=== PATIENT | female | born 1935 | race Asian ===

== ENCOUNTER 2017-10-27 22:08 | Inpatient (IN) | payer OTHER ==
--- NOTE | 2017-10-27 22:58 | PDOC ---
History of Present Illness - General History Source: Patient, Family Exam Limitations: No Limitations - History of Present Illness Initial Comments: 10/27/17 23:24 The patient is an 82 year old female, with a significant past medical history of hiatal hernia, anemia, hypertension, hypercholesterolemia, hypothyroidism and GERD, who presents to the ED complaining of multiple episodes of black stool diarrhea approx. 9 hours ago. As per patients son, the patient was in the restroom from approx. 2pm-3pm with multiple episodes of black diarrhea. He reports since then the patient has been reporting lower abdominal pain. He reports giving the patient steffen divya for the stomach pain within minimal relief. As per patients son, the patient was recently admitted twice in the past week to [facility] for a fever and diagnosed with influenza A ( discharged Tuesday and returned home Tuesday). He reports the patient finished her prescribed Tamiflu on Tuesday. She denies recent nausea or vomiting. She denies recent chest pain or shortness of breath. She denies recent dysuria, frequency, or hematuria. PCP: Dr. Alan <Jose Meadows - Last Filed: 10/27/17 23:42> <Juanis Grady - Last Filed: 10/28/17 01:59> - General Chief Complaint: Pain, Acute Stated Complaint: DIARRHEA Time Seen by Provider: 10/27/17 22:57 Past History <Jose Meadows - Last Filed: 10/27/17 23:42> - Past Medical History Anemia: Yes Asthma: No Cancer: No Cardiac Disorders: No CVA: No COPD: No CHF: No Dementia: No Diabetes: No GI Disorders: Yes (GERD) Disorders: Yes (H/O UTI) HTN: Yes Hypercholesterolemia: Yes Liver Disease: No Seizures: No Thyroid Disease: Yes (HYPOTHYROIDISM) - Surgical History Abdominal Surgery: Yes Appendectomy: No Cardiac Surgery: No Cholecystectomy: Yes Lung Surgery: No Neurologic Surgery: No Orthopedic Surgery: No - Suicide/Smoking/Psychosocial Hx Smoking History: Never smoked Have you smoked in the past 12 months: No Information on smoking cessation initiated: No Hx Alcohol Use: No Drug/Substance Use Hx: No Substance Use Type: None Hx Substance Use Treatment: No <Juanis Grady - Last Filed: 10/28/17 01:59> - Past Medical History Allergies/Adverse Reactions: Allergies Allergy/AdvReac Type Severity Reaction Status Date / Time No Known Allergies Allergy Verified 10/27/17 22:29 Home Medications: Ambulatory Orders Amlodipine Besylate [Norvasc -] 5 mg PO BID 10/25/14 Colesevelam HCl [Welchol] 625 mg PO DAILY 10/25/14 Cyclobenzaprine HCl [Flexeril] 5 mg PO TID 10/25/14 Gabapentin 600 mg PO BID 10/25/14 Levothyroxine [Synthroid -] 100 mcg PO DAILY 10/25/14 Losartan Potassium 50 mg PO DAILY 10/25/14 Acetaminophen/Caffeine/Butalb [Fioricet -] 1 tab PO Q6H #14 tablet MDD 4 Review of Systems - Review of Systems Comments:: 10/27/17 23:27 GENERAL/CONSTITUTIONAL: No fever or chills. No weakness. HEAD, EYES, EARS, NOSE AND THROAT: No change in vision. No ear pain or discharge. No sore throat. CARDIOVASCULAR: No chest pain or shortness of breath. RESPIRATORY: +Cough. No wheezing, or hemoptysis. GASTROINTESTINAL: +Lower abdominal pain. +Diarrhea. No nausea, vomiting. GENITOURINARY: No dysuria, frequency, or change in urination. MUSCULOSKELETAL: No joint or muscle swelling or pain. No neck or back pain. SKIN: No rash NEUROLOGIC: No headache, vertigo, loss of consciousness, or change in strength/ sensation. ENDOCRINE: No increased thirst. No abnormal weight change. HEMATOLOGIC/LYMPHATIC: No anemia, easy bleeding, or history of blood clots. ALLERGIC/IMMUNOLOGIC: No hives or skin allergy. <Jose Meadows - Last Filed: 10/27/17 23:42> *Physical Exam - Vital Signs Last Vital Signs Temp Pulse Resp BP Pulse Ox 99.8 F H 86 16 139/50 99 10/27/17 22:30 10/27/17 22:30 10/27/17 22:30 10/27/17 22:30 10/27/17 22:30 - Physical Exam Comments: 10/27/17 23:28 GENERAL: Awake, alert, and fully oriented. HEAD: No signs of trauma EYES: PERRLA, EOMI, sclera anicteric, conjunctiva clear ENT: Auricles normal inspection, hearing grossly normal, nares patent, oropharynx clear without exudates. Moist mucosa NECK: Normal ROM, supple, no lymphadenopathy, JVD, or masses LUNGS: Breath sounds equal, clear to auscultation bilaterally. No wheezes, and no crackles HEART: Regular rate and rhythm, normal S1 and S2, no murmurs, rubs or gallops ABDOMEN: +Mildly diffusely tender. +1st degree leary on abdomen with blistering. Soft,normoactive bowel sounds. RECTAL: No rectal bleeding, hemorrhoids, lesions or masses. EXTREMITIES: Normal range of motion, no edema. No clubbing or cyanosis. No cords, erythema, or tenderness NEUROLOGICAL: Cranial nerves II through XII grossly intact. Normal speech. SKIN: Warm, Dry, normal turgor, no rashes or lesions noted. <Jose Meadows - Last Filed: 10/27/17 23:42> - Vital Signs Last Vital Signs Temp Pulse Resp BP Pulse Ox 99.8 F H 86 16 139/50 99 10/27/17 22:30 10/27/17 22:30 10/27/17 22:30 10/27/17 22:30 10/27/17 22:30 <Juanis Grady - Last Filed: 10/28/17 01:59> Heart Score/ECG Review - ECG Intrepretation Comment:: 10/28/17 00:17 sinus at 77, LAFB, lvh, pvc, t wave inversions laterally, abnl ekg <Juanis Grady - Last Filed: 10/28/17 01:59> ED Treatment Course - LABORATORY CBC & Chemistry Diagram: 10/27/17 23:36 10/27/17 23:36 <Juanis Grady - Last Filed: 10/28/17 01:59> Medical Decision Making - Medical Decision Making 10/28/17 00:16 a/p: 82yo female with abd pain, melena, cough/recent influenza infection -diffuse abd pain -will check labs, lactate, ct abd/pelvis -will check stool for heme -will check blood cultures -still with cough -suspect gi bleeding -recently admitted twice at [facility] for influenza -will give ivf hydration, monitor and reassess 10/28/17 00:17 called by lab, stool heme card - label was not attached properly, cannot run the test 10/28/17 01:16 Patients Son is Kenneth [phone] 10/28/17 01:25 [place] [id number] wbc 10/28/17 01:44 pt will be signed out to the oncoming ED physician pending labs and CT abd/ pelvis zosyn started <Juanis Grady - Last Filed: 10/28/17 01:59> *DC/Admit/Observation/Transfer - Attestations Scribe Attestion: 10/27/17 23:30 Documentation prepared by Jose Meadows, acting as medical physicist for Juanis Grady DO. <Jose Meadows - Last Filed: 10/27/17 23:42> - Attestations Physician Attestion: 10/28/17 01:26 I, Dr. Juanis Grady DO, attest that this document has been prepared under my direction and personally reviewed by me in its entirety. I further attest, that it accurately reflects all work, treatment, procedures and medical decision -making performed by me. <Juanis Grady - Last Filed: 10/28/17 01:59> Diagnosis at time of Disposition: RUTH (acute kidney injury), Abdominal pain - Discharge Dispostion Condition at time of disposition: Fair - Referrals Referrals: Sanna Alan MD [Primary Care Provider] - - Patient Instructions - Post Discharge Activity
[2017-10-27] MEDS ORDERED: PANTOPRAZOLE SODIUM 40 MG VIAL IVPUSH ONE (23:13)
[2017-10-27] MEDS ORDERED: SODIUM CHLORIDE 0.9% 1000 ML INFUS.BAG IV ONE (23:13)
[2017-10-27] MEDS ORDERED: SILVER SULFADIAZINE 1% TOP CREAM 50 GM JAR TP ONE ×2 (23:14→23:51)
[2017-10-27] MEDS ORDERED: PANTOPRAZOLE SODIUM 40 MG VIAL ONE (23:51)
[2017-10-28 00:05] LABS: BASO % 0.1 % (0-2.0); EOS % 0.4 % (0-4.5); HEMATOCRIT 34.7 % (32.4-45.2); HEMOGLOBIN 11.5 GM/dL (10.7-15.3); LYMPH % 10.2 % (8-40); MCH 26.6 pg (25.7-33.7); MCHC 33.2 g/dl (32.0-36.0); MEAN CELL VOLUME 80.2 fl (80-96); MONO % 8.5 % (3.8-10.2); NEUT % 80.8 % (42.8-82.8); PLATELET COUNT 446 K/MM3 (134-434); RBC 4.32 M/mm3 (3.60-5.2); RDW 14.6 % (11.6-15.6); WHITE BLOOD COUNT 18.2 K/mm3 (4.0-10.0)
[2017-10-28 01:13] LABS: ALBUMIN 3.1 g/dl (3.4-5.0); ANION GAP 11 (8-16); BLOOD UREA NITROGEN 29 mg/dL (7-18); CALCIUM 9.4 mg/dL (8.5-10.1); CHLORIDE 93 mmol/L (98-107); CO2 26 mmol/L (21-32); CREATININE 1.4 mg/dL (0.55-1.02); GLUCOSE,RANDOM 114 mg/dL (74-106); LIPASE 112 U/L (73-393); MAGNESIUM 1.9 mg/dL (1.8-2.4); POTASSIUM 3.8 mmol/L (3.5-5.1); SGOT/AST 15 U/L (15-37); SGPT/ALT 24 U/L (12-78); SODIUM 130 mmol/L (136-145)
[2017-10-28 01:15] LABS: ALK PHOS 84 U/L (45-117); BILIRUBIN,TOTAL 0.8 mg/dL (0.2-1.0); TOT PROT 7.5 g/dl (6.4-8.2)
[2017-10-28] MEDS ORDERED: PIPERACIL/TAZOB 3.375 GM 3.375 GM/50 ML PREMIX IVPB ONE (01:30)
[2017-10-28 02:21] LABS: URINE APPEARANCE CLEAR; URINE BILIRUBIN NEGATIVE (NEGATIVE); URINE BLOOD NEGATIVE (NEGATIVE); URINE COLOR STRAW; URINE GLUCOSE (UA) NEGATIVE (NEGATIVE); URINE KETONE NEGATIVE (NEGATIVE); URINE LEUK ESTERASE NEGATIVE (NEGATIVE); URINE NITRITE NEGATIVE (NEGATIVE); URINE PROTEIN NEGATIVE (NEGATIVE); URINE UROBILINOGEN NEGATIVE mg/dL (0.2-1.0)
[2017-10-28] MEDS ORDERED: PIPERACILLIN/TAZOB 3.375 GM 3.375 GM/50 ML BAG IVPB ONE (02:50)
--- NOTE | 2017-10-28 04:07 | PDOC ---
*Physical Exam - Vital Signs Last Vital Signs Temp Pulse Resp BP Pulse Ox 99.8 F H 86 16 139/50 99 10/27/17 22:30 10/27/17 22:30 10/27/17 22:30 10/27/17 22:30 10/27/17 22:30 ED Treatment Course - LABORATORY CBC & Chemistry Diagram: 10/27/17 23:36 10/27/17 23:36 - ADDITIONAL ORDERS Additional order review: Laboratory Results 10/28/17 10/28/17 10/27/17 01:54 01:54 23:36 PTT (Actin FS) Sodium Potassium Chloride Carbon Dioxide Anion Gap BUN Creatinine Creat Clearance w eGFR Random Glucose Lactic Acid Calcium Magnesium Total Bilirubin AST ALT Alkaline Phosphatase Total Protein Albumin Lipase Urine Color Straw Urine Appearance Clear Urine pH 6.0 Ur Specific [place] 1.008 Urine Protein Negative Urine Glucose (UA) Negative Urine Ketones Negative Urine Blood Negative Urine Nitrite Negative Urine Bilirubin Negative Urine Urobilinogen Negative Ur Leukocyte Esterase Negative Stool Occult Blood Positive Blood Type A POSITIVE Antibody Screen Negative 10/27/17 10/27/17 10/27/17 23:36 23:36 23:36 PTT (Actin FS) 30.8 Sodium 130 L Potassium 3.8 Chloride 93 L Carbon Dioxide 26 Anion Gap 11 BUN 29 H Creatinine 1.4 H Creat Clearance w eGFR 36.00 Random Glucose 114 H Lactic Acid 1.1 Calcium 9.4 Magnesium 1.9 Total Bilirubin 0.8 D AST 15 ALT 24 Alkaline Phosphatase 84 Total Protein 7.5 Albumin 3.1 L Lipase 112 Urine Color Urine Appearance Urine pH Ur Specific [place] Urine Protein Urine Glucose (UA) Urine Ketones Urine Blood Urine Nitrite Urine Bilirubin Urine Urobilinogen Ur Leukocyte Esterase Stool Occult Blood Blood Type Antibody Screen 10/27/17 23:36 RBC 4.32 MCV 80.2 MCHC 33.2 RDW 14.6 MPV 9.0 Neutrophils % 80.8 D Lymphocytes % 10.2 D Monocytes % 8.5 Eosinophils % 0.4 D Basophils % 0.1 - Medications Given in the ED: ED Medications Discontinued Medications Generic Name Dose Route Start Last Admin Trade Name Freq PRN Reason Stop Dose Admin Fentanyl 25 mcg 10/27/17 23:48 10/28/17 00:00 Sublimaze Injection - IVPUSH 10/27/17 23:49 25 mcg ONCE ONE Administration Pantoprazole Sodium 40 mg 10/27/17 23:13 10/28/17 00:00 Protonix Iv IVPUSH 10/27/17 23:14 40 mg ONCE ONE Administration Silver Sulfadiazine 1 applic 10/27/17 23:14 10/28/17 00:44 Silvadene - TP 10/27/17 23:15 1 applic ONCE ONE Administration Sodium Chloride 1,000 ml 10/27/17 23:13 10/28/17 00:00 Normal Saline - IV 10/27/17 23:14 1,000 ml ONCE ONE Administration *DC/Admit/Observation/Transfer Diagnosis at time of Disposition: RUTH (acute kidney injury), Abdominal pain - Discharge Dispostion Condition at time of disposition: Stable Admit: Yes - Referrals Referrals: Sanna Alan MD [Primary Care Provider] - - Patient Instructions - Post Discharge Activity
[2017-10-28] MEDS ORDERED: PANTOPRAZOLE 40 MG TABLET (FP) PO ONE (05:24)
[2017-10-28] MEDS ORDERED: D5-1/2NS+10 MEQ KCL - 10 MEQ/1,000 ML INFUS.BAG IV SCH (05:30)
[2017-10-28] MEDS: CYCLOBENZAPRINE HCL 5 MG TABLET PO SCH ×2 (06:07→07:18)
[2017-10-28] MEDS ORDERED: PIPERACILLIN/TAZOB 3.375 GM 3.375 GM in DEXTROSE 5%-WATER - 100 ML IVPB ONE (06:30)
[2017-10-28] MEDS: LEVOTHYROXINE NA 100 MCG TABLET (FP) PO SCH (06:45)
[2017-10-28] MEDS ORDERED: PIPERACILLIN/TAZOBACTAM 2.25 GM VIAL IVPB ONE (06:46)
[2017-10-28] MEDS ORDERED: LEVOTHYROXINE NA 25 MCG TABLET (FP) ONE (06:46)
[2017-10-28 08:03] VITALS: BMI 27.4
--- NOTE | 2017-10-28 09:20 | HP ---
Admitting History and Physical - Primary Care Physician PCP: Simona Arambula - Admission Chief Complaint: Abdominal pain and cough History of Present Illness: 82 yrs old F with H/O HTN, Neuropathy, Hiatal Hernia, GERD chronic back pain present to Ed with 1 day H/O abdominal pain with loose stool, poor PO intake, patient has been feeling unwell for past 2 wks initially admitted at [facility] with Influenza A completed Tamiflu and discharged home, patient remained unwell so revisted [place] again , patient was observed and discharged home on PPI, 2 days ago developed abdominal pain nausea and black color stool with fever and Cough so last night present to Ed for further evaluation, patient put hot water bottle on abdomen developed burn blisters, Lab shows Elevated TWBC with Rt Ll Infiltrate and focal mesenteric inflmation, stool occult blood reported + in the ED. History Source: Patient - Past Medical History Gastrointestinal: Yes: Peptic Ulcer Disease Musculoskeletal: Yes: Chronic low back pain - Smoking History Smoking history: Never smoked Have you smoked in the past 12 months: No - Alcohol/Substance Use Hx Alcohol Use: No - Social History ADL: Family Assistance History of Recent Travel: No Home Medications - Allergies Allergies/Adverse Reactions: Allergies Allergy/AdvReac Type Severity Reaction Status Date / Time No Known Allergies Allergy Verified 10/27/17 22:29 - Home Medications Home Medications: Ambulatory Orders Amlodipine Besylate [Norvasc -] 5 mg PO BID 10/25/14 Colesevelam HCl [Welchol] 625 mg PO DAILY 10/25/14 Cyclobenzaprine HCl [Flexeril] 5 mg PO TID 10/25/14 Gabapentin 600 mg PO BID 10/25/14 Levothyroxine [Synthroid -] 100 mcg PO DAILY 10/25/14 Losartan Potassium 50 mg PO DAILY 10/25/14 Family Disease History - Family Disease History Family History: Unremarkable Review of Systems - Review of Systems Constitutional: reports: Chills, Diaphoresis, Fever, Lethargy Eyes: denies: Blind Spots, Blurred Vision HENT: denies: Difficult Swallowing, Ear Discharge Neck: denies: Decreased ROM, Lumps Cardiovascular: reports: Edema. denies: Chest Pain, Palpitations Respiratory: reports: Cough, SOB Gastrointestinal: reports: Abdominal Pain, Bloating, Diarrhea, Melena, Vomiting Genitourinary: denies: Burning, Discharge Musculoskeletal: reports: Back Pain Integumentary: reports: Blister Hematology/Lymphatic: denies: Easily Bruised, Excessive Bleeding Pain Intensity: 4 Physical Examination Vital Signs: Vital Signs Temperature 97.9 F 10/28/17 07:58 Pulse Rate 75 10/28/17 07:58 Respiratory Rate 16 10/28/17 07:58 Blood Pressure 137/54 10/28/17 08:00 O2 Sat by Pulse Oximetry (%) 97 10/28/17 07:58 Elderly F sick looking c/o abd pain HEENT: Mm dry, anemia NECK: No JVd No Bruit CHEST: B/L Crepts CVS: S1S2 R no m/g/r ABD: Skin burn, diffuse tenderness EXT: Tenderness, Pulses + ACADEMIC DEAN: AOX3 non focal Labs: CBC, BMP 10/27/17 23:36 10/27/17 23:36 Laboratory Results - last 24 hr 10/27/17 10/27/17 10/27/17 23:36 23:36 23:36 WBC RBC Hgb Hct MCV MCH MCHC RDW Plt Count MPV Neutrophils % Lymphocytes % Monocytes % Eosinophils % Basophils % PTT (Actin FS) 30.8 Sodium 130 L Potassium 3.8 Chloride 93 L Carbon Dioxide 26 Anion Gap 11 BUN 29 H Creatinine 1.4 H Creat Clearance w eGFR 36.00 Random Glucose 114 H Lactic Acid 1.1 Calcium 9.4 Magnesium 1.9 Total Bilirubin 0.8 D AST 15 ALT 24 Alkaline Phosphatase 84 Total Protein 7.5 Albumin 3.1 L Lipase 112 Urine Color Urine Appearance Urine pH Ur Specific [place] Urine Protein Urine Glucose (UA) Urine Ketones Urine Blood Urine Nitrite Urine Bilirubin Urine Urobilinogen Ur Leukocyte Esterase Stool Occult Blood Blood Type Antibody Screen 10/27/17 10/27/17 10/28/17 23:36 23:36 01:54 WBC 18.2 H D RBC 4.32 Hgb 11.5 Hct 34.7 MCV 80.2 MCH 26.6 MCHC 33.2 RDW 14.6 Plt Count 446 H MPV 9.0 Neutrophils % 80.8 D Lymphocytes % 10.2 D Monocytes % 8.5 Eosinophils % 0.4 D Basophils % 0.1 PTT (Actin FS) Sodium Potassium Chloride Carbon Dioxide Anion Gap BUN Creatinine Creat Clearance w eGFR Random Glucose Lactic Acid Calcium Magnesium Total Bilirubin AST ALT Alkaline Phosphatase Total Protein Albumin Lipase Urine Color Straw Urine Appearance Clear Urine pH 6.0 Ur Specific [place] 1.008 Urine Protein Negative Urine Glucose (UA) Negative Urine Ketones Negative Urine Blood Negative Urine Nitrite Negative Urine Bilirubin Negative Urine Urobilinogen Negative Ur Leukocyte Esterase Negative Stool Occult Blood Blood Type A POSITIVE Antibody Screen Negative 10/28/17 10/28/17 01:54 03:06 WBC RBC Hgb Hct MCV MCH MCHC RDW Plt Count MPV Neutrophils % Lymphocytes % Monocytes % Eosinophils % Basophils % PTT (Actin FS) Sodium Potassium Chloride Carbon Dioxide Anion Gap BUN Creatinine Creat Clearance w eGFR Random Glucose Lactic Acid 0.8 Calcium Magnesium Total Bilirubin AST ALT Alkaline Phosphatase Total Protein Albumin Lipase Urine Color Urine Appearance Urine pH Ur Specific [place] Urine Protein Urine Glucose (UA) Urine Ketones Urine Blood Urine Nitrite Urine Bilirubin Urine Urobilinogen Ur Leukocyte Esterase Stool Occult Blood Positive Blood Type Antibody Screen Imaging - Results X-ray: Report Reviewed (Hiatal Hernia) Cat Scan: Report Reviewed (Abdomen Hialtal Hernia Rt LL Infiltrate Mesenteric inflamation.) EKG: Report Reviewed (No acute St T chnages) Problem List - Problems (1) Abdominal pain Assessment/Plan: with nause and vomiting on PPI, NPO, GI Consult, Ct abd Mesenteric inflamation and Hiatal Hernia, cont IV PPI and Zofran PRN Code(s): R10.9 - UNSPECIFIED ABDOMINAL PAIN (2) RUTH (acute kidney injury) Assessment/Plan: Due to Dehydration F/U BMP Code(s): N17.9 - ACUTE KIDNEY FAILURE, UNSPECIFIED (3) Dehydration Assessment/Plan: DUe to nausea nd vomiting F/U BMP Code(s): E86.0 - DEHYDRATION (4) HTN (hypertension) Assessment/Plan: Well Controlled cont current meds Code(s): I10 - ESSENTIAL (PRIMARY) HYPERTENSION (5) Gastrointestinal hemorrhage with melena Assessment/Plan: Patient c/o abd pain melena, stool occult blood +, IV PPI, Serial H/H, GI consult Type and screen Code(s): K92.1 - MELENA (6) Anemia Code(s): D64.9 - ANEMIA, UNSPECIFIED (7) Neuropathy Assessment/Plan: Cont Home meds Code(s): G62.9 - POLYNEUROPATHY, UNSPECIFIED (8) HAP (hospital-acquired pneumonia) Assessment/Plan[facility] and elevated TWBC received Zosyn, blood culture F/U ID recommendations. Code(s): J18.9 - PNEUMONIA, UNSPECIFIED ORGANISM
--- NOTE | 2017-10-28 09:25 | EKG ---
Test Reason : Blood Pressure : / mmHG Vent. Rate : 077 BPM Atrial Rate : 077 BPM P-R Int : 176 ms QRS Dur : 102 ms QT Int : 384 ms P-R-T Axes : 041 -45 104 degrees QTc Int : 434 ms SINUS RHYTHM WITH OCCASIONAL PREMATURE VENTRICULAR COMPLEXES LEFT ANTERIOR FASCICULAR BLOCK LEFT VENTRICULAR HYPERTROPHY WITH REPOLARIZATION ABNORMALITY CANNOT RULE OUT SEPTAL INFARCT (CITED ON OR BEFORE 03-AUG-2016) ABNORMAL ECG WHEN COMPARED WITH ECG OF 03-AUG-2016 15:38, PREMATURE VENTRICULAR COMPLEXES ARE NOW PRESENT Confirmed by ROLAND DOTSON MD ([id number]) on 10/28/2017 9:24:35 AM Referred By: Confirmed By:ROLAND DOTSON MD
[2017-10-28] MEDS ORDERED: PATIENT'S OWN MEDICATION (NON-FORMULARY) (Colesevelam Hcl [Welchol] 625 MG) PO SCH (10:00)
[2017-10-28] MEDS ORDERED: CEFTRIAXONE 1 G/50 ML PREMIX 50 ML IVPB SCH (10:00)
[2017-10-28] MEDS ORDERED: MORPHINE SULFATE 10 MG/1 ML *VIAL IVPUSH PRN (10:18)
[2017-10-28] MEDS: ACETAMINOPHEN 325 MG TABLET (FP) PO PRN (10:31)
[2017-10-28] MEDS: GABAPENTIN 300 MG CAPSULE (FP) PO SCH ×2 (10:32→22:09)
[2017-10-28] MEDS: PANTOPRAZOLE SODIUM 40 MG VIAL IVPUSH SCH ×2 (10:33→22:09)
[2017-10-28] MEDS: amLODIPine BESYLATE 5 MG TABLET (FP) PO SCH ×2 (10:33→22:08)
[2017-10-28] MEDS ORDERED: ACETAMINOPHEN 325 MG TABLET (FP) ONE (10:35)
[2017-10-28 11:05] LABS: BASO % 0.2 % (0-2.0); EOS % 2.4 % (0-4.5); HEMATOCRIT 31.5 % (32.4-45.2); HEMOGLOBIN 10.3 GM/dL (10.7-15.3); LYMPH % 15.1 % (8-40); MCH 26.5 pg (25.7-33.7); MCHC 32.8 g/dl (32.0-36.0); MEAN CELL VOLUME 80.9 fl (80-96); MEAN PLT VOLUME 8.2 fl (7.5-11.1); MONO % 9.4 % (3.8-10.2); NEUT % 72.9 % (42.8-82.8); PLATELET COUNT 409 K/MM3 (134-434); RBC 3.89 M/mm3 (3.60-5.2); RDW 14.3 % (11.6-15.6); WHITE BLOOD COUNT 11.7 K/mm3 (4.0-10.0)
[2017-10-28 11:24] LABS: ALBUMIN 2.4 g/dl (3.4-5.0); ANION GAP 7 (8-16); BILIRUBIN,TOTAL 0.8 mg/dL (0.2-1.0); BLOOD UREA NITROGEN 20 mg/dL (7-18); CALCIUM 7.9 mg/dL (8.5-10.1); CHLORIDE 101 mmol/L (98-107); CO2 27 mmol/L (21-32); GLUCOSE,RANDOM 109 mg/dL (74-106); POTASSIUM 3.7 mmol/L (3.5-5.1); SGOT/AST 10 U/L (15-37); SGPT/ALT 18 U/L (12-78); SODIUM 135 mmol/L (136-145)
[2017-10-28 11:25] LABS: ALK PHOS 67 U/L (45-117)
[2017-10-28] MEDS: guaiFENesin/D-METHORPHAN HB 10 ML UNIT-DOSE CUPS PO PRN ×2 (11:32→22:13)
[2017-10-28] MEDS: ONDANSETRON 4 MG/2 ML VIAL IVPUSH PRN (11:32)
--- NOTE | 2017-10-28 12:53 | CON.GI ---
Consult Consult Specialty:: GI: Dr. Ochoa covering for Dr. Vidal Referred by:: Dr. Debra Ramires Reason for Consultation:: Dark bowel movements - History of Present Illness Chief Complaint: Patient somnolent when I examined her: history from chart History of Present Illness: 82F admitted for evaluation of dark BM's per the ER notes. The H&P describes loose BM's and general malaise as the admitting diagnosis but that she also developed black stool and abdominal pain 2 days ago. No overt bleeding has been reported since the patient has been in the ER and triage vitals revealed T : 97.9 P: 86 BP: 132/85. Ms. Rod's nurse explained that urinary retention was suspected and vazquez was placed with resultant 800cc urine output. Per the H &P, the patient was recently seen at [facility] for malaise, tested + for influenza and started on tamiflu. She was seen again at [facility] and ? discharged on PPI. She does complain of epigastric pain. 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 Neuropathy Cardio/Vascular: Yes: HTN Gastrointestinal: Yes: GERD, Hiatal Hernia Musculoskeletal: Yes: Chronic low back pain - Alcohol/Substance Use Hx Alcohol Use: No History of Substance Use: reports: None - Smoking History Smoking history: Never smoked Have you smoked in the past 12 months: No - Social History Usual Living Arrangement: Other (With family) History of Recent Travel: No Home Medications - Allergies Allergies/Adverse Reactions: Allergies Allergy/AdvReac Type Severity Reaction Status Date / Time No Known Allergies Allergy Verified 10/27/17 22:29 - Home Medications Home Medications: Ambulatory Orders Amlodipine Besylate [Norvasc -] 5 mg PO BID 10/25/14 Colesevelam HCl [Welchol] 625 mg PO DAILY 10/25/14 Cyclobenzaprine HCl [Flexeril] 5 mg PO TID 10/25/14 Gabapentin 600 mg PO BID 10/25/14 Levothyroxine [Synthroid -] 100 mcg PO DAILY 10/25/14 Losartan Potassium 50 mg PO DAILY 10/25/14 Family Disease History - Family Disease History Family History: Unable to Obtain (Patient lethargic) Review of Systems Unable to obtain ROS, reason: Limited - Review of Systems Constitutional: denies: Fever Gastrointestinal: reports: Abdominal Pain (epigastric) Physical Exam-GI Vital Signs: Vital Signs Temperature 97.8 F 10/28/17 12:35 Pulse Rate 74 10/28/17 12:35 Respiratory Rate 16 10/28/17 12:35 Blood Pressure 114/54 10/28/17 12:35 O2 Sat by Pulse Oximetry (%) 98 10/28/17 12:35 Constitutional: Yes: Calm Eyes: No: Sclera Icterus Cardiovascular: Yes: Regular Rate and Rhythm. No: Murmur Respiratory: Yes: Diminished (at bases, poor insp. effort) Gastrointestinal Inspection: Yes: Other (blistering right paramedian abdomen with silvadene cream applied by ER). No: Distention, Scars ...Auscultate: Yes: Normoactive Bowel Sounds ...Palpate: Yes: Soft, Tenderness (TTP epigastrium). No: Guarding, Tenderness, Rebound ...Percussion: No: Tympanitic ...Rectal Exam: Yes: Other (No external lesions, no masses, brown stool, guaiac negative) Edema: Yes Edema: LUE: Trace (hand), RUE: Trace (hand), LLE: Trace, RLE: Trace Neurological: Yes: Other (Somnolent) Labs: CBC, BMP 10/28/17 10:56 10/28/17 10:56 Hepatic Panel Total Bilirubin 0.8 mg/dL (0.2-1.0) 10/28/17 10:56 AST 10 U/L (15-37) L 10/28/17 10:56 ALT 18 U/L (12-78) 10/28/17 10:56 Alkaline Phosphatase 67 U/L (45-117) 10/28/17 10:56 Albumin 2.4 g/dl (3.4-5.0) L 10/28/17 10:56 Laboratory Tests 10/27/17 23:36 Lipase 112 Imaging - Results Cat Scan: Report Reviewed (right nephrolithiasis, RLL consolidation, Large HH with majority of stomach intrathoracic, ? stranding in right lower quadrant around small bowel loops, ? enteritis.), Image Reviewed Problem List - Problems (1) Abdominal pain Assessment/Plan: Mild epigastric tenderness upon palpation: Enteritis described on CT scan however remainder of abdominal exam unrevealing at this time. If epigastric pain persists and with ? mesenteric stranding findings, would consider Repeat CT scan with PO and IV contrast followed by EGD pending once Ms. Rod is more awake (somnolent however received opiate analgesia in ER earlier). Would also obtain surgical consult re: large hiatal hernia. Avoid NSAIDs Code(s): R10.9 - UNSPECIFIED ABDOMINAL PAIN (2) Gastrointestinal hemorrhage with melena Assessment/Plan: No signs of overt or occult GI bleeding at this time Avoid NSAIDs Continue PPI for now When patient more awake, would consider EGD Code(s): K92.1 - MELENA (3) Diarrhea Assessment/Plan: Currently no diarrhea Stool for C. Diff, culture, O&P if diarrhea occurs Code(s): R19.7 - DIARRHEA, UNSPECIFIED
[2017-10-28] MEDS ORDERED: CYCLOBENZAPRINE HCL 10 MG TABLET (FP) ONE (15:06)
[2017-10-28] MEDS: CYCLOBENZAPRINE HCL 10 MG TABLET (FP) PO SCH ×2 (15:06→22:09)
--- NOTE | 2017-10-28 16:50 | CON.ID ---
Consult Consult Specialty:: infectious disease Referred by:: Reason for Consultation:: pneumonia - History of Present Illness Chief Complaint: cough,sob, History of Present Illness: 82 yrs old F with H/O HTN, Neuropathy, Hiatal Hernia, GERD chronic back pain admitted with H/O abdominal pain with loose stool, poor PO intake, patient has been feeling unwell for past 2 wks initially admitted at [facility] with Influenza A completed Tamiflu and discharged home, patient remained unwell so revisted [place] again , patient was observed and discharged home on PPI, 2 days ago developed abdominal pain nausea and black color stool with fever . patient also continues to c/o cough with sputum mainly whitish and the abd discomfort and she is having lot of gurgling sounds according to her. she still feels as if she has not emptied her rectum and not able to pass gases patient was worked up and found to have lung pathology patient found to have large hiatal hernia which has caused her lot of problems - History Source History Provided By: Patient Limitations to Obtaining History: No Limitations - Past Medical History DISTRIBUTION DISPATCHER: Yes: Peripheral Neuropathy Cardio/Vascular: Yes: HTN Gastrointestinal: Yes: GERD, Hiatal Hernia Musculoskeletal: Yes: Chronic low back pain - Alcohol/Substance Use Hx Alcohol Use: No History of Substance Use: reports: None - Smoking History Smoking history: Never smoked Have you smoked in the past 12 months: No - Social History Usual Living Arrangement: Other (With family) History of Recent Travel: No Home Medications - Allergies Allergies/Adverse Reactions: Allergies Allergy/AdvReac Type Severity Reaction Status Date / Time No Known Allergies Allergy Verified 10/27/17 22:29 - Home Medications Home Medications: Ambulatory Orders Amlodipine Besylate [Norvasc -] 5 mg PO BID 10/25/14 Colesevelam HCl [Welchol] 625 mg PO DAILY 10/25/14 Cyclobenzaprine HCl [Flexeril] 5 mg PO TID 10/25/14 Gabapentin 600 mg PO BID 10/25/14 Levothyroxine [Synthroid -] 100 mcg PO DAILY 10/25/14 Losartan Potassium 50 mg PO DAILY 10/25/14 Review of Systems - Review of Systems Constitutional: reports: No Symptoms Eyes: reports: No Symptoms HENT: reports: No Symptoms Neck: reports: No Symptoms Cardiovascular: reports: No Symptoms Respiratory: reports: Cough, SOB, Other Gastrointestinal: reports: Abdominal Pain, Melena, Nausea Genitourinary: reports: No Symptoms Musculoskeletal: reports: No Symptoms Integumentary: reports: No Symptoms Neurological: reports: No Symptoms Endocrine: reports: No Symptoms Hematology/Lymphatic: reports: No Symptoms Psychiatric: reports: No Symptoms Physical Exam Vital Signs: Vital Signs Temperature 98.8 F 10/28/17 16:05 Pulse Rate 68 10/28/17 16:05 Respiratory Rate 16 10/28/17 16:05 Blood Pressure 114/62 10/28/17 16:05 O2 Sat by Pulse Oximetry (%) 98 10/28/17 16:05 Constitutional: Yes: Well Nourished, Calm, Mild Distress HENT: Yes: Atraumatic Neck: Yes: Supple, Trachea Midline Cardiovascular: Yes: Regular Rate and Rhythm Respiratory: Yes: Poor Air Entry, Other (decreased on the rt side) Gastrointestinal: Yes: Soft, Hyperactive Bowel Sounds, Tenderness Musculoskeletal: Yes: WNL Extremities: Yes: WNL Neurological: Yes: Alert, Oriented Psychiatric: Yes: Alert, Oriented Labs: CBC, BMP 10/28/17 10:56 10/28/17 10:56 Imaging - Results Chest X-ray: Report Reviewed, Image Reviewed Cat Scan: Report Reviewed, Image Reviewed Assessment/Plan Problem List - Problems (1) Abdominal pain Code(s): R10.9 - UNSPECIFIED ABDOMINAL PAIN (2) RUTH (acute kidney injury) Code(s): N17.9 - ACUTE KIDNEY FAILURE, UNSPECIFIED (3) Dehydration Code(s): E86.0 - DEHYDRATION (4) HTN (hypertension) Code(s): I10 - ESSENTIAL (PRIMARY) HYPERTENSION (5) Gastrointestinal hemorrhage with melena Code(s): K92.1 - MELENA (6) Anemia Code(s): D64.9 - ANEMIA, UNSPECIFIED (7) Neuropathy Code(s): G62.9 - POLYNEUROPATHY, UNSPECIFIED (8) HAP (hospital-acquired pneumonia) Code(s): J18.9 - PNEUMONIA, UNSPECIFIED ORGANISM plan will continue zosyn will need treatment for hiatal hernia close monitoring gi to see the patient
[2017-10-28] MEDS ORDERED: PNEUMOC 13-VAL CONJ-DIP CRM/PF 0.5 ML DISP.SYRIN IM ONE (18:43)
[2017-10-28] MEDS ORDERED: FLU VACCINE QUAD 60 MCG/0.5 ML (MDV 17-18) IM ONE (18:43)
[2017-10-28] MEDS: PIPERACILLIN/TAZOB 3.375 GM 3.375 GM in DEXTROSE 5%-WATER - 100 ML IVPB SCH (18:53)
[2017-10-28] MEDS: DEXTROSE 5%-0.45% SALINE 1,000 ML with POTASSIUM CHLORIDE 10 MEQ IV SCH (21:01)
[2017-10-28] MEDS ORDERED: PT OWN MED DRAWER 7, Y5N ONE (23:42)
[2017-10-29] MEDS: PIPERACILLIN/TAZOB 3.375 GM 3.375 GM in DEXTROSE 5%-WATER - 100 ML IVPB SCH ×3 (02:22→18:16)
[2017-10-29] MEDS: LEVOTHYROXINE NA 100 MCG TABLET (FP) PO SCH (06:43)
[2017-10-29] MEDS: CYCLOBENZAPRINE HCL 10 MG TABLET (FP) PO SCH ×3 (06:43→21:06)
[2017-10-29 07:31] LABS: BASO % 0.5 % (0-2.0); EOS % 4.2 % (0-4.5); HEMATOCRIT 27.6 % (32.4-45.2); HEMOGLOBIN 9.1 GM/dL (10.7-15.3); LYMPH % 16.4 % (8-40); MCH 26.7 pg (25.7-33.7); MCHC 33.1 g/dl (32.0-36.0); MEAN CELL VOLUME 80.6 fl (80-96); MEAN PLT VOLUME 8.2 fl (7.5-11.1); MONO % 11.3 % (3.8-10.2); NEUT % 67.6 % (42.8-82.8); PLATELET COUNT 423 K/MM3 (134-434); RBC 3.43 M/mm3 (3.60-5.2); RDW 14.5 % (11.6-15.6); WHITE BLOOD COUNT 10.3 K/mm3 (4.0-10.0)
[2017-10-29 07:53] LABS: ALBUMIN 2.1 g/dl (3.4-5.0); ANION GAP 6 (8-16); BLOOD UREA NITROGEN 12 mg/dL (7-18); CALCIUM 8.4 mg/dL (8.5-10.1); CHLORIDE 100 mmol/L (98-107); CO2 28 mmol/L (21-32); GLUCOSE,RANDOM 100 mg/dL (74-106); SGPT/ALT 16 U/L (12-78); SODIUM 134 mmol/L (136-145)
[2017-10-29 07:56] LABS: ALK PHOS 62 U/L (45-117); BILIRUBIN,TOTAL 0.7 mg/dL (0.2-1.0); CREATININE 0.8 mg/dL (0.55-1.02); SGOT/AST 11 U/L (15-37); TOT PROT 5.5 g/dl (6.4-8.2)
[2017-10-29] MEDS: DEXTROSE 5%-0.45% SALINE 1,000 ML with POTASSIUM CHLORIDE 10 MEQ IV SCH ×2 (10:35→21:06)
[2017-10-29] MEDS: GABAPENTIN 300 MG CAPSULE (FP) PO SCH ×2 (10:41→21:06)
[2017-10-29] MEDS: PANTOPRAZOLE SODIUM 40 MG VIAL IVPUSH SCH ×2 (10:42→21:06)
[2017-10-29] MEDS: amLODIPine BESYLATE 5 MG TABLET (FP) PO SCH ×2 (10:42→21:06)
[2017-10-29] MEDS ORDERED: PT OWN MED DRAWER 7, Y5N ONE ×2 (10:55→17:51)
--- NOTE | 2017-10-29 11:24 | PN ---
Progress Note, Physician History of Present Illness: starting to feel better abd better says she is passing gases and feels better coughing still continuing - Current Medication List Current Medications: Active Medications Acetaminophen (Tylenol -) 650 mg PO Q6H PRN PRN Reason: FEVER Last Admin: 10/28/17 10:31 Dose: 650 mg Amlodipine Besylate (Norvasc -) 5 mg PO BID [facility] Last Admin: 10/29/17 10:42 Dose: 5 mg Cyclobenzaprine HCl (Flexeril -) 5 mg PO TID [facility] Last Admin: 10/29/17 06:43 Dose: 5 mg Gabapentin (Neurontin -) 600 mg PO BID [facility] Last Admin: 10/29/17 10:41 Dose: 600 mg Guaifenesin (Robitussin Dm -) 10 ml PO Q6H PRN PRN Reason: COUGH Last Admin: 10/28/17 22:13 Dose: 10 ml Piperacillin Sod/Tazobactam (Sod 3.375 gm/ Dextrose) 100 mls @ 200 mls/hr IVPB Q8H-IV [facility] PRN Reason: Protocol Last Admin: 10/29/17 10:57 Dose: 200 mls/hr Potassium Chloride 10 meq/ (Dextrose/Sodium Chloride) 1,005 mls @ 100 mls/hr IV Q10H [facility] Last Admin: 10/29/17 10:35 Dose: 100 mls/hr Levothyroxine Sodium (Synthroid -) 100 mcg PO DAILY@0700 [facility] Last Admin: 10/29/17 06:43 Dose: 100 mcg Morphine Sulfate (Morphine Injection -) 2 mg IVPUSH Q6H PRN PRN Reason: PAIN LEVEL 6-10 Non-Formulary Medication (Colesevelam Hcl [Welchol]) 625 mg PO DAILY [facility] Last Admin: 10/28/17 10:32 Dose: Not Given Ondansetron HCl (Zofran Injection) 4 mg IVPUSH Q6H PRN PRN Reason: NAUSEA Last Admin: 10/28/17 11:32 Dose: 4 mg Pantoprazole Sodium (Protonix Iv) 40 mg IVPUSH BID [facility] Last Admin: 10/29/17 10:42 Dose: 40 mg - Objective Vital Signs: Vital Signs Temperature 97.7 F 10/29/17 06:00 Pulse Rate 74 10/29/17 06:00 Respiratory Rate 18 10/29/17 06:00 Blood Pressure 108/51 10/29/17 06:00 O2 Sat by Pulse Oximetry (%) 99 10/28/17 21:00 Constitutional: Yes: No Distress, Calm Cardiovascular: Yes: Regular Rate and Rhythm Respiratory: Yes: Regular, Poor Air Entry, Other Gastrointestinal: Yes: Soft, Hyperactive Bowel Sounds Musculoskeletal: Yes: WNL Extremities: Yes: WNL Neurological: Yes: Alert, Oriented Psychiatric: Yes: Alert, Oriented Labs: CBC, BMP 10/29/17 07:15 10/29/17 07:15 Assessment/Plan Problem List - Problems (1) Abdominal pain Code(s): R10.9 - UNSPECIFIED ABDOMINAL PAIN (2) RUTH (acute kidney injury) Code(s): N17.9 - ACUTE KIDNEY FAILURE, UNSPECIFIED (3) Dehydration Code(s): E86.0 - DEHYDRATION (4) HTN (hypertension) Code(s): I10 - ESSENTIAL (PRIMARY) HYPERTENSION (5) Gastrointestinal hemorrhage with melena Code(s): K92.1 - MELENA (6) Anemia Code(s): D64.9 - ANEMIA, UNSPECIFIED (7) Neuropathy Code(s): G62.9 - POLYNEUROPATHY, UNSPECIFIED (8) HAP (hospital-acquired pneumonia) Code(s): J18.9 - PNEUMONIA, UNSPECIFIED ORGANISM plan continue abx hydration rest as per gi patient stable
--- NOTE | 2017-10-29 12:46 | PN ---
Progress Note, Physician Chief Complaint: no diarrhea today yesterday loose stool C Diff in progress.Feels improved no fever tolerating PO History of Present Illness: 82 yrs old F with H/O HTN, Neuropathy, Hiatal Hernia, GERD chronic back pain present to Ed with 1 day H/O abdominal pain with loose stool, poor PO intake, patient has been feeling unwell for past 2 wks initially admitted at [facility] with Influenza A completed Tamiflu and discharged home, patient remained unwell so revisted [place] again , patient was observed and discharged home on PPI, 2 days ago developed abdominal pain nausea and black color stool with fever and Cough so last night present to Ed for further evaluation, patient put hot water bottle on abdomen developed burn blisters, Lab shows Elevated TWBC with Rt Ll Infiltrate and focal mesenteric inflamation. , stool occult blood reported + in the ED. - Current Medication List Current Medications: Active Medications Acetaminophen (Tylenol -) 650 mg PO Q6H PRN PRN Reason: FEVER Last Admin: 10/28/17 10:31 Dose: 650 mg Amlodipine Besylate (Norvasc -) 5 mg PO BID [facility] Last Admin: 10/29/17 10:42 Dose: 5 mg Cyclobenzaprine HCl (Flexeril -) 5 mg PO TID [facility] Last Admin: 10/29/17 06:43 Dose: 5 mg Gabapentin (Neurontin -) 600 mg PO BID [facility] Last Admin: 10/29/17 10:41 Dose: 600 mg Guaifenesin (Robitussin Dm -) 10 ml PO Q6H PRN PRN Reason: COUGH Last Admin: 10/28/17 22:13 Dose: 10 ml Piperacillin Sod/Tazobactam (Sod 3.375 gm/ Dextrose) 100 mls @ 200 mls/hr IVPB Q8H-IV [facility] PRN Reason: Protocol Last Admin: 10/29/17 10:57 Dose: 200 mls/hr Potassium Chloride 10 meq/ (Dextrose/Sodium Chloride) 1,005 mls @ 100 mls/hr IV Q10H [facility] Last Admin: 10/29/17 10:35 Dose: 100 mls/hr Levothyroxine Sodium (Synthroid -) 100 mcg PO DAILY@0700 [facility] Last Admin: 10/29/17 06:43 Dose: 100 mcg Morphine Sulfate (Morphine Injection -) 2 mg IVPUSH Q6H PRN PRN Reason: PAIN LEVEL 6-10 Non-Formulary Medication (Colesevelam Hcl [Welchol]) 625 mg PO DAILY [facility] Last Admin: 10/28/17 10:32 Dose: Not Given Ondansetron HCl (Zofran Injection) 4 mg IVPUSH Q6H PRN PRN Reason: NAUSEA Last Admin: 10/28/17 11:32 Dose: 4 mg Pantoprazole Sodium (Protonix Iv) 40 mg IVPUSH BID [facility] Last Admin: 10/29/17 10:42 Dose: 40 mg - Objective Vital Signs: Vital Signs Temperature 97.7 F 10/29/17 06:00 Pulse Rate 74 10/29/17 06:00 Respiratory Rate 18 10/29/17 06:00 Blood Pressure 108/51 10/29/17 06:00 O2 Sat by Pulse Oximetry (%) 99 10/28/17 21:00 Elderly comfortable feels improved HEENT: Mm dry, anemia NECK: No JVd No Bruit CHEST: B/L Crepts CVS: S1S2 R no m/g/r ABD: Skin burn, diffuse tenderness EXT: Tenderness, Pulses + 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 EXTRUDER: 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 non focal Labs: CBC, BMP 10/29/17 07:15 10/29/17 07:15 Problem List - Problems (1) Abdominal pain Assessment/Plan: Improving GI input appreciated tolerating PO will advance as tolerates, cont PPI Code(s): R10.9 - UNSPECIFIED ABDOMINAL PAIN (2) RUTH (acute kidney injury) Assessment/Plan: Due to Dehydration now resolved F/U F/U BMP Code(s): N17.9 - ACUTE KIDNEY FAILURE, UNSPECIFIED (3) HTN (hypertension) Code(s): I10 - ESSENTIAL (PRIMARY) HYPERTENSION (4) Gastrointestinal hemorrhage with melena Assessment/Plan: Patient c/o abd pain melena, stool occult blood +, IV PPI, Serial H/H, GI consult Type and screen Code(s): K92.1 - MELENA (5) Anemia Assessment/Plan: Chronic anaemia f/u anemi aw/u Code(s): D64.9 - ANEMIA, UNSPECIFIED (6) Neuropathy Assessment/Plan: Cont Home meds Code(s): G62.9 - POLYNEUROPATHY, UNSPECIFIED (7) HAP (hospital-acquired pneumonia) Assessment/Plan: Recent;ly discharged from [facility] Rt Ll Infiltrate cough and elevated TWBC received Zosyn, blood culture F/U ID recommendations. Code(s): J18.9 - PNEUMONIA, UNSPECIFIED ORGANISM (8) Urinary retention Assessment/Plan: Improving F/U voiding trial is passes DC [place]. Code(s): R33.9 - RETENTION OF URINE, UNSPECIFIED
[2017-10-29] MEDS ORDERED: MAGNESIUM SULF 50% (8.12 MEQ/2 ML-1 GM VIAL) IVPB ONE (14:24)
--- NOTE | 2017-10-29 14:39 | CON.CARD ---
Cardiology Consult (text) - Consultation Consultation Note: Chief Complaint: Abdominal pain and cough History of Present Illness: 82 yo F with H/O HTN, periphral neuropathy, Hiatal Hernia, GERD/PUD, hiatal hernia, chronic back pain and admission to [facility] with Influenza A this past week who p/w abd pain/diarrhea/? melena. Was hyponatremic on presentation to [place] with flu --> hctz was stopped. s/p tx course with tamiflu + poor PO intake over past 2 weeks since she has had flu. + epigastric pain + recurrence of fever and Cough since d/c from [place] this week. cough improved. + cp with cough and palpation of bilateral lateral chest. (otherwise no cp) In ER urinary retention was suspected and vazquez was placed with resultant 800cc urine output. was recently started on mobic for OA a few months ago. --> Now with possible blood in stool --> off per recs from GI c/s here. On IVF here. pmhx/pshx: per hpi social hx: Never smoked fam hx: no premature cad ros: per phi Ambulatory Orders Amlodipine Besylate [Norvasc -] 5 mg PO BID 10/25/14 Colesevelam HCl [Welchol] 625 mg PO DAILY 10/25/14 Cyclobenzaprine HCl [Flexeril] 5 mg PO TID 10/25/14 Gabapentin 600 mg PO BID 10/25/14 Levothyroxine [Synthroid -] 100 mcg PO DAILY 10/25/14 Losartan Potassium 50 mg PO DAILY 10/25/14 Current Medications Acetaminophen (Tylenol -) 650 mg PO Q6H PRN PRN Reason: FEVER Last Admin: 10/28/17 10:31 Dose: 650 mg Amlodipine Besylate (Norvasc -) 5 mg PO BID [facility] Last Admin: 10/29/17 10:42 Dose: 5 mg Cyclobenzaprine HCl (Flexeril -) 5 mg PO TID [facility] Last Admin: 10/29/17 06:43 Dose: 5 mg Gabapentin (Neurontin -) 600 mg PO BID [facility] Last Admin: 10/29/17 10:41 Dose: 600 mg Guaifenesin (Robitussin Dm -) 10 ml PO Q6H PRN PRN Reason: COUGH Last Admin: 10/28/17 22:13 Dose: 10 ml Piperacillin Sod/Tazobactam (Sod 3.375 gm/ Dextrose) 100 mls @ 200 mls/hr IVPB Q8H-IV [facility] PRN Reason: Protocol Last Admin: 10/29/17 10:57 Dose: 200 mls/hr Potassium Chloride 10 meq/ (Dextrose/Sodium Chloride) 1,005 mls @ 100 mls/hr IV Q10H [facility] Last Admin: 10/29/17 10:35 Dose: 100 mls/hr Levothyroxine Sodium (Synthroid -) 100 mcg PO DAILY@0700 [facility] Last Admin: 10/29/17 06:43 Dose: 100 mcg Morphine Sulfate (Morphine Injection -) 2 mg IVPUSH Q6H PRN PRN Reason: PAIN LEVEL 6-10 Non-Formulary Medication (Colesevelam Hcl [Welchol]) 625 mg PO DAILY [facility] Last Admin: 10/28/17 10:32 Dose: Not Given Ondansetron HCl (Zofran Injection) 4 mg IVPUSH Q6H PRN PRN Reason: NAUSEA Last Admin: 10/28/17 11:32 Dose: 4 mg Pantoprazole Sodium (Protonix Iv) 40 mg IVPUSH BID [facility] Last Admin: 10/29/17 10:42 Dose: 40 mg Vital Signs - 24 hr 10/28/17 10/28/17 10/28/17 16:05 18:32 21:00 Temperature 98.8 F 97.8 F Pulse Rate 74 Pulse Rate [ 68 Right Radial] Respiratory 16 16 18 Rate Blood Pressure 146/59 Blood Pressure 114/62 [Right Arm] O2 Sat by Pulse 98 98 99 Oximetry (%) 10/29/17 10/29/17 06:00 10:00 Temperature 97.7 F Pulse Rate 74 72 Pulse Rate [ Right Radial] Respiratory 18 20 Rate Blood Pressure 108/51 140/64 Blood Pressure [Right Arm] O2 Sat by Pulse Oximetry (%) Intake & Output 10/27/17 10/28/17 10/29/17 10/30/17 07:59 07:59 07:59 07:59 Intake Total 1100 420 Output Total 1200 1200 Balance -100 -780 Weight 119 lb 150 lb nad, calm no jvd, neck supple cta bl nl eff rrr, nl s1s2 no mrg ttp of intercostal space + bs soft mild tenderness to palpation, nd no le le/c/c +dp pt no carotid bruits no jaundice diaphoresis aaox3 CBC, BMP 10/29/17 07:15 10/29/17 07:15 Laboratory Tests 10/28/17 10/28/17 10/29/17 01:54 19:00 07:15 Magnesium 1.7 L AST 11 L ALT 16 Alkaline Phosphatase 62 Albumin 2.1 L Stool Occult Blood Positive ekg: SR with pvc's. LAD. LAFB. LVH with repol and qrs widening. poor r wave progression. no acute ischemic changes. unchanged from priors. ct abd/pelvis: images and report reviewed. RLL consolidation/pna. large hiatal hernia with intrathoracic stomach. mild inflammatory changes in RLQ. see emr for full details. 82 yo F with H/O HTN, periphral neuropathy, Hiatal Hernia, GERD/PUD, hiatal hernia, chronic back pain and admission to [facility] with Influenza A this past week who p/w abd pain/diarrhea/? melena. htn - hctz on hold in setting of poor po intake/hyponatremia, con't IVF. monitor volume status with daily weights, I/O's - bp labile, if still with intermittent low sbp's will consider decreasing norvasc dose tomorrow. inducible cp - inducible with cough or palpation of intercostal muscles. likely msk, 2/2 prolonged coughing last week in setting of flu. influenza/pna - on abx. per pmd/ID ? GIB - + occult blood. GI following. stopped nsaids for tx of pain.
[2017-10-29] MEDS ORDERED: MAGNESIUM SULFATE IN WATER 2 GM/50 ML IVPB IVPB ONE (14:45)
[2017-10-29 15:41] LABS: PREALBUMIN 9.46 mg/dl (20.-40)
[2017-10-30] MEDS: DEXTROSE 5%-0.45% SALINE 1,000 ML with POTASSIUM CHLORIDE 10 MEQ IV SCH (01:00)
[2017-10-30] MEDS: PIPERACILLIN/TAZOB 3.375 GM 3.375 GM in DEXTROSE 5%-WATER - 100 ML IVPB SCH ×3 (01:31→17:08)
[2017-10-30] MEDS: CYCLOBENZAPRINE HCL 10 MG TABLET (FP) PO SCH ×2 (06:11→21:08)
[2017-10-30] MEDS: LEVOTHYROXINE NA 100 MCG TABLET (FP) PO SCH (06:11)
[2017-10-30] MEDS ORDERED: PT OWN MED DRAWER 7, Y5N ONE ×2 (10:43→16:33)
[2017-10-30] MEDS: GABAPENTIN 300 MG CAPSULE (FP) PO SCH ×2 (10:44→21:08)
[2017-10-30] MEDS: amLODIPine BESYLATE 5 MG TABLET (FP) PO SCH ×2 (10:44→21:08)
[2017-10-30 10:45] LABS: BASO % 0.7 % (0-2.0); EOS % 3.8 % (0-4.5); HEMATOCRIT 29.8 % (32.4-45.2); HEMOGLOBIN 9.8 GM/dL (10.7-15.3); LYMPH % 20.6 % (8-40); MCH 27.1 pg (25.7-33.7); MEAN PLT VOLUME 8.1 fl (7.5-11.1); MONO % 11.4 % (3.8-10.2); NEUT % 63.5 % (42.8-82.8); PLATELET COUNT 469 K/MM3 (134-434); RBC 3.63 M/mm3 (3.60-5.2); RDW 14.5 % (11.6-15.6)
[2017-10-30] MEDS: PANTOPRAZOLE SODIUM 40 MG VIAL IVPUSH SCH ×2 (10:45→21:53)
[2017-10-30 10:49] LABS: ANION GAP 9 (8-16); BLOOD UREA NITROGEN 7 mg/dL (7-18); CALCIUM 8.7 mg/dL (8.5-10.1); CHLORIDE 99 mmol/L (98-107); CO2 28 mmol/L (21-32); CREATININE 0.8 mg/dL (0.55-1.02); GLUCOSE,RANDOM 101 mg/dL (74-106); POTASSIUM 3.9 mmol/L (3.5-5.1); SODIUM 136 mmol/L (136-145)
--- NOTE | 2017-10-30 12:26 | PN ---
Progress Note, Physician Chief Complaint: Tolerating PO feels improved c/o Cough and SOB History of Present Illness: 82 yrs old F with H/O HTN, Neuropathy, Hiatal Hernia, GERD chronic back pain present to Ed with 1 day H/O abdominal pain with loose stool, poor PO intake, patient has been feeling unwell for past 2 wks initially admitted at [facility] with Influenza A completed Tamiflu and discharged home, patient remained unwell so revisted [place] again , patient was observed and discharged home on PPI, 2 days ago developed abdominal pain nausea and black color stool with fever and Cough so last night present to Ed for further evaluation, patient put hot water bottle on abdomen developed burn blisters, Lab shows Elevated TWBC with Rt Ll Infiltrate and focal mesenteric inflamation. , stool occult blood reported + in the ED. - Current Medication List Current Medications: Active Medications Acetaminophen (Tylenol -) 650 mg PO Q6H PRN PRN Reason: FEVER Last Admin: 10/28/17 10:31 Dose: 650 mg Albuterol/Ipratropium (Duoneb -) 1 amp NEB Q6H PRN PRN Reason: SHORTNESS OF BREATH Amlodipine Besylate (Norvasc -) 5 mg PO BID [facility] Last Admin: 10/30/17 10:44 Dose: 5 mg Cyclobenzaprine HCl (Flexeril -) 5 mg PO BID [facility] Gabapentin (Neurontin -) 600 mg PO BID [facility] Last Admin: 10/30/17 10:44 Dose: 600 mg Guaifenesin (Robitussin Dm -) 10 ml PO Q6H PRN PRN Reason: COUGH Last Admin: 10/28/17 22:13 Dose: 10 ml Piperacillin Sod/Tazobactam (Sod 3.375 gm/ Dextrose) 100 mls @ 200 mls/hr IVPB Q8H-IV [facility] PRN Reason: Protocol Last Admin: 10/30/17 10:56 Dose: 200 mls/hr Levothyroxine Sodium (Synthroid -) 100 mcg PO DAILY@0700 [facility] Last Admin: 10/30/17 06:11 Dose: 100 mcg Morphine Sulfate (Morphine Injection -) 2 mg IVPUSH Q6H PRN PRN Reason: PAIN LEVEL 6-10 Non-Formulary Medication (Colesevelam Hcl [Welchol]) 625 mg PO DAILY [facility] Last Admin: 10/28/17 10:32 Dose: Not Given Ondansetron HCl (Zofran Injection) 4 mg IVPUSH Q6H PRN PRN Reason: NAUSEA Last Admin: 10/28/17 11:32 Dose: 4 mg Pantoprazole Sodium (Protonix Iv) 40 mg IVPUSH BID [facility] Last Admin: 10/30/17 10:45 Dose: 40 mg Fluticasone/Salmeterol (Advair 100mcg/50mcg -) 1 puff IH BID [facility] - Objective Vital Signs: Vital Signs Temperature 97.7 F 10/30/17 06:13 Pulse Rate 67 10/30/17 06:13 Respiratory Rate 18 10/30/17 06:13 Blood Pressure 117/47 10/30/17 06:13 O2 Sat by Pulse Oximetry (%) 98 10/29/17 21:00 Elderly comfortable feels improved HEENT: Mm dry, anemia NECK: No JVd No Bruit CHEST: B/L Crepts and wheezes CVS: S1S2 R no m/g/r ABD: Skin burn, diffuse tenderness EXT: Tenderness, Pulses + 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: 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 non focal Labs: CBC, BMP 10/30/17 10:30 10/30/17 10:36 Problem List - Problems (1) Abdominal pain Assessment/Plan: Improving GI input appreciated tolerating PO will advance as tolerates, cont PPI Code(s): R10.9 - UNSPECIFIED ABDOMINAL PAIN (2) RUTH (acute kidney injury) Assessment/Plan: Due to Dehydration now resolved F/U F/U BMP Code(s): N17.9 - ACUTE KIDNEY FAILURE, UNSPECIFIED (3) HTN (hypertension) Assessment/Plan: Well Controlled cont current meds Code(s): I10 - ESSENTIAL (PRIMARY) HYPERTENSION (4) Gastrointestinal hemorrhage with melena Assessment/Plan: Pain improved will discuss with GI for date of EGD Code(s): K92.1 - MELENA (5) Anemia Assessment/Plan: Chronic anaemia f/u anemia w/u Code(s): D64.9 - ANEMIA, UNSPECIFIED (6) Neuropathy Assessment/Plan: Cont Home meds Code(s): G62.9 - POLYNEUROPATHY, UNSPECIFIED (7) HAP (hospital-acquired pneumonia) Assessment/Plan: Recent;ly discharged from [facility] Rt Ll Infiltrate cough and elevated TWBC received Zosyn, blood culture F/U ID recommendations. Code(s): J18.9 - PNEUMONIA, UNSPECIFIED ORGANISM (8) Reactive airway disease Assessment/Plan: Post Viral add Advair and PRN Duoneb, insentive spirometry Code(s): J45.909 - UNSPECIFIED ASTHMA, UNCOMPLICATED
[2017-10-30] MEDS: FLUTICASONE/SALMETEROL 100 MCG/50 MCG DISKUS IH SCH ×2 (14:53→21:07)
--- NOTE | 2017-10-30 15:24 | PN ---
Progress Note, Physician History of Present Illness: patient still continues to cough overall better stool normal color according to her abd pain much better - Current Medication List Current Medications: Active Medications Acetaminophen (Tylenol -) 650 mg PO Q6H PRN PRN Reason: FEVER Last Admin: 10/28/17 10:31 Dose: 650 mg Albuterol/Ipratropium (Duoneb -) 1 amp NEB Q6H PRN PRN Reason: SHORTNESS OF BREATH Amlodipine Besylate (Norvasc -) 5 mg PO BID [facility] Last Admin: 10/30/17 10:44 Dose: 5 mg Cyclobenzaprine HCl (Flexeril -) 5 mg PO BID [facility] Gabapentin (Neurontin -) 600 mg PO BID [facility] Last Admin: 10/30/17 10:44 Dose: 600 mg Guaifenesin (Robitussin Dm -) 10 ml PO Q6H PRN PRN Reason: COUGH Last Admin: 10/28/17 22:13 Dose: 10 ml Piperacillin Sod/Tazobactam (Sod 3.375 gm/ Dextrose) 100 mls @ 200 mls/hr IVPB Q8H-IV [facility] PRN Reason: Protocol Last Admin: 10/30/17 10:56 Dose: 200 mls/hr Levothyroxine Sodium (Synthroid -) 100 mcg PO DAILY@0700 [facility] Last Admin: 10/30/17 06:11 Dose: 100 mcg Morphine Sulfate (Morphine Injection -) 2 mg IVPUSH Q6H PRN PRN Reason: PAIN LEVEL 6-10 Non-Formulary Medication (Colesevelam Hcl [Welchol]) 625 mg PO DAILY [facility] Last Admin: 10/28/17 10:32 Dose: Not Given Ondansetron HCl (Zofran Injection) 4 mg IVPUSH Q6H PRN PRN Reason: NAUSEA Last Admin: 10/28/17 11:32 Dose: 4 mg Pantoprazole Sodium (Protonix Iv) 40 mg IVPUSH BID [facility] Last Admin: 10/30/17 10:45 Dose: 40 mg Fluticasone/Salmeterol (Advair 100mcg/50mcg -) 1 puff IH BID [facility] Last Admin: 10/30/17 14:53 Dose: 1 puff - Objective Vital Signs: Vital Signs Temperature 97.7 F 10/30/17 06:13 Pulse Rate 67 10/30/17 06:13 Respiratory Rate 10/30/17 06:13 Blood Pressure 117/47 10/30/17 06:13 O2 Sat by Pulse Oximetry (%) 98 10/29/17 21:00 Constitutional: Yes: Calm, Mild Distress Cardiovascular: Yes: Regular Rate and Rhythm Respiratory: Yes: Poor Air Entry, Rhonchi Gastrointestinal: Yes: Normal Bowel Sounds, Soft Musculoskeletal: Yes: WNL Extremities: Yes: WNL Neurological: Yes: Alert, Oriented Psychiatric: Yes: Alert, Oriented Labs: CBC, BMP 10/30/17 10:30 10/30/17 10:36 Assessment/Plan Problem List - Problems (1) Abdominal pain Code(s): R10.9 - UNSPECIFIED ABDOMINAL PAIN (2) RUTH (acute kidney injury) Code(s): N17.9 - ACUTE KIDNEY FAILURE, UNSPECIFIED (3) Dehydration Code(s): E86.0 - DEHYDRATION (4) HTN (hypertension) Code(s): I10 - ESSENTIAL (PRIMARY) HYPERTENSION (5) Gastrointestinal hemorrhage with melena Code(s): K92.1 - MELENA (6) Anemia Code(s): D64.9 - ANEMIA, UNSPECIFIED (7) Neuropathy Code(s): G62.9 - POLYNEUROPATHY, UNSPECIFIED (8) HAP (hospital-acquired pneumonia) Code(s): J18.9 - PNEUMONIA, UNSPECIFIED ORGANISM plan continue abx hydration rest as per gi patient stable
--- NOTE | 2017-10-30 15:56 | PN ---
GI Progress Note Subjective: GI Note: Maksim tells me that her stool remains black. She feels bloated but denies colicky abdominal pain. She does c/o a cough and the inability to cough anything up. Her CT does reveal a RLL pneumonia and a focus of enteritis She is also recovering from the flu. She asked me to speak with her son in law, Kenneth who reports that Maksim has had repeated returns to [facility] for c/o abdominal bloating discomfort and loose stool which was managed with a PPI. She was also treated for the flu. He tells me that prior to the flu she was moving her bowels regularly and that Dr Martin feels she has aspiration pneumonia due to a bowel obstruction. She has been tolerating solids. No response to GasEX. She had an EGD and a colonoscopy with Dr Mott within the past 3 years and was told she had a hiatal hernia. She has not had hematemesis or overt rectal bleeding. Her stool has tested negative for C diff toxin. She is chronically on Welchol and gabapentin. - Objective Vital Signs: Vital Signs Temperature 97.8 F 10/30/17 15:38 Pulse Rate 81 10/30/17 15:38 Respiratory Rate 18 10/30/17 15:38 Blood Pressure 139/73 10/30/17 15:38 O2 Sat by Pulse Oximetry (%) 98 10/29/17 21:00 Laboratory Tests 10/27/17 10/28/17 10/30/17 23:36 10:56 10:30 WBC 18.2 H D 9.0 Hgb 11.5 9.8 L Total Bilirubin 0.8 AST 10 L ALT 18 Alkaline Phosphatase 67 Albumin 2.4 L Constitutional: Anxious Eyes: Yes: Conjunctiva Clear Cardiovascular: Yes: Regular Rate and Rhythm Respiratory: Yes: Rhonchi (RLL) Gastrointestinal Inspection: Yes: Distention ...Auscultate: Yes: Hypoactive Bowel Sounds ...Palpate: Yes: Soft, Other (nontender) ...Percussion: Yes: Tympanitic ...Rectal Exam: Yes: Guaiac Negative (loose dark brown stool) Labs: CBC, BMP 10/30/17 10:30 10/30/17 10:36 Problem List - Problems (1) Abdominal pain Assessment/Plan: The entire picture of bloating abdominal pain, diarrhea and bleeding may reflect the enteritis noted on CT. Will investigate this with CT enterography to exclude a malignancy, Meckles diverticulum and Crohns. I explained to her and Kenneth than an EGD is relatively contraindicated by her pneumonia and furthermore would insufflate her intestines and aggravate her bloating. I have discussed the case with Dr. Ramires. She may alternatively have a postinfluenza ileus aggravated by Welchol, gabapentin and flexeril and her diarrhea may be paradoxical. Code(s): R10.9 - UNSPECIFIED ABDOMINAL PAIN (2) Diarrhea Code(s): R19.7 - DIARRHEA, UNSPECIFIED (3) Gastrointestinal hemorrhage with melena Code(s): K92.1 - MELENA
--- NOTE | 2017-10-30 16:02 | PN ---
Progress Note (short form) - Note Progress Note: Chief Complaint: Abdominal pain and cough S: Still with occasional severe cough with associated pain in chest/ribs. no sob, palps, dizziness. Current Medications Acetaminophen (Tylenol -) 650 mg PO Q6H PRN PRN Reason: FEVER Last Admin: 10/28/17 10:31 Dose: 650 mg Albuterol/Ipratropium (Duoneb -) 1 amp NEB Q6H PRN PRN Reason: SHORTNESS OF BREATH Amlodipine Besylate (Norvasc -) 5 mg PO BID [facility] Last Admin: 10/30/17 10:44 Dose: 5 mg Cyclobenzaprine HCl (Flexeril -) 5 mg PO BID [facility] Gabapentin (Neurontin -) 600 mg PO BID [facility] Last Admin: 10/30/17 10:44 Dose: 600 mg Guaifenesin (Robitussin Dm -) 10 ml PO Q6H PRN PRN Reason: COUGH Last Admin: 10/28/17 22:13 Dose: 10 ml Piperacillin Sod/Tazobactam (Sod 3.375 gm/ Dextrose) 100 mls @ 200 mls/hr IVPB Q8H-IV RAJAT PRN Reason: Protocol Last Admin: 10/30/17 10:56 Dose: 200 mls/hr Levothyroxine Sodium (Synthroid -) 100 mcg PO DAILY@0700 [facility] Last Admin: 10/30/17 06:11 Dose: 100 mcg Morphine Sulfate (Morphine Injection -) 2 mg IVPUSH Q6H PRN PRN Reason: PAIN LEVEL 6-10 Non-Formulary Medication (Colesevelam Hcl [Welchol]) 625 mg PO DAILY [facility] Last Admin: 10/28/17 10:32 Dose: Not Given Ondansetron HCl (Zofran Injection) 4 mg IVPUSH Q6H PRN PRN Reason: NAUSEA Last Admin: 10/28/17 11:32 Dose: 4 mg Pantoprazole Sodium (Protonix Iv) 40 mg IVPUSH BID [facility] Last Admin: 10/30/17 10:45 Dose: 40 mg Fluticasone/Salmeterol (Advair 100mcg/50mcg -) 1 puff IH BID [facility] Last Admin: 10/30/17 14:53 Dose: 1 puff Vital Signs - 24 hr 10/29/17 10/29/17 10/29/17 19:09 21:00 21:01 Temperature 99.0 F 99.5 F Pulse Rate 83 78 Respiratory 20 18 Rate Blood Pressure 121/51 123/43 O2 Sat by Pulse 98 Oximetry (%) 10/30/17 10/30/17 06:13 15:38 Temperature 97.7 F 97.8 F Pulse Rate 67 81 Respiratory 18 18 Rate Blood Pressure 117/47 139/73 O2 Sat by Pulse Oximetry (%) Intake & Output 10/28/17 10/29/17 10/30/17 10/31/17 07:59 07:59 07:59 07:59 Intake Total 1100 2600 650 Output Total 1200 2050 Balance -100 550 650 Weight 119 lb 150 lb nad, calm no jvd, neck supple bibasilar rales, nl eff rrr, nl s1s2 no mrg ttp of intercostal space + bs soft mild tenderness to palpation, nd no le le/c/c +dp pt no carotid bruits no jaundice diaphoresis aaox3 CBC, BMP 10/30/17 10:30 Laboratory Tests 10/27/17 10/30/17 23:36 07:15 Hgb 11.5 Sodium 136 Potassium 3.9 Chloride 99 Carbon Dioxide 28 Anion Gap 9 BUN 7 Creatinine 0.8 Magnesium 2.0 ekg: SR with pvc's. LAD. LAFB. LVH with repol and qrs widening. poor r wave progression. no acute ischemic changes. unchanged from priors. ct abd/pelvis: images and report reviewed. RLL consolidation/pna. large hiatal hernia with intrathoracic stomach. mild inflammatory changes in RLQ. see emr for full details. echo 03/2017, 1+ conc lvh (1.3 cm). Nl lv/rv size/fn. 1+ lae. 1+ focal mac with mild functional ms (MG 3 mmHg, 67 bpm). 1+ mr. 1+ phtn. small ivc. 82 yo F with H/O HTN, periphral neuropathy, Hiatal Hernia, GERD/PUD, hiatal hernia, chronic back pain and admission to [facility] with Influenza A this past week who p/w abd pain/diarrhea/? melena. htn - hctz on hold in setting of poor po intake/hyponatremia. hyponatremia now resolved s/p IVF. - bp stable on norvasc 5 mg bid. con't to monitor. inducible cp - inducible with cough or palpation of intercostal muscles. likely msk, 2/2 prolonged coughing last week in setting of flu. - lyte repletion prn influenza/pna - on abx. per pmd/ID ? GIB, possible melena/bloody stool prior to admit - + occult blood, hgb trending down. GI following. plan for CT enterography. - stopped nsaids for tx of pain.
[2017-10-31] MEDS: PIPERACILLIN/TAZOB 3.375 GM 3.375 GM in DEXTROSE 5%-WATER - 100 ML IVPB SCH ×3 (01:24→17:58)
[2017-10-31] MEDS: LEVOTHYROXINE NA 100 MCG TABLET (FP) PO SCH (06:28)
[2017-10-31 07:55] LABS: BASO % 0.5 % (0-2.0); HEMOGLOBIN 10.8 GM/dL (10.7-15.3); LYMPH % 22.5 % (8-40); MCH 26.7 pg (25.7-33.7); MCHC 32.8 g/dl (32.0-36.0); MEAN CELL VOLUME 81.4 fl (80-96); MEAN PLT VOLUME 7.9 fl (7.5-11.1); MONO % 8.1 % (3.8-10.2); NEUT % 65.9 % (42.8-82.8); PLATELET COUNT 606 K/MM3 (134-434); RBC 4.05 M/mm3 (3.60-5.2); RDW 14.1 % (11.6-15.6); WHITE BLOOD COUNT 10.6 K/mm3 (4.0-10.0)
[2017-10-31 07:58] LABS: HEMATOCRIT 33.4 % (32.4-45.2); MCH 26.8 pg (25.7-33.7); MCHC 32.9 g/dl (32.0-36.0); MEAN CELL VOLUME 81.5 fl (80-96); MEAN PLT VOLUME 7.9 fl (7.5-11.1); PLATELET COUNT 583 K/MM3 (134-434); RDW 14.8 % (11.6-15.6); RETICULOCYTES 1.48 % (0.5-1.5); WHITE BLOOD COUNT 10.7 K/mm3 (4.0-10.0)
[2017-10-31 08:19] LABS: ALBUMIN 2.4 g/dl (3.4-5.0); ANION GAP 9 (8-16); BLOOD UREA NITROGEN 6 mg/dL (7-18); CALCIUM 9.5 mg/dL (8.5-10.1); CHLORIDE 97 mmol/L (98-107); CO2 30 mmol/L (21-32); CREATININE 0.8 mg/dL (0.55-1.02); GLUCOSE,RANDOM 83 mg/dL (74-106); SGOT/AST 10 U/L (15-37); SGPT/ALT 17 U/L (12-78); SODIUM 136 mmol/L (136-145)
[2017-10-31 08:21] LABS: ALK PHOS 74 U/L (45-117); BILIRUBIN,TOTAL 0.6 mg/dL (0.2-1.0); TOT PROT 6.5 g/dl (6.4-8.2)
--- NOTE | 2017-10-31 09:13 | PN ---
Progress Note, Physician - Current Medication List Current Medications: Active Medications Acetaminophen (Tylenol -) 650 mg PO Q6H PRN PRN Reason: FEVER Last Admin: 10/28/17 10:31 Dose: 650 mg Albuterol/Ipratropium (Duoneb -) 1 amp NEB Q6H PRN PRN Reason: SHORTNESS OF BREATH Amlodipine Besylate (Norvasc -) 5 mg PO BID [facility] Last Admin: 10/30/17 21:08 Dose: 5 mg Cyclobenzaprine HCl (Flexeril -) 5 mg PO BID [facility] Last Admin: 10/30/17 21:08 Dose: 5 mg Gabapentin (Neurontin -) 600 mg PO BID [facility] Last Admin: 10/30/17 21:08 Dose: 600 mg Guaifenesin (Robitussin Dm -) 10 ml PO Q6H PRN PRN Reason: COUGH Last Admin: 10/28/17 22:13 Dose: 10 ml Piperacillin Sod/Tazobactam (Sod 3.375 gm/ Dextrose) 100 mls @ 200 mls/hr IVPB Q8H-IV RAJAT PRN Reason: Protocol Last Admin: 10/31/17 01:24 Dose: 200 mls/hr Levothyroxine Sodium (Synthroid -) 100 mcg PO DAILY@0700 [facility] Last Admin: 10/31/17 06:28 Dose: 100 mcg Morphine Sulfate (Morphine Injection -) 2 mg IVPUSH Q6H PRN PRN Reason: PAIN LEVEL 6-10 Non-Formulary Medication (Colesevelam Hcl [Welchol]) 625 mg PO DAILY [facility] Last Admin: 10/28/17 10:32 Dose: Not Given Ondansetron HCl (Zofran Injection) 4 mg IVPUSH Q6H PRN PRN Reason: NAUSEA Last Admin: 10/28/17 11:32 Dose: 4 mg Pantoprazole Sodium (Protonix Iv) 40 mg IVPUSH BID [facility] Last Admin: 10/30/17 21:53 Dose: 40 mg Fluticasone/Salmeterol (Advair 100mcg/50mcg -) 1 puff IH BID [facility] Last Admin: 10/30/17 21:07 Dose: Not Given - Objective Vital Signs: Vital Signs Temperature 98.4 F 10/31/17 06:20 Pulse Rate 73 10/31/17 06:20 Respiratory Rate 18 10/31/17 06:20 Blood Pressure 139/63 10/31/17 06:20 O2 Sat by Pulse Oximetry (%) 96 10/30/17 21:00 Labs: CBC, BMP 10/31/17 06:30 10/31/17 06:30 Assessment/Plan ekg: SR with pvc's. LVH with repol abn, unchanged from priors. ct abd/pelvis: images and report reviewed (dr cali): RLL consolidation/pna. large hiatal hernia with intrathoracic stomach. mild inflammatory changes in RLQ. see emr for full details. Echo 03/2017, 1+ conc lvh (1.3 cm). Nl lv/rv size/fn. 1+ lae. 1+ focal mac with mild functional ms (MG 3 mmHg, 67 bpm). 1+ mr. 1+ phtn. small ivc. 82 yo F with H/O HTN, periphral neuropathy, Hiatal Hernia, GERD/PUD, hiatal hernia, chronic back pain and admission to [facility] with Influenza A this past week who p/w abd pain/diarrhea/? melena. htn - hctz on hold in setting of poor po intake/hyponatremia. hyponatremia now resolved s/p IVF. - bp stable on norvasc 5 mg bid. con't to monitor. inducible cp - inducible with cough or palpation of intercostal muscles--c/w msk - no ekg changes influenza/pna - on abx. per pmd/ID ? GIB, possible melena/bloody stool prior to admit - + occult blood in stool, hgb trending down. GI following. plan for CT enterography. - stopped nsaids for tx of pain.
--- NOTE | 2017-10-31 09:34 | PN ---
Progress Note, Physician Chief Complaint: Still c/o cough with expectoration, afebrile epigastric pain after meals History of Present Illness: 82 yrs old F with H/O HTN, Neuropathy, Hiatal Hernia, GERD chronic back pain present to Ed with 1 day H/O abdominal pain with loose stool, poor PO intake, patient has been feeling unwell for past 2 wks initially admitted at [facility] with Influenza A completed Tamiflu and discharged home, patient remained unwell so revisted [place] again , patient was observed and discharged home on PPI, 2 days ago developed abdominal pain nausea and black color stool with fever and Cough so last night present to Ed for further evaluation, patient put hot water bottle on abdomen developed burn blisters, Lab shows Elevated TWBC with Rt Ll Infiltrate and focal mesenteric inflammation., stool occult blood reported + in the ED. Evaluated by ID, GI, and cardiology consult. - Current Medication List Current Medications: Active Medications Acetaminophen (Tylenol -) 650 mg PO Q6H PRN PRN Reason: FEVER Last Admin: 10/28/17 10:31 Dose: 650 mg Albuterol/Ipratropium (Duoneb -) 1 amp NEB Q6H PRN PRN Reason: SHORTNESS OF BREATH Amlodipine Besylate (Norvasc -) 5 mg PO BID [facility] Last Admin: 10/30/17 21:08 Dose: 5 mg Cyclobenzaprine HCl (Flexeril -) 5 mg PO BID [facility] Last Admin: 10/30/17 21:08 Dose: 5 mg Gabapentin (Neurontin -) 600 mg PO BID [facility] Last Admin: 10/30/17 21:08 Dose: 600 mg Guaifenesin (Robitussin Dm -) 10 ml PO Q6H PRN PRN Reason: COUGH Last Admin: 10/28/17 22:13 Dose: 10 ml Piperacillin Sod/Tazobactam (Sod 3.375 gm/ Dextrose) 100 mls @ 200 mls/hr IVPB Q8H-IV RAJAT PRN Reason: Protocol Last Admin: 10/31/17 01:24 Dose: 200 mls/hr Levothyroxine Sodium (Synthroid -) 100 mcg PO DAILY@0700 [facility] Last Admin: 10/31/17 06:28 Dose: 100 mcg Morphine Sulfate (Morphine Injection -) 2 mg IVPUSH Q6H PRN PRN Reason: PAIN LEVEL 6-10 Non-Formulary Medication (Colesevelam Hcl [Welchol]) 625 mg PO DAILY [facility] Last Admin: 10/28/17 10:32 Dose: Not Given Ondansetron HCl (Zofran Injection) 4 mg IVPUSH Q6H PRN PRN Reason: NAUSEA Last Admin: 10/28/17 11:32 Dose: 4 mg Pantoprazole Sodium (Protonix Iv) 40 mg IVPUSH BID [facility] Last Admin: 10/30/17 21:53 Dose: 40 mg Fluticasone/Salmeterol (Advair 100mcg/50mcg -) 1 puff IH BID [facility] Last Admin: 10/30/17 21:07 Dose: Not Given - Objective Vital Signs: Vital Signs Temperature 98.4 F 10/31/17 06:20 Pulse Rate 73 10/31/17 06:20 Respiratory Rate 18 10/31/17 06:20 Blood Pressure 139/63 10/31/17 06:20 O2 Sat by Pulse Oximetry (%) 96 10/30/17 21:00 Elderly F c/o epigastric pain after meals HEENT: Mm moist mild anemia NECK; No JVd No Bruit CHEST: Minimal Crepts, Gut sounds in lower left thorax CVS; S1S2 R no m/g/r ABD: Mild Epigastric pain BS + EXT: Trace edema , pulses + SAWDUST DRIER: AOX3 non focal Labs: CBC, BMP 10/31/17 06:30 10/31/17 06:30 Problem List - Problems (1) Abdominal pain Assessment/Plan: Improving GI input appreciated tolerating PO will advance as tolerates, cont PPI , Surgery consult for large Hiatal hernia. Code(s): R10.9 - UNSPECIFIED ABDOMINAL PAIN (2) HTN (hypertension) Code(s): I10 - ESSENTIAL (PRIMARY) HYPERTENSION (3) Gastrointestinal hemorrhage with melena Assessment/Plan: Still aepigastric pain after meals, stool soft brown no melena, add Maalox for GERD symptomatic relief Code(s): K92.1 - MELENA (4) Anemia Assessment/Plan: Chronic anaemia f/u anemia w/u H/H stable Code(s): D64.9 - ANEMIA, UNSPECIFIED (5) Neuropathy Assessment/Plan: Cont Home meds Code(s): G62.9 - POLYNEUROPATHY, UNSPECIFIED (6) HAP (hospital-acquired pneumonia) Assessment/Plan: Recent;ly discharged from Hospital Rt Ll Infiltrate cough and elevated TWBC on admission trended normal received Zosyn, blood culture -ve will order sputum culture F/U ID recommendations for duration and down grade abx coverage.. Code(s): J18.9 - PNEUMONIA, UNSPECIFIED ORGANISM (7) Reactive airway disease Assessment/Plan: Post Viral reactive airway dises improving cont add Advair and PRN Duoneb, incentive spirometry Code(s): J45.909 - UNSPECIFIED ASTHMA, UNCOMPLICATED (8) Malnutrition Assessment/Plan: albumin 2.1 nutrition consult add ensure Code(s): E46 - UNSPECIFIED PROTEIN-CALORIE MALNUTRITION
[2017-10-31] MEDS ORDERED: MAG HYDROX/AL HYDROX/SIMETH 30 ML UNIT-DOSE CUP PO PRN (09:37)
[2017-10-31] MEDS ORDERED: PT OWN MED DRAWER 7, Y5N ONE ×3 (10:36→21:05)
--- NOTE | 2017-10-31 11:34 | CON.PULM ---
Consult Consult Specialty:: PULM/CCM Referred by:: SHMUEL Reason for Consultation:: PNA - History of Present Illness Chief Complaint: black stools History of Present Illness: 82 F, HTN, Neuropathy, Hiatal Hernia, GERD, and chronic low back pain. Admitted via the ER with 1 day of abdominal pain with loose stool and poor PO intake. Apparently recently admitted to [facility] with Influenza and completed a course of Tamiflu. Continued to feel generalized weakness and fatigue. Admitted for further workup of dark stools and dry cough No hemoptysis. No apparent travel history or sick contacts. CXR : Clear / hiatal hernia. 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 Cardio/Vascular: Yes: HTN Gastrointestinal: Yes: Peptic Ulcer Disease Musculoskeletal: Yes: Chronic low back pain - Alcohol/Substance Use Hx Alcohol Use: No History of Substance Use: reports: None - Smoking History Smoking history: Never smoked Have you smoked in the past 12 months: No - Social History Usual Living Arrangement: Other (With family) ADL: Family Assistance History of Recent Travel: No Home Medications - Allergies Allergies/Adverse Reactions: Allergies Allergy/AdvReac Type Severity Reaction Status Date / Time No Known Allergies Allergy Verified 10/27/17 22:29 - Home Medications Home Medications: Ambulatory Orders Amlodipine Besylate [Norvasc -] 5 mg PO BID 10/25/14 Colesevelam HCl [Welchol] 625 mg PO DAILY 10/25/14 Cyclobenzaprine HCl [Flexeril] 5 mg PO TID 10/25/14 Gabapentin 600 mg PO BID 10/25/14 Levothyroxine [Synthroid -] 100 mcg PO DAILY 10/25/14 Losartan Potassium 50 mg PO DAILY 10/25/14 Review of Systems - Review of Systems Constitutional: reports: Chills, Fever, Lethargy, Loss of Appetite, Malaise, Weakness. denies: Night Sweats, Unintentional Wgt. Loss Eyes: reports: No Symptoms HENT: reports: No Symptoms Neck: reports: No Symptoms Cardiovascular: reports: Shortness of Breath. denies: Chest Pain, Edema, Palpitations Respiratory: reports: Cough, SOB, SOB on Exertion. denies: Hemoptysis, Snoring , Wheezing Gastrointestinal: reports: Abdominal Pain, Bloating, Melena. denies: Rectal Bleeding, Vomiting, Vomiting Blood Genitourinary: reports: No Symptoms Breasts: reports: No Symptoms Reported Musculoskeletal: reports: Back Pain Integumentary: reports: No Symptoms Neurological: reports: No Symptoms Endocrine: reports: No Symptoms Hematology/Lymphatic: reports: No Symptoms Psychiatric: reports: No Symptoms Physical Exam Vital Sings: Vital Signs Temperature 98.4 F 10/31/17 06:20 Pulse Rate 73 10/31/17 06:20 Respiratory Rate 18 10/31/17 06:20 Blood Pressure 139/63 10/31/17 06:20 O2 Sat by Pulse Oximetry (%) 96 10/30/17 21:00 Constitutional: Yes: No Distress, Thin Eyes: Yes: Conjunctiva Clear, EOM Intact HENT: Yes: Atraumatic, Normocephalic Neck: Yes: Supple, Trachea Midline Cardiovascular: Yes: Regular Rate and Rhythm Respiratory: Yes: CTA Bilaterally. No: Accessory Muscle Use, On Nasal O2, Rales , Rhonchi, SOB, Stridor, Tachypnea, Wheezes ...Inspection: Yes: WNL ...Clubbing: No Gastrointestinal: Yes: Normal Bowel Sounds, Soft Renal/: Yes: WNL Musculoskeletal: Yes: WNL Extremities: Yes: WNL Edema: No Peripheral Pulses WNL: Yes Integumentary: Yes: WNL Neurological: Yes: WNL, Alert, Oriented ...Motor Strength: WNL Psychiatric: Yes: WNL, Alert, Oriented Labs: CBC, BMP 10/31/17 06:30 10/31/17 06:30 Imaging - Results Chest X-ray: Report Reviewed, Image Reviewed Cat Scan: Report Reviewed Problem List - Problems (1) RUTH (acute kidney injury) Code(s): N17.9 - ACUTE KIDNEY FAILURE, UNSPECIFIED (2) Abdominal pain Code(s): R10.9 - UNSPECIFIED ABDOMINAL PAIN (3) Anemia Code(s): D64.9 - ANEMIA, UNSPECIFIED (4) Dehydration Code(s): E86.0 - DEHYDRATION (5) Diarrhea Code(s): R19.7 - DIARRHEA, UNSPECIFIED (6) Gastrointestinal hemorrhage with melena Code(s): K92.1 - MELENA (7) HAP (hospital-acquired pneumonia) Code(s): J18.9 - PNEUMONIA, UNSPECIFIED ORGANISM (8) HTN (hypertension) Code(s): I10 - ESSENTIAL (PRIMARY) HYPERTENSION (9) Neuropathy Code(s): G62.9 - POLYNEUROPATHY, UNSPECIFIED (10) Hiatal hernia Code(s): K44.9 - DIAPHRAGMATIC HERNIA WITHOUT OBSTRUCTION OR GANGRENE Assessment/Plan ABX per ID Check sputum O2 as needed GI workup ongoing Noted Advair added BD TX VTE prophylaxis Will follow Dr Kern
--- NOTE | 2017-10-31 11:56 | PN ---
Progress Note, Physician History of Present Illness: patient feeling better no complaints except weakness and cannot eat much patient for imaging studies - Current Medication List Current Medications: Active Medications Acetaminophen (Tylenol -) 650 mg PO Q6H PRN PRN Reason: FEVER Last Admin: 10/28/17 10:31 Dose: 650 mg Al Hydroxide/Mg Hydroxide (Mylanta Oral Suspension -) 30 ml PO Q6H PRN PRN Reason: DYSPEPSIA Albuterol/Ipratropium (Duoneb -) 1 amp NEB Q6H PRN PRN Reason: SHORTNESS OF BREATH Amlodipine Besylate (Norvasc -) 5 mg PO BID [facility] Last Admin: 10/30/17 21:08 Dose: 5 mg Cyclobenzaprine HCl (Flexeril -) 5 mg PO BID [facility] Last Admin: 10/30/17 21:08 Dose: 5 mg Gabapentin (Neurontin -) 600 mg PO BID [facility] Last Admin: 10/30/17 21:08 Dose: 600 mg Guaifenesin (Robitussin Dm -) 10 ml PO Q6H PRN PRN Reason: COUGH Last Admin: 10/28/17 22:13 Dose: 10 ml Piperacillin Sod/Tazobactam (Sod 3.375 gm/ Dextrose) 100 mls @ 200 mls/hr IVPB Q8H-IV RAJAT PRN Reason: Protocol Last Admin: 10/31/17 01:24 Dose: 200 mls/hr Levothyroxine Sodium (Synthroid -) 100 mcg PO DAILY@0700 [facility] Last Admin: 10/31/17 06:28 Dose: 100 mcg Non-Formulary Medication (Colesevelam Hcl [Welchol]) 625 mg PO DAILY [facility] Last Admin: 10/28/17 10:32 Dose: Not Given Ondansetron HCl (Zofran Injection) 4 mg IVPUSH Q6H PRN PRN Reason: NAUSEA Last Admin: 10/28/17 11:32 Dose: 4 mg Pantoprazole Sodium (Protonix Iv) 40 mg IVPUSH BID [facility] Last Admin: 10/30/17 21:53 Dose: 40 mg Fluticasone/Salmeterol (Advair 100mcg/50mcg -) 1 puff IH BID [facility] Last Admin: 10/30/17 21:07 Dose: Not Given - Objective Vital Signs: Vital Signs Temperature 98.4 F 10/31/17 10:00 Pulse Rate 85 10/31/17 10:00 Respiratory Rate 21 10/31/17 10:00 Blood Pressure 150/75 10/31/17 10:00 O2 Sat by Pulse Oximetry (%) 96 10/30/17 21:00 Constitutional: Yes: No Distress, Calm Cardiovascular: Yes: Regular Rate and Rhythm Respiratory: Yes: Regular, CTA Bilaterally Gastrointestinal: Yes: Normal Bowel Sounds, Soft Musculoskeletal: Yes: WNL Extremities: Yes: WNL Neurological: Yes: Alert, Oriented Psychiatric: Yes: Alert, Oriented Labs: CBC, BMP 10/31/17 06:30 10/31/17 06:30 Assessment/Plan Problem List - Problems (1) Abdominal pain Code(s): R10.9 - UNSPECIFIED ABDOMINAL PAIN (2) RUTH (acute kidney injury) Code(s): N17.9 - ACUTE KIDNEY FAILURE, UNSPECIFIED (3) Dehydration Code(s): E86.0 - DEHYDRATION (4) HTN (hypertension) Code(s): I10 - ESSENTIAL (PRIMARY) HYPERTENSION (5) Gastrointestinal hemorrhage with melena Code(s): K92.1 - MELENA (6) Anemia Code(s): D64.9 - ANEMIA, UNSPECIFIED (7) Neuropathy Code(s): G62.9 - POLYNEUROPATHY, UNSPECIFIED (8) HAP (hospital-acquired pneumonia) Code(s): J18.9 - PNEUMONIA, UNSPECIFIED ORGANISM plan continue abx hydration rest as per gi patient stable once we have the imaging studies will decide further
--- NOTE | 2017-10-31 14:33 | PN ---
Progress Note (short form) - Note Progress Note: Chief Complaint: Abdominal pain and cough S: + chills this evening and severe shoulder pain --> checked temp at bedside --> febrile. no sob, abd pain, cp, palps, dizziness. Current Medications Acetaminophen (Tylenol -) 650 mg PO Q6H PRN PRN Reason: FEVER Last Admin: 10/28/17 10:31 Dose: 650 mg Al Hydroxide/Mg Hydroxide (Mylanta Oral Suspension -) 30 ml PO Q6H PRN PRN Reason: DYSPEPSIA Albuterol/Ipratropium (Duoneb -) 1 amp NEB Q6H PRN PRN Reason: SHORTNESS OF BREATH Amlodipine Besylate (Norvasc -) 5 mg PO BID [facility] Last Admin: 10/30/17 21:08 Dose: 5 mg Cyclobenzaprine HCl (Flexeril -) 5 mg PO BID [facility] Last Admin: 10/30/17 21:08 Dose: 5 mg Gabapentin (Neurontin -) 600 mg PO BID [facility] Last Admin: 10/30/17 21:08 Dose: 600 mg Guaifenesin (Robitussin Dm -) 10 ml PO Q6H PRN PRN Reason: COUGH Last Admin: 10/28/17 22:13 Dose: 10 ml Piperacillin Sod/Tazobactam (Sod 3.375 gm/ Dextrose) 100 mls @ 200 mls/hr IVPB Q8H-IV RAJAT PRN Reason: Protocol Last Admin: 10/31/17 14:29 Dose: Not Given Levothyroxine Sodium (Synthroid -) 100 mcg PO DAILY@0700 [facility] Last Admin: 10/31/17 06:28 Dose: 100 mcg Non-Formulary Medication (Colesevelam Hcl [Welchol]) 625 mg PO DAILY [facility] Last Admin: 10/28/17 10:32 Dose: Not Given Ondansetron HCl (Zofran Injection) 4 mg IVPUSH Q6H PRN PRN Reason: NAUSEA Last Admin: 10/28/17 11:32 Dose: 4 mg Pantoprazole Sodium (Protonix Iv) 40 mg IVPUSH BID [facility] Last Admin: 10/30/17 21:53 Dose: 40 mg Fluticasone/Salmeterol (Advair 100mcg/50mcg -) 1 puff IH BID [facility] Last Admin: 10/30/17 21:07 Dose: Not Given Vital Signs - 24 hr 10/30/17 10/30/17 10/30/17 15:38 18:00 21:00 Temperature 97.8 F 98.7 F Pulse Rate 81 80 Respiratory 18 20 Rate Blood Pressure 139/73 142/54 O2 Sat by Pulse 96 Oximetry (%) 10/30/17 10/31/17 10/31/17 22:03 06:20 10:00 Temperature 98.4 F 98.4 F Pulse Rate 77 73 85 Respiratory 18 18 21 Rate Blood Pressure 121/48 139/63 150/75 O2 Sat by Pulse Oximetry (%) Intake & Output 10/29/17 10/30/17 10/31/17 11/01/17 07:59 07:59 07:59 07:59 Intake Total 1100 2600 1900 Output Total 1200 2050 Balance -893 012 5295 Weight 150 lb nad, + discomfort, warm no jvd, neck supple bibasilar rales, nl eff rrr, nl s1s2 no mrg ttp of intercostal space + bs soft mild tenderness to palpation, nd no le le/c/c +dp pt no carotid bruits no jaundice diaphoresis aaox3 CBC, BMP 10/31/17 06:30 10/31/17 06:30 ekg: SR with pvc's. LAD. LAFB. LVH with repol and qrs widening. poor r wave progression. no acute ischemic changes. unchanged from priors. ct abd/pelvis: images and report reviewed. RLL consolidation/pna. large hiatal hernia with intrathoracic stomach. mild inflammatory changes in RLQ. see emr for full details. echo 03/2017, 1+ conc lvh (1.3 cm). Nl lv/rv size/fn. 1+ lae. 1+ focal mac with mild functional ms (MG 3 mmHg, 67 bpm). 1+ mr. 1+ phtn. small ivc. 82 yo F with H/O HTN, periphral neuropathy, Hiatal Hernia, GERD/PUD, hiatal hernia, chronic back pain and admission to [facility] with Influenza A this past week who p/w abd pain/diarrhea/? melena. htn - hctz on hold in setting of poor po intake/hyponatremia. hyponatremia now resolved s/p IVF. - bp stable on norvasc 5 mg bid. Now febrile, con't to monitor. Low threshold to hold if bp trends down. inducible cp - inducible with cough or palpation of intercostal muscles. likely msk, 2/2 prolonged coughing last week in setting of flu. - lyte repletion prn influenza/pna - on abx. per pmd/ID - 10/31 + fevere ? GIB, possible melena/bloody stool prior to admit - + occult blood, hgb trending down. GI following. plan for CT enterography. - stopped nsaids for tx of pain.
[2017-10-31] MEDS: GABAPENTIN 300 MG CAPSULE (FP) PO SCH ×2 (14:46→21:31)
[2017-10-31] MEDS: CYCLOBENZAPRINE HCL 10 MG TABLET (FP) PO SCH ×2 (14:47→21:31)
[2017-10-31] MEDS: amLODIPine BESYLATE 5 MG TABLET (FP) PO SCH ×2 (14:48→21:32)
[2017-10-31] MEDS: PANTOPRAZOLE SODIUM 40 MG VIAL IVPUSH SCH ×2 (14:49→21:32)
[2017-10-31] MEDS: FLUTICASONE/SALMETEROL 100 MCG/50 MCG DISKUS IH SCH ×2 (14:50→21:32)
[2017-10-31] MEDS: ACETAMINOPHEN 325 MG TABLET (FP) PO PRN (17:16)
[2017-10-31] MEDS ORDERED: SODIUM CHLORIDE 1,000 ML IV SCH (19:30)
[2017-10-31] MEDS ORDERED: MORPHINE SULFATE 10 MG/1 ML *VIAL IVPUSH PRN (19:40)
[2017-10-31] MEDS ORDERED: ACETAMINOPHEN 325 MG TABLET (FP) PO ONE (19:45)
[2017-10-31] MEDS: guaiFENesin/D-METHORPHAN HB 10 ML UNIT-DOSE CUPS PO PRN (21:31)
[2017-10-31] MEDS: ONDANSETRON 4 MG/2 ML VIAL IVPUSH PRN (23:55)
[2017-11-01] MEDS ORDERED: PT OWN MED DRAWER 7, Y5N ONE ×3 (02:03→17:58)
[2017-11-01] MEDS: PIPERACILLIN/TAZOB 3.375 GM 3.375 GM in DEXTROSE 5%-WATER - 100 ML IVPB SCH ×3 (02:55→18:09)
[2017-11-01] MEDS: guaiFENesin/D-METHORPHAN HB 10 ML UNIT-DOSE CUPS PO PRN ×3 (06:43→21:25)
[2017-11-01] MEDS: LEVOTHYROXINE NA 100 MCG TABLET (FP) PO SCH (06:43)
[2017-11-01 08:07] LABS: SERUM IRON SATURATION 14 % (15-55); TOTAL IRON BINDING CAPACITY 206 ug/dL (250-450); UIBC 177 ug/dL (118-369)
[2017-11-01 08:09] LABS: HEMATOCRIT 34.3 % (32.4-45.2); MCH 26.4 pg (25.7-33.7); MEAN CELL VOLUME 82.5 fl (80-96); MEAN PLT VOLUME 7.8 fl (7.5-11.1); PLATELET COUNT 543 K/MM3 (134-434); RBC 4.16 M/mm3 (3.60-5.2); RDW 14.8 % (11.6-15.6); WHITE BLOOD COUNT 22.6 K/mm3 (4.0-10.0)
[2017-11-01 09:20] LABS: ANION GAP 13 (8-16); BLOOD UREA NITROGEN 9 mg/dL (7-18); CALCIUM 8.6 mg/dL (8.5-10.1); CHLORIDE 94 mmol/L (98-107); CO2 24 mmol/L (21-32); CREATININE 1.1 mg/dL (0.55-1.02); GLUCOSE,RANDOM 129 mg/dL (74-106); POTASSIUM 3.9 mmol/L (3.5-5.1); SODIUM 131 mmol/L (136-145)
[2017-11-01] MEDS ORDERED: INSULIN (NOVOLOG) ASPART 100 UNITS/ML 10ML VIAL ONE (09:32)
[2017-11-01] MEDS: PANTOPRAZOLE SODIUM 40 MG VIAL IVPUSH SCH (09:53)
[2017-11-01] MEDS: ACETAMINOPHEN 325 MG TABLET (FP) PO PRN (10:11)
[2017-11-01] MEDS: GABAPENTIN 300 MG CAPSULE (FP) PO SCH ×2 (10:17→21:25)
--- NOTE | 2017-11-01 10:22 | PN ---
Progress Note, Physician Chief Complaint: Yesterday underwent CT Ethnography, subsequently developed fever, abdominal pain spiked 100.6 blood culture and U Culture send. Today C/O Feeling weak , less abd pain denies any nausea or vomiting. History of Present Illness: 82 yrs old F with H/O HTN, Neuropathy, Hiatal Hernia, GERD chronic back pain present to Ed with 1 day H/O abdominal pain with loose stool, poor PO intake, patient has been feeling unwell for past 2 wks initially admitted at [facility] with Influenza A completed Tamiflu and discharged home, patient remained unwell so revisted [place] again , patient was observed and discharged home on PPI, 2 days ago developed abdominal pain nausea and black color stool with fever and Cough so last night present to Ed for further evaluation, patient put hot water bottle on abdomen developed burn blisters, Lab shows Elevated TWBC with Rt Ll Infiltrate and focal mesenteric inflammation., stool occult blood reported + in the ED. Evaluated by ID, GI, and cardiology consult.yesterday underwent CT Enterography shows large hiatal hernia, small area of mesenteric inflamation around terminal ileum. - Current Medication List Current Medications: Active Medications Acetaminophen (Tylenol -) 650 mg PO Q6H PRN PRN Reason: FEVER Last Admin: 11/01/17 10:11 Dose: 650 mg Al Hydroxide/Mg Hydroxide (Mylanta Oral Suspension -) 30 ml PO Q6H PRN PRN Reason: DYSPEPSIA Albuterol/Ipratropium (Duoneb -) 1 amp NEB Q6H PRN PRN Reason: SHORTNESS OF BREATH Amlodipine Besylate (Norvasc -) 5 mg PO BID [facility] Last Admin: 10/31/17 21:32 Dose: 5 mg Cyclobenzaprine HCl (Flexeril -) 5 mg PO BID [facility] Last Admin: 10/31/17 21:31 Dose: 5 mg Gabapentin (Neurontin -) 600 mg PO BID [facility] Last Admin: 10/31/17 21:31 Dose: 600 mg Guaifenesin (Robitussin Dm -) 10 ml PO Q6H PRN PRN Reason: COUGH Last Admin: 11/01/17 06:43 Dose: 10 ml Piperacillin Sod/Tazobactam (Sod 3.375 gm/ Dextrose) 100 mls @ 200 mls/hr IVPB Q8H-IV RAJAT PRN Reason: Protocol Last Admin: 11/01/17 10:10 Dose: 200 mls/hr Sodium Chloride (Normal Saline -) 1,000 mls @ 75 mls/hr IV ASDIR [facility] Last Admin: 10/31/17 20:18 Dose: 75 mls/hr Levothyroxine Sodium (Synthroid -) 100 mcg PO DAILY@0700 [facility] Last Admin: 11/01/17 06:43 Dose: 100 mcg Morphine Sulfate (Morphine Injection -) 2 mg IVPUSH Q6H PRN PRN Reason: PAIN LEVEL 6-10 Last Admin: 10/31/17 20:19 Dose: 2 mg Non-Formulary Medication (Colesevelam Hcl [Welchol]) 625 mg PO DAILY [facility] Last Admin: 10/28/17 10:32 Dose: Not Given Ondansetron HCl (Zofran Injection) 4 mg IVPUSH Q6H PRN PRN Reason: NAUSEA Last Admin: 10/31/17 23:55 Dose: 4 mg Pantoprazole Sodium (Protonix Iv) 40 mg IVPUSH BID [facility] Last Admin: 11/01/17 09:53 Dose: 40 mg Fluticasone/Salmeterol (Advair 100mcg/50mcg -) 1 puff IH BID [facility] Last Admin: 10/31/17 21:32 Dose: 1 puff - Objective Vital Signs: Vital Signs Temperature 99.0 F 11/01/17 06:00 Pulse Rate 105 H 11/01/17 06:00 Respiratory Rate 20 11/01/17 06:00 Blood Pressure 148/66 11/01/17 06:00 O2 Sat by Pulse Oximetry (%) 94 L 10/31/17 21:00 Elderly F looks exhausted and sick c/o weakness, minimal cough and abd pain HEENT: Mm dry, no JVD BNo Bruit CHEST: Left side Gastric sounds + B/L Basal crepts CVS: S1S2 Tachycardia ABD: Soft, mild tenderness, BS + EXT: Trace edema feet, erythematous rash in groin 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 non focal Labs: CBC, BMP 11/01/17 06:30 11/01/17 06:30 - ....Imaging Cat Scan: Report Reviewed (Enteropraphy: Marked Hital herbia with gastric content Mild Mesentric inflamatiory change Patchy infiltrate at Rt base) Other: Pending Problem List - Problems (1) Abdominal pain Assessment/Plan: Improving nausea and vomiting yesterday underwent CT Enterographyt shows Hiatal hernia and small area of mesmeric inflammation near terminal ileum, will F/U GI recommendations Code(s): R10.9 - UNSPECIFIED ABDOMINAL PAIN (2) HTN (hypertension) Assessment/Plan: Well Controlled cont current meds Code(s): I10 - ESSENTIAL (PRIMARY) HYPERTENSION (3) Gastrointestinal hemorrhage with melena Assessment/Plan: H/H stable on IV Protonix 40 mg BID will discuss with GI for dose and route Code(s): K92.1 - MELENA (4) Anemia Assessment/Plan: W/U suggestive of EMILY will start Iron once diarrhea resolves Code(s): D64.9 - ANEMIA, UNSPECIFIED (5) HAP (hospital-acquired pneumonia) Code(s): J18.9 - PNEUMONIA, UNSPECIFIED ORGANISM (6) Reactive airway disease Assessment/Plan: Post Viral reactive airway dises improving cont add Advair and PRN Duoneb, incentive spirometry Code(s): J45.909 - UNSPECIFIED ASTHMA, UNCOMPLICATED (7) Malnutrition Assessment/Plan: albumin 2.1 nutrition consult add ensure Code(s): E46 - UNSPECIFIED PROTEIN-CALORIE MALNUTRITION (8) Sepsis Assessment/Plan: Developed fever elevated TWBCn 22 K will F/U UA, culture discussed with ID recommended adding Vancomycin, high lactate can be due to old blood sample or torsion of bowel. Code(s): A41.9 - SEPSIS, UNSPECIFIED ORGANISM (9) Rash of groin Assessment/Plan: Ont Nystatin Code(s): R21 - RASH AND OTHER NONSPECIFIC SKIN ERUPTION
[2017-11-01] MEDS ORDERED: VANCOMYCIN 1,000 MG in DEXTROSE 5%-WATER - 250 ML IVPB ONE (10:30)
[2017-11-01] MEDS ORDERED: SODIUM CHLORIDE 1,000 ML IV SCH (10:33)
[2017-11-01] MEDS: CYCLOBENZAPRINE HCL 10 MG TABLET (FP) PO SCH ×2 (12:02→21:25)
[2017-11-01] MEDS: amLODIPine BESYLATE 5 MG TABLET (FP) PO SCH (12:03)
--- NOTE | 2017-11-01 12:11 | PN ---
Progress Note (short form) - Note Progress Note: Chief Complaint: Abdominal pain and cough S: febrile over night and this morning. + chills, sweats. tachycardic (100' s) --> EKG ordered, see below. norvasc held this morning for sbp's 100's, IVF rate increased. intermittent sob. no abd pain, cp, palps, dizziness. + cough, and pain to anterior and posterior shoulders. Current Medications Acetaminophen (Tylenol -) 650 mg PO Q6H PRN PRN Reason: FEVER Last Admin: 11/01/17 10:11 Dose: 650 mg Al Hydroxide/Mg Hydroxide (Mylanta Oral Suspension -) 30 ml PO Q6H PRN PRN Reason: DYSPEPSIA Albuterol/Ipratropium (Duoneb -) 1 amp NEB Q6H PRN PRN Reason: SHORTNESS OF BREATH Cyclobenzaprine HCl (Flexeril -) 5 mg PO BID [facility] Last Admin: 10/31/17 21:31 Dose: 5 mg Gabapentin (Neurontin -) 600 mg PO BID [facility] Last Admin: 11/01/17 10:17 Dose: 600 mg Guaifenesin (Robitussin Dm -) 10 ml PO Q6H PRN PRN Reason: COUGH Last Admin: 11/01/17 06:43 Dose: 10 ml Piperacillin Sod/Tazobactam (Sod 3.375 gm/ Dextrose) 100 mls @ 200 mls/hr IVPB Q8H-IV RAJAT PRN Reason: Protocol Last Admin: 11/01/17 10:10 Dose: 200 mls/hr Sodium Chloride (Normal Saline -) 1,000 mls @ 100 mls/hr IV ASDIR [facility] Last Admin: 11/01/17 11:34 Dose: 100 mls/hr Levothyroxine Sodium (Synthroid -) 100 mcg PO DAILY@0700 [facility] Last Admin: 11/01/17 06:43 Dose: 100 mcg Morphine Sulfate (Morphine Injection -) 2 mg IVPUSH Q6H PRN PRN Reason: PAIN LEVEL 6-10 Last Admin: 10/31/17 20:19 Dose: 2 mg Non-Formulary Medication (Colesevelam Hcl [Welchol]) 625 mg PO DAILY [facility] Last Admin: 10/28/17 10:32 Dose: Not Given Nystatin (Mycostatin Cream -) 1 applic TP BID [facility] Ondansetron HCl (Zofran Injection) 4 mg IVPUSH Q6H PRN PRN Reason: NAUSEA Last Admin: 10/31/17 23:55 Dose: 4 mg Pantoprazole Sodium (Protonix Iv) 40 mg IVPUSH BID [facility] Last Admin: 11/01/17 09:53 Dose: 40 mg Fluticasone/Salmeterol (Advair 100mcg/50mcg -) 1 puff IH BID [facility] Last Admin: 10/31/17 21:32 Dose: 1 puff Vital Signs - 24 hr 10/31/17 10/31/17 10/31/17 18:10 20:15 21:00 Temperature 99.4 F 100.6 F H Pulse Rate 101 H 105 H Respiratory 20 20 Rate Blood Pressure 155/71 127/51 O2 Sat by Pulse 94 L Oximetry (%) 10/31/17 11/01/17 11/01/17 23:53 06:00 09:00 Temperature 98.8 F 99.0 F 101.1 F H Pulse Rate 105 H 100 H Respiratory 20 20 Rate Blood Pressure 148/66 106/52 O2 Sat by Pulse Oximetry (%) Intake & Output 10/30/17 10/31/17 11/01/17 11/02/17 07:59 07:59 07:59 07:59 Intake Total 2600 1900 1325 Output Total 2050 Balance 550 1900 1325 nad, + discomfort, warm no jvd, neck supple bibasilar rales, nl eff rrr, nl s1s2 no mrg ttp of intercostal space + bs soft nt, nd no le le/c/c +dp pt no carotid bruits no jaundice diaphoresis aaox3 CBC, BMP 11/01/17 06:30 11/01/17 06:30 ekg: SR with pvc's. LAD. LAFB. LVH with repol ab (anterolateral t wave ab and qrs widening). poor r wave progression. no acute ischemic changes. unchanged from priors. ekg 11/01/17: st, 102 bpm. no pvc's. otherwise unchanged. ct abd/pelvis: images and report reviewed. RLL consolidation/pna. large hiatal hernia with intrathoracic stomach. mild inflammatory changes in RLQ. see emr for full details. ct enterography (images and report reviewed): small B pl effusions with consolidation/atelectasis of RLL. large hiatal hernia. see emr for abdominal findings. echo 03/2017, 1+ conc lvh (1.3 cm). Nl lv/rv size/fn. 1+ lae. 1+ focal mac with mild functional ms (MG 3 mmHg, 67 bpm). 1+ mr. 1+ phtn. small ivc. 82 yo F with H/O HTN, periphral neuropathy, Hiatal Hernia, GERD/PUD, hiatal hernia, chronic back pain and admission to [facility] with Influenza A this past week who p/w abd pain/diarrhea/? melena. htn - hctz on hold in setting of poor po intake/hyponatremia. hyponatremia initially resolved s/p IVF --> recurrence 11/01 in setting of fever. - 10/31 bp stable on norvasc 5 mg bid. Now febrile, con't to monitor. Low threshold to hold if bp trends down. - 11/01 bp low this am in setting of recurrent fever, stop norvasc for now. IVF as needed per pmd/id inducible cp - inducible with cough or palpation of intercostal muscles. likely msk, 2/2 prolonged coughing last week in setting of flu. - lyte repletion prn influenza/pna - on abx. per pmd/ID/pulm - 10/31-11/01 + fevers ? GIB, possible melena/bloody stool prior to admit - + occult blood, hgb trending down. GI following. s/p CT enterography. - stopped nsaids for tx of pain.
[2017-11-01] MEDS ORDERED: MAGNESIUM SULF 50% (8.12 MEQ/2 ML-1 GM VIAL) IVPB ONE (12:15)
--- NOTE | 2017-11-01 12:59 | PN ---
Progress Note, Physician History of Present Illness: patient looks better events from last night noted post imaging patient had multiple fevers now with high wbc currently feels well discussed case - Current Medication List Current Medications: Active Medications Acetaminophen (Tylenol -) 650 mg PO Q6H PRN PRN Reason: FEVER Last Admin: 11/01/17 10:11 Dose: 650 mg Al Hydroxide/Mg Hydroxide (Mylanta Oral Suspension -) 30 ml PO Q6H PRN PRN Reason: DYSPEPSIA Albuterol/Ipratropium (Duoneb -) 1 amp NEB Q6H PRN PRN Reason: SHORTNESS OF BREATH Cyclobenzaprine HCl (Flexeril -) 5 mg PO BID [facility] Last Admin: 11/01/17 12:02 Dose: Not Given Gabapentin (Neurontin -) 600 mg PO BID [facility] Last Admin: 11/01/17 10:17 Dose: 600 mg Guaifenesin (Robitussin Dm -) 10 ml PO Q6H PRN PRN Reason: COUGH Last Admin: 11/01/17 06:43 Dose: 10 ml Piperacillin Sod/Tazobactam (Sod 3.375 gm/ Dextrose) 100 mls @ 200 mls/hr IVPB Q8H-IV RAJAT PRN Reason: Protocol Last Admin: 11/01/17 10:10 Dose: 200 mls/hr Sodium Chloride (Normal Saline -) 1,000 mls @ 100 mls/hr IV ASDIR [facility] Last Admin: 11/01/17 11:34 Dose: 100 mls/hr Magnesium Sulfate/Dextrose (Magnesium 1gm/D5w -) 1 gm in 100 mls @ 100 mls/hr IVPB ONCE ONE Stop: 11/01/17 14:59 Levothyroxine Sodium (Synthroid -) 100 mcg PO DAILY@0700 [facility] Last Admin: 11/01/17 06:43 Dose: 100 mcg Morphine Sulfate (Morphine Injection -) 2 mg IVPUSH Q6H PRN PRN Reason: PAIN LEVEL 6-10 Last Admin: 10/31/17 20:19 Dose: 2 mg Non-Formulary Medication (Colesevelam Hcl [Welchol]) 625 mg PO DAILY [facility] Last Admin: 10/28/17 10:32 Dose: Not Given Nystatin (Mycostatin Cream -) 1 applic TP BID [facility] Ondansetron HCl (Zofran Injection) 4 mg IVPUSH Q6H PRN PRN Reason: NAUSEA Last Admin: 10/31/17 23:55 Dose: 4 mg Pantoprazole Sodium (Protonix Iv) 40 mg IVPUSH BID [facility] Last Admin: 11/01/17 09:53 Dose: 40 mg Fluticasone/Salmeterol (Advair 100mcg/50mcg -) 1 puff IH BID [facility] Last Admin: 10/31/17 21:32 Dose: 1 puff - Objective Vital Signs: Vital Signs Temperature 101.1 F H 11/01/17 09:00 Pulse Rate 100 H 11/01/17 09:00 Respiratory Rate 20 11/01/17 09:00 Blood Pressure 106/52 11/01/17 09:00 O2 Sat by Pulse Oximetry (%) 94 L 10/31/17 21:00 Constitutional: Yes: No Distress, Calm, Other (weakness) Eyes: Yes: Conjunctiva Clear Cardiovascular: Yes: Regular Rate and Rhythm Respiratory: Yes: Regular, CTA Bilaterally Gastrointestinal: Yes: Normal Bowel Sounds, Soft Musculoskeletal: Yes: WNL Extremities: Yes: WNL Neurological: Yes: Alert, Oriented Psychiatric: Yes: Alert, Oriented Labs: CBC, BMP 11/01/17 06:30 11/01/17 06:30 Assessment/Plan Problem List - Problems (1) Abdominal pain Code(s): R10.9 - UNSPECIFIED ABDOMINAL PAIN (2) RUTH (acute kidney injury) Code(s): N17.9 - ACUTE KIDNEY FAILURE, UNSPECIFIED (3) Dehydration Code(s): E86.0 - DEHYDRATION (4) HTN (hypertension) Code(s): I10 - ESSENTIAL (PRIMARY) HYPERTENSION (5) Gastrointestinal hemorrhage with melena Code(s): K92.1 - MELENA (6) Anemia Code(s): D64.9 - ANEMIA, UNSPECIFIED (7) Neuropathy Code(s): G62.9 - POLYNEUROPATHY, UNSPECIFIED (8) HAP (hospital-acquired pneumonia) Code(s): J18.9 - PNEUMONIA, UNSPECIFIED ORGANISM 9 fever 10 lactic acidosis plan continue abx will see tomorrow how patient does if wbc increases will broaden coverage monitor lactic acid continue hydration will need physio
[2017-11-01 13:45] LABS: ANISOCYTOSIS 2+; MACROCYTOSIS 0; PLATELET ESTIMATE INCREASED
--- NOTE | 2017-11-01 13:51 | EKG ---
Test Reason : Blood Pressure : / mmHG Vent. Rate : 102 BPM Atrial Rate : 102 BPM P-R Int : 150 ms QRS Dur : 092 ms QT Int : 336 ms P-R-T Axes : 044 -51 114 degrees QTc Int : 437 ms SINUS TACHYCARDIA LEFT ANTERIOR FASCICULAR BLOCK LEFT VENTRICULAR HYPERTROPHY WITH REPOLARIZATION ABNORMALITY CANNOT RULE OUT SEPTAL INFARCT (CITED ON OR BEFORE 03-AUG-2016) ABNORMAL ECG WHEN COMPARED WITH ECG OF 28-OCT-2017 00:02, PREMATURE VENTRICULAR COMPLEXES ARE NO LONGER PRESENT ST NOW DEPRESSED IN LATERAL LEADS Confirmed by MD MARIELLA, SONA ([id number]) on 11/01/2017 1:50:33 PM Referred By: ELIZ BREWER,[facility] Confirmed By:SONA WOLFF MD
--- NOTE | 2017-11-01 13:57 | PN ---
Progress Note (short form) - Note Progress Note: Resting in NAD on RA. Reports breathing and previous CP have resolved. No overt Respiratory complaints. Admitting abdominal pain is also better. Noted elevated lactic acid. Intake & Output 10/29/17 10/30/17 10/31/17 11/01/17 23:59 23:59 23:59 23:59 Intake Total 3450 1950 500 925 Output Total 2050 Balance 1400 1950 500 925 Last Vital Signs Temp Pulse Resp BP Pulse Ox 101.1 F H 100 H 20 106/52 94 L 11/01/17 09:00 11/01/17 09:00 11/01/17 09:00 11/01/17 09:00 10/31/17 21:00 Active Medications Acetaminophen (Tylenol -) 650 mg PO Q6H PRN PRN Reason: FEVER Last Admin: 11/01/17 10:11 Dose: 650 mg Al Hydroxide/Mg Hydroxide (Mylanta Oral Suspension -) 30 ml PO Q6H PRN PRN Reason: DYSPEPSIA Albuterol/Ipratropium (Duoneb -) 1 amp NEB Q6H PRN PRN Reason: SHORTNESS OF BREATH Cyclobenzaprine HCl (Flexeril -) 5 mg PO BID [facility] Last Admin: 11/01/17 12:02 Dose: Not Given Gabapentin (Neurontin -) 600 mg PO BID [facility] Last Admin: 11/01/17 10:17 Dose: 600 mg Guaifenesin (Robitussin Dm -) 10 ml PO Q6H PRN PRN Reason: COUGH Last Admin: 11/01/17 06:43 Dose: 10 ml Piperacillin Sod/Tazobactam (Sod 3.375 gm/ Dextrose) 100 mls @ 200 mls/hr IVPB Q8H-IV RAJAT PRN Reason: Protocol Last Admin: 11/01/17 10:10 Dose: 200 mls/hr Sodium Chloride (Normal Saline -) 1,000 mls @ 100 mls/hr IV ASDIR [facility] Last Admin: 11/01/17 11:34 Dose: 100 mls/hr Magnesium Sulfate/Dextrose (Magnesium 1gm/D5w -) 1 gm in 100 mls @ 100 mls/hr IVPB ONCE ONE Stop: 11/01/17 14:59 Levothyroxine Sodium (Synthroid -) 100 mcg PO DAILY@0700 [facility] Last Admin: 11/01/17 06:43 Dose: 100 mcg Morphine Sulfate (Morphine Injection -) 2 mg IVPUSH Q6H PRN PRN Reason: PAIN LEVEL 6-10 Last Admin: 10/31/17 20:19 Dose: 2 mg Non-Formulary Medication (Colesevelam Hcl [Welchol]) 625 mg PO DAILY [facility] Last Admin: 10/28/17 10:32 Dose: Not Given Nystatin (Mycostatin Cream -) 1 applic TP BID [facility] Ondansetron HCl (Zofran Injection) 4 mg IVPUSH Q6H PRN PRN Reason: NAUSEA Last Admin: 10/31/17 23:55 Dose: 4 mg Pantoprazole Sodium (Protonix Iv) 40 mg IVPUSH BID [facility] Last Admin: 11/01/17 09:53 Dose: 40 mg Fluticasone/Salmeterol (Advair 100mcg/50mcg -) 1 puff IH BID [facility] Last Admin: 10/31/17 21:32 Dose: 1 puff Constitutional: Yes: No Distress, Thin Eyes: Yes: Conjunctiva Clear, EOM Intact HENT: Yes: Atraumatic, Normocephalic Neck: Yes: Supple, Trachea Midline Cardiovascular: Yes: Regular Rate and Rhythm Respiratory: Yes: CTA Bilaterally. No: Accessory Muscle Use, On Nasal O2, Rales , Rhonchi, SOB, Stridor, Tachypnea, Wheezes ...Inspection: Yes: WNL ...Clubbing: No Gastrointestinal: Yes: Normal Bowel Sounds, Soft Renal/: Yes: WNL Musculoskeletal: Yes: WNL Extremities: Yes: WNL Edema: No Peripheral Pulses WNL: Yes Integumentary: Yes: WNL Neurological: Yes: WNL, Alert, Oriented ...Motor Strength: WNL Psychiatric: Yes: WNL, Alert, Oriented Labs: Laboratory Results - last 24 hr 10/29/17 10/31/17 11/01/17 10:00 06:30 06:30 WBC 22.6 H D RBC 4.16 Hgb 11.0 Hct 34.3 MCV 82.5 MCH 26.4 MCHC 32.0 RDW 14.8 Plt Count 543 H MPV 7.8 Neutrophils % No Result Required. Lymphocytes % No Result Required. Sodium Potassium Chloride Carbon Dioxide Anion Gap BUN Creatinine Random Glucose Lactic Acid Calcium Magnesium Iron 29 TIBC 206 L Iron Saturation 14 L Vitamin D 25-Hydroxy 36.8 11/01/17 11/01/17 11/01/17 06:30 11:10 11:10 WBC RBC Hgb Hct MCV MCH MCHC RDW Plt Count MPV Neutrophils % Lymphocytes % Sodium 131 L Potassium 3.9 Chloride 94 L Carbon Dioxide 24 Anion Gap 13 BUN 9 Creatinine 1.1 H Random Glucose 129 H Lactic Acid 4.9 H* Calcium 8.6 Magnesium 1.2 L Iron TIBC Iron Saturation Vitamin D 25-Hydroxy Problem List - Problems (1) RUTH (acute kidney injury) Code(s): N17.9 - ACUTE KIDNEY FAILURE, UNSPECIFIED (2) Abdominal pain Code(s): R10.9 - UNSPECIFIED ABDOMINAL PAIN (3) Anemia Code(s): D64.9 - ANEMIA, UNSPECIFIED (4) Dehydration Code(s): E86.0 - DEHYDRATION (5) Diarrhea Code(s): R19.7 - DIARRHEA, UNSPECIFIED (6) Gastrointestinal hemorrhage with melena Code(s): K92.1 - MELENA (7) HAP (hospital-acquired pneumonia) Code(s): J18.9 - PNEUMONIA, UNSPECIFIED ORGANISM (8) HTN (hypertension) Code(s): I10 - ESSENTIAL (PRIMARY) HYPERTENSION (9) Neuropathy Code(s): G62.9 - POLYNEUROPATHY, UNSPECIFIED (10) Hiatal hernia Code(s): K44.9 - DIAPHRAGMATIC HERNIA WITHOUT OBSTRUCTION OR GANGRENE Assessment/Plan Recheck lactic acid ABX per ID GI workup ongoing BD TX VTE prophylaxis Continue IVF Dr Kern Problem List - Problems (1) RUTH (acute kidney injury) Code(s): N17.9 - ACUTE KIDNEY FAILURE, UNSPECIFIED (2) Abdominal pain Code(s): R10.9 - UNSPECIFIED ABDOMINAL PAIN (3) Anemia Code(s): D64.9 - ANEMIA, UNSPECIFIED (4) Dehydration Code(s): E86.0 - DEHYDRATION (5) Diarrhea Code(s): R19.7 - DIARRHEA, UNSPECIFIED (6) Gastrointestinal hemorrhage with melena Code(s): K92.1 - MELENA (7) HAP (hospital-acquired pneumonia) Code(s): J18.9 - PNEUMONIA, UNSPECIFIED ORGANISM (8) HTN (hypertension) Code(s): I10 - ESSENTIAL (PRIMARY) HYPERTENSION (9) Neuropathy Code(s): G62.9 - POLYNEUROPATHY, UNSPECIFIED (10) Hiatal hernia Code(s): K44.9 - DIAPHRAGMATIC HERNIA WITHOUT OBSTRUCTION OR GANGRENE
[2017-11-01] MEDS ORDERED: MAGNESIUM 1GM/D5W - 1 GM/100 ML IVPB IVPB ONE (14:00)
[2017-11-01 14:15] LABS: TRANSGLUTAMINASE IGA < 2 U/mL (0-3); TRANSGLUTAMINASE IGG < 2 U/mL (0-5)
[2017-11-01 14:46] LABS: LIPASE 74 U/L (73-393)
[2017-11-01] MEDS: FLUTICASONE/SALMETEROL 100 MCG/50 MCG DISKUS IH SCH ×2 (15:42→21:27)
[2017-11-01] MEDS: NYSTATIN 100,000 UNIT/GM TOPICAL CREAM 15 GM TUBE TP SCH ×2 (15:42→22:13)
--- NOTE | 2017-11-01 16:39 | CONSULT ---
Consult - text type - Consultation Consultation Note: Thoracic Surgery Consultation: Hiatal hernia 82F with GERD, hiatal hernia, HTN, chronic low back pain, and 2 week h/o URI sx , malaise, ?diarrhea, admitted few days ago for workup. Now having fevers. No weight loss noted. Surgical history includes hysterectomy but no upper abdominal. No recent endoscopy. PE: fevers, vss rrr clear b/l soft nt abdomen Labs significant for WBC 22 Imp/Plan: Hiatal hernia, may have aspiration pneumonitis, or other source of fever --Abx per ID; --Ultimately needs barium swallow or CT chest/abdomen with po contrast; endoscopy to r/o ulcers (?black diarrhea/? melena but hct stable); --Dr. Wise to optimize cardiac malcolm for future surgery. I have spent >40 minutes on this consultatation with >50% on counseling and coordination of care including the history, physical, images review, discussion with Dr. Pizarro, Dr. Wise, the patient, and her son-in-law. All questions were answered.
[2017-11-01 18:56] LABS: BASO % 0.1 % (0-2.0); EOS % 3.2 % (0-4.5); HEMATOCRIT 27.9 % (32.4-45.2); HEMOGLOBIN 9.2 GM/dL (10.7-15.3); LYMPH % 6.9 % (8-40); MCH 26.7 pg (25.7-33.7); MCHC 32.9 g/dl (32.0-36.0); MEAN CELL VOLUME 81.2 fl (80-96); MEAN PLT VOLUME 7.9 fl (7.5-11.1); MONO % 6.1 % (3.8-10.2); NEUT % 83.7 % (42.8-82.8); PLATELET COUNT 507 K/MM3 (134-434); RBC 3.43 M/mm3 (3.60-5.2); RDW 14.4 % (11.6-15.6); WHITE BLOOD COUNT 20.1 K/mm3 (4.0-10.0)
--- NOTE | 2017-11-01 20:06 | PN ---
GI Progress Note Subjective: GI NOte: Maksim continues to cough and produce sputum. WBC is up to 20K. Dr. Kern's intervention is appreciated. Maksim tells me that she gets abdominal pain after certain foods and lists chicken and eggs as problematic. Her CT enterography reveals no obstruction and reveals that her enteritis is improving. She has no pain at present. Dr Verdugo's consult is appreciated. Will order esophagram as pneumonia precludes and EGD and may not assess the propensity to reflux as well and places at aspiration risk. - Objective Vital Signs: Vital Signs Temperature 99.4 F 11/01/17 15:00 Pulse Rate 88 11/01/17 14:00 Respiratory Rate 18 11/01/17 14:00 Blood Pressure 110/52 11/01/17 14:00 O2 Sat by Pulse Oximetry (%) 94 L 10/31/17 21:00 Laboratory Tests 10/29/17 10/31/17 10/31/17 07:15 06:30 06:30 WBC 10.3 H Lactic Acid Iron 29 TIBC 206 L Iron Saturation 14 L Ferritin 66.068 C-Reactive Protein 1.9 H Total Amylase 43 Lipase 68 L Tiss Transglutamin IgG < 2 Tiss Transglutamin IgA < 2 S.cerevisiae IgG Ab Pending S. cerevisiae IgG/IgA Pending O & P Permanent Slide 10/31/17 11/01/17 11/01/17 10:50 06:30 11:10 WBC Lactic Acid 4.9 H* Iron TIBC Iron Saturation Ferritin C-Reactive Protein 9.2 H Total Amylase Lipase 74 Tiss Transglutamin IgG Tiss Transglutamin IgA S.cerevisiae IgG Ab S. cerevisiae IgG/IgA O & P Permanent Slide Pending 11/01/17 11/01/17 14:25 18:20 WBC 20.1 H Lactic Acid 3.5 H* Iron TIBC Iron Saturation Ferritin C-Reactive Protein Total Amylase Lipase Tiss Transglutamin IgG Tiss Transglutamin IgA S.cerevisiae IgG Ab S. cerevisiae IgG/IgA O & P Permanent Slide Constitutional: No Distress ...Auscultate: Yes: Normoactive Bowel Sounds ...Palpate: Yes: Soft, Other (nontender) Labs: CBC, BMP 11/01/17 18:20 11/01/17 06:30 Microbiology 10/28/17 20:00 Stool Clostridium difficile Antigen (MARCE) - Final 10/28/17 20:00 Stool Clostridium difficile Toxin Assay - Final Assessment/Plan esophagram/UGI to assess propensity to aspirate CXR to assess for worsening pneumonia Problem List - Problems (1) Hiatal hernia Assessment/Plan: Will assess severity of reflux ad aspiration risk with esophagram. Her rising WBC may reflect worsening pneumonia due to repeated aspirations Code(s): K44.9 - DIAPHRAGMATIC HERNIA WITHOUT OBSTRUCTION OR GANGRENE (2) Abdominal pain Code(s): R10.9 - UNSPECIFIED ABDOMINAL PAIN (3) Diarrhea Code(s): R19.7 - DIARRHEA, UNSPECIFIED (4) Gastrointestinal hemorrhage with melena Code(s): K92.1 - MELENA
[2017-11-01] MEDS: ALBUTEROL SO4 2.5/IPRATROPIUM 0.5 INH SOL 3 ML VIAL.NEB. NEB PRN (20:29)
[2017-11-01] MEDS: PANTOPRAZOLE 40 MG TABLET (FP) PO SCH (21:25)
[2017-11-02] MEDS: PIPERACILLIN/TAZOB 3.375 GM 3.375 GM in DEXTROSE 5%-WATER - 100 ML IVPB SCH ×3 (01:15→18:41)
[2017-11-02] MEDS: LEVOTHYROXINE NA 100 MCG TABLET (FP) PO SCH (06:05)
[2017-11-02 06:52] LABS: BASO % 0.3 % (0-2.0); EOS % 3.7 % (0-4.5); HEMOGLOBIN 8.5 GM/dL (10.7-15.3); MCH 26.5 pg (25.7-33.7); MCHC 32.6 g/dl (32.0-36.0); MEAN CELL VOLUME 81.1 fl (80-96); MEAN PLT VOLUME 7.7 fl (7.5-11.1); MONO % 7.4 % (3.8-10.2); NEUT % 79.6 % (42.8-82.8); PLATELET COUNT 473 K/MM3 (134-434); RDW 14.5 % (11.6-15.6); WHITE BLOOD COUNT 13.6 K/mm3 (4.0-10.0)
[2017-11-02 07:17] LABS: CHLORIDE 98 mmol/L (98-107); POTASSIUM 4.6 mmol/L (3.5-5.1); SODIUM 134 mmol/L (136-145)
[2017-11-02 07:28] LABS: ALBUMIN 1.9 g/dl (3.4-5.0); ALK PHOS 65 U/L (45-117); ANION GAP 9 (8-16); BILIRUBIN,TOTAL 0.5 mg/dL (0.2-1.0); BLOOD UREA NITROGEN 9 mg/dL (7-18); CALCIUM 8.4 mg/dL (8.5-10.1); CO2 27 mmol/L (21-32); CREATININE 0.8 mg/dL (0.55-1.02); GLUCOSE,RANDOM 91 mg/dL (74-106); SGOT/AST 14 U/L (15-37); SGPT/ALT 21 U/L (12-78); TOT PROT 5.3 g/dl (6.4-8.2)
[2017-11-02] MEDS ORDERED: PT OWN MED DRAWER 7, Y5N ONE ×2 (10:18→16:18)
[2017-11-02] MEDS: FLUTICASONE/SALMETEROL 100 MCG/50 MCG DISKUS IH SCH ×2 (10:31→21:05)
[2017-11-02] MEDS: PANTOPRAZOLE 40 MG TABLET (FP) PO SCH ×2 (10:31→21:06)
[2017-11-02] MEDS: CYCLOBENZAPRINE HCL 10 MG TABLET (FP) PO SCH ×2 (10:31→21:06)
[2017-11-02] MEDS: NYSTATIN 100,000 UNIT/GM TOPICAL CREAM 15 GM TUBE TP SCH ×2 (10:32→21:06)
[2017-11-02] MEDS: GABAPENTIN 300 MG CAPSULE (FP) PO SCH ×2 (10:32→21:06)
[2017-11-02] MEDS: ALBUTEROL SO4 2.5/IPRATROPIUM 0.5 INH SOL 3 ML VIAL.NEB. NEB PRN (11:10)
--- NOTE | 2017-11-02 11:17 | PN ---
Progress Note (short form) - Note Progress Note: S: no cp sob palps dizzy; still with cough Current Medications Generic Name Dose Route Start Last Admin Trade Name Freq PRN Reason Stop Dose Admin Acetaminophen 650 mg 10/28/17 05:23 11/01/17 10:11 Tylenol - PO 650 mg Q6H PRN Administration FEVER Al Hydroxide/Mg Hydroxide 30 ml 10/31/17 09:37 Mylanta Oral Suspension - PO Q6H PRN DYSPEPSIA Albuterol/Ipratropium 1 amp 10/30/17 12:20 11/01/17 20:29 Duoneb - NEB 1 amp Q6H PRN Administration SHORTNESS OF BREATH Cyclobenzaprine HCl 5 mg 10/30/17 22:00 11/02/17 10:31 Flexeril - PO 5 mg BID RAJAT Administration Gabapentin 600 mg 10/28/17 10:00 11/02/17 10:32 Neurontin - PO 600 mg BID RAJAT Administration Guaifenesin 10 ml 10/28/17 10:19 11/01/17 21:25 Robitussin Dm - PO 10 ml Q6H PRN Administration COUGH Piperacillin Sod/Tazobactam 100 mls @ 200 mls/hr 10/28/17 18:00 11/02/17 10: 32 Sod 3.375 gm/ Dextrose IVPB 200 mls/hr Q8H-IV RAJAT Administration Protocol Levothyroxine Sodium 100 mcg 10/28/17 07:00 11/02/17 06:05 Synthroid - PO Not Given DAILY@[facility]00 [facility] Morphine Sulfate 2 mg 10/31/17 19:40 10/31/17 20:19 Morphine Injection - IVPUSH 2 mg Q6H PRN Administration PAIN LEVEL 6-10 Non-Formulary Medication 625 mg 10/28/17 10:00 10/28/17 10:32 Colesevelam Hcl [Welchol] PO Not Given DAILY RAJAT Nystatin 1 applic 11/01/17 10:45 11/02/17 10:32 Mycostatin Cream - TP 1 applic BID RAJAT Administration Ondansetron HCl 4 mg 10/28/17 10:19 10/31/17 23:55 Zofran Injection IVPUSH 4 mg Q6H PRN Administration NAUSEA Pantoprazole Sodium 40 mg 11/01/17 22:00 11/02/17 10:31 Protonix - PO 40 mg BID RAJAT Administration Fluticasone/Salmeterol 1 puff 10/30/17 12:30 11/02/17 10:31 Advair 100mcg/50mcg - IH 1 puff BID RAJAT Administration Vital Signs Period Temp Pulse Resp BP Sys/Bartholomew Pulse Ox Last 24 Hr 98.8 F-99.4 F 86-94 18-21 110-134/40-55 95 nad, no jvd, neck supple bibasilar rales, nl eff rrr, nl s1s2 no mrg ttp of intercostal space + bs soft nt, nd no le le/c/c no jaundice diaphoresis aaox3 CBC, BMP 11/02/17 05:45 11/02/17 05:45 ekg: SR with pvc's. LAD. LAFB. LVH with repol ab (anterolateral t wave ab and qrs widening). poor r wave progression. no acute ischemic changes. unchanged from priors. ekg 11/01/17: st, 102 bpm. no pvc's. otherwise unchanged. ct abd/pelvis: images and report reviewed. RLL consolidation/pna. large hiatal hernia with intrathoracic stomach. mild inflammatory changes in RLQ. see emr for full details. ct enterography (images and report reviewed): small B pl effusions with consolidation/atelectasis of RLL. large hiatal hernia. see emr for abdominal findings. echo 03/2017, 1+ conc lvh (1.3 cm). Nl lv/rv size/fn. 1+ lae. 1+ focal mac with mild functional ms (MG 3 mmHg, 67 bpm). 1+ mr. 1+ phtn. small ivc. a/p: 82 yo F with H/O HTN, periphral neuropathy, Hiatal Hernia, GERD/PUD, hiatal hernia, chronic back pain and admission to [facility] with Influenza A this past week who p/w abd pain/diarrhea/? melena. htn - hctz on hold in setting of poor po intake/hyponatremia. hyponatremia initially resolved s/p IVF --> recurrence 11/01 in setting of fever. - 10/31 bp stable on norvasc 5 mg bid. Now febrile, con't to monitor. Low threshold to hold if bp trends down. - 11/01 bp low this am in setting of recurrent fever, stop norvasc for now. IVF as needed per pmd/id -11/02: bp stable off norvasc for now inducible cp - inducible with cough or palpation of intercostal muscles. likely msk, 2/2 prolonged coughing last week in setting of flu. - lyte repletion prn influenza/pna - on abx. per pmd/ID/pulm ? GIB, possible melena/bloody stool prior to admit - + occult blood, hgb trending down. GI following. s/p CT enterography. - stopped nsaids for tx of pain.
--- NOTE | 2017-11-02 11:56 | PN ---
Progress Note, Physician Chief Complaint: No C/o nausea, vomiting mild epigastric pain , no fever spike, cough is improving History of Present Illness: 82 yrs old F with H/O HTN, Neuropathy, Hiatal Hernia, GERD chronic back pain present to Ed with 1 day H/O abdominal pain with loose stool, poor PO intake, patient has been feeling unwell for past 2 wks initially admitted at [facility] with Influenza A completed Tamiflu and discharged home, patient remained unwell so revisted [place] again , patient was observed and discharged home on PPI, 2 days ago developed abdominal pain nausea and black color stool with fever and Cough so last night present to Ed for further evaluation, patient put hot water bottle on abdomen developed burn blisters, Lab shows Elevated TWBC with Rt Ll Infiltrate and focal mesenteric inflammation., stool occult blood reported + in the ED. Evaluated by ID, GI, and cardiology consult.yesterday underwent CT Enterography shows large hiatal hernia, small area of mesenteric inflammation around terminal ileum. Patient is evaluted by Ct surgery recommonded uppor GI series that shows Large Paraesophageal hernia, Rt Ll Pneumonia and Reflux. - Current Medication List Current Medications: Active Medications Acetaminophen (Tylenol -) 650 mg PO Q6H PRN PRN Reason: FEVER Last Admin: 11/01/17 10:11 Dose: 650 mg Al Hydroxide/Mg Hydroxide (Mylanta Oral Suspension -) 30 ml PO Q6H PRN PRN Reason: DYSPEPSIA Albuterol/Ipratropium (Duoneb -) 1 amp NEB Q6H PRN PRN Reason: SHORTNESS OF BREATH Last Admin: 11/01/17 20:29 Dose: 1 amp Cyclobenzaprine HCl (Flexeril -) 5 mg PO BID RAJAT Last Admin: 11/02/17 10:31 Dose: 5 mg Gabapentin (Neurontin -) 600 mg PO BID RAJAT Last Admin: 11/02/17 10:32 Dose: 600 mg Guaifenesin (Robitussin Dm -) 10 ml PO Q6H PRN PRN Reason: COUGH Last Admin: 11/01/17 21:25 Dose: 10 ml Piperacillin Sod/Tazobactam (Sod 3.375 gm/ Dextrose) 100 mls @ 200 mls/hr IVPB Q8H-IV RAJAT PRN Reason: Protocol Last Admin: 11/02/17 10:32 Dose: 200 mls/hr Levothyroxine Sodium (Synthroid -) 100 mcg PO DAILY@0700 [facility] Last Admin: 11/02/17 06:05 Dose: Not Given Morphine Sulfate (Morphine Injection -) 2 mg IVPUSH Q6H PRN PRN Reason: PAIN LEVEL 6-10 Last Admin: 10/31/17 20:19 Dose: 2 mg Non-Formulary Medication (Colesevelam Hcl [Welchol]) 625 mg PO DAILY [facility] Last Admin: 10/28/17 10:32 Dose: Not Given Nystatin (Mycostatin Cream -) 1 applic TP BID [facility] Last Admin: 11/02/17 10:32 Dose: 1 applic Ondansetron HCl (Zofran Injection) 4 mg IVPUSH Q6H PRN PRN Reason: NAUSEA Last Admin: 10/31/17 23:55 Dose: 4 mg Pantoprazole Sodium (Protonix -) 40 mg PO BID [facility] Last Admin: 11/02/17 10:31 Dose: 40 mg Fluticasone/Salmeterol (Advair 100mcg/50mcg -) 1 puff IH BID [facility] Last Admin: 11/02/17 10:31 Dose: 1 puff - Objective Vital Signs: Vital Signs Temperature 99.2 F 11/02/17 08:30 Pulse Rate 86 11/02/17 08:30 Respiratory Rate 20 11/02/17 08:30 Blood Pressure 126/55 11/02/17 08:30 O2 Sat by Pulse Oximetry (%) 95 11/01/17 21:00 Labs: CBC, BMP 11/02/17 05:45 11/02/17 05:45 Laboratory Results - last 24 hr CBC,CMP WBC 13.6 K/mm3 (4.0-10.0) H D 11/02/17 05:45 RBC 3.20 M/mm3 (3.60-5.2) L 11/02/17 05:45 Hgb 8.5 GM/dL (10.7-15.3) L 11/02/17 05:45 Hct 26.0 % (32.4-45.2) L 11/02/17 05:45 MCV 81.1 fl (80-96) 11/02/17 05:45 MCH 26.5 pg (25.7-33.7) 11/02/17 05:45 MCHC 32.6 g/dl (32.0-36.0) 11/02/17 05:45 RDW 14.5 % (11.6-15.6) 11/02/17 05:45 Plt Count 473 K/MM3 (134-434) H 11/02/17 05:45 MPV 7.7 fl (7.5-11.1) 11/02/17 05:45 Neutrophils % 79.6 % (42.8-82.8) 11/02/17 05:45 Neutrophils % (Manual) 91.8 % (42.8-82.8) H* 11/01/17 06:30 Band Neutrophils % 2.1 % 11/01/17 06:30 Lymphocytes % 9.0 % (8-40) D 11/02/17 05:45 Lymphocytes % (Manual) 1.0 % (8-40) L 11/01/17 06:30 Monocytes % 7.4 % (3.8-10.2) 11/02/17 05:45 Monocytes % (Manual) 0 % (3.8-10.2) L 11/01/17 06:30 Eosinophils % 3.7 % (0-4.5) 11/02/17 05:45 Eosinophils % (Manual) 4.1 % (0-4.5) 11/01/17 06:30 Basophils % 0.3 % (0-2.0) 11/02/17 05:45 Basophils % (Manual) 0.0 % (0-2.0) 11/01/17 06:30 Myelocytes % (Man) 1 % (0-2) 11/01/17 06:30 Promyelocytes % (Man) 0 % (0-2) 11/01/17 06:30 Nucleated RBC % 0 % (0-0) 11/01/17 06:30 Metamyelocytes 0 % (0-2) 11/01/17 06:30 Hypochromia 0 11/01/17 06:30 Platelet Estimate Increased 11/01/17 06:30 Polychromasia 0 11/01/17 06:30 Poikilocytosis 1+ 11/01/17 06:30 Anisocytosis 2+ 11/01/17 06:30 Microcytosis 2+ 11/01/17 06:30 Macrocytosis 0 11/01/17 06:30 Retic Count 1.48 % (0.5-1.5) 10/31/17 06:30 Sodium 134 mmol/L (136-145) L 11/02/17 05:45 Potassium 4.6 mmol/L (3.5-5.1) 11/02/17 05:45 Chloride 98 mmol/L (98-107) 11/02/17 05:45 Carbon Dioxide 27 mmol/L (21-32) 11/02/17 05:45 Anion Gap 9 (8-16) 11/02/17 05:45 BUN 9 mg/dL (7-18) 11/02/17 05:45 Creatinine 0.8 mg/dL (0.55-1.02) 11/02/17 05:45 Creat Clearance w eGFR > 60 (>60) 11/02/17 05:45 Random Glucose 91 mg/dL (74-106) 11/02/17 05:45 Lactic Acid 1.8 mmol/L (0.0-2.0) 11/02/17 05:45 Calcium 8.4 mg/dL (8.5-10.1) L 11/02/17 05:45 Magnesium 1.2 mg/dL (1.8-2.4) L 11/01/17 11:10 Iron 29 ug/dL (27-139) 10/31/17 06:30 TIBC 206 ug/dL (250-450) L 10/31/17 06:30 Iron Saturation 14 % (15-55) L 10/31/17 06:30 Ferritin 66.068 ng/ml (6.9-282.5) 10/31/17 06:30 Total Bilirubin 0.5 mg/dL (0.2-1.0) 11/02/17 05:45 AST 14 U/L (15-37) L 11/02/17 05:45 ALT 21 U/L (12-78) 11/02/17 05:45 Alkaline Phosphatase 65 U/L (45-117) 11/02/17 05:45 C-Reactive Protein 9.3 MG/DL (0.00-0.3) H 11/02/17 05:45 Total Protein 5.3 g/dl (6.4-8.2) L 11/02/17 05:45 Albumin 1.9 g/dl (3.4-5.0) L 11/02/17 05:45 Prealbumin 9.46 mg/dl (20.-40) L 10/29/17 07:15 Total Amylase 43 U/L (25-115) 10/31/17 06:30 Lipase 74 U/L (73-393) 11/01/17 06:30 Vitamin B12 5438 pg/ml (180-914) H 10/29/17 07:15 Vitamin D 25-Hydroxy 36.8 ng/mL (30.0-100.0) 10/29/17 10:00 Problem List - Problems (1) Abdominal pain Assessment/Plan: Improving nausea, vomiting abd pain underwent Upper GI series that shows large paraesophageal hernia, reflux and Rt LL pneumonia, no obstruction, will f/ u GI recommendations cont PPI Code(s): R10.9 - UNSPECIFIED ABDOMINAL PAIN (2) HTN (hypertension) Assessment/Plan: Well Controlled cont current meds Code(s): I10 - ESSENTIAL (PRIMARY) HYPERTENSION (3) Gastrointestinal hemorrhage with melena Assessment/Plan: H/H stable on IV Protonix 40 mg BID will discuss with GI for dose and route. upper GI serious shows no obvious distortion of duodenal bulb Code(s): K92.1 - MELENA (4) Anemia Assessment/Plan: W/U suggestive of EMILY will start Iron once diarrhea resolves Code(s): D64.9 - ANEMIA, UNSPECIFIED (5) HAP (hospital-acquired pneumonia) Assessment/Plan: On Zosyn since hospitalization, all cultures are -ve will discuss with ID for input for duration of abx Code(s): J18.9 - PNEUMONIA, UNSPECIFIED ORGANISM (6) Reactive airway disease Assessment/Plan: Post Viral reactive airway dices improving cont Advair and PRN Duoneb, incentive spectrometry, Pulmonary input appreciated Code(s): J45.909 - UNSPECIFIED ASTHMA, UNCOMPLICATED (7) Malnutrition Assessment/Plan: albumin 2.1 and pre albumin nutrition consult add ensure Code(s): E46 - UNSPECIFIED PROTEIN-CALORIE MALNUTRITION (8) Sepsis Assessment/Plan: yesterday Developed fever elevated TWBCn 22 K, high lactic acid tachycardia recived on dose of vancomycin remained afebrile, TWBC trending normal, so far cultures are -ve will f/u ID input and clinical course. Code(s): A41.9 - SEPSIS, UNSPECIFIED ORGANISM (9) Rash of groin Assessment/Plan: Ont Nystatin Code(s): R21 - RASH AND OTHER NONSPECIFIC SKIN ERUPTION
[2017-11-02 12:44] LABS: MAGNESIUM 1.7 mg/dL (1.8-2.4); PHOSPHOROUS 3.4 mg/dL (2.5-4.9)
--- NOTE | 2017-11-02 14:12 | PN ---
Progress Note, Physician History of Present Illness: feeling much better no complaints wbc trending down - Current Medication List Current Medications: Active Medications Acetaminophen (Tylenol -) 650 mg PO Q6H PRN PRN Reason: FEVER Last Admin: 11/01/17 10:11 Dose: 650 mg Al Hydroxide/Mg Hydroxide (Mylanta Oral Suspension -) 30 ml PO Q6H PRN PRN Reason: DYSPEPSIA Albuterol/Ipratropium (Duoneb -) 1 amp NEB Q6H PRN PRN Reason: SHORTNESS OF BREATH Last Admin: 11/01/17 20:29 Dose: 1 amp Cyclobenzaprine HCl (Flexeril -) 5 mg PO BID [facility] Last Admin: 11/02/17 10:31 Dose: 5 mg Gabapentin (Neurontin -) 600 mg PO BID [facility] Last Admin: 11/02/17 10:32 Dose: 600 mg Guaifenesin (Robitussin Dm -) 10 ml PO Q6H PRN PRN Reason: COUGH Last Admin: 11/01/17 21:25 Dose: 10 ml Piperacillin Sod/Tazobactam (Sod 3.375 gm/ Dextrose) 100 mls @ 200 mls/hr IVPB Q8H-IV RAJAT PRN Reason: Protocol Last Admin: 11/02/17 10:32 Dose: 200 mls/hr Levothyroxine Sodium (Synthroid -) 100 mcg PO DAILY@0700 [facility] Last Admin: 11/02/17 06:05 Dose: Not Given Magnesium Oxide (Mag-Ox -) 400 mg PO BID [facility] Morphine Sulfate (Morphine Injection -) 2 mg IVPUSH Q6H PRN PRN Reason: PAIN LEVEL 6-10 Last Admin: 10/31/17 20:19 Dose: 2 mg Non-Formulary Medication (Colesevelam Hcl [Welchol]) 625 mg PO DAILY [facility] Last Admin: 10/28/17 10:32 Dose: Not Given Nystatin (Mycostatin Cream -) 1 applic TP BID [facility] Last Admin: 11/02/17 10:32 Dose: 1 applic Ondansetron HCl (Zofran Injection) 4 mg IVPUSH Q6H PRN PRN Reason: NAUSEA Last Admin: 10/31/17 23:55 Dose: 4 mg Pantoprazole Sodium (Protonix -) 40 mg PO BID [facility] Last Admin: 01/31/18 10:31 Dose: 40 mg Fluticasone/Salmeterol (Advair 100mcg/50mcg -) 1 puff IH BID RAJAT Last Admin: 11/02/17 10:31 Dose: 1 puff - Objective Vital Signs: Vital Signs Temperature 99.2 F 11/02/17 08:30 Pulse Rate 86 11/02/17 08:30 Respiratory Rate 20 11/02/17 08:30 Blood Pressure 126/55 11/02/17 08:30 O2 Sat by Pulse Oximetry (%) 95 11/01/17 21:00 Constitutional: Yes: No Distress, Calm Cardiovascular: Yes: Regular Rate and Rhythm Respiratory: Yes: Regular, CTA Bilaterally Gastrointestinal: Yes: Normal Bowel Sounds, Soft Musculoskeletal: Yes: WNL Extremities: Yes: WNL Neurological: Yes: Alert, Oriented Psychiatric: Yes: Alert, Oriented Labs: CBC, BMP 11/02/17 05:45 11/02/17 05:45 - ....Imaging X-ray: Report Reviewed, Image Reviewed Assessment/Plan Problem List - Problems (1) Abdominal pain Code(s): R10.9 - UNSPECIFIED ABDOMINAL PAIN (2) RUTH (acute kidney injury) Code(s): N17.9 - ACUTE KIDNEY FAILURE, UNSPECIFIED (3) Dehydration Code(s): E86.0 - DEHYDRATION (4) HTN (hypertension) Code(s): I10 - ESSENTIAL (PRIMARY) HYPERTENSION (5) Gastrointestinal hemorrhage with melena Code(s): K92.1 - MELENA (6) Anemia Code(s): D64.9 - ANEMIA, UNSPECIFIED (7) Neuropathy Code(s): G62.9 - POLYNEUROPATHY, UNSPECIFIED (8) HAP (hospital-acquired pneumonia) Code(s): J18.9 - PNEUMONIA, UNSPECIFIED ORGANISM 9 fever 10 lactic acidosis plan continue current abx incentive lionel monitor wbc rest as per primary team
--- NOTE | 2017-11-02 15:54 | PN ---
Progress Note, Physician History of Present Illness: PULMONARY ALERT,C/O ABD PAIN,-SOB - Current Medication List Current Medications: Active Medications Acetaminophen (Tylenol -) 650 mg PO Q6H PRN PRN Reason: FEVER Last Admin: 11/01/17 10:11 Dose: 650 mg Al Hydroxide/Mg Hydroxide (Mylanta Oral Suspension -) 30 ml PO Q6H PRN PRN Reason: DYSPEPSIA Albuterol/Ipratropium (Duoneb -) 1 amp NEB Q6H PRN PRN Reason: SHORTNESS OF BREATH Last Admin: 11/01/17 20:29 Dose: 1 amp Cyclobenzaprine HCl (Flexeril -) 5 mg PO BID [facility] Last Admin: 11/02/17 10:31 Dose: 5 mg Gabapentin (Neurontin -) 600 mg PO BID [facility] Last Admin: 11/02/17 10:32 Dose: 600 mg Guaifenesin (Robitussin Dm -) 10 ml PO Q6H PRN PRN Reason: COUGH Last Admin: 11/01/17 21:25 Dose: 10 ml Piperacillin Sod/Tazobactam (Sod 3.375 gm/ Dextrose) 100 mls @ 200 mls/hr IVPB Q8H-IV RAJAT PRN Reason: Protocol Last Admin: 11/02/17 10:32 Dose: 200 mls/hr Levothyroxine Sodium (Synthroid -) 100 mcg PO DAILY@0700 [facility] Last Admin: 11/02/17 06:05 Dose: Not Given Magnesium Oxide (Mag-Ox -) 400 mg PO BID [facility] Morphine Sulfate (Morphine Injection -) 2 mg IVPUSH Q6H PRN PRN Reason: PAIN LEVEL 6-10 Last Admin: 10/31/17 20:19 Dose: 2 mg Non-Formulary Medication (Colesevelam Hcl [Welchol]) 625 mg PO DAILY [facility] Last Admin: 10/28/17 10:32 Dose: Not Given Nystatin (Mycostatin Cream -) 1 applic TP BID [facility] Last Admin: 11/02/17 10:32 Dose: 1 applic Ondansetron HCl (Zofran Injection) 4 mg IVPUSH Q6H PRN PRN Reason: NAUSEA Last Admin: 10/31/17 23:55 Dose: 4 mg Pantoprazole Sodium (Protonix -) 40 mg PO BID [facility] Last Admin: 11/02/17 10:31 Dose: 40 mg Fluticasone/Salmeterol (Advair 100mcg/50mcg -) 1 puff IH BID [facility] Last Admin: 11/02/17 10:31 Dose: 1 puff - Objective Vital Signs: Vital Signs Temperature 98.7 F 11/02/17 14:44 Pulse Rate 102 H 11/02/17 14:44 Respiratory Rate 20 11/02/17 08:30 Blood Pressure 115/72 11/02/17 14:44 O2 Sat by Pulse Oximetry (%) 95 11/01/17 21:00 Constitutional: Yes: Well Nourished, Calm Eyes: Yes: WNL HENT: Yes: WNL Neck: Yes: WNL Cardiovascular: Yes: Regular Rate and Rhythm, S1, S2 Respiratory: Yes: Rales (FEW BIBASILAR CRACKLES) Gastrointestinal: Yes: Normal Bowel Sounds, Soft Extremities: Yes: WNL Edema: No Labs: CBC, BMP 11/02/17 05:45 11/02/17 05:45 - ....Imaging Chest X-ray: Report Reviewed, Image Reviewed Assessment/Plan Problem List - Problems (1) RUTH (acute kidney injury) Code(s): N17.9 - ACUTE KIDNEY FAILURE, UNSPECIFIED (2) Abdominal pain Code(s): R10.9 - UNSPECIFIED ABDOMINAL PAIN (3) Anemia Code(s): D64.9 - ANEMIA, UNSPECIFIED (4) Dehydration Code(s): E86.0 - DEHYDRATION (5) Diarrhea Code(s): R19.7 - DIARRHEA, UNSPECIFIED (6) Gastrointestinal hemorrhage with melena Code(s): K92.1 - MELENA (7) HAP (hospital-acquired pneumonia) Code(s): J18.9 - PNEUMONIA, UNSPECIFIED ORGANISM (8) HTN (hypertension) Code(s): I10 - ESSENTIAL (PRIMARY) HYPERTENSION (9) Neuropathy Code(s): G62.9 - POLYNEUROPATHY, UNSPECIFIED (10) Hiatal hernia Code(s): K44.9 - DIAPHRAGMATIC HERNIA WITHOUT OBSTRUCTION OR GANGRENE Assessment/Plan ABX per ID GI workup ongoing BD TX VTE prophylaxis Analgesics DR MONIQUE Problem List - Problems (1) RUTH (acute kidney injury) Code(s): N17.9 - ACUTE KIDNEY FAILURE, UNSPECIFIED (2) Abdominal pain Code(s): R10.9 - UNSPECIFIED ABDOMINAL PAIN (3) Anemia Code(s): D64.9 - ANEMIA, UNSPECIFIED (4) Dehydration Code(s): E86.0 - DEHYDRATION (5) Diarrhea Code(s): R19.7 - DIARRHEA, UNSPECIFIED (6) Gastrointestinal hemorrhage with melena Code(s): K92.1 - MELENA (7) HAP (hospital-acquired pneumonia) Code(s): J18.9 - PNEUMONIA, UNSPECIFIED ORGANISM (8) HTN (hypertension) Code(s): I10 - ESSENTIAL (PRIMARY) HYPERTENSION (9) Neuropathy Code(s): G62.9 - POLYNEUROPATHY, UNSPECIFIED (10) Hiatal hernia Code(s): K44.9 - DIAPHRAGMATIC HERNIA WITHOUT OBSTRUCTION OR GANGRENE
[2017-11-02] MEDS: MAGNESIUM OXIDE 400 MG TABLET (FP) PO SCH (21:07)
[2017-11-03] MEDS: PIPERACILLIN/TAZOB 3.375 GM 3.375 GM in DEXTROSE 5%-WATER - 100 ML IVPB SCH ×3 (01:17→19:17)
[2017-11-03] MEDS: LEVOTHYROXINE NA 100 MCG TABLET (FP) PO SCH (06:09)
[2017-11-03] MEDS: ALBUTEROL SO4 2.5/IPRATROPIUM 0.5 INH SOL 3 ML VIAL.NEB. NEB PRN ×2 (08:07→20:35)
[2017-11-03 08:44] LABS: BASO % 0.4 % (0-2.0); EOS % 5.6 % (0-4.5); HEMATOCRIT 28.7 % (32.4-45.2); HEMOGLOBIN 9.6 GM/dL (10.7-15.3); LYMPH % 16.5 % (8-40); MCH 27.2 pg (25.7-33.7); MCHC 33.5 g/dl (32.0-36.0); MEAN CELL VOLUME 81.2 fl (80-96); MEAN PLT VOLUME 7.5 fl (7.5-11.1); MONO % 8.1 % (3.8-10.2); NEUT % 69.4 % (42.8-82.8); PLATELET COUNT 583 K/MM3 (134-434); RBC 3.54 M/mm3 (3.60-5.2); RDW 14.7 % (11.6-15.6); WHITE BLOOD COUNT 8.8 K/mm3 (4.0-10.0)
[2017-11-03 09:05] LABS: ANION GAP 9 (8-16); BLOOD UREA NITROGEN 6 mg/dL (7-18); CALCIUM 8.2 mg/dL (8.5-10.1); CHLORIDE 98 mmol/L (98-107); CO2 27 mmol/L (21-32); CREATININE 0.8 mg/dL (0.55-1.02); GLUCOSE,RANDOM 102 mg/dL (74-106); POTASSIUM 3.7 mmol/L (3.5-5.1); SODIUM 134 mmol/L (136-145)
[2017-11-03] MEDS ORDERED: PT OWN MED DRAWER 7, Y5N ONE ×2 (09:54→18:01)
[2017-11-03] MEDS: GABAPENTIN 300 MG CAPSULE (FP) PO SCH ×2 (10:14→21:24)
[2017-11-03] MEDS: PANTOPRAZOLE 40 MG TABLET (FP) PO SCH ×2 (10:14→21:24)
[2017-11-03] MEDS: MAGNESIUM OXIDE 400 MG TABLET (FP) PO SCH ×2 (10:14→21:24)
[2017-11-03] MEDS: FLUTICASONE/SALMETEROL 100 MCG/50 MCG DISKUS IH SCH ×2 (10:15→21:23)
[2017-11-03] MEDS: CYCLOBENZAPRINE HCL 10 MG TABLET (FP) PO SCH ×2 (10:15→21:24)
[2017-11-03] MEDS: NYSTATIN 100,000 UNIT/GM TOPICAL CREAM 15 GM TUBE TP SCH ×2 (10:15→21:27)
--- NOTE | 2017-11-03 10:43 | PN ---
Progress Note (short form) - Note Progress Note: S: no cp sob palps dizzy; still with cough Current Medications Generic Name Dose Route Start Last Admin Trade Name Freq PRN Reason Stop Dose Admin Acetaminophen 650 mg 10/28/17 05:23 11/01/17 10:11 Tylenol - PO 650 mg Q6H PRN Administration FEVER Al Hydroxide/Mg Hydroxide 30 ml 10/31/17 09:37 Mylanta Oral Suspension - PO Q6H PRN DYSPEPSIA Albuterol/Ipratropium 1 amp 10/30/17 12:20 11/03/17 08:07 Duoneb - NEB 1 amp Q6H PRN Administration SHORTNESS OF BREATH Cyclobenzaprine HCl 5 mg 10/30/17 22:00 11/03/17 10:15 Flexeril - PO 5 mg BID RAJAT Administration Gabapentin 600 mg 10/28/17 10:00 11/03/17 10:14 Neurontin - PO 600 mg BID RAJAT Administration Guaifenesin 10 ml 10/28/17 10:19 11/01/17 21:25 Robitussin Dm - PO 10 ml Q6H PRN Administration COUGH Piperacillin Sod/Tazobactam 100 mls @ 200 mls/hr 10/28/17 18:00 11/03/17 10: 15 Sod 3.375 gm/ Dextrose IVPB 200 mls/hr Q8H-IV RAJAT Administration Protocol Levothyroxine Sodium 100 mcg 10/28/17 07:00 11/03/17 06:09 Synthroid - PO 100 mcg DAILY@0700 RAJAT Administration Magnesium Oxide 400 mg 11/02/17 22:00 11/03/17 10:14 Mag-Ox - PO 400 mg BID RAJAT Administration Morphine Sulfate 2 mg 10/31/17 19:40 10/31/17 20:19 Morphine Injection - IVPUSH 2 mg Q6H PRN Administration PAIN LEVEL 6-10 Non-Formulary Medication 625 mg 10/28/17 10:00 10/28/17 10:32 Colesevelam Hcl [Welchol] PO Not Given DAILY RAJAT Nystatin 1 applic 11/01/17 10:45 11/03/17 10:15 Mycostatin Cream - TP 1 applic BID RAJAT Administration Ondansetron HCl 4 mg 10/28/17 10:19 10/31/17 23:55 Zofran Injection IVPUSH 4 mg Q6H PRN Administration NAUSEA Pantoprazole Sodium 40 mg 11/01/17 22:00 11/03/17 10:14 Protonix - PO 40 mg BID RAJAT Administration Fluticasone/Salmeterol 1 puff 10/30/17 12:30 11/03/17 10:15 Advair 100mcg/50mcg - IH 1 puff BID RAJAT Administration Vital Signs Period Temp Pulse Resp BP Sys/Bartholomew Pulse Ox Last 24 Hr 98.1 F-98.7 F 69-102 18-20 115-136/50-72 97 nad, no jvd, neck supple bibasilar rales, nl eff rrr, nl s1s2 no mrg ttp of intercostal space + bs soft nt, nd no le le/c/c no jaundice diaphoresis aaox3 CBC, BMP 11/03/17 07:20 11/03/17 07:20 ekg: SR with pvc's. LAD. LAFB. LVH with repol ab (anterolateral t wave ab and qrs widening). poor r wave progression. no acute ischemic changes. unchanged from priors. ekg 11/01/17: st, 102 bpm. no pvc's. otherwise unchanged. ct abd/pelvis: images and report reviewed. RLL consolidation/pna. large hiatal hernia with intrathoracic stomach. mild inflammatory changes in RLQ. see emr for full details. ct enterography (images and report reviewed): small B pl effusions with consolidation/atelectasis of RLL. large hiatal hernia. see emr for abdominal findings. echo 03/2017, 1+ conc lvh (1.3 cm). Nl lv/rv size/fn. 1+ lae. 1+ focal mac with mild functional ms (MG 3 mmHg, 67 bpm). 1+ mr. 1+ phtn. small ivc. a/p: 82 yo F with H/O HTN, periphral neuropathy, Hiatal Hernia, GERD/PUD, hiatal hernia, chronic back pain and admission to [facility] with Influenza A this past week who p/w abd pain/diarrhea/? melena. htn - hctz on hold in setting of poor po intake/hyponatremia. hyponatremia initially resolved s/p IVF --> recurrence 11/01 in setting of fever. - 10/31 bp stable on norvasc 5 mg bid. Now febrile, con't to monitor. Low threshold to hold if bp trends down. - 11/01 bp low this am in setting of recurrent fever, stop norvasc for now. -11/02-11/03: bp stable off norvasc for now inducible cp - inducible with cough or palpation of intercostal muscles. likely msk, 2/2 prolonged coughing last week in setting of flu. influenza/pna - on abx. per pmd/ID/pulm ? GIB, possible melena/bloody stool prior to admit - + occult blood, hgb trending down. GI following. s/p CT enterography. - stopped nsaids for tx of pain.
--- NOTE | 2017-11-03 11:12 | PN ---
Progress Note (short form) - Note Progress Note: Resting in NAD on RA. Breathing has overall improved. Some dry cough. Abdominal symptoms also better. No acute events overnight. CXR: Improving infiltrate / residual atelectasis Intake & Output 10/31/17 11/01/17 11/02/17 11/03/17 23:59 23:59 23:59 23:59 Intake Total 500 2825 680 300 Output Total 850 1400 Balance 500 1975 -720 300 Last Vital Signs Temp Pulse Resp BP Pulse Ox 98.1 F 69 18 136/50 97 11/03/17 06:00 11/03/17 06:00 11/03/17 06:00 11/03/17 06:00 11/02/17 21:00 Active Medications Acetaminophen (Tylenol -) 650 mg PO Q6H PRN PRN Reason: FEVER Last Admin: 11/01/17 10:11 Dose: 650 mg Al Hydroxide/Mg Hydroxide (Mylanta Oral Suspension -) 30 ml PO Q6H PRN PRN Reason: DYSPEPSIA Albuterol/Ipratropium (Duoneb -) 1 amp NEB Q6H PRN PRN Reason: SHORTNESS OF BREATH Last Admin: 11/03/17 08:07 Dose: 1 amp Cyclobenzaprine HCl (Flexeril -) 5 mg PO BID [facility] Last Admin: 11/03/17 10:15 Dose: 5 mg Gabapentin (Neurontin -) 600 mg PO BID [facility] Last Admin: 11/03/17 10:14 Dose: 600 mg Guaifenesin (Robitussin Dm -) 10 ml PO Q6H PRN PRN Reason: COUGH Last Admin: 11/01/17 21:25 Dose: 10 ml Piperacillin Sod/Tazobactam (Sod 3.375 gm/ Dextrose) 100 mls @ 200 mls/hr IVPB Q8H-IV RAJAT PRN Reason: Protocol Last Admin: 11/03/17 10:15 Dose: 200 mls/hr Levothyroxine Sodium (Synthroid -) 100 mcg PO DAILY@0700 [facility] Last Admin: 11/03/17 06:09 Dose: 100 mcg Magnesium Oxide (Mag-Ox -) 400 mg PO BID [facility] Last Admin: 11/03/17 10:14 Dose: 400 mg Morphine Sulfate (Morphine Injection -) 2 mg IVPUSH Q6H PRN PRN Reason: PAIN LEVEL 6-10 Last Admin: 10/31/17 20:19 Dose: 2 mg Non-Formulary Medication (Colesevelam Hcl [Welchol]) 625 mg PO DAILY [facility] Last Admin: 10/28/17 10:32 Dose: Not Given Nystatin (Mycostatin Cream -) 1 applic TP BID [facility] Last Admin: 11/03/17 10:15 Dose: 1 applic Ondansetron HCl (Zofran Injection) 4 mg IVPUSH Q6H PRN PRN Reason: NAUSEA Last Admin: 10/31/17 23:55 Dose: 4 mg Pantoprazole Sodium (Protonix -) 40 mg PO BID [facility] Last Admin: 11/03/17 10:14 Dose: 40 mg Fluticasone/Salmeterol (Advair 100mcg/50mcg -) 1 puff IH BID [facility] Last Admin: 11/03/17 10:15 Dose: 1 puff Constitutional: Yes: No Distress, Thin Eyes: Yes: Conjunctiva Clear, EOM Intact HENT: Yes: Atraumatic, Normocephalic Neck: Yes: Supple, Trachea Midline Cardiovascular: Yes: Regular Rate and Rhythm Respiratory: Yes: CTA Bilaterally. No: Accessory Muscle Use, On Nasal O2, Rales , Rhonchi, SOB, Stridor, Tachypnea, Wheezes ...Inspection: Yes: WNL ...Clubbing: No Gastrointestinal: Yes: Normal Bowel Sounds, Soft Renal/: Yes: WNL Musculoskeletal: Yes: WNL Extremities: Yes: WNL Edema: No Peripheral Pulses WNL: Yes Integumentary: Yes: WNL Neurological: Yes: WNL, Alert, Oriented ...Motor Strength: WNL Psychiatric: Yes: WNL, Alert, Oriented Labs: Laboratory Results - last 24 hr 10/31/17 10/31/17 11/02/17 06:30 10:50 05:45 WBC RBC Hgb Hct MCV MCH MCHC RDW Plt Count MPV Neutrophils % Lymphocytes % Monocytes % Eosinophils % Basophils % Sodium 134 L Potassium 4.6 Chloride 98 Carbon Dioxide 27 Anion Gap 9 BUN 9 Creatinine 0.8 Creat Clearance w eGFR > 60 Random Glucose 91 Calcium 8.4 L Phosphorus 3.4 Magnesium 1.7 L Total Bilirubin 0.5 AST 14 L ALT 21 Alkaline Phosphatase 65 Total Protein 5.3 L Albumin 1.9 L Stool O & P Wet [place].cerevisiae IgG Ab 25.9 H S. cerevisiae IgG/IgA <20.0 O & P Permanent Slide Final report 11/03/17 11/03/17 07:20 07:20 WBC 8.8 D RBC 3.54 L Hgb 9.6 L D Hct 28.7 L MCV 81.2 MCH 27.2 MCHC 33.5 RDW 14.7 Plt Count 583 H D MPV 7.5 Neutrophils % 69.4 Lymphocytes % 16.5 D Monocytes % 8.1 Eosinophils % 5.6 H Basophils % 0.4 Sodium 134 L Potassium 3.7 Chloride 98 Carbon Dioxide 27 Anion Gap 9 BUN 6 L Creatinine 0.8 Creat Clearance w eGFR Random Glucose 102 Calcium 8.2 L Phosphorus Magnesium Total Bilirubin AST ALT Alkaline Phosphatase Total Protein Albumin Stool O & P Wet [place].cerevisiae IgG Ab S. cerevisiae IgG/IgA O & P Permanent Slide Problem List - Problems (1) RUTH (acute kidney injury) Code(s): N17.9 - ACUTE KIDNEY FAILURE, UNSPECIFIED (2) Abdominal pain Code(s): R10.9 - UNSPECIFIED ABDOMINAL PAIN (3) Anemia Code(s): D64.9 - ANEMIA, UNSPECIFIED (4) Dehydration Code(s): E86.0 - DEHYDRATION (5) Diarrhea Code(s): R19.7 - DIARRHEA, UNSPECIFIED (6) Gastrointestinal hemorrhage with melena Code(s): K92.1 - MELENA (7) HAP (hospital-acquired pneumonia) Code(s): J18.9 - PNEUMONIA, UNSPECIFIED ORGANISM (8) HTN (hypertension) Code(s): I10 - ESSENTIAL (PRIMARY) HYPERTENSION (9) Neuropathy Code(s): G62.9 - POLYNEUROPATHY, UNSPECIFIED (10) Hiatal hernia Code(s): K44.9 - DIAPHRAGMATIC HERNIA WITHOUT OBSTRUCTION OR GANGRENE Assessment/Plan ABX per ID GI workup ongoing BD TX VTE prophylaxis Dr Kern Problem List - Problems (1) RUTH (acute kidney injury) Code(s): N17.9 - ACUTE KIDNEY FAILURE, UNSPECIFIED (2) Abdominal pain Code(s): R10.9 - UNSPECIFIED ABDOMINAL PAIN (3) Anemia Code(s): D64.9 - ANEMIA, UNSPECIFIED (4) Dehydration Code(s): E86.0 - DEHYDRATION (5) Diarrhea Code(s): R19.7 - DIARRHEA, UNSPECIFIED (6) Gastrointestinal hemorrhage with melena Code(s): K92.1 - MELENA (7) HAP (hospital-acquired pneumonia) Code(s): J18.9 - PNEUMONIA, UNSPECIFIED ORGANISM (8) HTN (hypertension) Code(s): I10 - ESSENTIAL (PRIMARY) HYPERTENSION (9) Neuropathy Code(s): G62.9 - POLYNEUROPATHY, UNSPECIFIED (10) Hiatal hernia Code(s): K44.9 - DIAPHRAGMATIC HERNIA WITHOUT OBSTRUCTION OR GANGRENE
[2017-11-03] MEDS: ACETAMINOPHEN 325 MG TABLET (FP) PO PRN (12:38)
--- NOTE | 2017-11-03 12:48 | PN ---
Progress Note, Physician Chief Complaint: Over all improvement, still some cough and abdominal pain, afebrile, hemodynamically stable. History of Present Illness: 82 yrs old F with H/O HTN, Neuropathy, Hiatal Hernia, GERD chronic back pain present to Ed with 1 day H/O abdominal pain with loose stool, poor PO intake, patient has been feeling unwell for past 2 wks initially admitted at [facility] with Influenza A completed Tamiflu and discharged home, patient remained unwell so revisted [place] again , patient was observed and discharged home on PPI, 2 days ago developed abdominal pain nausea and black color stool with fever and Cough so last night present to Ed for further evaluation, patient put hot water bottle on abdomen developed burn blisters, Lab shows Elevated TWBC with Rt Ll Infiltrate and focal mesenteric inflammation., stool occult blood reported + in the ED. Evaluated by ID, GI, and cardiology consult.yesterday underwent CT Enterography shows large hiatal hernia, small area of mesenteric inflammation around terminal ileum. Patient is evaluated by Ct surgery recommonded uppor GI series that shows Large Paraesophageal hernia, Rt Ll Pneumonia and Reflux. - Current Medication List Current Medications: Active Medications Acetaminophen (Tylenol -) 650 mg PO Q6H PRN PRN Reason: FEVER Last Admin: 11/03/17 12:38 Dose: 650 mg Al Hydroxide/Mg Hydroxide (Mylanta Oral Suspension -) 30 ml PO Q6H PRN PRN Reason: DYSPEPSIA Albuterol/Ipratropium (Duoneb -) 1 amp NEB Q6H PRN PRN Reason: SHORTNESS OF BREATH Last Admin: 11/03/17 08:07 Dose: 1 amp Cyclobenzaprine HCl (Flexeril -) 5 mg PO BID RAJAT Last Admin: 11/03/17 10:15 Dose: 5 mg Gabapentin (Neurontin -) 600 mg PO BID RAJAT Last Admin: 11/03/17 10:14 Dose: 600 mg Guaifenesin (Robitussin Dm -) 10 ml PO Q6H PRN PRN Reason: COUGH Last Admin: 11/01/17 21:25 Dose: 10 ml Piperacillin Sod/Tazobactam (Sod 3.375 gm/ Dextrose) 100 mls @ 200 mls/hr IVPB Q8H-IV RAJAT PRN Reason: Protocol Last Admin: 11/03/17 10:15 Dose: 200 mls/hr Levothyroxine Sodium (Synthroid -) 100 mcg PO DAILY@0700 [facility] Last Admin: 11/03/17 06:09 Dose: 100 mcg Magnesium Oxide (Mag-Ox -) 400 mg PO BID [facility] Last Admin: 11/03/17 10:14 Dose: 400 mg Morphine Sulfate (Morphine Injection -) 2 mg IVPUSH Q6H PRN PRN Reason: PAIN LEVEL 6-10 Last Admin: 10/31/17 20:19 Dose: 2 mg Non-Formulary Medication (Colesevelam Hcl [Welchol]) 625 mg PO DAILY [facility] Last Admin: 10/28/17 10:32 Dose: Not Given Nystatin (Mycostatin Cream -) 1 applic TP BID [facility] Last Admin: 11/03/17 10:15 Dose: 1 applic Ondansetron HCl (Zofran Injection) 4 mg IVPUSH Q6H PRN PRN Reason: NAUSEA Last Admin: 10/31/17 23:55 Dose: 4 mg Pantoprazole Sodium (Protonix -) 40 mg PO BID [facility] Last Admin: 11/03/17 10:14 Dose: 40 mg Fluticasone/Salmeterol (Advair 100mcg/50mcg -) 1 puff IH BID [facility] Last Admin: 11/03/17 10:15 Dose: 1 puff - Objective Vital Signs: Vital Signs Temperature 97.7 F 11/03/17 10:00 Pulse Rate 88 11/03/17 10:00 Respiratory Rate 20 11/03/17 10:00 Blood Pressure 138/62 11/03/17 10:00 O2 Sat by Pulse Oximetry (%) 97 11/03/17 09:00 Elderly F looks c/o weakness, minimal cough and abd pain HEENT: Mm dry, no JVD BNo Bruit CHEST: Left side Gastric sounds + B/L Basal crepts CVS: S1S2 Tachycardia ABD: Soft, mild tenderness, BS + EXT: Trace edema feet, erythematous rash in groin improioving DOOR TO DOOR LEAD GENERATION: AOX3 non focal Labs: CBC, BMP 11/03/17 07:20 11/03/17 07:20 CBC,CMP Problem List - Problems (1) Abdominal pain Assessment/Plan: Improving nausea, vomiting abd pain underwent Upper GI series that shows large paraesophageal hernia, reflux and Rt LL pneumonia, no obstruction, will f/ u GI recommendations Protonix 40 mg BID Code(s): R10.9 - UNSPECIFIED ABDOMINAL PAIN (2) HTN (hypertension) Assessment/Plan: Well Controlled cont current meds Code(s): I10 - ESSENTIAL (PRIMARY) HYPERTENSION (3) Gastrointestinal hemorrhage with melena Assessment/Plan: H/H stable on PO Protonix 40 mg BID will discuss with GI for dose and route. upper GI serious shows no obvious distortion of duodenal bulb Code(s): K92.1 - MELENA (4) Anemia Assessment/Plan: W/U suggestive of EMILY will start Iron once diarrhea resolves Code(s): D64.9 - ANEMIA, UNSPECIFIED (5) HAP (hospital-acquired pneumonia) Assessment/Plan: On Zosyn since hospitalization, all cultures are -ve will discuss with ID for input for duration of abx Code(s): J18.9 - PNEUMONIA, UNSPECIFIED ORGANISM (6) Reactive airway disease Assessment/Plan: Post Viral reactive airway dices improving cont Advair and PRN Duoneb, incentive spectrometry, Pulmonary input appreciated Code(s): J45.909 - UNSPECIFIED ASTHMA, UNCOMPLICATED (7) Malnutrition Assessment/Plan: albumin 2.1 and pre albumin nutrition consult add ensure Code(s): E46 - UNSPECIFIED PROTEIN-CALORIE MALNUTRITION (8) Rash of groin Assessment/Plan: Ont Nystatin Code(s): R21 - RASH AND OTHER NONSPECIFIC SKIN ERUPTION (9) Hypothyroid Assessment/Plan: On Levothyroxine Code(s): E03.9 - HYPOTHYROIDISM, UNSPECIFIED
--- NOTE | 2017-11-03 16:26 | PN ---
Progress Note, Physician History of Present Illness: stable no new issues - Current Medication List Current Medications: Active Medications Acetaminophen (Tylenol -) 650 mg PO Q6H PRN PRN Reason: FEVER Last Admin: 11/03/17 12:38 Dose: 650 mg Al Hydroxide/Mg Hydroxide (Mylanta Oral Suspension -) 30 ml PO Q6H PRN PRN Reason: DYSPEPSIA Albuterol/Ipratropium (Duoneb -) 1 amp NEB Q6H PRN PRN Reason: SHORTNESS OF BREATH Last Admin: 11/03/17 08:07 Dose: 1 amp Cyclobenzaprine HCl (Flexeril -) 5 mg PO BID [facility] Last Admin: 11/03/17 10:15 Dose: 5 mg Gabapentin (Neurontin -) 600 mg PO BID [facility] Last Admin: 11/03/17 10:14 Dose: 600 mg Guaifenesin (Robitussin Dm -) 10 ml PO Q6H PRN PRN Reason: COUGH Last Admin: 11/01/17 21:25 Dose: 10 ml Piperacillin Sod/Tazobactam (Sod 3.375 gm/ Dextrose) 100 mls @ 200 mls/hr IVPB Q8H-IV RAJAT PRN Reason: Protocol Last Admin: 11/03/17 10:15 Dose: 200 mls/hr Levothyroxine Sodium (Synthroid -) 100 mcg PO DAILY@0700 [facility] Last Admin: 11/03/17 06:09 Dose: 100 mcg Magnesium Oxide (Mag-Ox -) 400 mg PO BID [facility] Last Admin: 11/03/17 10:14 Dose: 400 mg Morphine Sulfate (Morphine Injection -) 2 mg IVPUSH Q6H PRN PRN Reason: PAIN LEVEL 6-10 Last Admin: 10/31/17 20:19 Dose: 2 mg Non-Formulary Medication (Colesevelam Hcl [Welchol]) 625 mg PO DAILY [facility] Last Admin: 10/28/17 10:32 Dose: Not Given Nystatin (Mycostatin Cream -) 1 applic TP BID [facility] Last Admin: 11/03/17 10:15 Dose: 1 applic Ondansetron HCl (Zofran Injection) 4 mg IVPUSH Q6H PRN PRN Reason: NAUSEA Last Admin: 10/31/17 23:55 Dose: 4 mg Pantoprazole Sodium (Protonix -) 40 mg PO BID [facility] Last Admin: 11/03/17 10:14 Dose: 40 mg Fluticasone/Salmeterol (Advair 100mcg/50mcg -) 1 puff IH BID [facility] Last Admin: 11/03/17 10:15 Dose: 1 puff - Objective Vital Signs: Vital Signs Temperature 98.1 F 11/03/17 15:56 Pulse Rate 76 11/03/17 15:42 Respiratory Rate 20 11/03/17 10:00 Blood Pressure 111/51 11/03/17 15:42 O2 Sat by Pulse Oximetry (%) 97 11/03/17 09:00 Constitutional: Yes: No Distress, Calm Cardiovascular: Yes: Regular Rate and Rhythm Respiratory: Yes: Regular, CTA Bilaterally Gastrointestinal: Yes: Normal Bowel Sounds, Soft Musculoskeletal: Yes: WNL Extremities: Yes: WNL Neurological: Yes: Alert, Oriented Psychiatric: Yes: Alert, Oriented Labs: CBC, BMP 11/03/17 07:20 11/03/17 07:20 Assessment/Plan Problem List - Problems (1) Abdominal pain Code(s): R10.9 - UNSPECIFIED ABDOMINAL PAIN (2) RUTH (acute kidney injury) Code(s): N17.9 - ACUTE KIDNEY FAILURE, UNSPECIFIED (3) Dehydration Code(s): E86.0 - DEHYDRATION (4) HTN (hypertension) Code(s): I10 - ESSENTIAL (PRIMARY) HYPERTENSION (5) Gastrointestinal hemorrhage with melena Code(s): K92.1 - MELENA (6) Anemia Code(s): D64.9 - ANEMIA, UNSPECIFIED (7) Neuropathy Code(s): G62.9 - POLYNEUROPATHY, UNSPECIFIED (8) HAP (hospital-acquired pneumonia) Code(s): J18.9 - PNEUMONIA, UNSPECIFIED ORGANISM 9 fever 10 lactic acidosis plan continue current abx wbc normal 'will switch to oral rest continue current mgmt
--- NOTE | 2017-11-03 20:41 | DS ---
Physical Examination Vital Signs: Vital Signs Temperature 97.7 F 11/03/17 10:00 Pulse Rate 88 11/03/17 10:00 Respiratory Rate 20 11/03/17 10:00 Blood Pressure 138/62 11/03/17 10:00 O2 Sat by Pulse Oximetry (%) 97 11/03/17 09:00 Elderly F looks c/o weakness, minimal cough and abd pain HEENT: Mm dry, no JVD BNo Bruit CHEST: Left side Gastric sounds + B/L Basal crepts CVS: S1S2 Tachycardia ABD: Soft, mild tenderness, BS + EXT: Trace edema feet, erythematous rash in groin improving BUSINESS CONTINUITY CONSULTANT: AOX3 non focal Labs: CBC, BMP 11/03/17 07:20 11/03/17 07:20 Discharge Summary Reason For Visit: ACUTE KIDNEY INJURY/ABDOMINAL PAIN/PNEUMONIA Current Active Problems RUTH (acute kidney injury) (Acute) RUTH (acute kidney injury) (Acute) Abdominal pain (Acute) Anemia (Acute) Dehydration (Acute) Diarrhea (Acute) Gastrointestinal hemorrhage with melena (Acute) HAP (hospital-acquired pneumonia) (Acute) HTN (hypertension) (Acute) Hypothyroid (Acute) Malnutrition (Acute) Neuropathy (Acute) Rash of groin (Acute) Reactive airway disease (Acute) Sepsis (Acute) Urinary retention (Acute) Hospital Course: 82 yrs old F with H/O HTN, Neuropathy, Hiatal Hernia, GERD chronic back pain present to Ed with 1 day H/O abdominal pain with loose stool, poor PO intake, patient has been feeling unwell for past 2 wks initially admitted at [facility] with Influenza A completed Tamiflu and discharged home, patient remained unwell so revisted [place] again , patient was observed and discharged home on PPI, 2 days ago developed abdominal pain nausea and black color stool with fever and Cough so last night present to Ed for further evaluation, patient put hot water bottle on abdomen developed burn blisters, Lab shows Elevated TWBC with Rt Ll Infiltrate and focal mesenteric inflammation., stool occult blood reported + in the ED. Evaluated by ID, GI, and cardiology consult.yesterday underwent CT Enterography shows large hiatal hernia, small area of mesenteric inflammation around terminal ileum. Patient is evaluated by Ct surgery recommended uppor GI series that shows Large Paraesophageal hernia, Rt Ll Pneumonia and Reflux. Patient gradually improved with correction of electrolytes, RUTH resolved, remained afebrile TWBC trended normal. TSH was low so Levothyroxine dose is reduced to 88 mcg Switch to PO Augmentin 875 mg BID for 5 days. Plan; Switch to PO abx F/U PCP and Ct surgery for possible Hital hernia surgery after clinical stabilization and improvement in nutritional status. Condition: Stable - Instructions Diet, Activity, Other Instructions: soft Diet, 2Hrs Prop U after meals, small frequent meals Sleep 45 degree head up Referrals: Sanna Alan MD [Primary Care Provider] - Claudia Vidal MD [Staff Physician] - 2 Weeks Clifton Owens MD [Staff Physician] - 1 Month - Home Medications Comprehensive Discharge Medication List: Ambulatory Orders Amlodipine Besylate [Norvasc -] 5 mg PO BID 10/25/14 Colesevelam HCl [Welchol] 625 mg PO DAILY 10/25/14 Cyclobenzaprine HCl [Flexeril] 5 mg PO TID 10/25/14 Gabapentin 600 mg PO BID 10/25/14 Levothyroxine [Synthroid -] 88 mcg PO DAILY 10/25/14 Losartan Potassium 50 mg PO DAILY 10/25/14 Acetaminophen [Tylenol .Regular Strength -] 650 mg PO Q6H PRN #30 tablet Guaifenesin Dm [Robitussin Dm -] 10 ml PO Q6H PRN 7 Days #1 cup 11/03/17 Mag Hydrox/Al Hydrox/Simeth [Mylanta Oral Suspension -] 30 ml PO Q6H PRN #1 cup 11/03/17 Magnesium Oxide [Mag-Ox -] 400 mg PO DAILY 30 Days #30 tablet 11/03/17 Nystatin Cream [Mycostatin Cream -] 1 applic TP BID 7 Days #1 applic 11/03/17 Pantoprazole Sodium [Protonix -] 40 mg PO BID 30 Days #60 tablet.ec 11/03/17 Salmeterol/Fluticasone [Advair 100Mcg/50Mcg -] 1 puff IH BID 14 Days #1 inhaler MDD twice 11/03/17
[2017-11-03] MEDS: guaiFENesin/D-METHORPHAN HB 10 ML UNIT-DOSE CUPS PO PRN (21:24)
[2017-11-04] MEDS: PIPERACILLIN/TAZOB 3.375 GM 3.375 GM in DEXTROSE 5%-WATER - 100 ML IVPB SCH ×2 (02:23→10:45)
[2017-11-04] MEDS: LEVOTHYROXINE NA 100 MCG TABLET (FP) PO SCH (06:24)
[2017-11-04 07:41] VITALS: PULSE 80; TEMP 98.5
[2017-11-04 08:23] LABS: ANION GAP 7 (8-16); BLOOD UREA NITROGEN 6 mg/dL (7-18); CALCIUM 8.4 mg/dL (8.5-10.1); CHLORIDE 100 mmol/L (98-107); CO2 28 mmol/L (21-32); GLUCOSE,RANDOM 82 mg/dL (74-106); POTASSIUM 3.8 mmol/L (3.5-5.1); SODIUM 135 mmol/L (136-145)
[2017-11-04 08:28] LABS: BASO % 0.5 % (0-2.0); EOS % 5.6 % (0-4.5); HEMATOCRIT 26.9 % (32.4-45.2); HEMOGLOBIN 8.9 GM/dL (10.7-15.3); LYMPH % 18.6 % (8-40); MCHC 33.1 g/dl (32.0-36.0); MEAN CELL VOLUME 81.5 fl (80-96); MEAN PLT VOLUME 7.3 fl (7.5-11.1); MONO % 9.5 % (3.8-10.2); NEUT % 65.8 % (42.8-82.8); PLATELET COUNT 574 K/MM3 (134-434); RBC 3.29 M/mm3 (3.60-5.2); RDW 14.6 % (11.6-15.6); WHITE BLOOD COUNT 7.9 K/mm3 (4.0-10.0)
[2017-11-04 08:35] LABS: CREATININE 0.8 mg/dL (0.55-1.02)
[2017-11-04] MEDS ORDERED: LEVOTHYROXINE NA 100 MCG TABLET (FP) PO SCH (09:18)
[2017-11-04] MEDS: FLUTICASONE/SALMETEROL 100 MCG/50 MCG DISKUS IH SCH (10:45)
[2017-11-04] MEDS: GABAPENTIN 300 MG CAPSULE (FP) PO SCH (10:45)
[2017-11-04] MEDS: CYCLOBENZAPRINE HCL 10 MG TABLET (FP) PO SCH (10:45)
[2017-11-04] MEDS: MAGNESIUM OXIDE 400 MG TABLET (FP) PO SCH (10:45)
[2017-11-04] MEDS: PANTOPRAZOLE 40 MG TABLET (FP) PO SCH (10:45)
[2017-11-04] MEDS: NYSTATIN 100,000 UNIT/GM TOPICAL CREAM 15 GM TUBE TP SCH (10:46)
[2017-11-04] MEDS: ACETAMINOPHEN 325 MG TABLET (FP) PO PRN (10:48)
--- NOTE | 2017-11-04 11:56 | PN ---
Progress Note, Physician History of Present Illness: doing well no issues some sob present - Current Medication List Current Medications: Active Medications Acetaminophen (Tylenol -) 650 mg PO Q6H PRN PRN Reason: FEVER Last Admin: 11/04/17 10:48 Dose: 650 mg Al Hydroxide/Mg Hydroxide (Mylanta Oral Suspension -) 30 ml PO Q6H PRN PRN Reason: DYSPEPSIA Albuterol/Ipratropium (Duoneb -) 1 amp NEB Q6H PRN PRN Reason: SHORTNESS OF BREATH Last Admin: 11/03/17 20:35 Dose: 1 amp Amoxicillin/Clavulanate Potassium (Augmentin - 875mg Tablet) 1 tab PO BID@0800, 1730 [facility] Cyclobenzaprine HCl (Flexeril -) 5 mg PO BID [facility] Last Admin: 11/04/17 10:45 Dose: 5 mg Gabapentin (Neurontin -) 600 mg PO BID [facility] Last Admin: 11/04/17 10:45 Dose: 600 mg Guaifenesin (Robitussin Dm -) 10 ml PO Q6H PRN PRN Reason: COUGH Last Admin: 11/03/17 21:24 Dose: 10 ml Piperacillin Sod/Tazobactam (Sod 3.375 gm/ Dextrose) 100 mls @ 200 mls/hr IVPB Q8H-IV RAJAT PRN Reason: Protocol Last Admin: 11/04/17 10:45 Dose: 200 mls/hr Levothyroxine Sodium (Synthroid -) 75 mcg PO DAILY@0700 [facility] Magnesium Oxide (Mag-Ox -) 400 mg PO BID [facility] Last Admin: 11/04/17 10:45 Dose: 400 mg Morphine Sulfate (Morphine Injection -) 2 mg IVPUSH Q6H PRN PRN Reason: PAIN LEVEL 6-10 Last Admin: 10/31/17 20:19 Dose: 2 mg Non-Formulary Medication (Colesevelam Hcl [Welchol]) 625 mg PO DAILY [facility] Last Admin: 10/28/17 10:32 Dose: Not Given Nystatin (Mycostatin Cream -) 1 applic TP BID [facility] Last Admin: 11/04/17 10:46 Dose: 1 applic Ondansetron HCl (Zofran Injection) 4 mg IVPUSH Q6H PRN PRN Reason: NAUSEA Last Admin: 10/31/17 23:55 Dose: 4 mg Pantoprazole Sodium (Protonix -) 40 mg PO BID [facility] Last Admin: 11/04/17 10:45 Dose: 40 mg Fluticasone/Salmeterol (Advair 100mcg/50mcg -) 1 puff IH BID [facility] Last Admin: 11/04/17 10:45 Dose: 1 puff - Objective Vital Signs: Vital Signs Temperature 98.5 F 11/04/17 06:00 Pulse Rate 80 11/04/17 06:00 Respiratory Rate 18 11/04/17 06:00 Blood Pressure 123/48 11/04/17 06:00 O2 Sat by Pulse Oximetry (%) 97 11/03/17 21:00 Constitutional: Yes: Calm, Mild Distress Cardiovascular: Yes: Regular Rate and Rhythm Respiratory: Yes: Regular, Poor Air Entry Gastrointestinal: Yes: Normal Bowel Sounds, Soft Musculoskeletal: Yes: WNL Extremities: Yes: WNL Neurological: Yes: Alert, Oriented Psychiatric: Yes: Alert, Oriented Labs: CBC, BMP 11/04/17 07:30 11/04/17 07:30 Assessment/Plan Problem List - Problems (1) Abdominal pain Code(s): R10.9 - UNSPECIFIED ABDOMINAL PAIN (2) RUTH (acute kidney injury) Code(s): N17.9 - ACUTE KIDNEY FAILURE, UNSPECIFIED (3) Dehydration Code(s): E86.0 - DEHYDRATION (4) HTN (hypertension) Code(s): I10 - ESSENTIAL (PRIMARY) HYPERTENSION (5) Gastrointestinal hemorrhage with melena Code(s): K92.1 - MELENA (6) Anemia Code(s): D64.9 - ANEMIA, UNSPECIFIED (7) Neuropathy Code(s): G62.9 - POLYNEUROPATHY, UNSPECIFIED (8) HAP (hospital-acquired pneumonia) Code(s): J18.9 - PNEUMONIA, UNSPECIFIED ORGANISM 9 fever 10 lactic acidosis plan switch to oral abx as planned rest continue current mgmt diet monitoring rest as per primary d/w the family
[2017-11-04 14:27] VITALS: BP 136/60
[2017-11-04] MEDS ORDERED: AMOX TR/POT CLAV 875MG/125MG TABLETS (FP) PO SCH (17:30)
== END 2017-11-04 13:53 | disposition home health service (06) | DRG 253 ==
LOC: JER 22:08 → JERBED 10-28 04:07 → UNDOADMIN 10-28 04:18 → JERBED 10-28 04:18 → J5S 10-28 16:22
PROVIDERS: ADMIT Internal Medicine; ATTEND Internal Medicine
DX: K92.2 Gastrointestinal hemorrhage, unspecified (principal); N17.9 Acute kidney failure, unspecified; E86.0 Dehydration; I10 Essential (primary) hypertension; R10.9 Unspecified abdominal pain; D64.9 Anemia, unspecified; K21.9 Gastro-esophageal reflux disease without esophagitis; G62.9 Polyneuropathy, unspecified; J18.9 Pneumonia, unspecified organism; E03.9 Hypothyroidism, unspecified; E87.2 Acidosis; R33.9 Retention of urine, unspecified; R21 Rash and other nonspecific skin eruption; K44.9 Diaphragmatic hernia without obstruction or gangrene; E46 Unspecified protein-calorie malnutrition; Z68.27 Body mass index [BMI] 27.0-27.9, adult
CPT/HCPCS: 36415; 71045-TC; 71045-TC-FY; 74176-TC; 74177-TC; 74220-TC; 74240-TC; 80048; 80053; 81003; 82150; 82272; 82306; 82607; 82728; 83516; 83540; 83550; 83605; 83690; 83735; 84100; 84134; 84443; 85025; 85027; 85044; 85730; 86140; 86671; 86850; 86900; 86901; 87040; 87045; 87046; 87070; 87077; 87086; 87177; 87205; 87209; 87324; 87449; 93005; 93010; 94010; 94640; 97116-GP; 97161-GP; 99285-25

== ENCOUNTER 2018-10-25 15:05 | Inpatient (IN) | payer MEDICARE, OTHER ==
--- NOTE | 2018-10-25 15:14 | PDOC ---
Rapid Medical Evaluation Chief Complaint: Pain, Acute Time Seen by Provider: 10/25/18 15:11 Medical Evaluation: Allergies Allergy/AdvReac Type Severity Reaction Status Date / Time No Known Allergies Allergy Verified 10/27/17 22:29 10/25/18 15:13 I performed a brief in-person evaluation of this patient. Chief complaint is: Abdominal pain, nausea/vomiting, dyspnea. On Linezolid for VRE UTI. Last BM last night. Pertinent physical exam findings include: Tachycpneic. No focal abdominal tenderness. I have ordered the following: EKG, CXR, labs. Patient will proceed to the ED for further evaluation. Discharge Disposition - Diagnosis Abdominal pain Qualifiers: Abdominal location: generalized Qualified Code(s): R10.84 - Generalized abdominal pain Vomiting Qualifiers: Vomiting type: unspecified Vomiting Intractability: non-intractable Nausea presence: with nausea Qualified Code(s): R11.2 - Nausea with vomiting, unspecified - Discharge Dispostion Condition at time of disposition: Stable - Referrals - Patient Instructions - Post Discharge Activity
[2018-10-25] MEDS ORDERED: morphine CARPU-JECT 4 MG/1 ML DISP.SYRIN IVPUSH ONE (15:33)
[2018-10-25] MEDS ORDERED: SODIUM CHLORIDE 1,000 ML IV STA (15:33)
[2018-10-25] MEDS ORDERED: CYCLOBENZAPRINE HCL 5 MG TABLET PO PRN (15:40)
[2018-10-25] MEDS ORDERED: MORPHINE SULFATE 2 MG/ML VIAL ONE (16:00)
[2018-10-25] MEDS ORDERED: ACETAMINOPHEN 325 MG TABLET (FP) PO PRN (16:09)
[2018-10-25] MEDS: METOCLOPRAMIDE HCL 10 MG TABLET (FP) PO SCH (16:13)
--- NOTE | 2018-10-25 16:19 | HP ---
Admitting History and Physical - Primary Care Physician PCP: Virginia Wallace - Admission Chief Complaint: pain History of Present Illness: Ms Rod is a very pleasant 83 year old female who comes in from the office with worsening abdominal pain and nausea with vomiting after 1 week of oral antibiotics. She was diagnosed with a VRE UTI and placed on oral linezolid. She tolerated it for 5 days, however 2 days ago she began to have abdominal pain and nausea with vomiting. Every time she ate or drank she would throw up. It was either bilious or looked like food. It was attempted to be controlled in the outpatient setting, however it did not improve. Because of this she came in for admission. She denies fevers, chills, lightheadedness, dizziness, passing out, chest pain, shortness of breath, diarrhea, constipation, difficulty or pain on urination, or leg swelling. 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: Peripheral Neuropathy Cardiovascular: Yes: HTN Gastrointestinal: Yes: GERD, Hiatal Hernia Musculoskeletal: Yes: Chronic low back pain - Smoking History Smoking history: Never smoked Have you smoked in the past 12 months: No - Alcohol/Substance Use Hx Alcohol Use: No History of Substance Use: reports: None - Social History ADL: Family Assistance History of Recent Travel: No Home Medications - Allergies Allergies/Adverse Reactions: Allergies Allergy/AdvReac Type Severity Reaction Status Date / Time No Known Allergies Allergy Verified 10/27/17 22:29 - Home Medications Home Medications: Ambulatory Orders Cyclobenzaprine HCl [Flexeril] 5 mg PO TID 10/25/14 Gabapentin 600 mg PO BID 10/25/14 Losartan Potassium 50 mg PO BID 10/25/14 Mag Hydrox/Al Hydrox/Simeth [Mylanta Oral Suspension -] 30 ml PO Q6H PRN #1 cup 11/03/17 Magnesium Oxide [Mag-Ox -] 400 mg PO DAILY 30 Days #30 tablet 11/03/17 Pantoprazole Sodium [Protonix -] 40 mg PO BID 30 Days #60 tablet.ec 11/03/17 Salmeterol/Fluticasone [Advair 100Mcg/50Mcg -] 1 puff IH BID 14 Days #1 inhaler MDD twice 11/03/17 Carvedilol [Coreg] 6.25 mg PO BID 10/25/18 Chlorthalidone 25 mg PO DAILY 10/25/18 Levothyroxine [Synthroid -] 88 mcg PO DAILY MDD 1 10/25/18 Magnesium Carb/Aluminum Hydrox [Gaviscon Es Tablet Chew] 1 each PO PRN 10/25/18 Metoclopramide HCl [Reglan] 10 mg PO ASDIR 10/25/18 Ranitidine [Zantac -] 150 mg PO BID 10/25/18 Simvastatin 10 mg PO HS 10/25/18 Family Disease History - Family Disease History Family History: Unremarkable Review of Systems Findings/Remarks: Full review of systems obtained, as per HPI and otherwise negative Physical Examination Vital Signs: Vital Signs Temperature 37.3 C 10/25/18 15:10 Pulse Rate 72 10/25/18 15:10 Respiratory Rate 16 10/25/18 15:10 Blood Pressure 170/66 10/25/18 15:10 O2 Sat by Pulse Oximetry (%) 100 10/25/18 15:10 Constitutional: Yes: Well Nourished, No Distress, Calm Eyes: Yes: Conjunctiva Clear, EOM Intact, PERRL HENT: Yes: Atraumatic, Normocephalic Cardiovascular: Yes: Regular Rate and Rhythm. No: Gallop, Murmur, Rub Respiratory: Yes: Regular, CTA Bilaterally. No: Rales, Rhonchi, Wheezes Gastrointestinal: Yes: Soft, Hyperactive Bowel Sounds, Tenderness (in all quadrants) Extremities: Yes: WNL Edema: No Labs: Laboratory Results - last 24 hr 10/25/18 10/25/18 10/25/18 15:16 15:35 15:35 WBC 9.5 RBC 4.17 Hgb 12.3 Hct 35.4 D MCV 85.1 MCH 29.5 MCHC 34.7 RDW 13.5 Plt Count 387 D MPV 8.0 Absolute Neuts (auto) 6.8 Neutrophils % 71.4 Lymphocytes % 20.4 Monocytes % 7.5 Eosinophils % 0.3 D Basophils % 0.4 Nucleated RBC % 0 Sodium 126 L Potassium 3.7 Chloride 90 L Carbon Dioxide 25 Anion Gap 10 BUN 9 Creatinine 0.6 Creat Clearance w eGFR > 60 Random Glucose 109 H Lactic Acid Calcium 9.0 Total Bilirubin 0.6 AST 24 ALT 21 Alkaline Phosphatase 50 Creatine Kinase Troponin I Total Protein 6.5 Albumin 3.4 Lipase Urine Color Straw Urine Appearance Clear Urine pH 7.0 Ur Specific [place] 1.006 L Urine Protein Negative Urine Glucose (UA) Negative Urine Ketones Negative Urine Blood Negative Urine Nitrite Negative Urine Bilirubin Negative Urine Urobilinogen Negative Ur Leukocyte Esterase 1+ H Stool Occult Blood 10/25/18 10/25/18 10/25/18 15:35 15:35 17:05 WBC RBC Hgb Hct MCV MCH MCHC RDW Plt Count MPV Absolute Neuts (auto) Neutrophils % Lymphocytes % Monocytes % Eosinophils % Basophils % Nucleated RBC % Sodium Potassium Chloride Carbon Dioxide Anion Gap BUN Creatinine Creat Clearance w eGFR Random Glucose Lactic Acid 1.2 Calcium Total Bilirubin AST ALT Alkaline Phosphatase Creatine Kinase 96 Troponin I 0.04 Total Protein Albumin Lipase 270 Urine Color Urine Appearance Urine pH Ur Specific [place] Urine Protein Urine Glucose (UA) Urine Ketones Urine Blood Urine Nitrite Urine Bilirubin Urine Urobilinogen Ur Leukocyte Esterase Stool Occult Blood Negative Imaging - Results Cat Scan: Image Reviewed Problem List - Problems (1) UTI (urinary tract infection) due to Enterococcus Assessment/Plan: -cannot tolerate oral linezolid -will change to IV linezolid -urinalysis and culture pending -ID consulted and case discussed Code(s): N39.0 - URINARY TRACT INFECTION, SITE NOT SPECIFIED; B95.2 - ENTEROCOCCUS THE CAUSE OF DISEASES CLASSIFIED ELSEWHERE (2) Abdominal pain Assessment/Plan: -with nausea and vomiting -prominent bowel sounds and having bowel movements, lower suspicion for ileus or SBO -however with history of hiatal hernia, ? gastric outlet obstruction -CT scan reviewed by me but awaiting official read -IVF and clear liquid diet Code(s): R10.9 - UNSPECIFIED ABDOMINAL PAIN Qualifiers: Abdominal location: generalized Qualified Code(s): R10.84 - Generalized abdominal pain (3) Vomiting Assessment/Plan: -anti-emetics -as above Code(s): R11.10 - VOMITING, UNSPECIFIED Qualifiers: Vomiting type: unspecified Vomiting Intractability: non-intractable Nausea presence: with nausea Qualified Code(s): R11.2 - Nausea with vomiting, unspecified (4) HTN (hypertension) Assessment/Plan: -will holdchlorthalidone secondary to hyponatremia -continue losartan -will start coreg as well Code(s): I10 - ESSENTIAL (PRIMARY) HYPERTENSION (5) Hyponatremia Assessment/Plan: -suspect secondary to chlorthalidone -hold chlorthalidone -hydrate with IVF Code(s): E87.1 - HYPO-OSMOLALITY AND HYPONATREMIA (6) Hypothyroid Assessment/Plan: -continue synthroid Code(s): E03.9 - HYPOTHYROIDISM, UNSPECIFIED (7) Neuropathy Assessment/Plan: -continue home regimen Code(s): G62.9 - POLYNEUROPATHY, UNSPECIFIED
--- NOTE | 2018-10-25 16:23 | PDOC ---
History of Present Illness - General Chief Complaint: Pain, Acute Stated Complaint: PCP SENT/WEAKNESS Time Seen by Provider: 10/25/18 15:11 History Source: Patient, Family (son in law) Exam Limitations: No Limitations - History of Present Illness Initial Comments: 10/25/18 16:43 Pt is an 83yo F with PMH of HTN, HLD, Hypothyroidism, Hiatal Hernia, VRE UTI, s/ p cholecystectomy presenting to ED with diffuse abdominal pain. She was diagnosed with UTI and given PO linezolid around 5 days ago. Since she started taking the medication she started experiencing diffuse abdominal pain and difficulty eating. She states that she feels nauseous and only spits up when she tries to eat something. Last BM was last night and pt describes it as black. Denies fevers, chills, back pain, urinary symptoms, chest pain, SOB, headaches, numbness/tingling. She went to PMD's office and was sent here for abdominal pain and distention. PMD: Rodrigo PMH: see hpi PSH: see hpi Meds: see med rec Allergies: nkda Social: denies Past History - Past Medical History Allergies/Adverse Reactions: Allergies Allergy/AdvReac Type Severity Reaction Status Date / Time No Known Allergies Allergy Verified 10/27/17 22:29 Home Medications: Ambulatory Orders Cyclobenzaprine HCl [Flexeril] 5 mg PO TID 10/25/14 Gabapentin 600 mg PO BID 10/25/14 Losartan Potassium 50 mg PO BID 10/25/14 Mag Hydrox/Al Hydrox/Simeth [Mylanta Oral Suspension -] 30 ml PO Q6H PRN #1 cup 11/03/17 Magnesium Oxide [Mag-Ox -] 400 mg PO DAILY 30 Days #30 tablet 11/03/17 Pantoprazole Sodium [Protonix -] 40 mg PO BID 30 Days #60 tablet.ec 11/03/17 Salmeterol/Fluticasone [Advair 100Mcg/50Mcg -] 1 puff IH BID 14 Days #1 inhaler MDD twice 11/03/17 Carvedilol [Coreg] 6.25 mg PO BID 10/25/18 Chlorthalidone 25 mg PO DAILY 10/25/18 Levothyroxine [Synthroid -] 88 mcg PO DAILY MDD 1 10/25/18 Magnesium Carb/Aluminum Hydrox [Gaviscon Es Tablet Chew] 1 each PO PRN 10/25/18 Metoclopramide HCl [Reglan] 10 mg PO ASDIR 10/25/18 Ranitidine [Zantac -] 150 mg PO BID 10/25/18 Simvastatin 10 mg PO HS 10/25/18 Anemia: Yes Asthma: No Cancer: No Cardiac Disorders: No CVA: No COPD: No CHF: No Dementia: No Diabetes: No GI Disorders: Yes (GERD) Disorders: Yes (H/O UTI) HTN: Yes Hypercholesterolemia: Yes Liver Disease: No Seizures: No Thyroid Disease: Yes (HYPOTHYROIDISM) - Surgical History Abdominal Surgery: Yes Appendectomy: No Cardiac Surgery: No Cholecystectomy: Yes Lung Surgery: No Neurologic Surgery: No Orthopedic Surgery: No - Immunization History Immunization Up to Date: No - Suicide/Smoking/Psychosocial Hx Smoking History: Never smoked Have you smoked in the past 12 months: No Information on smoking cessation initiated: No Hx Alcohol Use: No Drug/Substance Use Hx: No Substance Use Type: None Hx Substance Use Treatment: No Review of Systems - Review of Systems Constitutional: No: Chills, Fever, Weakness HEENTM: No: Symptoms Reported Respiratory: No: Cough, Shortness of Breath Cardiac (ROS): No: Chest Pain, Lightheadedness, Palpitations, Syncope ABD/GI: Yes: Difficulty Swallowing, Nausea, Vomiting, Abdominal cramping, Tarry Stools. No: Blood Streaked Bowels, Constipated, Diarrhea, Rectal Bleeding : No: Burning, Dysuria, Flank Pain Musculoskeletal: No: Symptoms Reported Integumentary: No: Symptoms Reported Neurological: No: Headache, Numbness, Tingling, Tremors, Weakness *Physical Exam - Vital Signs Last Vital Signs Temp Pulse Resp BP Pulse Ox 99.1 F 72 16 170/66 100 10/25/18 15:10 10/25/18 15:10 10/25/18 15:10 10/25/18 15:10 10/25/18 15:10 - Physical Exam General Appearance: Yes: Nourished, Appropriately Dressed, Mild Distress HEENT: positive: EOMI, MARICEL, Normal ENT Inspection Neck: positive: Trachea midline, Supple. negative: Lymphadenopathy (R), Lymphadenopathy (L) Respiratory/Chest: positive: Lungs Clear, Normal Breath Sounds. negative: Crackles, Rales, Rhonchi, Stridor, Wheezing Cardiovascular: positive: Regular Rhythm, Regular Rate, S1, S2. negative: Edema , JVD, Murmur Vascular Pulses: Carotid (R): 2+, Carotid (L): 2+, Dorsalis-Pedis (R): 2+, Doralis-Pedis (L): 2+ Gastrointestinal/Abdominal: positive: Normal Bowel Sounds, Tender (diffuse tenderness), Other (tympanic). negative: Protuberent, Guarding, Rebound Musculoskeletal: positive: Normal Inspection Extremity: positive: Normal Capillary Refill, Pelvis Stable. negative: Pedal Edema, Swelling, Calf Tenderness Integumentary: positive: Normal Color, Dry, Warm Neurologic: positive: api product manager II-XII NML intact, Fully Oriented, Alert, Normal Mood/ Affect, Normal Response, Motor Strength 5/5 Moderate Sedation - Procedure Monitoring Vital Signs: Procedure Monitoring Vital Signs Temperature 99.1 F 10/25/18 15:10 Pulse Rate 72 10/25/18 15:10 Respiratory Rate 16 10/25/18 15:10 Blood Pressure 170/66 10/25/18 15:10 O2 Sat by Pulse Oximetry (%) 100 10/25/18 15:10 ED Treatment Course - LABORATORY CBC & Chemistry Diagram: 10/25/18 15:35 10/25/18 15:35 - RADIOLOGY Radiology Studies Ordered: Category Date Time Status ABDOMEN & PELVIS CT WITH CONTR [CT] Stat CT Scan 10/25/18 15:31 Ordered - Medications Given in the ED: ED Medications Discontinued Medications Generic Name Dose Route Start Last Admin Trade Name Freq PRN Reason Stop Dose Admin Morphine Sulfate 2 mg 10/25/18 15:33 10/25/18 16:05 Morphine Injection - IVPUSH 10/25/18 15:34 2 mg ONCE ONE Administration Medical Decision Making - Medical Decision Making 10/25/18 18:55 Pt is an 83yo F with PMH of HTN, HLD, Hypothyroidism, Hiatal Hernia, VRE UTI, s/ p cholecystectomy presenting to ED with diffuse abdominal pain. She was diagnosed with UTI and given PO linezolid around 5 days ago. Vitals: wnl, afebrile PE: diffuse abdominal tenderness. Dr. Smyth also at bedside. Suspicions for ischemic colitis, diverticulitis, colitis, incarcerated/strangulated hernia. Labs including cbc, cmp, lipase, lactic acid ordered. Ua and ucx. Stool occult ordered. IV fluids and 2mg morphine. Labs significant for NA 126 and Cl 90. Pt getting fluids, no signs of AMS, does not need hypertonic saline at this time. No WBC, normal lipase and LFTs. Stool occult negative, UA shows 1+ LE. CXR shows hiatal hernia. EKG shows nsr, left axis deviation. No signs of acute ischemia. CT pending. PT admitted to Dr. Smyth. *DC/Admit/Observation/Transfer Diagnosis at time of Disposition: Abdominal pain Qualifiers: Abdominal location: generalized Qualified Code(s): R10.84 - Generalized abdominal pain Vomiting Qualifiers: Vomiting type: unspecified Vomiting Intractability: non-intractable Nausea presence: with nausea Qualified Code(s): R11.2 - Nausea with vomiting, unspecified - Discharge Dispostion Condition at time of disposition: Stable Decision to Admit order Date/Time: Decision to Admit Order Category Date Time Status Decision to Admit to Hospital Routine Admission 10/25/18 15:31 Active - Referrals - Patient Instructions - Post Discharge Activity
[2018-10-25 16:52] LABS: BASO % 0.4 % (0-2.0); EOS % 0.3 % (0-4.5); HEMATOCRIT 35.4 % (32.4-45.2); HEMOGLOBIN 12.3 GM/dL (10.7-15.3); LYMPH % 20.4 % (8-40); MCH 29.5 pg (25.7-33.7); MCHC 34.7 g/dl (32.0-36.0); MEAN CELL VOLUME 85.1 fl (80-96); MONO % 7.5 % (3.8-10.2); NEUT % 71.4 % (42.8-82.8); PLATELET COUNT 387 K/MM3 (134-434); RBC 4.17 M/mm3 (3.60-5.2); RDW 13.5 % (11.6-15.6); WHITE BLOOD COUNT 9.5 K/mm3 (4.0-10.0)
[2018-10-25 17:07] LABS: ALBUMIN 3.4 g/dl (3.4-5.0); ALK PHOS 50 U/L (45-117); ANION GAP 10 MMOL/L (8-16); BILIRUBIN,TOTAL 0.6 mg/dL (0.2-1); BLOOD UREA NITROGEN 9 mg/dL (7-18); CHLORIDE 90 mmol/L (98-107); CO2 25 mmol/L (21-32); CREATININE 0.6 mg/dL (0.55-1.3); GLUCOSE,RANDOM 109 mg/dL (74-106); POTASSIUM 3.7 mmol/L (3.5-5.1); SGOT/AST 24 U/L (15-37); SGPT/ALT 21 U/L (13-61); SODIUM 126 mmol/L (136-145); TOT PROT 6.5 g/dl (6.4-8.2)
[2018-10-25 17:21] LABS: URINE APPEARANCE CLEAR; URINE BILIRUBIN NEGATIVE (<2.0 mg/dL); URINE COLOR STRAW; URINE GLUCOSE (UA) NEGATIVE (NEGATIVE); URINE KETONE NEGATIVE (NEGATIVE); URINE LEUK ESTERASE 1+ (NEGATIVE); URINE NITRITE NEGATIVE (NEGATIVE); URINE PROTEIN NEGATIVE (NEGATIVE); URINE UROBILINOGEN NEGATIVE mg/dL (0.2-1.0)
[2018-10-25] MEDS: SODIUM CHLORIDE 1,000 ML IV SCH (17:26)
[2018-10-25] MEDS: LINEZOLID 600 MG PREMIX BAG 600 MG/300 ML BAG IVPB SCH (17:26)
--- NOTE | 2018-10-25 18:03 | PDOC ---
Attending Attestation - Resident Resident Name: MelbaCris - ED Attending Attestation I have performed the following: I have examined & evaluated the patient, The case was reviewed & discussed with the resident, I agree w/resident's findings & plan, Exceptions are as noted - HPI HPI: 10/25/18 18:01 The patient is a 83 year old female, with a significant past medical history of hiatal hernia, anemia, hypertension, hypercholesterolemia, hypothyroidism, GERD, and currently on Linezolid for VRE UTI, who presents to the emergency department today complaining of abdominal pain, nausea, vomiting, and shortness of breath. The patient reports her abdominal pain started about 5-7 days ago and is diffuse. The patient reports eating food and spitting it out. The patient reports seeing her PCP this morning after noticing her abdomen was distorted. The patient reports her last normal BM was last night. Dr. Smyth at the bedside, states he will admit to the pt. The patient denies chest pain, headache and dizziness. The patient denies fever, chills, diarrhea and constipation. The patient denies, frequency, urgency and hematuria. Allergies: NKA Past surgical history: Cholecystectomy Social history: No reported PCP: Dr. Ike Richardson - Physicial Exam PE: 10/25/18 18:01 agree with resident exam - Medical Decision Making 10/25/18 18:01 83yo F with MMP including UTI on PO liezolid presents to the ED for admission for abd distention and vomiting. Pt admitted to Dr. Smyth - labs, CTAP ordered.
[2018-10-25 18:40] LABS: EPI CELLS RARE /HPF (FEW)
[2018-10-25] MEDS: LOSARTAN POTASSIUM 50 MG TABLET (FP) PO SCH (21:16)
[2018-10-25] MEDS: GABAPENTIN 300 MG CAPSULE (FP) PO SCH (21:16)
[2018-10-25] MEDS: RANITIDINE HCL 150 MG TABLET (FP) PO SCH (21:16)
[2018-10-25] MEDS: CARVEDILOL 6.25 MG TABLET (FP) PO SCH (21:16)
[2018-10-25] MEDS: ATORVASTATIN CA 10 MG TABLET (FP) PO SCH (21:17)
[2018-10-25 23:08] VITALS: BMI 21.0
[2018-10-26] MEDS: LINEZOLID 600 MG PREMIX BAG 600 MG/300 ML BAG IVPB SCH (04:22)
[2018-10-26] MEDS: LEVOTHYROXINE NA 88 MCG TABLET (FP) PO SCH (06:03)
[2018-10-26] MEDS: METOCLOPRAMIDE HCL 10 MG TABLET (FP) PO SCH ×4 (06:03→17:53)
[2018-10-26 07:40] LABS: BASO % 0.7 % (0-2.0); EOS % 1.2 % (0-4.5); HEMOGLOBIN 11.5 GM/dL (10.7-15.3); LYMPH % 22.7 % (8-40); MCHC 34.9 g/dl (32.0-36.0); MEAN CELL VOLUME 85.9 fl (80-96); MEAN PLT VOLUME 7.9 fl (7.5-11.1); MONO % 8.7 % (3.8-10.2); NEUT % 66.7 % (42.8-82.8); PLATELET COUNT 353 K/MM3 (134-434); RBC 3.84 M/mm3 (3.60-5.2); RDW 13.7 % (11.6-15.6); WHITE BLOOD COUNT 8.1 K/mm3 (4.0-10.0)
[2018-10-26 08:22] LABS: ALBUMIN 3.1 g/dl (3.4-5.0); ALK PHOS 46 U/L (45-117); AMYLASE 52 U/L (25-115); ANION GAP 8 MMOL/L (8-16); BILIRUBIN,TOTAL 0.8 mg/dL (0.2-1); BLOOD UREA NITROGEN 6 mg/dL (7-18); CALCIUM 8.7 mg/dL (8.5-10.1); CHLORIDE 95 mmol/L (98-107); CO2 27 mmol/L (21-32); CREATININE 0.7 mg/dL (0.55-1.3); GLUCOSE,RANDOM 143 mg/dL (74-106); LIPASE 156 U/L (73-393); MAGNESIUM 1.8 mg/dL (1.8-2.4); PHOSPHOROUS 3.1 mg/dL (2.5-4.9); POTASSIUM 3.8 mmol/L (3.5-5.1); SGOT/AST 20 U/L (15-37); SGPT/ALT 20 U/L (13-61); SODIUM 129 mmol/L (136-145); TOT PROT 5.8 g/dl (6.4-8.2)
[2018-10-26] MEDS ORDERED: PT OWN MED DRAWER 7, Y5N ONE (10:11)
[2018-10-26] MEDS: RANITIDINE HCL 150 MG TABLET (FP) PO SCH ×2 (10:15→21:51)
[2018-10-26] MEDS: LACTOBACILLUS ACIDOPHILUS 1 TABLET PO SCH (10:15)
[2018-10-26] MEDS: LOSARTAN POTASSIUM 50 MG TABLET (FP) PO SCH ×2 (10:16→21:51)
[2018-10-26] MEDS: ENOXAPARIN NA (PORCINE) 40 MG/0.4 ML DISP.SYRIN SQ SCH (10:16)
[2018-10-26] MEDS: PANTOPRAZOLE 40 MG TABLET (FP) PO SCH (10:16)
[2018-10-26] MEDS: CARVEDILOL 6.25 MG TABLET (FP) PO SCH ×2 (10:16→21:51)
[2018-10-26] MEDS: GABAPENTIN 300 MG CAPSULE (FP) PO SCH ×2 (10:16→21:50)
--- NOTE | 2018-10-26 12:23 | EKG ---
Test Reason : Blood Pressure : / mmHG Vent. Rate : 070 BPM Atrial Rate : 070 BPM P-R Int : 164 ms QRS Dur : 100 ms QT Int : 418 ms P-R-T Axes : 049 -40 015 degrees QTc Int : 451 ms NORMAL SINUS RHYTHM POSSIBLE LEFT ATRIAL ENLARGEMENT LEFT AXIS DEVIATION LEFT VENTRICULAR HYPERTROPHY ABNORMAL ECG WHEN COMPARED WITH ECG OF 01-NOV-2017 08:54, MINIMAL CRITERIA FOR SEPTAL INFARCT ARE NO LONGER PRESENT ST NO LONGER ELEVATED IN INFERIOR LEADS ST NO LONGER DEPRESSED IN LATERAL LEADS T WAVE INVERSION NOW EVIDENT IN INFERIOR LEADS Confirmed by RAFIQ ELIZABETH, NEETU ([id number]) on 10/26/2018 12:22:50 PM Referred By: Confirmed By:NEETU CONROY MD
--- NOTE | 2018-10-26 12:26 | PN ---
Progress Note, Physician Chief Complaint: Ms Rod says she is feeling better. Pain in her abdomen has improved, however still having gas pain with nausea. Currently no vomiting. Denies cp and sob. - Current Medication List Current Medications: Active Medications Acetaminophen (Tylenol -) 650 mg PO Q4H PRN PRN Reason: FEVER Atorvastatin Calcium (Lipitor -) 10 mg PO HS [facility] Last Admin: 10/25/18 21:17 Dose: 10 mg Carvedilol (Coreg -) 6.25 mg PO BID [facility] Last Admin: 10/26/18 10:16 Dose: 6.25 mg Cyclobenzaprine HCl (Cyclobenzaprine Hcl) 5 mg PO Q8H PRN PRN Reason: MUSCLE SPASMS Enoxaparin Sodium (Lovenox -) 40 mg SQ DAILY [facility] Last Admin: 10/26/18 10:16 Dose: 40 mg Gabapentin (Neurontin -) 600 mg PO BID [facility] Last Admin: 10/26/18 10:16 Dose: 600 mg Sodium Chloride (Normal Saline -) 1,000 mls @ 50 mls/hr IV ASDIR [facility] Stop: 10/27/18 16:29 Last Admin: 10/25/18 17:26 Dose: 50 mls/hr Linezolid 600 mg/ (Miscellaneous) 300 mls @ 300 mls/hr IVPB Q12H [facility]; Protocol Lactobacillus Acidophilus (Bacid -) 1 tab PO DAILY [facility] Last Admin: 10/26/18 10:15 Dose: 1 tab Levothyroxine Sodium (Synthroid -) 88 mcg PO DAILY@0700 [facility] Last Admin: 10/26/18 06:03 Dose: 88 mcg Losartan Potassium (Cozaar -) 50 mg PO BID [facility] Last Admin: 10/26/18 10:16 Dose: 50 mg Metoclopramide HCl (Reglan -) 10 mg PO TIDAC [facility] Last Admin: 10/26/18 12:19 Dose: 10 mg Pantoprazole Sodium (Protonix -) 40 mg PO DAILY [facility] Last Admin: 10/26/18 10:16 Dose: 40 mg Ranitidine HCl (Zantac -) 150 mg PO BID [facility] Last Admin: 10/26/18 10:15 Dose: 150 mg - Objective Vital Signs: Vital Signs Temperature 36.9 C 10/26/18 09:19 Pulse Rate 69 10/26/18 10:13 Respiratory Rate 20 19 10:13 Blood Pressure 134/50 L 10/26/18 10:13 O2 Sat by Pulse Oximetry (%) 100 10/25/18 18:01 Constitutional: Yes: Well Nourished, No Distress, Calm Cardiovascular: Yes: Regular Rate and Rhythm. No: Gallop, Murmur, Rub Respiratory: Yes: Regular, CTA Bilaterally. No: Rales, Rhonchi, Wheezes Gastrointestinal: Yes: Soft, Hyperactive Bowel Sounds. No: Distention, Tenderness Extremities: Yes: WNL Edema: No Labs: CBC, BMP 10/26/18 05:20 10/26/18 05:20 Problem List - Problems (1) UTI (urinary tract infection) due to Enterococcus Code(s): N39.0 - URINARY TRACT INFECTION, SITE NOT SPECIFIED; B95.2 - ENTEROCOCCUS THE CAUSE OF DISEASES CLASSIFIED ELSEWHERE (2) Abdominal pain Code(s): R10.9 - UNSPECIFIED ABDOMINAL PAIN Qualifiers: Abdominal location: generalized Qualified Code(s): R10.84 - Generalized abdominal pain (3) Vomiting Code(s): R11.10 - VOMITING, UNSPECIFIED Qualifiers: Vomiting type: unspecified Vomiting Intractability: non-intractable Nausea presence: with nausea Qualified Code(s): R11.2 - Nausea with vomiting, unspecified (4) HTN (hypertension) Code(s): I10 - ESSENTIAL (PRIMARY) HYPERTENSION (5) Hyponatremia Code(s): E87.1 - HYPO-OSMOLALITY AND HYPONATREMIA (6) Hypothyroid Code(s): E03.9 - HYPOTHYROIDISM, UNSPECIFIED (7) Neuropathy Code(s): G62.9 - POLYNEUROPATHY, UNSPECIFIED Assessment/Plan (1) UTI (urinary tract infection) due to Enterococcus Assessment/Plan: -appreciate ID assistance -continue IV linezolid currently -recent urinalysis here looks benign -await urine cultures, if clear may be able to stop IV linezolid which might help with nausea Code(s): N39.0 - URINARY TRACT INFECTION, SITE NOT SPECIFIED; B95.2 - ENTEROCOCCUS THE CAUSE OF DISEASES CLASSIFIED ELSEWHERE (2) Abdominal pain Assessment/Plan: -abdominal pain resolved -CT scan reviewed, low suspicion of pancreatitis with normal lipase -continue to monitor Code(s): R10.9 - UNSPECIFIED ABDOMINAL PAIN Qualifiers: Abdominal location: generalized Qualified Code(s): R10.84 - Generalized abdominal pain (3) Vomiting Assessment/Plan: -consult GI to evaluate -with hyperactive bowel sounds and still with bowel movements so does not appear to have obstruction -will await GI recommendations -continue antiemetics and clear liquid diet Code(s): R11.10 - VOMITING, UNSPECIFIED Qualifiers: Vomiting type: unspecified Vomiting Intractability: non-intractable Nausea presence: with nausea Qualified Code(s): R11.2 - Nausea with vomiting, unspecified (4) HTN (hypertension) Assessment/Plan: -will holdchlorthalidone secondary to hyponatremia -continue losartan and coreg Code(s): I10 - ESSENTIAL (PRIMARY) HYPERTENSION (5) Hyponatremia Assessment/Plan: -secondary to chlorthalidone -continue IVF -improving as expected Code(s): E87.1 - HYPO-OSMOLALITY AND HYPONATREMIA (6) Hypothyroid Assessment/Plan: -continue synthroid Code(s): E03.9 - HYPOTHYROIDISM, UNSPECIFIED (7) Neuropathy Assessment/Plan: -continue home regimen Code(s): G62.9 - POLYNEUROPATHY, UNSPECIFIED
--- NOTE | 2018-10-26 14:03 | CON.ID ---
Consult Consult Specialty:: infectious diseases Referred by:: Reason for Consultation:: uti,abd pain - History of Present Illness Chief Complaint: abd pain,does not feel well History of Present Illness: 83 year old female who comes in from the office with worsening abdominal pain and nausea with vomiting after 1 week of oral antibiotics. She was diagnosed with a VRE UTI and placed on oral linezolid. She tolerated it for 5 days, however 2 days ago she began to have abdominal pain and nausea with vomiting. Every time she ate or drank she would throw up. It was either bilious or looked like food. It was attempted to be controlled in the outpatient setting, however it did not improve. Because of this she came in for admission. She denies fevers , chills, lightheadedness, dizziness, passing out, chest pain, shortness of breath, diarrhea, constipation, difficulty or pain on urination, or leg swelling. 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 Cardio/Vascular: Yes: HTN Gastrointestinal: Yes: GERD, Hiatal Hernia Musculoskeletal: Yes: Chronic low back pain - Alcohol/Substance Use Hx Alcohol Use: No History of Substance Use: reports: None - Smoking History Smoking history: Never smoked Have you smoked in the past 12 months: No - Social History Usual Living Arrangement: Other (With family) ADL: Family Assistance History of Recent Travel: No Home Medications - Allergies Allergies/Adverse Reactions: Allergies Allergy/AdvReac Type Severity Reaction Status Date / Time No Known Allergies Allergy Verified 10/27/17 22:29 - Home Medications Home Medications: Ambulatory Orders Cyclobenzaprine HCl [Flexeril] 5 mg PO TID 10/25/14 Gabapentin 600 mg PO BID 10/25/14 Losartan Potassium 50 mg PO BID 10/25/14 Mag Hydrox/Al Hydrox/Simeth [Mylanta Oral Suspension -] 30 ml PO Q6H PRN #1 cup 11/03/17 Magnesium Oxide [Mag-Ox -] 400 mg PO DAILY 30 Days #30 tablet 11/03/17 Pantoprazole Sodium [Protonix -] 40 mg PO BID 30 Days #60 tablet.ec 11/03/17 Salmeterol/Fluticasone [Advair 100Mcg/50Mcg -] 1 puff IH BID 14 Days #1 inhaler MDD twice 11/03/17 Carvedilol [Coreg] 6.25 mg PO BID 10/25/18 Chlorthalidone 25 mg PO DAILY 10/25/18 Levothyroxine [Synthroid -] 88 mcg PO DAILY MDD 1 10/25/18 Magnesium Carb/Aluminum Hydrox [Gaviscon Es Tablet Chew] 1 each PO PRN 10/25/18 Metoclopramide HCl [Reglan] 10 mg PO ASDIR 10/25/18 Ranitidine [Zantac -] 150 mg PO BID 10/25/18 Simvastatin 10 mg PO HS 10/25/18 Review of Systems - Review of Systems Constitutional: reports: No Symptoms Eyes: reports: No Symptoms HENT: reports: No Symptoms Neck: reports: No Symptoms Cardiovascular: reports: No Symptoms Respiratory: reports: No Symptoms Gastrointestinal: reports: Abdominal Pain, Bloating, Nausea, Vomiting Musculoskeletal: reports: No Symptoms Integumentary: reports: No Symptoms Neurological: reports: No Symptoms Endocrine: reports: No Symptoms Hematology/Lymphatic: reports: No Symptoms Psychiatric: reports: No Symptoms Physical Exam Vital Signs: Vital Signs Temperature 98.5 F 10/26/18 09:19 Pulse Rate 69 10/26/18 10:13 Respiratory Rate 20 10/26/18 10:13 Blood Pressure 134/50 L 10/26/18 10:13 O2 Sat by Pulse Oximetry (%) 100 10/25/18 18:01 Constitutional: Yes: Well Nourished, Calm, Mild Distress Eyes: Yes: Conjunctiva Clear Cardiovascular: Yes: Regular Rate and Rhythm Respiratory: Yes: Regular, Poor Air Entry (at the bases) Gastrointestinal: Yes: Hypoactive Bowel Sounds, Tenderness Musculoskeletal: Yes: WNL Extremities: Yes: WNL Neurological: Yes: Alert, Oriented Psychiatric: Yes: Alert, Oriented Labs: CBC, BMP 10/26/18 05:20 10/26/18 05:20 Imaging - Results Cat Scan: Report Reviewed, Image Reviewed Assessment/Plan Problem List - Problems (1) UTI (urinary tract infection) due to Enterococcus Code(s): N39.0 - URINARY TRACT INFECTION, SITE NOT SPECIFIED; B95.2 - ENTEROCOCCUS THE CAUSE OF DISEASES CLASSIFIED ELSEWHERE (2) Abdominal pain Code(s): R10.9 - UNSPECIFIED ABDOMINAL PAIN Qualifiers: Abdominal location: generalized Qualified Code(s): R10.84 - Generalized abdominal pain (3) Vomiting Code(s): R11.10 - VOMITING, UNSPECIFIED Qualifiers: Vomiting type: unspecified Vomiting Intractability: non-intractable Nausea presence: with nausea Qualified Code(s): R11.2 - Nausea with vomiting, unspecified (4) HTN (hypertension) Code(s): I10 - ESSENTIAL (PRIMARY) HYPERTENSION (5) Hyponatremia Code(s): E87.1 - HYPO-OSMOLALITY AND HYPONATREMIA (6) Hypothyroid Code(s): E03.9 - HYPOTHYROIDISM, UNSPECIFIED (7) Neuropathy Code(s): G62.9 - POLYNEUROPATHY, UNSPECIFIED i think patients all symptoms are due to her hiatal hernia i don not think uti is her problem ct scan noted plan will stop linezoloid if symptoms persists upper gi series keep npo i think patient is going to need treatment for hernia rest as per the team
[2018-10-26] MEDS: SODIUM CHLORIDE 1,000 ML IV SCH ×2 (17:54→22:14)
--- NOTE | 2018-10-26 20:50 | CON.GI ---
Consult Consult Specialty:: Gastroenterology Referred by:: Dr Smyth Reason for Consultation:: vomiting - History of Present Illness Chief Complaint: unable to eat due to vomiting History of Present Illness: 83F is admitted with vomiting that apparently developed as an intolerance to linezolid which was started for VRE UTI. I awoke her and she is very somnolent and referred me to the chart. She did deny abdominal pain at present but tells me she has chronic stomach problems despite having had a cholecystectomy . She denies ever having had an EGD or a colonoscopy. She deferred on a rectal exam. 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 Cardio/Vascular: Yes: HTN Gastrointestinal: Yes: Diverticulosis, GERD, Hiatal Hernia Musculoskeletal: Yes: Chronic low back pain Endocrine: Yes: Hypothyroidism - Past Surgical History Past Surgical History: Yes: Cholecystectomy, Hysterectomy - Alcohol/Substance Use Hx Alcohol Use: No History of Substance Use: reports: None - Smoking History Smoking history: Never smoked Have you smoked in the past 12 months: No - Social History Usual Living Arrangement: Other (With family) ADL: Family Assistance History of Recent Travel: No Home Medications - Allergies Allergies/Adverse Reactions: Allergies Allergy/AdvReac Type Severity Reaction Status Date / Time No Known Allergies Allergy Verified 10/27/17 22:29 - Home Medications Home Medications: Ambulatory Orders Cyclobenzaprine HCl [Flexeril] 5 mg PO TID 10/25/14 Gabapentin 600 mg PO BID 10/25/14 Losartan Potassium 50 mg PO BID 10/25/14 Mag Hydrox/Al Hydrox/Simeth [Mylanta Oral Suspension -] 30 ml PO Q6H PRN #1 cup 11/03/17 Magnesium Oxide [Mag-Ox -] 400 mg PO DAILY 30 Days #30 tablet 11/03/17 Pantoprazole Sodium [Protonix -] 40 mg PO BID 30 Days #60 tablet.ec 11/03/17 Salmeterol/Fluticasone [Advair 100Mcg/50Mcg -] 1 puff IH BID 14 Days #1 inhaler MDD twice 11/03/17 Carvedilol [Coreg] 6.25 mg PO BID 10/25/18 Chlorthalidone 25 mg PO DAILY 10/25/18 Levothyroxine [Synthroid -] 88 mcg PO DAILY MDD 1 10/25/18 Magnesium Carb/Aluminum Hydrox [Gaviscon Es Tablet Chew] 1 each PO PRN 10/25/18 Metoclopramide HCl [Reglan] 10 mg PO ASDIR 10/25/18 Ranitidine [Zantac -] 150 mg PO BID 10/25/18 Simvastatin 10 mg PO HS 10/25/18 Family Disease History - Family Disease History Family History: Unable to Obtain Review of Systems Unable to obtain ROS, reason: patient is somnolent Physical Exam-GI Vital Signs: Vital Signs Temperature 98.1 F 10/26/18 18:16 Pulse Rate 61 10/26/18 18:16 Respiratory Rate 18 10/26/18 18:16 Blood Pressure 135/59 L 10/26/18 18:16 O2 Sat by Pulse Oximetry (%) 100 10/26/18 14:02 CBC,CMP WBC 8.1 K/mm3 (4.0-10.0) 10/26/18 05:20 RBC 3.84 M/mm3 (3.60-5.2) 10/26/18 05:20 Hgb 11.5 GM/dL (10.7-15.3) 10/26/18 05:20 Hct 33.0 % (32.4-45.2) 10/26/18 05:20 MCV 85.9 fl (80-96) 10/26/18 05:20 MCH 30.0 pg (25.7-33.7) 10/26/18 05:20 MCHC 34.9 g/dl (32.0-36.0) 10/26/18 05:20 RDW 13.7 % (11.6-15.6) 10/26/18 05:20 Plt Count 353 K/MM3 (134-434) 10/26/18 05:20 MPV 7.9 fl (7.5-11.1) 10/26/18 05:20 Absolute Neuts (auto) 5.4 K/mm3 (1.5-8.0) 10/26/18 05:20 Neutrophils % 66.7 % (42.8-82.8) 10/26/18 05:20 Lymphocytes % 22.7 % (8-40) 10/26/18 05:20 Monocytes % 8.7 % (3.8-10.2) 10/26/18 05:20 Eosinophils % 1.2 % (0-4.5) D 10/26/18 05:20 Basophils % 0.7 % (0-2.0) 10/26/18 05:20 Nucleated RBC % 0 % (0-0) 10/26/18 05:20 Sodium 129 mmol/L (136-145) L 10/26/18 05:20 Potassium 3.8 mmol/L (3.5-5.1) 10/26/18 05:20 Chloride 95 mmol/L (98-107) L 10/26/18 05:20 Carbon Dioxide 27 mmol/L (21-32) 10/26/18 05:20 Anion Gap 8 MMOL/L (8-16) 10/26/18 05:20 BUN 6 mg/dL (7-18) L 10/26/18 05:20 Creatinine 0.7 mg/dL (0.55-1.3) 10/26/18 05:20 Creat Clearance w eGFR > 60 (>60) 10/26/18 05:20 Random Glucose 143 mg/dL (74-106) H 10/26/18 05:20 Lactic Acid 1.2 mmol/L (0.4-2.0) 10/25/18 15:35 Calcium 8.7 mg/dL (8.5-10.1) 10/26/18 05:20 Phosphorus 3.1 mg/dL (2.5-4.9) 10/26/18 05:20 Magnesium 1.8 mg/dL (1.8-2.4) 10/26/18 05:20 Total Bilirubin 0.8 mg/dL (0.2-1) 10/26/18 05:20 AST 20 U/L (15-37) 10/26/18 05:20 ALT 20 U/L (13-61) 10/26/18 05:20 Alkaline Phosphatase 46 U/L (45-117) 10/26/18 05:20 Creatine Kinase 96 U/L (26-192) 10/25/18 15:35 Troponin I 0.04 ng/ml (0.00-0.05) 10/25/18 15:35 Total Protein 5.8 g/dl (6.4-8.2) L 10/26/18 05:20 Albumin 3.1 g/dl (3.4-5.0) L 10/26/18 05:20 Total Amylase 52 U/L (25-115) 10/26/18 05:20 Lipase 156 U/L (73-393) 10/26/18 05:20 Current Medications Generic Name Dose Route Start Last Admin Trade Name Freq PRN Reason Stop Dose Admin Acetaminophen 650 mg 10/25/18 16:09 Tylenol - PO Q4H PRN FEVER Atorvastatin Calcium 10 mg 10/25/18 22:00 10/25/18 21:17 Lipitor - PO 10 mg HS RAJAT Administration Carvedilol 6.25 mg 10/25/18 22:00 10/26/18 10:16 Coreg - PO 6.25 mg BID RAJAT Administration Cyclobenzaprine HCl 5 mg 10/25/18 15:40 Cyclobenzaprine Hcl PO Q8H PRN MUSCLE SPASMS Enoxaparin Sodium 40 mg 10/26/18 10:00 10/26/18 10:16 Lovenox - SQ 40 mg DAILY [facility]AT Administration Gabapentin 600 mg 10/25/18 22:00 10/26/18 10:16 Neurontin - PO 600 mg BID RAJAT Administration Sodium Chloride 1,000 mls @ 50 mls/hr 10/25/18 16:30 10/26/18 17:54 Normal Saline - IV 10/27/18 16:29 Not Given ASDIR RAJAT Lactobacillus Acidophilus 1 tab 10/26/18 10:00 10/26/18 10:15 Bacid - PO 1 tab DAILY [facility] Administration Levothyroxine Sodium 88 mcg 10/26/18 07:00 10/26/18 06:03 Synthroid - PO 88 mcg DAILY@0700 [facility] Administration Losartan Potassium 50 mg 10/25/18 22:00 10/26/18 10:16 Cozaar - PO 50 mg BID [facility] Administration Metoclopramide HCl 10 mg 10/25/18 16:30 10/26/18 17:53 Reglan - PO 10 mg TIDAC [facility] Administration Pantoprazole Sodium 40 mg 10/26/18 10:00 10/26/18 10:16 Protonix - PO 40 mg DAILY [facility] Administration Ranitidine HCl 150 mg 10/25/18 22:00 10/26/18 10:15 Zantac - PO 150 mg BID [facility] Administration Constitutional: Yes: Other (Somnolent but appears otherwise comfortable) Eyes: Yes: Conjunctiva Clear HENT: Yes: Atraumatic Neck: Yes: Supple Cardiovascular: Yes: Regular Rate and Rhythm Respiratory: Yes: CTA Bilaterally Gastrointestinal Inspection: Yes: Scars (healed laparoscopic and Pfannensteil incisions) ...Auscultate: Yes: Normoactive Bowel Sounds ...Palpate: Yes: Soft, Other (nontender) ...Rectal Exam: Yes: Deferred (declined) Labs: CBC, BMP 10/26/18 05:20 10/26/18 05:20 Problem List - Problems (1) Hiatal hernia Assessment/Plan: I believe that Maksim's chronic abdominal pain and vomiting reflect various degrees of hiatal herniation that may be compromising her breathing and predisposing her stomach to an organoaxial volvulus. I will order an esophagram and UGI to exclude such a volvulus. If her medical condition permits an elective hiatal hernia repair and perhaps a gastropexy should be considered. 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
[2018-10-26] MEDS: ATORVASTATIN CA 10 MG TABLET (FP) PO SCH (21:50)
[2018-10-27] MEDS: LEVOTHYROXINE NA 88 MCG TABLET (FP) PO SCH ×2 (07:21→10:09)
[2018-10-27] MEDS: METOCLOPRAMIDE HCL 10 MG TABLET (FP) PO SCH ×3 (07:21→17:26)
[2018-10-27 07:55] LABS: BASO % 0.9 % (0-2.0); EOS % 4.2 % (0-4.5); HEMOGLOBIN 11.8 GM/dL (10.7-15.3); LYMPH % 24.4 % (8-40); MCH 30.9 pg (25.7-33.7); MCHC 35.9 g/dl (32.0-36.0); MEAN CELL VOLUME 86.2 fl (80-96); MEAN PLT VOLUME 7.8 fl (7.5-11.1); MONO % 8.2 % (3.8-10.2); NEUT % 62.3 % (42.8-82.8); PLATELET COUNT 345 K/MM3 (134-434); RBC 3.82 M/mm3 (3.60-5.2); RDW 13.5 % (11.6-15.6); WHITE BLOOD COUNT 6.7 K/mm3 (4.0-10.0)
[2018-10-27 08:37] LABS: ANION GAP 10 MMOL/L (8-16); BLOOD UREA NITROGEN 5 mg/dL (7-18); CALCIUM 8.6 mg/dL (8.5-10.1); CHLORIDE 98 mmol/L (98-107); CO2 25 mmol/L (21-32); CREATININE 0.6 mg/dL (0.55-1.3); GLUCOSE,RANDOM 86 mg/dL (74-106); MAGNESIUM 1.4 mg/dL (1.8-2.4); PHOSPHOROUS 2.9 mg/dL (2.5-4.9); POTASSIUM 3.7 mmol/L (3.5-5.1); SODIUM 133 mmol/L (136-145)
[2018-10-27] MEDS: LINEZOLID 600 MG PREMIX BAG 600 MG in PREMIX 300 IVPB SCH ×2 (09:26→09:27)
[2018-10-27] MEDS: RANITIDINE HCL 150 MG TABLET (FP) PO SCH (10:09)
[2018-10-27] MEDS: LACTOBACILLUS ACIDOPHILUS 1 TABLET PO SCH (10:09)
[2018-10-27] MEDS: CARVEDILOL 6.25 MG TABLET (FP) PO SCH ×2 (10:09→22:08)
[2018-10-27] MEDS: GABAPENTIN 300 MG CAPSULE (FP) PO SCH ×2 (10:10→22:08)
[2018-10-27] MEDS: PANTOPRAZOLE 40 MG TABLET (FP) PO SCH (10:10)
[2018-10-27] MEDS: ENOXAPARIN NA (PORCINE) 40 MG/0.4 ML DISP.SYRIN SQ SCH (10:10)
[2018-10-27] MEDS: LOSARTAN POTASSIUM 50 MG TABLET (FP) PO SCH ×2 (10:10→22:08)
--- NOTE | 2018-10-27 11:08 | PN ---
Progress Note, Physician - Current Medication List Current Medications: Active Medications Acetaminophen (Tylenol -) 650 mg PO Q4H PRN PRN Reason: FEVER Atorvastatin Calcium (Lipitor -) 10 mg PO HS [facility] Last Admin: 10/26/18 21:50 Dose: 10 mg Carvedilol (Coreg -) 6.25 mg PO BID [facility] Last Admin: 10/27/18 10:09 Dose: 6.25 mg Cyclobenzaprine HCl (Cyclobenzaprine Hcl) 5 mg PO Q8H PRN PRN Reason: MUSCLE SPASMS Enoxaparin Sodium (Lovenox -) 40 mg SQ DAILY [facility] Last Admin: 10/27/18 10:10 Dose: 40 mg Gabapentin (Neurontin -) 600 mg PO BID [facility] Last Admin: 10/27/18 10:10 Dose: 600 mg Sodium Chloride (Normal Saline -) 1,000 mls @ 50 mls/hr IV ASDIR [facility] Stop: 10/27/18 16:29 Last Admin: 10/26/18 22:14 Dose: 50 mls/hr Lactobacillus Acidophilus (Bacid -) 1 tab PO DAILY [facility] Last Admin: 10/27/18 10:09 Dose: 1 tab Levothyroxine Sodium (Synthroid -) 88 mcg PO DAILY@0700 [facility] Last Admin: 10/27/18 10:09 Dose: 88 mcg Losartan Potassium (Cozaar -) 50 mg PO BID [facility] Last Admin: 10/27/18 10:10 Dose: 50 mg Metoclopramide HCl (Reglan -) 10 mg PO TIDAC [facility] Last Admin: 10/27/18 10:10 Dose: 10 mg Pantoprazole Sodium (Protonix -) 40 mg PO DAILY [facility] Last Admin: 10/27/18 10:10 Dose: 40 mg Ranitidine HCl (Zantac -) 150 mg PO BID [facility] Last Admin: 10/27/18 10:09 Dose: 150 mg - Objective Vital Signs: Vital Signs Temperature 98.2 F 10/27/18 02:00 Pulse Rate 75 10/27/18 06:38 Respiratory Rate 18 10/27/18 06:38 Blood Pressure 156/69 10/27/18 06:38 O2 Sat by Pulse Oximetry (%) 100 10/26/18 21:00 Labs: CBC, BMP 10/27/18 06:45 10/27/18 06:45
--- NOTE | 2018-10-27 12:21 | PN ---
Progress Note, Physician Chief Complaint: Ms Rod says she is feeling much better. Denies cp, sob, n/v. - Current Medication List Current Medications: Active Medications Acetaminophen (Tylenol -) 650 mg PO Q4H PRN PRN Reason: FEVER Atorvastatin Calcium (Lipitor -) 10 mg PO HS [facility] Last Admin: 10/26/18 21:50 Dose: 10 mg Carvedilol (Coreg -) 6.25 mg PO BID [facility] Last Admin: 10/27/18 10:09 Dose: 6.25 mg Cyclobenzaprine HCl (Cyclobenzaprine Hcl) 5 mg PO Q8H PRN PRN Reason: MUSCLE SPASMS Enoxaparin Sodium (Lovenox -) 40 mg SQ DAILY [facility] Last Admin: 10/27/18 10:10 Dose: 40 mg Gabapentin (Neurontin -) 600 mg PO BID [facility] Last Admin: 10/27/18 10:10 Dose: 600 mg Sodium Chloride (Normal Saline -) 1,000 mls @ 50 mls/hr IV ASDIR [facility] Stop: 10/27/18 16:29 Last Admin: 10/26/18 22:14 Dose: 50 mls/hr Lactobacillus Acidophilus (Bacid -) 1 tab PO DAILY [facility] Last Admin: 10/27/18 10:09 Dose: 1 tab Levothyroxine Sodium (Synthroid -) 88 mcg PO DAILY@0700 [facility] Last Admin: 10/27/18 10:09 Dose: 88 mcg Losartan Potassium (Cozaar -) 50 mg PO BID [facility] Last Admin: 10/27/18 10:10 Dose: 50 mg Magnesium Sulfate (Magnesium Sulfate) 2 gm IVPB ONCE ONE Stop: 10/27/18 12:31 Metoclopramide HCl (Reglan -) 10 mg PO TIDAC [facility] Last Admin: 10/27/18 10:10 Dose: 10 mg Pantoprazole Sodium (Protonix -) 40 mg PO DAILY [facility] Last Admin: 10/27/18 10:10 Dose: 40 mg Ranitidine HCl (Zantac -) 150 mg PO BID [facility] Last Admin: 10/27/18 10:09 Dose: 150 mg - Objective Vital Signs: Vital Signs Temperature 37.1 C 10/27/18 10:00 Pulse Rate 67 10/27/18 10:00 Respiratory Rate 18 10/27/18 10:00 Blood Pressure 165/60 10/27/18 10:00 O2 Sat by Pulse Oximetry (%) 100 10/27/18 10:00 Constitutional: Yes: Well Nourished, No Distress, Calm Cardiovascular: Yes: Regular Rate and Rhythm. No: Gallop, Murmur, Rub Respiratory: Yes: Regular, CTA Bilaterally. No: Rales, Rhonchi, Wheezes Gastrointestinal: Yes: Normal Bowel Sounds, Soft, Distention. No: Tenderness Extremities: Yes: WNL Edema: No Labs: CBC, BMP 10/27/18 06:45 10/27/18 06:45 Problem List - Problems (1) UTI (urinary tract infection) due to Enterococcus Code(s): N39.0 - URINARY TRACT INFECTION, SITE NOT SPECIFIED; B95.2 - ENTEROCOCCUS THE CAUSE OF DISEASES CLASSIFIED ELSEWHERE (2) Abdominal pain Code(s): R10.9 - UNSPECIFIED ABDOMINAL PAIN Qualifiers: Abdominal location: generalized Qualified Code(s): R10.84 - Generalized abdominal pain (3) Vomiting Code(s): R11.10 - VOMITING, UNSPECIFIED Qualifiers: Vomiting type: unspecified Vomiting Intractability: non-intractable Nausea presence: with nausea Qualified Code(s): R11.2 - Nausea with vomiting, unspecified (4) HTN (hypertension) Code(s): I10 - ESSENTIAL (PRIMARY) HYPERTENSION (5) Hyponatremia Code(s): E87.1 - HYPO-OSMOLALITY AND HYPONATREMIA (6) Hypothyroid Code(s): E03.9 - HYPOTHYROIDISM, UNSPECIFIED (7) Neuropathy Code(s): G62.9 - POLYNEUROPATHY, UNSPECIFIED Assessment/Plan (1) UTI (urinary tract infection) due to Enterococcus Assessment/Plan: -case d/w Dr Pizarro -urinalysis and urine culture negative -linezolid discontinued Code(s): N39.0 - URINARY TRACT INFECTION, SITE NOT SPECIFIED; B95.2 - ENTEROCOCCUS THE CAUSE OF DISEASES CLASSIFIED ELSEWHERE (2) Abdominal pain Assessment/Plan: -abdominal pain resolved Code(s): R10.9 - UNSPECIFIED ABDOMINAL PAIN Qualifiers: Abdominal location: generalized Qualified Code(s): R10.84 - Generalized abdominal pain (3) Vomiting Assessment/Plan: -appreciate Dr Vidal's assistance -reviewed read for UGI series -now resolved -will d/w GI, if amenable will advance diet Code(s): R11.10 - VOMITING, UNSPECIFIED Qualifiers: Vomiting type: unspecified Vomiting Intractability: non-intractable Nausea presence: with nausea Qualified Code(s): R11.2 - Nausea with vomiting, unspecified (4) HTN (hypertension) Assessment/Plan: -continue losartan and coreg -elevated, but may be secondary to IVF -will stop IVF today -monitor after IVF discontinued -consider addition of amlodipine Code(s): I10 - ESSENTIAL (PRIMARY) HYPERTENSION (5) Hyponatremia Assessment/Plan: -resolved -will not restart thiazide diuretics secondary to this Code(s): E87.1 - HYPO-OSMOLALITY AND HYPONATREMIA (6) Hypothyroid Assessment/Plan: -continue synthroid Code(s): E03.9 - HYPOTHYROIDISM, UNSPECIFIED (7) Neuropathy Assessment/Plan: -continue home regimen Code(s): G62.9 - POLYNEUROPATHY, UNSPECIFIED
[2018-10-27] MEDS ORDERED: MAGNESIUM SULF 50% (8.12 MEQ/2 ML-1 GM VIAL) IVPB ONE (12:30)
--- NOTE | 2018-10-27 15:23 | PN ---
GI Progress Note Subjective: GI Note: Maksim reports that she is feeling better. No further vomiting but she now has diarrhea. Wants more to eat. UGI reveals a paraesophageal hernia but no gastric volvulus or overt obstruction. She tells me that she had a colonoscopy about 8 years ago at [facility]. She does not recall having any abnormalities - Objective Vital Signs: Vital Signs Temperature 98.5 F 10/27/18 15:09 Pulse Rate 63 10/27/18 15:09 Respiratory Rate 18 10/27/18 15:09 Blood Pressure 149/51 L 10/27/18 15:09 O2 Sat by Pulse Oximetry (%) 100 10/27/18 10:00 Constitutional: Anxious ...Auscultate: Yes: Normoactive Bowel Sounds ...Palpate: Yes: Soft, Other (nontender) Labs: CBC, BMP 10/27/18 06:45 10/27/18 06:45 Assessment/Plan Will try solid diet Will screen stool for pathogens Problem List - Problems (1) Paraesophageal hernia Assessment/Plan: No obstruction associated with the paraesophageal hernia so will advance diet. Surgical opinion is pending Code(s): K44.9 - DIAPHRAGMATIC HERNIA WITHOUT OBSTRUCTION OR GANGRENE (2) Diarrhea Assessment/Plan: Will screen for C diff toxin and enteric pathogens Code(s): R19.7 - DIARRHEA, UNSPECIFIED (3) Hiatal hernia Code(s): K44.9 - DIAPHRAGMATIC HERNIA WITHOUT OBSTRUCTION OR GANGRENE (4) Abdominal pain Code(s): R10.9 - UNSPECIFIED ABDOMINAL PAIN Qualifiers: Abdominal location: generalized Qualified Code(s): R10.84 - Generalized abdominal pain (5) Vomiting Code(s): R11.10 - VOMITING, UNSPECIFIED Qualifiers: Vomiting type: unspecified Vomiting Intractability: non-intractable Nausea presence: with nausea Qualified Code(s): R11.2 - Nausea with vomiting, unspecified
[2018-10-27] MEDS: ATORVASTATIN CA 10 MG TABLET (FP) PO SCH (22:08)
[2018-10-28] MEDS: LEVOTHYROXINE NA 88 MCG TABLET (FP) PO SCH (06:51)
[2018-10-28] MEDS: METOCLOPRAMIDE HCL 10 MG TABLET (FP) PO SCH ×2 (06:52→11:17)
[2018-10-28 07:28] LABS: BASO % 0.6 % (0-2.0); HEMATOCRIT 31.8 % (32.4-45.2); HEMOGLOBIN 11.4 GM/dL (10.7-15.3); LYMPH % 17.8 % (8-40); MCH 30.5 pg (25.7-33.7); MCHC 35.9 g/dl (32.0-36.0); MEAN PLT VOLUME 7.3 fl (7.5-11.1); MONO % 8.2 % (3.8-10.2); NEUT % 68.4 % (42.8-82.8); PLATELET COUNT 300 K/MM3 (134-434); RBC 3.74 M/mm3 (3.60-5.2); RDW 13.8 % (11.6-15.6)
[2018-10-28 08:04] LABS: ANION GAP 9 MMOL/L (8-16); BLOOD UREA NITROGEN 6 mg/dL (7-18); CALCIUM 8.4 mg/dL (8.5-10.1); CHLORIDE 98 mmol/L (98-107); CO2 27 mmol/L (21-32); CREATININE 0.7 mg/dL (0.55-1.3); GLUCOSE,RANDOM 97 mg/dL (74-106); MAGNESIUM 1.9 mg/dL (1.8-2.4); PHOSPHOROUS 3.2 mg/dL (2.5-4.9); POTASSIUM 3.5 mmol/L (3.5-5.1); SODIUM 133 mmol/L (136-145)
[2018-10-28] MEDS: ENOXAPARIN NA (PORCINE) 40 MG/0.4 ML DISP.SYRIN SQ SCH (09:07)
[2018-10-28] MEDS: CARVEDILOL 6.25 MG TABLET (FP) PO SCH (09:07)
[2018-10-28] MEDS: LOSARTAN POTASSIUM 50 MG TABLET (FP) PO SCH (09:07)
[2018-10-28] MEDS: LACTOBACILLUS ACIDOPHILUS 1 TABLET PO SCH (09:07)
[2018-10-28] MEDS: GABAPENTIN 300 MG CAPSULE (FP) PO SCH (09:08)
[2018-10-28] MEDS: PANTOPRAZOLE 40 MG TABLET (FP) PO SCH (09:08)
[2018-10-28 09:54] VITALS: BP 149/57; PULSE 73; TEMP 98.6
--- NOTE | 2018-10-28 13:09 | PN ---
Progress Note, Physician - Current Medication List Current Medications: Active Medications Acetaminophen (Tylenol -) 650 mg PO Q4H PRN PRN Reason: FEVER Atorvastatin Calcium (Lipitor -) 10 mg PO HS [facility] Last Admin: 10/27/18 22:08 Dose: 10 mg Carvedilol (Coreg -) 6.25 mg PO BID [facility] Last Admin: 10/28/18 09:07 Dose: 6.25 mg Cyclobenzaprine HCl (Cyclobenzaprine Hcl) 5 mg PO Q8H PRN PRN Reason: MUSCLE SPASMS Enoxaparin Sodium (Lovenox -) 40 mg SQ DAILY [facility] Last Admin: 10/28/18 09:07 Dose: 40 mg Gabapentin (Neurontin -) 600 mg PO BID [facility] Last Admin: 10/28/18 09:08 Dose: 600 mg Lactobacillus Acidophilus (Bacid -) 1 tab PO DAILY [facility] Last Admin: 10/28/18 09:07 Dose: 1 tab Levothyroxine Sodium (Synthroid -) 88 mcg PO DAILY@0700 [facility] Last Admin: 10/28/18 06:51 Dose: 88 mcg Losartan Potassium (Cozaar -) 50 mg PO BID [facility] Last Admin: 10/28/18 09:07 Dose: 50 mg Metoclopramide HCl (Reglan -) 10 mg PO TIDAC [facility] Last Admin: 10/28/18 11:17 Dose: 10 mg Pantoprazole Sodium (Protonix -) 40 mg PO DAILY [facility] Last Admin: 10/28/18 09:08 Dose: 40 mg - Objective Vital Signs: Vital Signs Temperature 98.6 F 10/28/18 09:53 Pulse Rate 73 10/28/18 09:53 Respiratory Rate 18 10/28/18 09:53 Blood Pressure 149/57 L 10/28/18 09:53 O2 Sat by Pulse Oximetry (%) 99 10/28/18 09:57 Labs: CBC, BMP 10/28/18 06:00 10/28/18 06:00
--- NOTE | 2018-10-28 13:11 | PN ---
Progress Note, Physician History of Present Illness: stable no new issues - Current Medication List Current Medications: Active Medications Acetaminophen (Tylenol -) 650 mg PO Q4H PRN PRN Reason: FEVER Atorvastatin Calcium (Lipitor -) 10 mg PO HS [facility] Last Admin: 10/27/18 22:08 Dose: 10 mg Carvedilol (Coreg -) 6.25 mg PO BID [facility] Last Admin: 10/28/18 09:07 Dose: 6.25 mg Cyclobenzaprine HCl (Cyclobenzaprine Hcl) 5 mg PO Q8H PRN PRN Reason: MUSCLE SPASMS Enoxaparin Sodium (Lovenox -) 40 mg SQ DAILY [facility] Last Admin: 10/28/18 09:07 Dose: 40 mg Gabapentin (Neurontin -) 600 mg PO BID [facility] Last Admin: 10/28/18 09:08 Dose: 600 mg Lactobacillus Acidophilus (Bacid -) 1 tab PO DAILY [facility] Last Admin: 10/28/18 09:07 Dose: 1 tab Levothyroxine Sodium (Synthroid -) 88 mcg PO DAILY@0700 [facility] Last Admin: 10/28/18 06:51 Dose: 88 mcg Losartan Potassium (Cozaar -) 50 mg PO BID [facility] Last Admin: 10/28/18 09:07 Dose: 50 mg Metoclopramide HCl (Reglan -) 10 mg PO TIDAC [facility] Last Admin: 10/28/18 11:17 Dose: 10 mg Pantoprazole Sodium (Protonix -) 40 mg PO DAILY [facility] Last Admin: 10/28/18 09:08 Dose: 40 mg - Objective Vital Signs: Vital Signs Temperature 98.6 F 10/28/18 09:53 Pulse Rate 73 10/28/18 09:53 Respiratory Rate 18 10/28/18 09:53 Blood Pressure 149/57 L 10/28/18 09:53 O2 Sat by Pulse Oximetry (%) 99 10/28/18 09:57 Constitutional: Yes: No Distress, Calm Cardiovascular: Yes: Regular Rate and Rhythm Respiratory: Yes: Regular, CTA Bilaterally Gastrointestinal: Yes: Normal Bowel Sounds, Soft, Tenderness Musculoskeletal: Yes: WNL Extremities: Yes: WNL Neurological: Yes: Alert, Oriented Psychiatric: Yes: Alert, Oriented Labs: CBC, BMP 10/28/18 06:00 10/28/18 06:00 Assessment/Plan Problem List - Problems (1) UTI (urinary tract infection) due to Enterococcus Code(s): N39.0 - URINARY TRACT INFECTION, SITE NOT SPECIFIED; B95.2 - ENTEROCOCCUS THE CAUSE OF DISEASES CLASSIFIED ELSEWHERE (2) Abdominal pain Code(s): R10.9 - UNSPECIFIED ABDOMINAL PAIN Qualifiers: Abdominal location: generalized Qualified Code(s): R10.84 - Generalized abdominal pain (3) Vomiting Code(s): R11.10 - VOMITING, UNSPECIFIED Qualifiers: Vomiting type: unspecified Vomiting Intractability: non-intractable Nausea presence: with nausea Qualified Code(s): R11.2 - Nausea with vomiting, unspecified (4) HTN (hypertension) Code(s): I10 - ESSENTIAL (PRIMARY) HYPERTENSION (5) Hyponatremia Code(s): E87.1 - HYPO-OSMOLALITY AND HYPONATREMIA (6) Hypothyroid Code(s): E03.9 - HYPOTHYROIDISM, UNSPECIFIED (7) Neuropathy Code(s): G62.9 - POLYNEUROPATHY, UNSPECIFIED plan continue current mgmt hydration rest as per the team close watch patient needs surgery
--- NOTE | 2018-10-28 15:21 | DS ---
Physical Examination Vital Signs: Vital Signs Temperature 37.0 C 10/28/18 09:53 Pulse Rate 73 10/28/18 09:53 Respiratory Rate 18 10/28/18 09:53 Blood Pressure 149/57 L 10/28/18 09:53 O2 Sat by Pulse Oximetry (%) 99 10/28/18 09:57 Constitutional: Yes: Well Nourished, No Distress, Calm Cardiovascular: Yes: Regular Rate and Rhythm. No: Gallop, Murmur, Rub Respiratory: Yes: Regular, CTA Bilaterally. No: Rales, Rhonchi, Wheezes Gastrointestinal: Yes: Normal Bowel Sounds, Soft. No: Distention, Tenderness Extremities: Yes: WNL Edema: No Labs: CBC, BMP 10/28/18 06:00 10/28/18 06:00 Discharge Summary Reason For Visit: ABDOMINAL PAIN Hospital Course: (1) UTI (urinary tract infection) due to Enterococcus Code(s): N39.0 - URINARY TRACT INFECTION, SITE NOT SPECIFIED; B95.2 - ENTEROCOCCUS THE CAUSE OF DISEASES CLASSIFIED ELSEWHERE (2) Abdominal pain Code(s): R10.9 - UNSPECIFIED ABDOMINAL PAIN Qualifiers: Abdominal location: generalized Qualified Code(s): R10.84 - Generalized abdominal pain (3) Vomiting Code(s): R11.10 - VOMITING, UNSPECIFIED Qualifiers: Vomiting type: unspecified Vomiting Intractability: non-intractable Nausea presence: with nausea Qualified Code(s): R11.2 - Nausea with vomiting, unspecified (4) HTN (hypertension) Code(s): I10 - ESSENTIAL (PRIMARY) HYPERTENSION (5) Hyponatremia Code(s): E87.1 - HYPO-OSMOLALITY AND HYPONATREMIA (6) Hypothyroid Code(s): E03.9 - HYPOTHYROIDISM, UNSPECIFIED (7) Neuropathy Code(s): G62.9 - POLYNEUROPATHY, UNSPECIFIED Ms Rod is a very pleasant 83 year old female who was diagnosed with a VRE UTI and presented with n/v and abdominal pain. She was taking linezolid as an outpatient and on day 5 was no longer able to tolerate it so came to the hospital. She was found to be hyponatremic and her chlorthalidone was held. She was also hydrated with NS. The hyponatremia improved and the NS was stopped, she will not be discharged on chlorthalidone at this time. CT scan showed hiatal hernia but no other obstruction, GI series was performed after being seen by GI and showed no obstruction. She was given IV linezolid and her urine cultures were checked and NGTD. She has finished a full course of antibiotics and this was stopped. Currently she is tolerating a diet and feeling back to baseline. She is safe for discharge home. She is to follow up with Dr Owens for repair of her hiatal hernia. 31 minutes spent in preparation of this discharge Condition: Stable - Instructions Diet, Activity, Other Instructions: resume previous diet and activity Referrals: Claudia Vidal MD [Staff Physician] - Virginia Wallace MD [Primary Care Provider] - Clifton Owens MD [Staff Physician] - Disposition: HOME - Home Medications Comprehensive Discharge Medication List: Ambulatory Orders Cyclobenzaprine HCl [Flexeril] 5 mg PO TID 10/25/14 Gabapentin 600 mg PO BID 10/25/14 Losartan Potassium 50 mg PO BID 10/25/14 Mag Hydrox/Al Hydrox/Simeth [Mylanta Oral Suspension -] 30 ml PO Q6H PRN #1 cup 11/03/17 Magnesium Oxide [Mag-Ox -] 400 mg PO DAILY 30 Days #30 tablet 11/03/17 Pantoprazole Sodium [Protonix -] 40 mg PO BID 30 Days #60 tablet.ec 11/03/17 Salmeterol/Fluticasone [Advair 100Mcg/50Mcg -] 1 puff IH BID 14 Days #1 inhaler MDD twice 11/03/17 Carvedilol [Coreg] 6.25 mg PO BID 10/25/18 Levothyroxine [Synthroid -] 88 mcg PO DAILY MDD 1 10/25/18 Magnesium Carb/Aluminum Hydrox [Gaviscon Es Tablet Chew] 1 each PO PRN 10/25/18 Ranitidine [Zantac -] 150 mg PO BID 10/25/18 Simvastatin 10 mg PO HS 10/25/18 Metoclopramide HCl [Reglan -] 10 mg PO TIDAC #90 tablet 10/28/18
--- NOTE | 2018-10-28 18:55 | CONSULT ---
Consult Consult Specialty:: Thoracic Surgery on 10/27/18 Referred by:: Francoise Benavides Reason for Consultation:: Paraesophageal hernia - History of Present Illness Chief Complaint: Abdominal pain History of Present Illness: Ms Rod is a pleasant 83 year old female who was admitted with worsening abdominal pain and nausea with vomiting after 1 week of oral antibiotics. She was diagnosed with a VRE UTI and placed on oral linezolid. She tolerated it for 5 days, however she began to have abdominal pain and nausea with vomiting. Every time she ate or drank she would throw up. It was either bilious or looked like food. It was attempted to be controlled in the outpatient setting, however it did not improve. She denies fevers, chills, lightheadedness, dizziness, passing out, chest pain, shortness of breath, diarrhea, constipation, difficulty or pain on urination, or leg swelling. CT chest revealed giant paraesophageal hernia with most of the stomach in the left chest.Upper GI series showed no obstruction. Patient was seen at 7 pm on 10/27. 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: Yes: Peripheral Neuropathy Cardio/Vascular: Yes: HTN Gastrointestinal: Yes: GERD, Hiatal Hernia Musculoskeletal: Yes: Chronic low back pain Endocrine: Yes: Hypothyroidism - Past Surgical History Past Surgical History: Yes: Cholecystectomy, Hysterectomy - Alcohol/Substance Use Hx Alcohol Use: No History of Substance Use: reports: None - Smoking History Smoking history: Never smoked Have you smoked in the past 12 months: No - Social History Usual Living Arrangement: Other (With family) ADL: Family Assistance History of Recent Travel: No Home Medications - Allergies Allergies/Adverse Reactions: Allergies Allergy/AdvReac Type Severity Reaction Status Date / Time No Known Allergies Allergy Verified 10/27/17 22:29 - Home Medications Home Medications: Ambulatory Orders Cyclobenzaprine HCl [Flexeril] 5 mg PO TID 10/25/14 Gabapentin 600 mg PO BID 10/25/14 Losartan Potassium 50 mg PO BID 10/25/14 Mag Hydrox/Al Hydrox/Simeth [Mylanta Oral Suspension -] 30 ml PO Q6H PRN #1 cup 11/03/17 Magnesium Oxide [Mag-Ox -] 400 mg PO DAILY 30 Days #30 tablet 11/03/17 Pantoprazole Sodium [Protonix -] 40 mg PO BID 30 Days #60 tablet.ec 11/03/17 Salmeterol/Fluticasone [Advair 100Mcg/50Mcg -] 1 puff IH BID 14 Days #1 inhaler MDD twice 11/03/17 Carvedilol [Coreg] 6.25 mg PO BID 10/25/18 Levothyroxine [Synthroid -] 88 mcg PO DAILY MDD 1 10/25/18 Magnesium Carb/Aluminum Hydrox [Gaviscon Es Tablet Chew] 1 each PO PRN 10/25/18 Ranitidine [Zantac -] 150 mg PO BID 10/25/18 Simvastatin 10 mg PO HS 10/25/18 Metoclopramide HCl [Reglan -] 10 mg PO TIDAC #90 tablet 10/28/18 Review of Systems - Review of Systems Constitutional: reports: No Symptoms. denies: Chills, Diaphoresis, Fever, Lethargy, Loss of Appetite, Malaise, Night Sweats, Unintentional Wgt. Loss, Weakness, Other Eyes: denies: No Symptoms, Blind Spots, Blurred Vision, Double Vision, Eye Pain , Floaters, Photophobia, Recent Change in Vision, Other HENT: denies: No Symptoms, Difficult Swallowing, Ear Discharge, Ear Pain, Epistaxis, Gingival Bleeding, Hearing Loss, Mouth Swelling, Nasal Congestion, Ocular Prosthesis, Throat Pain, Toothache, Ringing in Ears, Other Neck: denies: No Symptoms, Decreased ROM, Lumps, Pain on Movement, Stiffness, Swollen Glands, Tenderness, Other Gastrointestinal: reports: Abdominal Pain, Vomiting Genitourinary: reports: No Symptoms Physical Exam Vital Signs: Vital Signs Temperature 98.6 F 10/28/18 09:53 Pulse Rate 73 10/28/18 09:53 Respiratory Rate 18 10/28/18 09:53 Blood Pressure 149/57 L 10/28/18 09:53 O2 Sat by Pulse Oximetry (%) 99 10/28/18 09:57 Constitutional: Yes: Well Nourished, No Distress Eyes: Yes: WNL HENT: Yes: WNL, Atraumatic, Normocephalic Neck: Yes: WNL, Supple Cardiovascular: Yes: WNL, Regular Rate and Rhythm Respiratory: Yes: Regular, CTA Bilaterally Gastrointestinal: Yes: Normal Bowel Sounds, Soft Musculoskeletal: Yes: Back Pain Edema: No Labs: CBC, BMP 10/28/18 06:00 10/28/18 06:00 Imaging - Results Chest X-ray: Report Reviewed, Image Reviewed Cat Scan: Report Reviewed, Image Reviewed Other: Report Reviewed (Upper GI series showed no obstruction.), Image Reviewed Problem List - Problems (1) Abdominal pain Code(s): R10.9 - UNSPECIFIED ABDOMINAL PAIN Qualifiers: Abdominal location: generalized Qualified Code(s): R10.84 - Generalized abdominal pain (2) Dehydration Code(s): E86.0 - DEHYDRATION (3) Diarrhea Code(s): R19.7 - DIARRHEA, UNSPECIFIED Qualifiers: Diarrhea type: functional diarrhea Qualified Code(s): K59.1 - Functional diarrhea Assessment/Plan 83 y/o F with large paraesophageal hernia. No obstruction. Patient was informed about risk of torsion and ischemia about risks and benefits of the surgery. Was encouraged to follow as outpatient. All her questions were answered.thank you for courtesy of this referral.
== END 2018-10-28 13:51 | disposition home or self-care (01) | DRG 690 ==
LOC: JER 15:05 → JERBED 15:31 → J5S 21:04
PROVIDERS: ADMIT Internal Medicine; ATTEND Internal Medicine
DX: N39.0 Urinary tract infection, site not specified (principal); E87.1 Hypo-osmolality and hyponatremia; K44.9 Diaphragmatic hernia without obstruction or gangrene; T50.2X5A Adverse effect of carbonic-anhydrase inhibitors, benzothiadiazides and other diuretics, initial encounter; I10 Essential (primary) hypertension; G62.9 Polyneuropathy, unspecified; K21.9 Gastro-esophageal reflux disease without esophagitis; E86.0 Dehydration; E03.9 Hypothyroidism, unspecified
CPT/HCPCS: 36415; 71046-TC-FY; 74177-TC; 74220-TC-FY; 74240-TC-FY; 80048; 80053; 81003; 81015; 82150; 82272; 82550; 83605; 83690; 83735; 84100; 84484; 85025; 87086; 93005; 93010; 94010; 97116-GP; 97161-GP; 99285-25; J7030

== ENCOUNTER 2018-12-17 16:02 | Inpatient (IN) | payer MEDICARE, OTHER ==
--- NOTE | 2018-12-17 17:00 | PDOC ---
History of Present Illness - General Chief Complaint: Pain Stated Complaint: ABD PAIN Time Seen by Provider: 12/17/18 16:24 History Source: Patient, Family Exam Limitations: No Limitations - History of Present Illness Initial Comments: 83 yo F h/o HTN, diverticulosis, GERD, hiatal hernia, chronic lower back pain, hypothyroidism p/w worsening abd pain. Family at bedside endorses worsening abd pain since Tuesday night dinner, which was a regular meal she eats everyday. Family called PMD and was told to give the patient mylanta, reglan, ranitidine, protonix, with no relief. The pain is located in epigastric region, radiates to suprapubic region, 10/10, continuous, not associated with food, movement, or position. Patient's last bm was this AM x 2, non-bloody. The patient has been diagnosed with hiatal hernia and she's scheduled to have EGD next Tuesday and hiatal hernia repair at the end of this month. 12/17/18 17:15 will send basic labs and give 0.5mg dilaudid for pain control 12/17/18 20:22 Patient is pain free now but still feels weak. abd x-ray and cxr are negative for any acute process. Labs are unremarkable. Will re-assess the patient after PO intake. 12/17/18 21:02 Patient able to ambulate fine. Tolerated juice. BP high, gave her home BP meds. UA + for nitrite and easterase, gave keflex 500mg x 1. Sent zofran and rest of keflex doses to patient's pharmacy. 12/17/18 23:21 patient's son at bedside stating patient is still weak, in pain and nauseous. He also gave the patient her night home medications including losartan which was given by RN earlier to control her BP. Will admit to hospitalist service for observation due to persistent n/v and abd pain, also BP monitoring. Past History - Past Medical History Allergies/Adverse Reactions: Allergies Allergy/AdvReac Type Severity Reaction Status Date / Time No Known Allergies Allergy Verified 12/17/18 16:08 Home Medications: Ambulatory Orders Cyclobenzaprine HCl [Flexeril] 5 mg PO TID 10/25/14 Gabapentin 600 mg PO BID 10/25/14 Losartan Potassium 50 mg PO BID 10/25/14 Mag Hydrox/Al Hydrox/Simeth [Mylanta Oral Suspension -] 30 ml PO Q6H PRN #1 cup 11/03/17 Magnesium Oxide [Mag-Ox -] 400 mg PO DAILY 30 Days #30 tablet 11/03/17 Pantoprazole Sodium [Protonix -] 40 mg PO BID 30 Days #60 tablet.ec 11/03/17 Salmeterol/Fluticasone [Advair 100Mcg/50Mcg -] 1 puff IH BID 14 Days #1 inhaler MDD twice 11/03/17 Carvedilol [Coreg] 6.25 mg PO BID 10/25/18 Levothyroxine [Synthroid -] 88 mcg PO DAILY MDD 1 10/25/18 Magnesium Carb/Aluminum Hydrox [Gaviscon Es Tablet Chew] 1 each PO PRN 10/25/18 Ranitidine [Zantac -] 150 mg PO BID 10/25/18 Simvastatin 10 mg PO HS 10/25/18 Metoclopramide HCl [Reglan -] 10 mg PO TIDAC #90 tablet 10/28/18 Cephalexin Monohydrate [Keflex -] 500 mg PO BID #9 capsule 12/17/18 Ondansetron [Zofran -] 4 mg PO Q4H PRN #8 tablet 12/17/18 Anemia: Yes Asthma: No Cancer: No Cardiac Disorders: No CVA: No COPD: No CHF: No Dementia: No Diabetes: No GI Disorders: Yes (GERD) Disorders: Yes (H/O UTI) HTN: Yes Hypercholesterolemia: Yes Liver Disease: No Seizures: No Thyroid Disease: Yes (HYPOTHYROIDISM) - Surgical History Abdominal Surgery: Yes Appendectomy: No Cardiac Surgery: No Cholecystectomy: Yes Lung Surgery: No Neurologic Surgery: No Orthopedic Surgery: No - Immunization History Immunization Up to Date: No - Suicide/Smoking/Psychosocial Hx Smoking History: Never smoked Have you smoked in the past 12 months: No Hx Alcohol Use: No Drug/Substance Use Hx: No Substance Use Type: None Hx Substance Use Treatment: No Review of Systems - Review of Systems Able to Perform ROS?: Yes Is the patient limited Kazakh proficient: No Constitutional: No: Chills, Fever, Weakness Respiratory: No: Cough, Shortness of Breath Cardiac (ROS): No: Chest Pain, Edema ABD/GI: Yes: Abdominal cramping. No: Constipated, Diarrhea, Nausea, Vomiting Neurological: No: Headache, Numbness, Paresthesia, Weakness *Physical Exam - Vital Signs Last Vital Signs Temp Pulse Resp BP Pulse Ox 98.5 F 77 18 194/83 H 97 12/17/18 16:05 12/17/18 16:05 12/17/18 16:05 12/17/18 16:05 12/17/18 16:05 - Physical Exam General Appearance: Yes: Other (in pain, uncomfortable) Respiratory/Chest: positive: Lungs Clear, Normal Breath Sounds Cardiovascular: positive: Regular Rhythm, Regular Rate, S1, S2. negative: Edema , JVD, Murmur Gastrointestinal/Abdominal: positive: Tender, Soft, Increased Bowel Sounds, Guarding, Tenderness. negative: Distended, Rebound Extremity: negative: Tender, Calf Tenderness, Erythema Neurologic: positive: silver brazer II-XII NML intact, Fully Oriented, Alert Moderate Sedation - Procedure Monitoring Vital Signs: Procedure Monitoring Vital Signs Temperature 98.5 F 12/17/18 16:05 Pulse Rate 77 12/17/18 16:05 Respiratory Rate 18 12/17/18 16:05 Blood Pressure 194/83 H 12/17/18 16:05 O2 Sat by Pulse Oximetry (%) 97 12/17/18 16:05 ED Treatment Course - LABORATORY CBC & Chemistry Diagram: 12/17/18 18:05 12/17/18 18:05 *DC/Admit/Observation/Transfer Diagnosis at time of Disposition: Hiatal hernia Abdominal pain Qualifiers: Abdominal location: unspecified location Qualified Code(s): R10.9 - Unspecified abdominal pain - Discharge Dispostion Decision to Admit order: Yes - Prescriptions - Referrals - Patient Instructions - Post Discharge Activity
[2018-12-17] MEDS ORDERED: HYDROmorphone HCL CARPU-JECT 2 MG/1 ML DISP.SYRIN IVPUSH ONE (17:11)
--- NOTE | 2018-12-17 17:23 | PDOC ---
Attending Attestation - HPI HPI: 12/17/18 17:50 The patient is an 83 year old female with a past medical history of HTN, GERD, hiatal hernia, hypothyroidism, and chronic low back pain here today for evaluation of epigastric pain. The patient reports that she was eating dinner last night when she began to feel 10/10 epigastric pain that radiates to the suprapubic area. She reports her last bowel movement was this morning and was normal. Patient denies headache, lightheadedness. Denies fever, chills. Denies chest pain, shortness of breath. Denies nausea, vomiting, diarrhea. Denies lower extremity edema. Denies urinary symptoms. On October 27, 2018, patient had an upper GI series performed which demonstrated a large paraesophageal hernia extending into her chest. On December she underwent a gastric emptying study which revealed gastroparesis. Allergies: NKA Surgical history: hysterectomy, cholecystectomy PCP: Virginia Wallace - Physicial Exam PE: 12/17/18 17:50 GENERAL: Well developed, well nourished. Awake and alert. No acute distress. CARDIOVASCULAR: Regular rate and rhythm. Holosystolic murmur. No rubs, or gallops. Distal pulses are 2+ and symmetric. PULMONARY: Lungs clear to auscultation bilaterally. ABDOMINAL: Soft. Diffusely tender, hyperactive bowel sounds Non-distended. No rebound or guarding. No organomegaly. EXTREMITIES: No cyanosis. No clubbing. Bilateral pedal edema. No calf tenderness. SKIN: Warm and dry. Normal capillary refill. No rashes. No jaundice. NEUROLOGICAL: Alert, awake, appropriate. Cranial nerves 2-12 intact. - Medical Decision Making 12/17/18 17:53 Documentation prepared by Adore Ceja, acting as medical records library professor for Holly Mcarthur MD. <Adore Ceja - Last Filed: 12/17/18 17:50> - Resident Resident Name: Kulwinder Hilliard - ED Attending Attestation I have performed the following: I have examined & evaluated the patient, The case was reviewed & discussed with the resident, I agree w/resident's findings & plan, Exceptions are as noted - Medical Decision Making 12/17/18 20:51 Patient with chronic abdominal pain, scheduled for colonoscopy this Tuesday presents with abdominal pain, mostly epigastric. 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 this year she had upper GI series that showed a large hiatal hernia ,She had gastric emptying test that showed gastroparesis Labs shows that her CBC is unremarkable. She has no anemia, no leukocytosis Chemistries show hyponatremia with a sodium of 127, she received IV fluids UA shows nitrate positive, 6 WBCs, since she'll be placed on Keflex. I spoke with her attending, Dr. Sonia Wallace to follow her in the office this week Imp ; UTI, large hiatal hernia, chronic abdominal pain. Plan follow up for colonoscopy on Tuesday and also see Dr Wallace this week, pt placed on antibiotics for UTI 12/17/18 22:31 <Holly Mcarthur - Last Filed: 12/17/18 22:31>
[2018-12-17] MEDS ORDERED: HYDROmorphone HCl 2 MG/ML VIAL ONE (17:49)
[2018-12-17 18:19] LABS: BASO % 0.5 % (0-2.0); EOS % 0.8 % (0-4.5); HEMATOCRIT 33.6 % (32.4-45.2); HEMOGLOBIN 11.9 GM/dL (10.7-15.3); LYMPH % 23.9 % (8-40); MCH 30.4 pg (25.7-33.7); MCHC 35.4 g/dl (32.0-36.0); MEAN CELL VOLUME 85.7 fl (80-96); MEAN PLT VOLUME 7.9 fl (7.5-11.1); MONO % 6.2 % (3.8-10.2); NEUT % 68.6 % (42.8-82.8); PLATELET COUNT 419 K/MM3 (134-434); RBC 3.91 M/mm3 (3.60-5.2); RDW 13.7 % (11.6-15.6); WHITE BLOOD COUNT 9.2 K/mm3 (4.0-10.0)
[2018-12-17] MEDS ORDERED: ONDANSETRON 4 MG/2 ML VIAL IVPUSH ONE ×2 (18:40→23:20)
[2018-12-17] MEDS ORDERED: ONDANSETRON 4 MG/2 ML VIAL ONE ×2 (18:52→23:34)
[2018-12-17 18:59] LABS: URINE APPEARANCE CLEAR; URINE BILIRUBIN NEGATIVE (<2.0 mg/dL); URINE COLOR LTYELLOW; URINE GLUCOSE (UA) NEGATIVE (NEGATIVE); URINE KETONE NEGATIVE (NEGATIVE); URINE LEUK ESTERASE 3+ (NEGATIVE); URINE NITRITE POSITIVE (NEGATIVE); URINE PROTEIN NEGATIVE (NEGATIVE); URINE UROBILINOGEN NEGATIVE mg/dL (0.2-1.0)
[2018-12-17 18:59] LABS: ALBUMIN 3.8 g/dl (3.4-5.0); ALK PHOS 54 U/L (45-117); AMYLASE 53 U/L (25-115); ANION GAP 9 MMOL/L (8-16); BILIRUBIN,TOTAL 0.7 mg/dL (0.2-1); BLOOD UREA NITROGEN 11 mg/dL (7-18); CALCIUM 9.4 mg/dL (8.5-10.1); CHLORIDE 92 mmol/L (98-107); CO2 26 mmol/L (21-32); CREATININE 0.7 mg/dL (0.55-1.3); GLUCOSE,RANDOM 98 mg/dL (74-106); LIPASE 130 U/L (73-393); MAGNESIUM 1.6 mg/dL (1.8-2.4); PHOSPHOROUS 3.4 mg/dL (2.5-4.9); POTASSIUM 3.6 mmol/L (3.5-5.1); SGOT/AST 28 U/L (15-37); SGPT/ALT 20 U/L (13-61); SODIUM 127 mmol/L (136-145); TOT PROT 7.4 g/dl (6.4-8.2)
[2018-12-17 19:01] LABS: URINE BACTERIA RARE /hpf (NONE SEEN); URINE MUCUS RARE
[2018-12-17] MEDS ORDERED: SODIUM CHLORIDE 1,000 ML IV SCH (19:30)
[2018-12-17] MEDS ORDERED: LOSARTAN POTASSIUM 50 MG TABLET (FP) PO ONE (20:45)
[2018-12-17] MEDS ORDERED: CARVEDILOL 6.25 MG TABLET (FP) PO ONE (20:45)
[2018-12-17] MEDS ORDERED: CEPHALEXIN MONOHYDRATE 500 MG CAPSULE (UD) PO ONE (20:49)
[2018-12-17] MEDS ORDERED: CEPHALEXIN MONOHYDRATE 500 MG CAPSULE (UD) ONE (20:53)
[2018-12-17] MEDS ORDERED: LOSARTAN POTASSIUM 50 MG TABLET (FP) ONE (20:53)
[2018-12-17] MEDS ORDERED: CARVEDILOL 12.5 MG TABLET (FP) ONE (20:53)
[2018-12-17] MEDS ORDERED: MAG HYDROX/AL HYDROX/SIMETH 30 ML UNIT-DOSE CUP PO ONE (22:28)
[2018-12-17] MEDS ORDERED: RANITIDINE HCL 150 MG/10 ML UNIT-DOSE PO ONE (22:28)
[2018-12-17] MEDS ORDERED: MAG HYDROX/AL HYDROX/SIMETH 30 ML UNIT-DOSE CUP ONE (22:39)
--- NOTE | 2018-12-17 23:15 | PDOC ---
*Physical Exam - Vital Signs Last Vital Signs Temp Pulse Resp BP Pulse Ox 98.6 F 76 20 177/71 H 99 12/17/18 20:17 12/17/18 21:18 12/17/18 21:18 12/17/18 21:18 12/17/18 21:18 ED Treatment Course - LABORATORY CBC & Chemistry Diagram: 12/17/18 18:05 12/17/18 18:05 - ADDITIONAL ORDERS Additional order review: Laboratory Results 12/17/18 12/17/18 12/17/18 18:35 18:05 18:05 Sodium 127 L Potassium 3.6 Chloride 92 L Carbon Dioxide 26 Anion Gap 9 BUN 11 Creatinine 0.7 Creat Clearance w eGFR 79.91 Random Glucose 98 Lactic Acid 0.9 Calcium 9.4 Phosphorus 3.4 Magnesium 1.6 L Total Bilirubin 0.7 AST 28 ALT 20 Alkaline Phosphatase 54 Total Protein 7.4 Albumin 3.8 Total Amylase 53 Lipase 130 Urine Color Ltyellow Urine Appearance Clear Urine pH 7.0 Ur Specific [place] 1.009 L Urine Protein Negative Urine Glucose (UA) Negative Urine Ketones Negative Urine Blood Negative Urine Nitrite Positive Urine Bilirubin Negative Urine Urobilinogen Negative Ur Leukocyte Esterase 3+ H D Urine WBC (Auto) 6 Urine RBC (Auto) 2 Urine Bacteria Rare Urine Mucus Rare 12/17/18 18:05 RBC 3.91 MCV 85.7 MCHC 35.4 RDW 13.7 MPV 7.9 Neutrophils % 68.6 Lymphocytes % 23.9 D Monocytes % 6.2 Eosinophils % 0.8 D Basophils % 0.5 - RADIOLOGY Radiology Studies Ordered: Category Date Time Status ABDOMEN FLAT & UPRIGHT [RAD] Stat Radiology 12/17/18 19:14 Taken CHEST X-RAY PORTABLE* [RAD] Stat Radiology 12/17/18 19:14 Taken - Medications Given in the ED: ED Medications Discontinued Medications Generic Name Dose Route Start Last Admin Trade Name Freq PRN Reason Stop Dose Admin Al Hydroxide/Mg Hydroxide 30 ml 12/17/18 22:28 12/17/18 23:04 Mylanta Oral Suspension - PO 12/17/18 22:29 30 ml ONCE ONE Administration Carvedilol 6.25 mg 12/17/18 20:45 12/17/18 20:58 Coreg - PO 12/17/18 20:46 6.25 mg ONCE ONE Administration Cephalexin HCl 500 mg 12/17/18 20:49 12/17/18 20:58 Keflex - PO 12/17/18 20:50 500 mg ONCE ONE Administration Hydromorphone HCl 0.5 mg 12/17/18 17:11 12/17/18 18:00 Dilaudid Injection - IVPUSH 12/17/18 17:12 0.5 mg ONCE ONE Administration Losartan Potassium 50 mg 12/17/18 20:45 12/17/18 20:58 Cozaar - PO 12/17/18 20:46 50 mg ONCE ONE Administration Ondansetron HCl 4 mg 12/17/18 18:40 12/17/18 19:01 Zofran Injection IVPUSH 12/17/18 18:41 4 mg ONCE ONE Administration Ranitidine HCl 150 mg 12/17/18 22:28 12/17/18 23:04 Zantac Oral Solution - PO 12/17/18 22:29 150 mg ONCE ONE Administration Medical Decision Making - Medical Decision Making 12/17/18 23:13 Patient Reassessment :. Patient is now belching and complaining that she feels she is going to vomit, failed po challenge will admit med/surg OBS *DC/Admit/Observation/Transfer Diagnosis at time of Disposition: Hiatal hernia Abdominal pain Qualifiers: Abdominal location: unspecified location Qualified Code(s): R10.9 - Unspecified abdominal pain - Discharge Dispostion Disposition: HOME Condition at time of disposition: Stable - Prescriptions Prescriptions: Cephalexin Monohydrate [Keflex -] 500 mg PO BID #9 capsule Ondansetron [Zofran -] 4 mg PO Q4H PRN #8 tablet PRN Reason: Nausea - Referrals Referrals: Virginia Wallace MD [Primary Care Provider] - - Patient Instructions Printed Discharge Instructions: DI for Abdominal Pain-Adult, DI for Hiatal Hernia Additional Instructions: You were seen and evaluated in ER due to abdominal pain. You were treated with anti-nausea medication and hydromorphine for graf relief. Imaging studies including chest x-ray and abdominal x-ray are negative for any acute process. You are now stable to be discharged home and continue to see Dr. Khan. You urine analysis is positive for bacteria, please take keflex 500mg twice daily for four and half days. Anti-nausea medication was also sent to your pharmacy. Please take it as needed. Return to the ER if abdominal pain is worse. - Post Discharge Activity
--- NOTE | 2018-12-17 23:30 | PN ---
Teaching Attending Note Name of Resident: Vadim Duque ATTENDING PHYSICIAN STATEMENT I saw and evaluated the patient. I reviewed the resident's note and discussed the case with the resident. I agree with the resident's findings and plan as documented. SUBJECTIVE: Patient is an 83 year old woman with history of HTN, diverticulosis, GERD, hysterectomy, cholecystectomy, hiatal hernia, chronic lower back pain and hypothyroidism who presents with worsening abdominal pain since Tuesday night dinner, which was a regular meal that she eats everyday. Also had associated nausea and vomiting. Family called PMD and was told to give the patient mylanta , reglan, ranitidine, protonix, with no relief. The pain is located in epigastric region, radiates to suprapubic region, 10/10, continuous, not associated with food, movement, or position. Patient's last bowel movement was this morning and was non-bloody. The patient has been diagnosed with hiatal hernia and she's scheduled to have EGD next Tuesday and hiatal hernia repair at the end of this month. She had significant nausea in the ER and is unable to tolerate oral medications. Patient denies headache, lightheadedness, fever, chills, chest pain , SOB, diarrhea, lower extremity edema or urinary symptoms. On October 27, 2018 , patient had an upper GI series performed which demonstrated a large paraesophageal hernia extending into her chest. On December 11, 2018 she underwent a gastric emptying study which revealed gastroparesis. OBJECTIVE: Somnolent but arousable Vital Signs Period Temp Pulse Resp BP Sys/Bartholomew Pulse Ox Last 24 Hr 98.5 F-98.6 F 70-77 18-20 177-194/71-86 97-99 HEENT: No Jaundice, eye redness or discharge, PERRLA, EOMI. Normocephalic, atraumatic. External ears are normal and hearing is grossly intact. No nasal discharge. Neck: Supple, nontender. No palpable adenopathy or thyromegaly. No JVD Chest: Good effort. Clear to auscultation and percussion. Heart: Regular. No S3, rub or murmur Abdomen: Not distended, soft, epigastric tenderness and no HSM. No rebound or guarding. Hyperactive bowel sounds. Ext: Peripheral pulses intact. No leg edema. Skin: Warm and dry. No petechiae, rash or ecchymosis. Neuro: Alert. Oriented x3. CN 2-12 grossly intact. Sensation grossly intact in all four extremities and DTR are symmetric. Psych: Appropriate mood and affect. Good insight. Current Medications Generic Name Dose Route Start Last Admin Trade Name Freq PRN Reason Stop Dose Admin Sodium Chloride 1,000 mls @ 75 mls/hr 12/17/18 19:30 12/17/18 20:00 Normal Saline - IV 75 mls/hr [facility] Administration Home Medications Medication Instructions Recorded Cyclobenzaprine HCl [Flexeril] 5 mg PO TID 10/25/14 Gabapentin 600 mg PO BID 10/25/14 Losartan Potassium 50 mg PO BID 10/25/14 Mag Hydrox/Al Hydrox/Simeth 30 ml PO Q6H PRN #1 cup 11/03/17 [Mylanta Oral Suspension -] Magnesium Oxide [Mag-Ox -] 400 mg PO DAILY 30 Days #30 tablet 11/03/17 Pantoprazole Sodium [Protonix -] 40 mg PO BID 30 Days #60 tablet.ec 11/03/17 Salmeterol/Fluticasone [Advair 1 puff IH BID 14 Days #1 inhaler 11/03/17 100Mcg/50Mcg -] MDD twice Carvedilol [Coreg] 6.25 mg PO BID 10/25/18 Levothyroxine [Synthroid -] 88 mcg PO DAILY MDD 1 10/25/18 Magnesium Carb/Aluminum Hydrox 1 each PO PRN 10/25/18 [Gaviscon Es Tablet Chew] Ranitidine [Zantac -] 150 mg PO BID 10/25/18 Simvastatin 10 mg PO HS 10/25/18 Metoclopramide HCl [Reglan -] 10 mg PO TIDAC #90 tablet 10/28/18 Cephalexin Monohydrate [Keflex -] 500 mg PO BID #9 capsule 12/17/18 Ondansetron [Zofran -] 4 mg PO Q4H PRN #8 tablet 12/17/18 Abnormal Lab Results 12/17/18 12/17/18 18:05 18:35 Sodium 127 L Chloride 92 L Magnesium 1.6 L Ur Specific [place] 1.009 L Ur Leukocyte Esterase 3+ H D ASSESSMENT AND PLAN: 1. Abdominal pain - Features consistent with gastritis, though her chronic issues of gastroparesis or hiatal hernia may be the culprits. No acute pathology on abdominal or chest x-ray. Though lipase is normal, will get abdominal sonogram to evaluate the pancreas. Hyponatremia likely due to nausea and vomiting. Will repeat BMP stat, treat with IV protonix 40 mg bid, avoid further dilaudid therapy for now since that may be making her somnolent, give MgSO4 2 gm IV and consult GI. Monitor serum sodium q 4 hours to avoid rapid rise in sodium. EKG shows NSR with no significant ST-T wave changes. Continue zofran and reglan for nausea. 2. Uncontrolled Hypertension - Getting IV hydralazine 5 mg q 6 h for systolic BP >160 mmHg. Once stable, will restart outpatient antihypertensive drugs and revise regimen to ensure smooth [id number] good BP control. Nonpharmacologic measures to control hypertension like weight loss, salt restriction and exercise discussed. 3. DVT prophylaxis - Lovenox 40 mg SQ q 24 hours. 4. Advance directives - Full code
[2018-12-18] MEDS ORDERED: CEFTRIAXONE 1 GM in DEXTROSE 5%-WATER - 50 ML IVPB ONE (00:45)
[2018-12-18] MEDS ORDERED: SODIUM CHLORIDE 1,000 ML IV SCH (00:45)
[2018-12-18] MEDS ORDERED: hydrALAZINE HCL 20 MG/ML VIAL IVPUSH ONE (00:47)
[2018-12-18] MEDS ORDERED: MAGNESIUM SULF 50% (8.12 MEQ/2 ML-1 GM VIAL) IVPB ONE (00:48)
--- NOTE | 2018-12-18 00:51 | HP ---
CHIEF COMPLAINT: Nausea/ Vomiting + Abdominal Pain PCP: Dr. Virginia Lieberman HISTORY OF PRESENT ILLNESS: Pt. is an 83 y.o. F presenting with nausea, vomiting and abdominal since Tuesday. Pt. states that her abdominal pain is 7/10 right now (10/10 on ED arrival) and radiates from epigastrium (pointed and moved her hand to her umbilicus in circular fashion) to her umbilicus. Pt. endorses 2 hard stools today. Pt. denies any blood in her stool. Pt. denies vomiting, fevers, chest pain other than her epigastric pain, diarrhea or light headedness. Pt. somnolent during history taking. Per chart review Pt. was recently admitted for abdominal pain and workup was positive for extensive hiatal hernia with EGD scheduled for Tuesday by Dr. Vidal and Hiatal Hernia repair scheduled for next month with Dr. Owens. ER course was notable for: (1)EKG, labs CXR, Abd. XRray (2)UA, UCx., Keflex (3)Dilaudid, Zofran, 1L NS, Losartan Recent Travel: No PAST MEDICAL HISTORY: HTN, Diverticulosis, GERD, Hiatal Hernia, Lower back Pain , Hypothyroidism, Asthma, Neuropathy PAST SURGICAL HISTORY: Denies Social History: Smoking: Denies Alcohol: Denies Drugs: Denies Family History: Non-Contributory Allergies No Known Allergies Allergy (Verified 12/17/18 16:08) HOME MEDICATIONS: Home Medications Medication Instructions Recorded Cyclobenzaprine HCl [Flexeril] 5 mg PO TID 10/25/14 Gabapentin 600 mg PO BID 10/25/14 Losartan Potassium 50 mg PO BID 10/25/14 Mag Hydrox/Al Hydrox/Simeth 30 ml PO Q6H PRN #1 cup 11/03/17 [Mylanta Oral Suspension -] Magnesium Oxide [Mag-Ox -] 400 mg PO DAILY 30 Days #30 tablet 11/03/17 Pantoprazole Sodium [Protonix -] 40 mg PO BID 30 Days #60 tablet.ec 11/03/17 Salmeterol/Fluticasone [Advair 1 puff IH BID 14 Days #1 inhaler 11/03/17 100Mcg/50Mcg -] MDD twice Carvedilol [Coreg] 6.25 mg PO BID 10/25/18 Levothyroxine [Synthroid -] 88 mcg PO DAILY MDD 1 10/25/18 Magnesium Carb/Aluminum Hydrox 1 each PO PRN 10/25/18 [Gaviscon Es Tablet Chew] Ranitidine [Zantac -] 150 mg PO BID 10/25/18 Simvastatin 10 mg PO HS 10/25/18 Metoclopramide HCl [Reglan -] 10 mg PO TIDAC #90 tablet 10/28/18 Cephalexin Monohydrate [Keflex -] 500 mg PO BID #9 capsule 12/17/18 Ondansetron [Zofran -] 4 mg PO Q4H PRN #8 tablet 12/17/18 REVIEW OF SYSTEMS CONSTITUTIONAL: Absent: fever, chills, diaphoresis, generalized weakness, malaise, loss of appetite, weight change HEENT: Absent: rhinorrhea, nasal congestion, throat pain, throat swelling, difficulty swallowing, mouth swelling, ear pain, eye pain, visual changes CARDIOVASCULAR: Absent: chest pain, syncope, palpitations, irregular heart rate, lightheadedness , peripheral edema RESPIRATORY: Absent: cough, shortness of breath, dyspnea with exertion, orthopnea, wheezing, stridor, hemoptysis GASTROINTESTINAL:abdominal pain, hard stool Absent: abdominal distension, nausea, vomiting, diarrhea, constipation, melena, hematochezia GENITOURINARY: Absent: dysuria, frequency, urgency, hesitancy, hematuria, flank pain, genital pain MUSCULOSKELETAL: Absent: myalgia, arthralgia, joint swelling, back pain, neck pain SKIN: Absent: rash, itching, pallor HEMATOLOGIC/IMMUNOLOGIC: Absent: easy bleeding, easy bruising, lymphadenopathy, frequent infections ENDOCRINE: Absent: unexplained weight gain, unexplained weight loss, heat intolerance, cold intolerance NEUROLOGIC: Absent: headache, focal weakness or paresthesias, dizziness, unsteady gait, seizure, mental status changes, bladder or bowel incontinence PSYCHIATRIC: Absent: anxiety, depression, suicidal or homicidal ideation, hallucinations. PHYSICAL EXAMINATION Vital Signs - 24 hr 12/17/18 12/17/18 12/17/18 16:05 20:17 21:18 Temperature 98.5 F 98.6 F Pulse Rate 77 Pulse Rate [ 70 76 Apical] Respiratory 18 20 20 Rate Blood Pressure 194/83 H Blood Pressure 179/86 H 177/71 H [Left Arm] O2 Sat by Pulse 97 98 99 Oximetry (%) 12/17/18 23:47 Temperature Pulse Rate Pulse Rate [ Apical] Respiratory Rate Blood Pressure Blood Pressure [Left Arm] O2 Sat by Pulse 99 Oximetry (%) GENERAL: Somnolent, alert, and fully oriented, in moderate distress. HEAD: Normal with no signs of trauma. EYES: Pupils equal, round and reactive to light, extraocular movements intact, sclera anicteric, conjunctiva clear. EARS, NOSE, THROAT: Ears normal, nares patent, oropharynx clear without exudates. Dry mucous membranes. LUNGS: Breath sounds equal, clear to auscultation bilaterally. No wheezes, and no crackles. No accessory muscle use. HEART: Regular rate and rhythm, normal S1 and S2 without murmur ABDOMEN: Soft, Epigastric tenderness to palpation, not distended, normoactive bowel sounds, guarding of epigastrium UPPER EXTREMITIES: 2+ radial pulses, warm, well-perfused. No cyanosis. No clubbing. No peripheral edema. LOWER EXTREMITIES: 2+ pulses, warm, well-perfused. No calf tenderness. No peripheral edema. PSYCHIATRIC: Cooperative. Good eye contact. Appropriate mood and affect. SKIN: Warm, dry, normal turgor, no rashes or lesions noted, normal capillary refill. Laboratory Results - last 24 hr 12/17/18 12/17/18 12/17/18 18:05 18:05 18:05 WBC 9.2 RBC 3.91 Hgb 11.9 Hct 33.6 MCV 85.7 MCH 30.4 MCHC 35.4 RDW 13.7 Plt Count 419 D MPV 7.9 Absolute Neuts (auto) 6.3 Neutrophils % 68.6 Lymphocytes % 23.9 D Monocytes % 6.2 Eosinophils % 0.8 D Basophils % 0.5 Nucleated RBC % 0 Sodium 127 L Potassium 3.6 Chloride 92 L Carbon Dioxide 26 Anion Gap 9 BUN 11 Creatinine 0.7 Creat Clearance w eGFR 79.91 Random Glucose 98 Lactic Acid 0.9 Calcium 9.4 Phosphorus 3.4 Magnesium 1.6 L Total Bilirubin 0.7 AST 28 ALT 20 Alkaline Phosphatase 54 Total Protein 7.4 Albumin 3.8 Total Amylase 53 Lipase 130 Urine Color Urine Appearance Urine pH Ur Specific [place] Urine Protein Urine Glucose (UA) Urine Ketones Urine Blood Urine Nitrite Urine Bilirubin Urine Urobilinogen Ur Leukocyte Esterase Urine WBC (Auto) Urine RBC (Auto) Urine Bacteria Urine Mucus 12/17/18 18:35 WBC RBC Hgb Hct MCV MCH MCHC RDW Plt Count MPV Absolute Neuts (auto) Neutrophils % Lymphocytes % Monocytes % Eosinophils % Basophils % Nucleated RBC % Sodium Potassium Chloride Carbon Dioxide Anion Gap BUN Creatinine Creat Clearance w eGFR Random Glucose Lactic Acid Calcium Phosphorus Magnesium Total Bilirubin AST ALT Alkaline Phosphatase Total Protein Albumin Total Amylase Lipase Urine Color Ltyellow Urine Appearance Clear Urine pH 7.0 Ur Specific [place] 1.009 L Urine Protein Negative Urine Glucose (UA) Negative Urine Ketones Negative Urine Blood Negative Urine Nitrite Positive Urine Bilirubin Negative Urine Urobilinogen Negative Ur Leukocyte Esterase 3+ H D Urine WBC (Auto) 6 Urine RBC (Auto) 2 Urine Bacteria Rare Urine Mucus Rare ASSESSMENT/PLAN: Pt. is an 83 y.o. F w/ PMHx. of HTN, Diverticulosis, GERD, Hiatal Hernia, Lower back Pain, Hypothyroidism, Asthma, Neuropathy presents with nausea and vomiting since Tuesday associated with abdominal pain. #Abdominal Pain 2/2 likely Gastritis 2/2 likely Hiatal Hernia f/u Abd. US CXR + Abd. XR negative for acute pathology Unable to obtain CT- A/P with contrast d/t machine being down, CT A/P without contrast not useful. f/u GI consult (Dr. Vidal) c/w Protonix 40mg IV BID f/u BMP for hyponatremia c/w Zofran PRN for Nausea likely 2/2 gastritis #Positive UA LE: 3+, Nitrite +, 6 WBCs: Low suspicion for UTI but given symptoms must treat empirically until EGD confirms gastritis or symptoms [place]. Given 500mg Keflex Will give 1gm Rocephin, though Pt. denies any fever, chills, polyuria, or dysuria. f/u UCx. #HTN-uncontrolled c/w Coreg and Losartan ideally in PO form in AM if tolerating PO. likely increased 2/2 pain 5mg Hydrazine PRN for SBP above 160 #FEN NS@ 50ml/hr Replete Magnesium, monitor and replete as needed NPO #DVT Ppx. Lovenox 40mg SQ Visit type - Emergency Visit Emergency Visit: Yes ED Registration Date: 12/18/18 Care time: The patient presented to the Emergency Department on the above date and was hospitalized for further evaluation of their emergent condition. - New Patient This patient is new to me today: Yes Date on this admission: 12/18/18 - Critical Care Critical Care patient: No
[2018-12-18] MEDS ORDERED: CEFTRIAXONE 1 GM/50 ML BAG ONE (01:03)
[2018-12-18] MEDS ORDERED: hydrALAZINE HCL 20 MG/ML VIAL ONE (01:03)
[2018-12-18] MEDS ORDERED: hydrALAZINE HCL 20 MG/ML VIAL IVPUSH PRN (01:13)
[2018-12-18] MEDS ORDERED: MAGNESIUM 2GM/50ML STERILE WATER IVPB IVPB ONE (01:15)
[2018-12-18 01:41] LABS: ANION GAP 8 MMOL/L (8-16); BLOOD UREA NITROGEN 10 mg/dL (7-18); CALCIUM 9.6 mg/dL (8.5-10.1); CHLORIDE 91 mmol/L (98-107); CO2 26 mmol/L (21-32); CREATININE 0.7 mg/dL (0.55-1.3); GLUCOSE,RANDOM 158 mg/dL (74-106); POTASSIUM 4.2 mmol/L (3.5-5.1); SODIUM 125 mmol/L (136-145)
[2018-12-18] MEDS ORDERED: MORPHINE SULFATE 2 MG/ML VIAL IVPUSH ONE (06:49)
[2018-12-18 07:43] LABS: PROTHROMBIN TIME (PATIENT) 11.8 SEC (9.7-13.0)
[2018-12-18 07:56] LABS: MAGNESIUM 2.6 mg/dL (1.8-2.4); PHOSPHOROUS 3.6 mg/dL (2.5-4.9)
[2018-12-18] MEDS ORDERED: hydrALAZINE HCL 20 MG/ML VIAL IVPB PRN (08:29)
[2018-12-18 08:32] LABS: ALBUMIN 4.2 g/dl (3.4-5.0); ALK PHOS 71 U/L (45-117); BILIRUBIN,TOTAL 0.9 mg/dL (0.2-1); LIPASE 102 U/L (73-393); SGOT/AST 34 U/L (15-37); SGPT/ALT 27 U/L (13-61); TOT PROT 8.4 g/dl (6.4-8.2)
[2018-12-18 09:00] LABS: ANION GAP 9 MMOL/L (8-16); BLOOD UREA NITROGEN 11 mg/dL (7-18); CALCIUM 9.8 mg/dL (8.5-10.1); CHLORIDE 89 mmol/L (98-107); CO2 27 mmol/L (21-32); CREATININE 0.6 mg/dL (0.55-1.3); GLUCOSE,RANDOM 113 mg/dL (74-106); POTASSIUM 4.4 mmol/L (3.5-5.1); SODIUM 125 mmol/L (136-145)
[2018-12-18 09:32] LABS: BASO % 0.3 % (0-2.0); EOS % 0.2 % (0-4.5); HEMATOCRIT 37.9 % (32.4-45.2); HEMOGLOBIN 13.5 GM/dL (10.7-15.3); LYMPH % 13.7 % (8-40); MCH 30.8 pg (25.7-33.7); MCHC 35.7 g/dl (32.0-36.0); MEAN CELL VOLUME 86.2 fl (80-96); MEAN PLT VOLUME 8.5 fl (7.5-11.1); MONO % 6.5 % (3.8-10.2); NEUT % 79.3 % (42.8-82.8); PLATELET COUNT 440 K/MM3 (134-434); RBC 4.39 M/mm3 (3.60-5.2); RDW 13.7 % (11.6-15.6); WHITE BLOOD COUNT 10.2 K/mm3 (4.0-10.0)
[2018-12-18] MEDS ORDERED: DEXTROSE 5%-WATER - 50 ML IVPB ONE (09:50)
[2018-12-18] MEDS ORDERED: cefTRIAXone SODIUM 1 GM VIAL ONE (09:50)
[2018-12-18] MEDS: RANITIDINE HCL 150 MG TABLET (FP) PO SCH ×2 (09:55→21:29)
[2018-12-18] MEDS: CARVEDILOL 6.25 MG TABLET (FP) PO SCH ×2 (09:55→21:29)
[2018-12-18] MEDS: LOSARTAN POTASSIUM 50 MG TABLET (FP) PO SCH ×2 (09:55→21:29)
[2018-12-18] MEDS: FLUTICASONE/SALMETEROL 100 MCG/50 MCG DISKUS IH SCH ×2 (09:55→21:34)
[2018-12-18] MEDS: PANTOPRAZOLE SODIUM 40 MG VIAL IVPUSH SCH ×2 (09:55→21:29)
[2018-12-18] MEDS: CEFTRIAXONE 1 GM in DEXTROSE 5%-WATER - 50 ML IVPB SCH (09:56)
[2018-12-18] MEDS ORDERED: ENOXAPARIN NA (PORCINE) 40 MG/0.4 ML DISP.SYRIN SQ SCH (10:00)
[2018-12-18] MEDS: DEXTROSE 5%-NORMAL SALINE 1,000 ML IV SCH (10:01)
--- NOTE | 2018-12-18 11:49 | PN ---
Teaching Attending Note Name of Resident: Ida Hoffman ATTENDING PHYSICIAN STATEMENT I saw and evaluated the patient. I reviewed the resident's note and discussed the case with the resident. I agree with the resident's findings and plan as documented with exceptions below. SUBJECTIVE: Patient seen and examined. Denies any pain or nausea currently. Feeling weak, otherwise no complaints. OBJECTIVE: Vital Signs Period Temp Pulse Resp BP Sys/Bartholomew Pulse Ox Last 24 Hr 97.4 F-98.6 F 68-77 18-20 142-194/60-86 97-99 Intake & Output 12/15/18 12/16/18 12/17/18 12/18/18 23:59 23:59 23:59 23:59 Intake Total 250 Balance 250 Weight 110 lb 96 lb 12.8 oz General: sitting in bed in no acute distress Chest: CTAB, no rales or wheezing Abdomen:soft, NT throughout, ND, positive bowel sounds Extremities: no edema Home Medications Medication Instructions Recorded Cyclobenzaprine HCl [Flexeril] 5 mg PO TID 10/25/14 Gabapentin 600 mg PO BID 10/25/14 Losartan Potassium 50 mg PO BID 10/25/14 Mag Hydrox/Al Hydrox/Simeth 30 ml PO Q6H PRN #1 cup 11/03/17 [Mylanta Oral Suspension -] Magnesium Oxide [Mag-Ox -] 400 mg PO DAILY 30 Days #30 tablet 11/03/17 Pantoprazole Sodium [Protonix -] 40 mg PO BID 30 Days #60 tablet.ec 11/03/17 Salmeterol/Fluticasone [Advair 1 puff IH BID 14 Days #1 inhaler 11/03/17 100Mcg/50Mcg -] MDD twice Carvedilol [Coreg] 6.25 mg PO BID 10/25/18 Levothyroxine [Synthroid -] 88 mcg PO DAILY MDD 1 10/25/18 Magnesium Carb/Aluminum Hydrox 1 each PO PRN 10/25/18 [Gaviscon Es Tablet Chew] Ranitidine [Zantac -] 150 mg PO BID 10/25/18 Simvastatin 10 mg PO HS 10/25/18 Metoclopramide HCl [Reglan -] 10 mg PO TIDAC #90 tablet 10/28/18 Cephalexin Monohydrate [Keflex -] 500 mg PO BID #9 capsule 12/17/18 Ondansetron [Zofran -] 4 mg PO Q4H PRN #8 tablet 12/17/18 Active Medications Carvedilol (Coreg -) 6.25 mg PO BID PENDING SALE TO [facility] Last Admin: 12/18/18 09:55 Dose: 6.25 mg Gabapentin (Neurontin -) 600 mg PO BID PENDING SALE TO [facility] Hydralazine HCl (Apresoline Injection -) 5 mg IVPB Q6H PRN PRN Reason: FOR SBP OVER 160 Dextrose/Sodium Chloride (D5-Ns -) 1,000 mls @ 83 mls/hr IV ASDIR [facility]ENDING [facility] Last Admin: 12/18/18 10:01 Dose: 83 mls/hr Ceftriaxone Sodium 1 gm/ (Dextrose) 50 mls @ 100 mls/hr IVPB DAILY PENDING SALE TO [facility]; Protocol Last Admin: 12/18/18 09:56 Dose: 100 mls/hr Levothyroxine Sodium (Synthroid -) 88 mcg PO DAILY@0700 PENDING SALE TO [facility] Losartan Potassium (Cozaar -) 50 mg PO BID PENDING [facility] Last Admin: 12/18/18 09:55 Dose: 50 mg Pantoprazole Sodium (Protonix Iv) 40 mg IVPUSH BID [facility]END[facility] Last Admin: 12/18/18 09:55 Dose: 40 mg Ranitidine HCl (Zantac -) 150 mg PO BID [facility] Last Admin: 12/18/18 09:55 Dose: 150 mg Fluticasone/Salmeterol (Advair 100mcg/50mcg -) 1 puff IH BID PENDING [facility]ALE TO [facility] Last Admin: 12/18/18 09:55 Dose: 1 puff Laboratory Results - last 24 hr 12/17/18 12/17/18 12/17/18 18:05 18:05 18:05 WBC 9.2 RBC 3.91 Hgb 11.9 Hct 33.6 MCV 85.7 MCH 30.4 MCHC 35.4 RDW 13.7 Plt Count 419 D MPV 7.9 Absolute Neuts (auto) 6.3 Neutrophils % 68.6 Lymphocytes % 23.9 D Monocytes % 6.2 Eosinophils % 0.8 D Basophils % 0.5 Nucleated RBC % 0 PT with INR INR Sodium 127 L Potassium 3.6 Chloride 92 L Carbon Dioxide 26 Anion Gap 9 BUN 11 Creatinine 0.7 Creat Clearance w eGFR 79.91 Random Glucose 98 Lactic Acid 0.9 Calcium 9.4 Phosphorus 3.4 Magnesium 1.6 L Total Bilirubin 0.7 AST 28 ALT 20 Alkaline Phosphatase 54 Total Protein 7.4 Albumin 3.8 Total Amylase 53 Lipase 130 Urine Color Urine Appearance Urine pH Ur Specific [place] Urine Protein Urine Glucose (UA) Urine Ketones Urine Blood Urine Nitrite Urine Bilirubin Urine Urobilinogen Ur Leukocyte Esterase Urine WBC (Auto) Urine RBC (Auto) Urine Bacteria Urine Mucus 12/17/18 12/18/18 12/18/18 18:35 01:10 05:30 WBC RBC Hgb Hct MCV MCH MCHC RDW Plt Count MPV Absolute Neuts (auto) Neutrophils % Lymphocytes % Monocytes % Eosinophils % Basophils % Nucleated RBC % PT with INR 11.80 INR 1.00 Sodium 125 L Potassium 4.2 Chloride 91 L Carbon Dioxide 26 Anion Gap 8 BUN 10 Creatinine 0.7 Creat Clearance w eGFR 79.91 Random Glucose 158 H Lactic Acid Calcium 9.6 Phosphorus Magnesium Total Bilirubin 0.9 AST 34 ALT 27 Alkaline Phosphatase 71 Total Protein 8.4 H Albumin 4.2 Total Amylase Lipase 102 Urine Color Ltyellow Urine Appearance Clear Urine pH 7.0 Ur Specific [place] 1.009 L Urine Protein Negative Urine Glucose (UA) Negative Urine Ketones Negative Urine Blood Negative Urine Nitrite Positive Urine Bilirubin Negative Urine Urobilinogen Negative Ur Leukocyte Esterase 3+ H D Urine WBC (Auto) 6 Urine RBC (Auto) 2 Urine Bacteria Rare Urine Mucus Rare 12/18/18 12/18/18 05:30 06:00 WBC 10.2 H RBC 4.39 Hgb 13.5 Hct 37.9 MCV 86.2 MCH 30.8 MCHC 35.7 RDW 13.7 Plt Count 440 H MPV 8.5 Absolute Neuts (auto) 8.1 H Neutrophils % 79.3 Lymphocytes % 13.7 D Monocytes % 6.5 Eosinophils % 0.2 Basophils % 0.3 Nucleated RBC % 0 PT with INR INR Sodium 125 L Potassium 4.4 Chloride 89 L Carbon Dioxide 27 Anion Gap 9 BUN 11 Creatinine 0.6 Creat Clearance w eGFR 95.47 Random Glucose 113 H Lactic Acid Calcium 9.8 Phosphorus 3.6 Magnesium 2.6 H Total Bilirubin AST ALT Alkaline Phosphatase Total Protein Albumin Total Amylase Lipase Urine Color Urine Appearance Urine pH Ur Specific [place] Urine Protein Urine Glucose (UA) Urine Ketones Urine Blood Urine Nitrite Urine Bilirubin Urine Urobilinogen Ur Leukocyte Esterase Urine WBC (Auto) Urine RBC (Auto) Urine Bacteria Urine Mucus ASSESSMENT AND PLAN: 83 yof with PMHx of HTN, diverticulosis, GERD, hysterectomy, cholecystectomy, hiatal hernia, chronic lower back pain and hypothyroidism, plan for hiatal hernia surgery with Dr. Owens next month, admitted with abdominal pain, nausea, weakness and inability to tolerate PO -Abdominal pain, r/o gastritis from known hiatal hernia, vs PUD vs Chronic gastroparesis -Diverticulosis -GERD -HTN -Chronic low back pain -Hypothyroidism Plan: Symptoms improved, Discussed with Dr. Vidal, start clears, advance as tolerated. Plan for EGD tomorrow or Tuesday based on clinical progression. Continue Protonix IV BID resume Ranitidine. Place on reglan TIDAC. resume home meds. Continue IVF. NPO after midnight DVTPPX with SCDs PT eval given weakness Dispo in 1-2 days pending clinical improvement and GI input Plan discussed with patient, nursing and Dr. Vidal, all questions answered.
[2018-12-18] MEDS: GABAPENTIN 300 MG CAPSULE (FP) PO SCH ×2 (12:17→21:29)
--- NOTE | 2018-12-18 12:22 | CON.GI ---
Consult Consult Specialty:: Gastroenterology Referred by:: Dr. Vadim Duque Reason for Consultation:: Abdominal pain - History of Present Illness Chief Complaint: Recurrence of severe epigastric pain and inability to eat History of Present Illness: 83F with a h/o repeated hospitalizations for N/V and bouts with severe pain emanating from a large paraesophageal hernia. She is scheduled for a repair with Dr. Owens at [facility] IN January. He referred her to me in the office on to arrange a preoperative EGD. I resulmd her Reglan at that time. She is scheduled for the EGD on 12/20 and has already granted an informed consent.l which I repeated today. In the office she responded that she did not want any repeat colonoscopies. She had a colonoscopy with Dr Ever Mott remotely. - History Source History Provided By: Patient Limitations to Obtaining History: No Limitations - Past Medical History MEDICAL INTERN: Yes: Peripheral Neuropathy Cardio/Vascular: Yes: HTN, Hyperlipdemia Gastrointestinal: Yes: GERD, Hiatal Hernia (large paraesophageal hernia[) Musculoskeletal: Yes: Chronic low back pain, Osteoarthritis Endocrine: Yes: Hypothyroidism - Past Surgical History Past Surgical History: Yes: Cataract Removal (bilateral), Cholecystectomy, Hysterectomy - Alcohol/Substance Use Hx Alcohol Use: No History of Substance Use: reports: None - Smoking History Smoking history: Never smoked Have you smoked in the past 12 months: No - Social History Usual Living Arrangement: With Child (With family) ADL: Family Assistance 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year[place] age 60 History of Recent Travel: No Home Medications - Allergies Allergies/Adverse Reactions: Allergies Allergy/AdvReac Type Severity Reaction Status Date / Time No Known Allergies Allergy Verified 12/17/18 16:08 - Home Medications Home Medications: Ambulatory Orders Cyclobenzaprine HCl [Flexeril] 5 mg PO TID 10/25/14 Gabapentin 600 mg PO BID 10/25/14 Losartan Potassium 50 mg PO BID 10/25/14 Mag Hydrox/Al Hydrox/Simeth [Mylanta Oral Suspension -] 30 ml PO Q6H PRN #1 cup 11/03/17 Magnesium Oxide [Mag-Ox -] 400 mg PO DAILY 30 Days #30 tablet 11/03/17 Pantoprazole Sodium [Protonix -] 40 mg PO BID 30 Days #60 tablet.ec 11/03/17 Salmeterol/Fluticasone [Advair 100Mcg/50Mcg -] 1 puff IH BID 14 Days #1 inhaler MDD twice 11/03/17 Carvedilol [Coreg] 6.25 mg PO BID 10/25/18 Levothyroxine [Synthroid -] 88 mcg PO DAILY MDD 1 10/25/18 Magnesium Carb/Aluminum Hydrox [Gaviscon Es Tablet Chew] 1 each PO PRN 10/25/18 Ranitidine [Zantac -] 150 mg PO BID 10/25/18 Simvastatin 10 mg PO HS 10/25/18 Metoclopramide HCl [Reglan -] 10 mg PO TIDAC #90 tablet 10/28/18 Cephalexin Monohydrate [Keflex -] 500 mg PO BID #9 capsule 12/17/18 Ondansetron [Zofran -] 4 mg PO Q4H PRN #8 tablet 12/17/18 Family Disease History - Family Disease History Family Disease History: CA: Sister (breast cancer), Other: Father (healthy), Mother (healthy) Review of Systems - Review of Systems Constitutional: reports: Unintentional Wgt. Loss (due to repeated vomiting, tlerates only puree due to the hernia) Eyes: reports: No Symptoms HENT: reports: No Symptoms Neck: reports: No Symptoms Cardiovascular: reports: Chest Pain (related to the hernia) Respiratory: reports: No Symptoms Gastrointestinal: reports: Abdominal Pain (related to paraesophageal hernia), Nausea, Vomiting Physical Exam-GI Vital Signs: Vital Signs Temperature 98.0 F 12/18/18 06:00 Pulse Rate 68 12/18/18 06:00 Respiratory Rate 18 12/18/18 06:00 Blood Pressure 142/60 12/18/18 06:00 O2 Sat by Pulse Oximetry (%) 98 12/18/18 02:55 CBC,CMP WBC 10.2 K/mm3 (4.0-10.0) H 12/18/18 05:30 RBC 4.39 M/mm3 (3.60-5.2) 12/18/18 05:30 Hgb 13.5 GM/dL (10.7-15.3) 12/18/18 05:30 Hct 37.9 % (32.4-45.2) 12/18/18 05:30 MCV 86.2 fl (80-96) 12/18/18 05:30 MCH 30.8 pg (25.7-33.7) 12/18/18 05:30 MCHC 35.7 g/dl (32.0-36.0) 12/18/18 05:30 RDW 13.7 % (11.6-15.6) 12/18/18 05:30 Plt Count 440 K/MM3 (134-434) H 12/18/18 05:30 MPV 8.5 fl (7.5-11.1) 12/18/18 05:30 Absolute Neuts (auto) 8.1 K/mm3 (1.5-8.0) H 12/18/18 05:30 Neutrophils % 79.3 % (42.8-82.8) 12/18/18 05:30 Lymphocytes % 13.7 % (8-40) D 12/18/18 05:30 Monocytes % 6.5 % (3.8-10.2) 12/18/18 05:30 Eosinophils % 0.2 % (0-4.5) 12/18/18 05:30 Basophils % 0.3 % (0-2.0) 12/18/18 05:30 Nucleated RBC % 0 % (0-0) 12/18/18 05:30 Sodium 125 mmol/L (136-145) L 12/18/18 06:00 Potassium 4.4 mmol/L (3.5-5.1) 12/18/18 06:00 Chloride 89 mmol/L (98-107) L 12/18/18 06:00 Carbon Dioxide 27 mmol/L (21-32) 12/18/18 06:00 Anion Gap 9 MMOL/L (8-16) 12/18/18 06:00 BUN 11 mg/dL (7-18) 12/18/18 06:00 Creatinine 0.6 mg/dL (0.55-1.3) 12/18/18 06:00 Creat Clearance w eGFR 95.47 (>60) 12/18/18 06:00 Random Glucose 113 mg/dL (74-106) H 12/18/18 06:00 Lactic Acid 0.9 mmol/L (0.4-2.0) 12/17/18 18:05 Calcium 9.8 mg/dL (8.5-10.1) 12/18/18 06:00 Phosphorus 3.6 mg/dL (2.5-4.9) 12/18/18 06:00 Magnesium 2.6 mg/dL (1.8-2.4) H 12/18/18 06:00 Total Bilirubin 0.9 mg/dL (0.2-1) 12/18/18 01:10 AST 34 U/L (15-37) 12/18/18 01:10 ALT 27 U/L (13-61) 12/18/18 01:10 Alkaline Phosphatase 71 U/L (45-117) 12/18/18 01:10 Total Protein 8.4 g/dl (6.4-8.2) H 12/18/18 01:10 Albumin 4.2 g/dl (3.4-5.0) 12/18/18 01:10 Total Amylase 53 U/L (25-115) 12/17/18 18:05 Lipase 102 U/L (73-393) 12/18/18 01:10 Current Medications Generic Name Dose Route Start Last Admin Trade Name Freq PRN Reason Stop Dose Admin Carvedilol 6.25 mg 12/18/18 10:00 12/18/18 09:55 Coreg - PO 6.25 mg BID RAJAT Administration Gabapentin 600 mg 12/18/18 11:45 12/18/18 12:17 Neurontin - PO 600 mg BID RAJAT Administration Hydralazine HCl 5 mg 12/18/18 08:29 Apresoline Injection - IVPB Q6H PRN FOR SBP OVER 160 Dextrose/Sodium Chloride 1,000 mls @ 83 mls/hr 12/18/18 08:15 12/18/18 10:01 D5-Ns - IV 83 mls/hr ASDIR RAJAT Administration Ceftriaxone Sodium 1 gm/ 50 mls @ 100 mls/hr 12/18/18 10:00 12/18/18 09:56 Dextrose IVPB 100 mls/hr DAILY RAJAT Administration Protocol Levothyroxine Sodium 88 mcg 12/19/18 07:00 Synthroid - PO DAILY@0700 RAJAT Losartan Potassium 50 mg 12/18/18 10:00 12/18/18 09:55 Cozaar - PO 50 mg BID RAJAT Administration Metoclopramide HCl 10 mg 03/18/19 16:30 Reglan Injection - IVPUSH TIDAC RAJAT Pantoprazole Sodium 40 mg 12/18/18 10:00 12/18/18 09:55 Protonix Iv IVPUSH 40 mg BID RAJAT Administration Ranitidine HCl 150 mg 12/18/18 10:00 12/18/18 09:55 Zantac - PO 150 mg BID RAJAT Administration Fluticasone/Salmeterol 1 puff 12/18/18 10:00 12/18/18 09:55 Advair 100mcg/50mcg - IH 1 puff BID RAJAT Administration Constitutional: Yes: Calm Eyes: Yes: Conjunctiva Clear HENT: Yes: Atraumatic Neck: Yes: Trachea Midline Cardiovascular: Yes: Regular Rate and Rhythm Respiratory: Yes: CTA Bilaterally Gastrointestinal Inspection: Yes: Scars (healed laparoscopic incisions) ...Auscultate: Yes: Normoactive Bowel Sounds ...Palpate: Yes: Soft, Other (nontender) ...Percussion: Yes: Tympanitic ...Rectal Exam: Yes: Deferred Edema: No Peripheral Pulses WNL: Yes Neurological: Yes: Alert, Oriented Labs: CBC, BMP 12/18/18 05:30 12/18/18 06:00 INR, PTT INR 1.00 (0.83-1.09) 12/18/18 05:30 Imaging - Results Ultrasound: Report Reviewed (Mark Temple Name: ERNIE GRAJEDA DEPARTMENT OF RADIOLOGY Phys: Vadim Duque RESIDENT : 1935 Age: 83 Sex: F [facility] Acct: [id number] Loc: [address] Exam Date: 12/18/18 Status: [place] [address] Unit Number: [id number] EXAM#: TYPE/EXAM: RESULT: [id number] US/ABDOMEN US HISTORY PROVIDED: Epigastric pain. Real time examination of the abdomen demonstrates the following: The gallbladder has been removed. There is no evidence of intra or extrahepatic biliary ductal dilatation. The liver is somewhat small in size and heterogeneous in texture with no discrete intrahepatic masses seen. Hepatopedal flow is documented within the main portal vein. The pancreas is normal in size and texture with no pancreatic masses identified. The tail of the pancreas was not completely visualized due to overlying bowel gas. The spleen is not enlarged. There is no evidence of hydronephrosis or acute renal abnormalities. The kidneys are moderately atrophic. There is no evidence of AAA. The IVC is patent. IMPRESSION: 1. Small heterogeneous liver with no discrete mass. 2. Moderately atrophic kidneys with no evidence of hydronephrosis or acute pathology. Reported By: Joel Jones MD 12/18/18806 Technologist: Sierra Blackmon Transcribed Date/Time: 806 Information Systems Security Analyst: Joel Jones Printed Date/Time: By: Signed by: Joel Jones Signed on: 18-Dec-2018 08:08) Problem List - Problems (1) Paraesophageal hernia with obstruction but no gangrene Code(s): K44.0 - DIAPHRAGMATIC HERNIA WITH OBSTRUCTION, WITHOUT GANGRENE (2) Abdominal pain Code(s): R10.9 - UNSPECIFIED ABDOMINAL PAIN Qualifiers: Abdominal location: unspecified location Qualified Code(s): R10.9 - Unspecified abdominal pain (3) HTN (hypertension) Code(s): I10 - ESSENTIAL (PRIMARY) HYPERTENSION (4) Hypothyroid Code(s): E03.9 - HYPOTHYROIDISM, UNSPECIFIED (5) Vomiting Code(s): R11.10 - VOMITING, UNSPECIFIED Qualifiers: Vomiting type: unspecified Vomiting Intractability: non-intractable Nausea presence: with nausea Qualified Code(s): R11.2 - Nausea with vomiting, unspecified Assessment/Plan IMpression: Recurrent N.V and pain related to large paraesophageal hernia that requires surgical repair Plan Pain has resolved so will start with clear liquids Reglan and Pantoprazole She needs the surgical repair as she is losing weight
[2018-12-18] MEDS ORDERED: MAG HYDROX/AL HYDROX/SIMETH 30 ML UNIT-DOSE CUP PO PRN (14:22)
[2018-12-18] MEDS ORDERED: ACETAMINOPHEN 325 MG TABLET (FP) PO PRN (14:22)
[2018-12-18] MEDS: METOCLOPRAMIDE HCL INJECTION 10 MG/2 ML VIAL IVPUSH SCH (17:32)
[2018-12-18 19:04] LABS: URINE APPEARANCE SLCLOUDY; URINE BILIRUBIN NEGATIVE (<2.0 mg/dL); URINE COLOR YELLOW; URINE GLUCOSE (UA) NEGATIVE (NEGATIVE); URINE KETONE NEGATIVE (NEGATIVE); URINE LEUK ESTERASE 3+ (NEGATIVE); URINE NITRITE NEGATIVE (NEGATIVE); URINE PROTEIN NEGATIVE (NEGATIVE); URINE UROBILINOGEN NEGATIVE mg/dL (0.2-1.0)
--- NOTE | 2018-12-18 19:08 | PN ---
Physical Exam: SUBJECTIVE: Patient seen and examined; tolerating clear liq diet OBJECTIVE: Vital Signs Period Temp Pulse Resp BP Sys/Bartholomew Pulse Ox Last 24 Hr 97.4 F-98.6 F 58-76 18-20 142-179/57-86 98-99 GENERAL: The patient is awake, alert, and fully oriented, in no acute distress. NECK: Trachea midline, full range of motion, supple. LUNGS: Breath sounds equal, clear to auscultation bilaterally, no wheezes, no crackles, no accessory muscle use. HEART: Regular rate and rhythm, S1, S2 without murmur, rub or gallop. ABDOMEN: Soft, nontender, nondistended, normoactive bowel sounds, no guarding, no rebound, no hepatosplenomegaly, no masses. EXTREMITIES: 2+ pulses, warm, well-perfused, no edema. NEUROLOGICAL: Cranial nerves II through XII grossly intact. Normal speech, gait not observed. Laboratory Results - last 24 hr 12/18/18 12/18/18 12/18/18 01:10 05:30 05:30 WBC 10.2 H RBC 4.39 Hgb 13.5 Hct 37.9 MCV 86.2 MCH 30.8 MCHC 35.7 RDW 13.7 Plt Count 440 H MPV 8.5 Absolute Neuts (auto) 8.1 H Neutrophils % 79.3 Lymphocytes % 13.7 D Monocytes % 6.5 Eosinophils % 0.2 Basophils % 0.3 Nucleated RBC % 0 PT with INR 11.80 INR 1.00 Sodium 125 L Potassium 4.2 Chloride 91 L Carbon Dioxide 26 Anion Gap 8 BUN 10 Creatinine 0.7 Creat Clearance w eGFR 79.91 Random Glucose 158 H Calcium 9.6 Phosphorus Magnesium Total Bilirubin 0.9 AST 34 ALT 27 Alkaline Phosphatase 71 Total Protein 8.4 H Albumin 4.2 Lipase 102 Urine Color Urine Appearance Urine pH Ur Specific [place] Urine Protein Urine Glucose (UA) Urine Ketones Urine Blood Urine Nitrite Urine Bilirubin Urine Urobilinogen Ur Leukocyte Esterase Urine Osmolality Ur Random Sodium Ur Random Chloride 12/18/18 12/18/18 12/18/18 06:00 17:30 17:30 WBC RBC Hgb Hct MCV MCH MCHC RDW Plt Count MPV Absolute Neuts (auto) Neutrophils % Lymphocytes % Monocytes % Eosinophils % Basophils % Nucleated RBC % PT with INR INR Sodium 125 L Potassium 4.4 Chloride 89 L Carbon Dioxide 27 Anion Gap 9 BUN 11 Creatinine 0.6 Creat Clearance w eGFR 95.47 Random Glucose 113 H Calcium 9.8 Phosphorus 3.6 Magnesium 2.6 H Total Bilirubin AST ALT Alkaline Phosphatase Total Protein Albumin Lipase Urine Color Yellow Urine Appearance Slcloudy Urine pH 7.0 Ur Specific [place] 1.010 Urine Protein Negative Urine Glucose (UA) Negative Urine Ketones Negative Urine Blood Negative Urine Nitrite Negative Urine Bilirubin Negative Urine Urobilinogen Negative Ur Leukocyte Esterase 3+ H Urine Osmolality Ur Random Sodium 73 Ur Random Chloride 104 L 12/18/18 17:30 WBC RBC Hgb Hct MCV MCH MCHC RDW Plt Count MPV Absolute Neuts (auto) Neutrophils % Lymphocytes % Monocytes % Eosinophils % Basophils % Nucleated RBC % PT with INR INR Sodium Potassium Chloride Carbon Dioxide Anion Gap BUN Creatinine Creat Clearance w eGFR Random Glucose Calcium Phosphorus Magnesium Total Bilirubin AST ALT Alkaline Phosphatase Total Protein Albumin Lipase Urine Color Urine Appearance Urine pH Ur Specific [place] Urine Protein Urine Glucose (UA) Urine Ketones Urine Blood Urine Nitrite Urine Bilirubin Urine Urobilinogen Ur Leukocyte Esterase Urine Osmolality 357 Ur Random Sodium Ur Random Chloride Active Medications Generic Name Dose Route Start Last Admin Trade Name Freq PRN Reason Stop Dose Admin Acetaminophen 650 mg 12/18/18 14:22 Tylenol - PO Q4H PRN PAIN LEVEL 1-5 Al Hydroxide/Mg Hydroxide 30 ml 12/18/18 14:22 12/18/18 17:31 Mylanta Oral Suspension - PO 30 ml Q6H PRN Administration DYSPEPSIA Carvedilol 6.25 mg 12/18/18 10:00 12/18/18 09:55 Coreg - PO 6.25 mg BID RAJAT Administration Gabapentin 600 mg 12/18/18 11:45 12/18/18 12:17 Neurontin - PO 600 mg BID RAJAT Administration Hydralazine HCl 5 mg 12/18/18 08:29 Apresoline Injection - IVPB Q6H PRN FOR SBP OVER 160 Dextrose/Sodium Chloride 1,000 mls @ 83 mls/hr 12/18/18 08:15 12/18/18 10:01 D5-Ns - IV 83 mls/hr ASDIR RAJAT Administration Ceftriaxone Sodium 1 gm/ 50 mls @ 100 mls/hr 12/18/18 10:00 12/18/18 09:56 Dextrose IVPB 100 mls/hr DAILY RAJAT Administration Protocol Levothyroxine Sodium 88 mcg 12/19/18 07:00 Synthroid - PO DAILY@0700 RAJAT Losartan Potassium 50 mg 12/18/18 10:00 12/18/18 09:55 Cozaar - PO 50 mg BID RAJAT Administration Metoclopramide HCl 10 mg 12/18/18 16:30 12/18/18 17:32 Reglan Injection - IVPUSH 10 mg TIDAC RAJAT Administration Pantoprazole Sodium 40 mg 12/18/18 10:00 12/18/18 09:55 Protonix Iv IVPUSH 40 mg BID RAJAT Administration Ranitidine HCl 150 mg 12/18/18 10:00 12/18/18 09:55 Zantac - PO 150 mg BID RAJAT Administration Fluticasone/Salmeterol 1 puff 12/18/18 10:00 12/18/18 09:55 Advair 100mcg/50mcg - IH 1 puff BID RAJAT Administration ASSESSMENT/PLAN: This is a 83 year old female with a history of HTN, diverticulosis, GERD, hysterectomy, cholecystectomy, hiatal hernia, chronic lower back pain and hypothyroidism, plan for hiatal hernia repair Dr Owens next month. #abdominal pain; known large paraesophageal hernia -tolerating clear liq diet -for egd in the am -cont protonix #GERD -protonix #HTN: controlled -losartan #Chronic low back pain: controlled #Hypothyroidism -levothyroxine #+UA; on empiric ceftriaxone; until egd DVT ppl ; scd Visit type - Emergency Visit Emergency Visit: Yes ED Registration Date: 12/18/18 Care time: The patient presented to the Emergency Department on the above date and was hospitalized for further evaluation of their emergent condition. - New Patient This patient is new to me today: Yes Date on this admission: 12/18/18 - Critical Care Critical Care patient: No
[2018-12-18 19:15] LABS: EPI CELLS RARE /HPF (FEW); URINE BACTERIA RARE /hpf (NONE SEEN); URINE HYALINE CAST 1 /lpf; URINE MUCUS RARE
--- NOTE | 2018-12-18 22:50 | EKG ---
Test Reason : Blood Pressure : / mmHG Vent. Rate : 075 BPM Atrial Rate : 075 BPM P-R Int : 164 ms QRS Dur : 100 ms QT Int : 420 ms P-R-T Axes : 046 -46 073 degrees QTc Int : 469 ms NORMAL SINUS RHYTHM POSSIBLE LEFT ATRIAL ENLARGEMENT POOR R WAVE PROGRESSION LEFT ANTERIOR FASCICULAR BLOCK LEFT VENTRICULAR HYPERTROPHY WITH REPOLARIZATION ABNORMALITY CANNOT RULE OUT SEPTAL INFARCT , AGE UNDETERMINED ABNORMAL ECG WHEN COMPARED WITH ECG OF 25-OCT-2018 15:37, T WAVE VARIATION Confirmed by LELA BENITEZ MD ([id number]) on 12/18/2018 10:49:51 PM Referred By: Confirmed By:LELA BENITEZ MD
[2018-12-19] MEDS: LEVOTHYROXINE NA 88 MCG TABLET (FP) PO SCH (06:20)
[2018-12-19] MEDS: METOCLOPRAMIDE HCL INJECTION 10 MG/2 ML VIAL IVPUSH SCH ×3 (07:05→17:09)
[2018-12-19 07:49] LABS: BASO % 0.6 % (0-2.0); EOS % 3.7 % (0-4.5); HEMATOCRIT 35.2 % (32.4-45.2); HEMOGLOBIN 12.4 GM/dL (10.7-15.3); LYMPH % 25.9 % (8-40); MCH 30.5 pg (25.7-33.7); MCHC 35.1 g/dl (32.0-36.0); MEAN CELL VOLUME 86.8 fl (80-96); MEAN PLT VOLUME 8.3 fl (7.5-11.1); MONO % 11.6 % (3.8-10.2); NEUT % 58.2 % (42.8-82.8); PLATELET COUNT 405 K/MM3 (134-434); RBC 4.05 M/mm3 (3.60-5.2); RDW 13.4 % (11.6-15.6)
[2018-12-19 08:17] LABS: ANION GAP 7 MMOL/L (8-16); BLOOD UREA NITROGEN 11 mg/dL (7-18); CHLORIDE 91 mmol/L (98-107); CO2 29 mmol/L (21-32); CREATININE 0.7 mg/dL (0.55-1.3); GLUCOSE,RANDOM 116 mg/dL (74-106); PHOSPHOROUS 3.4 mg/dL (2.5-4.9); POTASSIUM 3.5 mmol/L (3.5-5.1); SODIUM 127 mmol/L (136-145)
[2018-12-19] MEDS ORDERED: cefTRIAXone SODIUM 1 GM VIAL ONE (10:59)
[2018-12-19] MEDS ORDERED: DEXTROSE 5%-WATER - 50 ML IVPB ONE (10:59)
[2018-12-19] MEDS: DEXTROSE 5%-NORMAL SALINE 1,000 ML IV SCH (11:01)
[2018-12-19] MEDS: FLUTICASONE/SALMETEROL 100 MCG/50 MCG DISKUS IH SCH ×2 (11:02→21:18)
[2018-12-19] MEDS: LOSARTAN POTASSIUM 50 MG TABLET (FP) PO SCH ×2 (11:03→21:17)
[2018-12-19] MEDS: GABAPENTIN 300 MG CAPSULE (FP) PO SCH ×2 (11:03→21:17)
[2018-12-19] MEDS: CEFTRIAXONE 1 GM in DEXTROSE 5%-WATER - 50 ML IVPB SCH (11:03)
[2018-12-19] MEDS: PANTOPRAZOLE SODIUM 40 MG VIAL IVPUSH SCH ×2 (11:03→21:46)
[2018-12-19] MEDS: CARVEDILOL 6.25 MG TABLET (FP) PO SCH ×2 (11:03→21:17)
[2018-12-19] MEDS: RANITIDINE HCL 150 MG TABLET (FP) PO SCH ×2 (11:04→21:17)
--- NOTE | 2018-12-19 13:39 | PN ---
Physical Exam: SUBJECTIVE: Patient seen and examined; pain improved; no new complaints; tolerating liq diet OBJECTIVE: Vital Signs Period Temp Pulse Resp BP Sys/Bartholomew Pulse Ox Last 24 Hr 97.8 F-98.2 F 53-63 18-18 121-160/49-68 97-98 GENERAL: The patient is awake, alert, and fully oriented, in no acute distress. LUNGS: Breath sounds equal, clear to auscultation bilaterally, no wheezes, no crackles, no accessory muscle use. HEART: Regular rate and rhythm, S1, S2 without murmur, rub or gallop. ABDOMEN: Soft, nontender, nondistended, normoactive bowel sounds, no guarding, no rebound, no hepatosplenomegaly, no masses. EXTREMITIES: 2+ pulses, warm, well-perfused, no edema. NEUROLOGICAL: Cranial nerves II through XII grossly intact. Normal speech, gait not observed. Laboratory Results - last 24 hr 12/18/18 12/18/18 12/18/18 17:30 17:30 17:30 WBC RBC Hgb Hct MCV MCH MCHC RDW Plt Count MPV Absolute Neuts (auto) Neutrophils % Lymphocytes % Monocytes % Eosinophils % Basophils % Nucleated RBC % Sodium Potassium Chloride Carbon Dioxide Anion Gap BUN Creatinine Creat Clearance w eGFR Random Glucose Serum Osmolality Calcium Phosphorus Magnesium Urine Color Yellow Urine Appearance Slcloudy Urine pH 7.0 Ur Specific [place] 1.010 Urine Protein Negative Urine Glucose (UA) Negative Urine Ketones Negative Urine Blood Negative Urine Nitrite Negative Urine Bilirubin Negative Urine Urobilinogen Negative Ur Leukocyte Esterase 3+ H Urine WBC (Auto) 24 Urine RBC (Auto) 1 Ur Epithelial Cells Rare Urine Bacteria Rare Hyaline Casts 1 Urine Mucus Rare Urine Osmolality 357 Ur Random Sodium 73 Ur Random Potassium 35.4 Ur Random Chloride 104 L 12/19/18 12/19/18 12/19/18 06:10 06:10 06:10 WBC 8.0 RBC 4.05 Hgb 12.4 Hct 35.2 MCV 86.8 MCH 30.5 MCHC 35.1 RDW 13.4 Plt Count 405 MPV 8.3 Absolute Neuts (auto) 4.7 Neutrophils % 58.2 D Lymphocytes % 25.9 D Monocytes % 11.6 H Eosinophils % 3.7 D Basophils % 0.6 Nucleated RBC % 0 Sodium 127 L Potassium 3.5 Chloride 91 L Carbon Dioxide 29 Anion Gap 7 L BUN 11 Creatinine 0.7 Creat Clearance w eGFR 79.91 Random Glucose 116 H Serum Osmolality 264 L Calcium 9.0 Phosphorus 3.4 Magnesium 2.0 Urine Color Urine Appearance Urine pH Ur Specific [place] Urine Protein Urine Glucose (UA) Urine Ketones Urine Blood Urine Nitrite Urine Bilirubin Urine Urobilinogen Ur Leukocyte Esterase Urine WBC (Auto) Urine RBC (Auto) Ur Epithelial Cells Urine Bacteria Hyaline Casts Urine Mucus Urine Osmolality Ur Random Sodium Ur Random Potassium Ur Random Chloride Active Medications Generic Name Dose Route Start Last Admin Trade Name Freq PRN Reason Stop Dose Admin Acetaminophen 650 mg 12/18/18 14:22 Tylenol - PO Q4H PRN PAIN LEVEL 1-5 Al Hydroxide/Mg Hydroxide 30 ml 12/18/18 14:22 12/18/18 17:31 Mylanta Oral Suspension - PO 30 ml Q6H PRN Administration DYSPEPSIA Carvedilol 6.25 mg 12/18/18 10:00 12/19/18 11:03 Coreg - PO 6.25 mg BID RAJAT Administration Gabapentin 600 mg 12/18/18 11:45 12/19/18 11:03 Neurontin - PO 600 mg BID RAJAT Administration Hydralazine HCl 5 mg 12/18/18 08:29 Apresoline Injection - IVPB Q6H PRN FOR SBP OVER 160 Dextrose/Sodium Chloride 1,000 mls @ 83 mls/hr 12/18/18 08:15 12/19/18 11:01 D5-Ns - IV 83 mls/hr ASDIR RAJAT Administration Ceftriaxone Sodium 1 gm/ 50 mls @ 100 mls/hr 12/18/18 10:00 12/19/18 11:03 Dextrose IVPB 100 mls/hr DAILY RAJAT Administration Protocol Levothyroxine Sodium 88 mcg 12/19/18 07:00 12/19/18 06:20 Synthroid - PO 88 mcg DAILY@0700 RAJAT Administration Losartan Potassium 50 mg 12/18/18 10:00 12/19/18 11:03 Cozaar - PO 50 mg BID RAJAT Administration Metoclopramide HCl 10 mg 12/18/18 16:30 12/19/18 11:04 Reglan Injection - IVPUSH 10 mg TIDAC RAJAT Administration Pantoprazole Sodium 40 mg 12/18/18 10:00 12/19/18 11:03 Protonix Iv IVPUSH 40 mg BID RAJAT Administration Ranitidine HCl 150 mg 12/18/18 10:00 12/19/18 11:04 Zantac - PO 150 mg BID RAJAT Administration Fluticasone/Salmeterol 1 puff 12/18/18 10:00 12/19/18 11:02 Advair 100mcg/50mcg - IH 1 puff BID RAJAT Administration ASSESSMENT/PLAN: This is a 83 year old female with a history of HTN, diverticulosis, GERD, hysterectomy, cholecystectomy, hiatal hernia, chronic lower back pain and hypothyroidism, plan for hiatal hernia repair Dr Owens next month. #abdominal pain; known large paraesophageal hernia -tolerating clear liq diet -for egd in the am -cont protonix #hyponatremia: -labs sig for SIADH will conult nephro #GERD -protonix #HTN: controlled -losartan #Chronic low back pain: controlled #Hypothyroidism -levothyroxine #+UA; on empiric ceftriaxone; until egd DVT ppl ; scd Disposition: med surg ;egd in am Visit type - Emergency Visit Emergency Visit: Yes ED Registration Date: 12/18/18 Care time: The patient presented to the Emergency Department on the above date and was hospitalized for further evaluation of their emergent condition. - New Patient This patient is new to me today: No - Critical Care Critical Care patient: No
--- NOTE | 2018-12-19 17:29 | PN ---
Teaching Attending Note Name of Resident: Ida Hoffman ATTENDING PHYSICIAN STATEMENT I saw and evaluated the patient. I reviewed the resident's note and discussed the case with the resident. I agree with the resident's findings and plan as documented with exceptions below. SUBJECTIVE: Patient seen and examined, denies any abdominal pain currently. No abdominal or urinary complaints otherwise. OBJECTIVE: Vital Signs Period Temp Pulse Resp BP Sys/Bartholomew Pulse Ox Last 24 Hr 97.8 F-98.2 F 53-63 18-18 121-160/49-68 97-98 Intake & Output 12/16/18 12/17/18 12/18/18 12/19/18 23:59 23:59 23:59 23:59 Intake Total 1782 1231 Balance 1782 1231 Weight 110 lb 96 lb 12.8 oz General: lying in bed in no acute distress chest: CTAB, no rales or wheezing Abdomen:Soft, NT throughout, ND, positive bowel sounds Extremities: no edema Home Medications Medication Instructions Recorded Cyclobenzaprine HCl [Flexeril] 5 mg PO TID 10/25/14 Gabapentin 600 mg PO BID 10/25/14 Losartan Potassium 50 mg PO BID 10/25/14 Mag Hydrox/Al Hydrox/Simeth 30 ml PO Q6H PRN #1 cup 11/03/17 [Mylanta Oral Suspension -] Magnesium Oxide [Mag-Ox -] 400 mg PO DAILY 30 Days #30 tablet 11/03/17 Pantoprazole Sodium [Protonix -] 40 mg PO BID 30 Days #60 tablet.ec 11/03/17 Salmeterol/Fluticasone [Advair 1 puff IH BID 14 Days #1 inhaler 11/03/17 100Mcg/50Mcg -] MDD twice Carvedilol [Coreg] 6.25 mg PO BID 10/25/18 Levothyroxine [Synthroid -] 88 mcg PO DAILY MDD 1 10/25/18 Magnesium Carb/Aluminum Hydrox 1 each PO PRN 10/25/18 [Gaviscon Es Tablet Chew] Ranitidine [Zantac -] 150 mg PO BID 10/25/18 Simvastatin 10 mg PO HS 10/25/18 Metoclopramide HCl [Reglan -] 10 mg PO TIDAC #90 tablet 10/28/18 Cephalexin Monohydrate [Keflex -] 500 mg PO BID #9 capsule 12/17/18 Ondansetron [Zofran -] 4 mg PO Q4H PRN #8 tablet 12/17/18 Boniva 1 tab PO DAILY 12/19/18 Chlortalidone 25 mg PO DAILY 12/19/18 Cyclobenzaprine HCl 1 tab PO DAILY 12/19/18 Glucosa Treadwell 2Kcl/Chondroitin Treadwell 1 cap PO DAILY 12/19/18 [Glucosamine & Chondroitin Cap] Metoclopramide HCl [Reglan] 10 mg PO TID 12/19/18 [place]-3 Fatty Acids [[place]-3] 1,000 mg PO DAILY 12/19/18 Pantoprazole Sodium 40 mg PO DAILY 12/19/18 Salmeterol/Fluticasone [Advair 1 inh IH DAILY 12/19/18 100Mcg/50Mcg -] Active Medications Acetaminophen (Tylenol -) 650 mg PO Q4H PRN PRN Reason: PAIN LEVEL 1-5 Al Hydroxide/Mg Hydroxide (Mylanta Oral Suspension -) 30 ml PO Q6H PRN PRN Reason: DYSPEPSIA Last Admin: 12/18/18 17:31 Dose: 30 ml Carvedilol (Coreg -) 6.25 mg PO BID [facility] Last Admin: 12/19/18 11:03 Dose: 6.25 mg Gabapentin (Neurontin -) 600 mg PO BID [facility] Last Admin: 12/19/18 11:03 Dose: 600 mg Hydralazine HCl (Apresoline Injection -) 5 mg IVPB Q6H PRN PRN Reason: FOR SBP OVER 160 Dextrose/Sodium Chloride (D5-Ns -) 1,000 mls @ 83 mls/hr IV ASDIR [facility] Last Admin: 12/19/18 11:01 Dose: 83 mls/hr Ceftriaxone Sodium 1 gm/ (Dextrose) 50 mls @ 100 mls/hr IVPB DAILY [facility]; Protocol Last Admin: 12/19/18 11:03 Dose: 100 mls/hr Levothyroxine Sodium (Synthroid -) 88 mcg PO DAILY@0700 [facility] Last Admin: 12/19/18 06:20 Dose: 88 mcg Losartan Potassium (Cozaar -) 50 mg PO BID [facility] Last Admin: 12/19/18 11:03 Dose: 50 mg Metoclopramide HCl (Reglan Injection -) 10 mg IVPUSH TIDAC [facility] Last Admin: 12/19/18 17:09 Dose: 10 mg Pantoprazole Sodium (Protonix Iv) 40 mg IVPUSH BID [facility] Last Admin: 12/19/18 11:03 Dose: 40 mg Ranitidine HCl (Zantac -) 150 mg PO BID [facility] Last Admin: 12/19/18 11:04 Dose: 150 mg Fluticasone/Salmeterol (Advair 100mcg/50mcg -) 1 puff IH BID [facility] Last Admin: 12/19/18 11:02 Dose: 1 puff Laboratory Results - last 24 hr 12/18/18 12/18/18 12/18/18 17:30 17:30 17:30 WBC RBC Hgb Hct MCV MCH MCHC RDW Plt Count MPV Absolute Neuts (auto) Neutrophils % Lymphocytes % Monocytes % Eosinophils % Basophils % Nucleated RBC % Sodium Potassium Chloride Carbon Dioxide Anion Gap BUN Creatinine Creat Clearance w eGFR Random Glucose Serum Osmolality Calcium Phosphorus Magnesium Urine Color Yellow Urine Appearance Slcloudy Urine pH 7.0 Ur Specific [place] 1.010 Urine Protein Negative Urine Glucose (UA) Negative Urine Ketones Negative Urine Blood Negative Urine Nitrite Negative Urine Bilirubin Negative Urine Urobilinogen Negative Ur Leukocyte Esterase 3+ H Urine WBC (Auto) 24 Urine RBC (Auto) 1 Ur Epithelial Cells Rare Urine Bacteria Rare Hyaline Casts 1 Urine Mucus Rare Urine Osmolality 357 Ur Random Sodium 73 Ur Random Potassium 35.4 Ur Random Chloride 104 L 12/19/18 12/19/18 12/19/18 06:10 06:10 06:10 WBC 8.0 RBC 4.05 Hgb 12.4 Hct 35.2 MCV 86.8 MCH 30.5 MCHC 35.1 RDW 13.4 Plt Count 405 MPV 8.3 Absolute Neuts (auto) 4.7 Neutrophils % 58.2 D Lymphocytes % 25.9 D Monocytes % 11.6 H Eosinophils % 3.7 D Basophils % 0.6 Nucleated RBC % 0 Sodium 127 L Potassium 3.5 Chloride 91 L Carbon Dioxide 29 Anion Gap 7 L BUN 11 Creatinine 0.7 Creat Clearance w eGFR 79.91 Random Glucose 116 H Serum Osmolality 264 L Calcium 9.0 Phosphorus 3.4 Magnesium 2.0 Urine Color Urine Appearance Urine pH Ur Specific [place] Urine Protein Urine Glucose (UA) Urine Ketones Urine Blood Urine Nitrite Urine Bilirubin Urine Urobilinogen Ur Leukocyte Esterase Urine WBC (Auto) Urine RBC (Auto) Ur Epithelial Cells Urine Bacteria Hyaline Casts Urine Mucus Urine Osmolality Ur Random Sodium Ur Random Potassium Ur Random Chloride Microbiology 12/17/18 18:35 Urine - Urine - Catheterized Urine Culture - Preliminary Non Lactose Fermenting Gnb ASSESSMENT AND PLAN: 83 yof with PMHx of HTN, diverticulosis, GERD, hysterectomy, cholecystectomy, hiatal hernia, chronic lower back pain and hypothyroidism, plan for hiatal hernia surgery with Dr. Owens next month, admitted with abdominal pain, nausea, weakness and inability to tolerate PO -Abdominal pain, r/o gastritis from known hiatal hernia, vs PUD vs Chronic gastroparesis -Lower uncomplicated Gm neg UTI -Diverticulosis -GERD -HTN -Chronic low back pain -Hypothyroidism Plan: Symptoms improved, PO clears NPO after midnight for EGD tomorrow. Continue Protonix IV BID Eventual plan for surgery with Dr. Owens next week. Continue ranitidine/standing reglan. Ceftriaxone day 2, follow up urine cx. Could be contributing to her symptoms partly. Continue IVF. NPO after midnight DVTPPX with SCDs PT eval given weakness Dispo in 24 hours pending Clinical improvement. Plan discussed with patient, nursing in detail, all questions answered.
[2018-12-20] MEDS: DEXTROSE 5%-NORMAL SALINE 1,000 ML IV SCH ×2 (03:50→08:58)
[2018-12-20] MEDS: LEVOTHYROXINE NA 88 MCG TABLET (FP) PO SCH (06:09)
[2018-12-20] MEDS: METOCLOPRAMIDE HCL INJECTION 10 MG/2 ML VIAL IVPUSH SCH ×2 (06:10→12:55)
[2018-12-20 07:24] LABS: BASO % 0.7 % (0-2.0); EOS % 4.1 % (0-4.5); HEMATOCRIT 36.1 % (32.4-45.2); HEMOGLOBIN 12.7 GM/dL (10.7-15.3); LYMPH % 21.4 % (8-40); MCH 30.1 pg (25.7-33.7); MCHC 35.3 g/dl (32.0-36.0); MEAN CELL VOLUME 85.4 fl (80-96); MEAN PLT VOLUME 8.1 fl (7.5-11.1); MONO % 10.5 % (3.8-10.2); NEUT % 63.3 % (42.8-82.8); PLATELET COUNT 454 K/MM3 (134-434); RBC 4.22 M/mm3 (3.60-5.2); RDW 13.5 % (11.6-15.6); WHITE BLOOD COUNT 7.4 K/mm3 (4.0-10.0)
[2018-12-20 07:44] LABS: ANION GAP 7 MMOL/L (8-16); BLOOD UREA NITROGEN 11 mg/dL (7-18); CALCIUM 9.5 mg/dL (8.5-10.1); CHLORIDE 94 mmol/L (98-107); CO2 30 mmol/L (21-32); CREATININE 0.8 mg/dL (0.55-1.3); GLUCOSE,RANDOM 110 mg/dL (74-106); MAGNESIUM 1.7 mg/dL (1.8-2.4); PHOSPHOROUS 3.3 mg/dL (2.5-4.9); POTASSIUM 3.2 mmol/L (3.5-5.1); SODIUM 131 mmol/L (136-145)
[2018-12-20] MEDS ORDERED: MAGNESIUM SULF 50% (8.12 MEQ/2 ML-1 GM VIAL) IVPB ONE (08:45)
[2018-12-20] MEDS: LOSARTAN POTASSIUM 50 MG TABLET (FP) PO SCH ×3 (08:54→09:02)
[2018-12-20] MEDS: FLUTICASONE/SALMETEROL 100 MCG/50 MCG DISKUS IH SCH (09:01)
[2018-12-20] MEDS: CARVEDILOL 6.25 MG TABLET (FP) PO SCH (09:02)
[2018-12-20] MEDS ORDERED: DEXTROSE 5%-WATER - 50 ML IVPB ONE (11:54)
[2018-12-20] MEDS ORDERED: cefTRIAXone SODIUM 1 GM VIAL ONE (11:54)
--- NOTE | 2018-12-20 11:57 | PN ---
Progress Note (short form) - Note Progress Note: GI Procedure NOte: Please see scanned EGD report. The paraesophageal hernia is very large and is causing two obstructions: one at the GE junction and the other an organoaxial volvulus. Discussed findings with the patient, her son in law and with Dr Owens to make him aware of the organoaxial volvulus. No GI objections to discharge. She is suspected to have candidal esophagitis and H pylori gastritis but these can treated as an outpatient . Problem List - Problems (1) Paraesophageal hernia with obstruction but no gangrene Code(s): K44.0 - DIAPHRAGMATIC HERNIA WITH OBSTRUCTION, WITHOUT GANGRENE (2) Abdominal pain Code(s): R10.9 - UNSPECIFIED ABDOMINAL PAIN Qualifiers: Abdominal location: unspecified location Qualified Code(s): R10.9 - Unspecified abdominal pain (3) HTN (hypertension) Code(s): I10 - ESSENTIAL (PRIMARY) HYPERTENSION (4) Hypothyroid Code(s): E03.9 - HYPOTHYROIDISM, UNSPECIFIED (5) Vomiting Code(s): R11.10 - VOMITING, UNSPECIFIED Qualifiers: Vomiting type: unspecified Vomiting Intractability: non-intractable Nausea presence: with nausea Qualified Code(s): R11.2 - Nausea with vomiting, unspecified
[2018-12-20] MEDS: GABAPENTIN 300 MG CAPSULE (FP) PO SCH (12:05)
[2018-12-20] MEDS ORDERED: POTASSIUM CHLORIDE TABS 20 MEQ TABLET.ER (FP) PO ONE (12:07)
--- NOTE | 2018-12-20 12:08 | CONSULT ---
Consult - text type - Consultation Consultation Note: Renal Consult for Hyponatremia This is a 83 year old [place] woman with hx of Hypertension, Diverticulitis, Hiatial Hernia, Hypothyroidism, Asthma who presented from home with Abd pain and found to have hyponatermia. Serum Na was 127 on presentation and now improved to 131. Pt is awake and alert. No MS changes, confuison, lethargy, weakness, seizures, N/V or SIDHU. Abd pain is improved but still present. S/p EGD this am. No fever, chills, sob, chest pain. Making urine. She reports she drinks about 7 glasses of water daily at home. On thiazide type diuretic at home. PMHx: as above Allergies: NKDA Family Hx: NC Social Hx: No T/A/D ROS: as per HPI Home Medications Medication Instructions Recorded Cyclobenzaprine HCl [Flexeril] 5 mg PO TID 10/25/14 Gabapentin 600 mg PO BID 10/25/14 Losartan Potassium 50 mg PO BID 10/25/14 Mag Hydrox/Al Hydrox/Simeth 30 ml PO Q6H PRN #1 cup 11/03/17 [Mylanta Oral Suspension -] Magnesium Oxide [Mag-Ox -] 400 mg PO DAILY 30 Days #30 tablet 11/03/17 Pantoprazole Sodium [Protonix -] 40 mg PO BID 30 Days #60 tablet.ec 11/03/17 Salmeterol/Fluticasone [Advair 1 puff IH BID 14 Days #1 inhaler 11/03/17 100Mcg/50Mcg -] MDD twice Carvedilol [Coreg] 6.25 mg PO BID 10/25/18 Levothyroxine [Synthroid -] 88 mcg PO DAILY MDD 1 10/25/18 Magnesium Carb/Aluminum Hydrox 1 each PO PRN 10/25/18 [Gaviscon Es Tablet Chew] Ranitidine [Zantac -] 150 mg PO BID 10/25/18 Simvastatin 10 mg PO HS 10/25/18 Metoclopramide HCl [Reglan -] 10 mg PO TIDAC #90 tablet 10/28/18 Cephalexin Monohydrate [Keflex -] 500 mg PO BID #9 capsule 12/17/18 Ondansetron [Zofran -] 4 mg PO Q4H PRN #8 tablet 12/17/18 Boniva 1 tab PO DAILY 12/19/18 Chlortalidone 25 mg PO DAILY 12/19/18 Cyclobenzaprine HCl 1 tab PO DAILY 12/19/18 Glucosa Treadwell 2Kcl/Chondroitin Treadwell 1 cap PO DAILY 12/19/18 [Glucosamine & Chondroitin Cap] Metoclopramide HCl [Reglan] 10 mg PO TID 12/19/18 [place]-3 Fatty Acids [[place]-3] 1,000 mg PO DAILY 12/19/18 Pantoprazole Sodium 40 mg PO DAILY 12/19/18 Salmeterol/Fluticasone [Advair 1 inh IH DAILY 12/19/18 100Mcg/50Mcg -] Vital Signs Temperature 97.5 F L 12/20/18 10:35 Pulse Rate 55 L 12/20/18 11:05 Respiratory Rate 14 12/20/18 11:05 Blood Pressure 160/89 12/20/18 11:05 O2 Sat by Pulse Oximetry (%) 100 12/20/18 11:05 Intake & Output 12/17/18 12/18/18 12/19/18 12/20/18 23:59 23:59 23:59 23:59 Intake Total 1782 1331 1400 Balance 1782 1331 1400 Weight 49.895 kg 43.908 kg NAD awake and alert neck supple Dry MM, no JVD RRR, no M/R CTA, no rales or wheeze soft, mild tenderness no LE edema, clubbing or cyanosis no focal neurologic defects 12/20/18 07:00 12/20/18 07:00 Current Medications Acetaminophen (Tylenol -) 650 mg PO Q4H PRN PRN Reason: PAIN LEVEL 1-5 Al Hydroxide/Mg Hydroxide (Mylanta Oral Suspension -) 30 ml PO Q6H PRN PRN Reason: DYSPEPSIA Last Admin: 12/18/18 17:31 Dose: 30 ml Carvedilol (Coreg -) 6.25 mg PO BID [facility] Last Admin: 12/20/18 09:02 Dose: 6.25 mg Gabapentin (Neurontin -) 600 mg PO BID [facility] Last Admin: 12/19/18 21:17 Dose: 600 mg Hydralazine HCl (Apresoline Injection -) 5 mg IVPB Q6H PRN PRN Reason: FOR SBP OVER 160 Ceftriaxone Sodium 1 gm/ (Dextrose) 50 mls @ 100 mls/hr IVPB DAILY [facility]; Protocol Last Admin: 12/19/18 11:03 Dose: 100 mls/hr Levothyroxine Sodium (Synthroid -) 88 mcg PO DAILY@0700 [facility] Last Admin: 12/20/18 06:09 Dose: 88 mcg Losartan Potassium (Cozaar -) 50 mg PO BID [facility] Last Admin: 12/20/18 09:02 Dose: Not Given Metoclopramide HCl (Reglan -) 10 mg PO TID [facility] Ranitidine HCl (Zantac -) 150 mg PO BID [facility] Last Admin: 12/19/18 21:17 Dose: 150 mg Fluticasone/Salmeterol (Advair 100mcg/50mcg -) 1 puff IH BID [facility] Last Admin: 12/20/18 09:01 Dose: 1 puff 83 year old [place] woman with hx of Hypertension, Diverticulitis, Hiatial Hernia , Hypothyroidism, Asthma who presented from home with Abd pain and found to have hyponatermia. #Hyponatremia (low sodium level of 125) likely due to salt+water depletion in setting thiazide type diuretic and N/V #Abd pain #Hiatial Hernia #Hypertension #Hypokalemia #Hypothyroidism (TSH WNL) Given clinical presentation and home meds likely cause of hyponatremia is thiazide type diuretic. 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 Serum Na now improved s/p IVF which would not be the case with SIADH. TSH is WNL, cortisol levels pending. At this time would continue regular diet and maintain off IVF. No indication for 3% saline. Will need outpatient monitoring of sodium levels. Continue GI work up and pain control Supplement KCL with goal level > 3.5. Continue HYdralazine, Losartan and coreg. Thank you Celio Collado DO
[2018-12-20] MEDS: RANITIDINE HCL 150 MG TABLET (FP) PO SCH (12:09)
[2018-12-20] MEDS ORDERED: METOCLOPRAMIDE HCL 10 MG TABLET (FP) PO SCH ×2 (12:15→16:30)
[2018-12-20 12:52] VITALS: BP 191/63
[2018-12-20] MEDS: PANTOPRAZOLE SODIUM 40 MG VIAL IVPUSH SCH (12:55)
[2018-12-20] MEDS ORDERED: hydrALAZINE HCL 10 MG TABLET PO ONE (13:00)
[2018-12-20] MEDS ORDERED: PT OWN MED DRAWER 7, Y5N ONE (14:18)
[2018-12-20 14:43] VITALS: PULSE 58; TEMP 97.2
[2018-12-20] MEDS: CEFTRIAXONE 1 GM in DEXTROSE 5%-WATER - 50 ML IVPB SCH (15:18)
[2018-12-20] MEDS: KCL 10 MEQ IVPB 10 MEQ/100 ML INFUS.BAG IVPB SCH ×3 (15:26→16:09)
[2018-12-20 15:48] VITALS: BMI 17.5
--- NOTE | 2018-12-20 17:02 | DS ---
Physical Exam: SUBJECTIVE: Patient seen and examined OBJECTIVE: Vital Signs Period Temp Pulse Resp BP Sys/Bartholomew Pulse Ox Last 24 Hr 97.2 F-98.8 F 53-67 14-20 102-194/35-89 97-100 PHYSICAL EXAM GENERAL: The patient is awake, alert, and fully oriented, in no acute distress. HEAD: Normal with no signs of trauma. EYES: PERRL, extraocular movements intact, sclera anicteric, conjunctiva clear. ENT: Ears normal, nares patent, oropharynx clear without exudates, moist mucous membranes. NECK: Trachea midline, full range of motion, supple. LUNGS: Breath sounds equal, clear to auscultation bilaterally, no wheezes, no crackles, no accessory muscle use. HEART: Regular rate and rhythm, S1, S2 without murmur, rub or gallop. ABDOMEN: Soft, nontender, nondistended, normoactive bowel sounds, no guarding, no rebound, no hepatosplenomegaly, no masses. EXTREMITIES: 2+ pulses, warm, well-perfused, no edema. NEUROLOGICAL: Cranial nerves II through XII grossly intact. Normal speech, gait not observed. PSYCH: Normal mood, normal affect. SKIN: Warm, dry, normal turgor, no rashes or lesions noted. LABS Laboratory Results - last 24 hr 12/20/18 12/20/18 07:00 07:00 WBC 7.4 RBC 4.22 Hgb 12.7 Hct 36.1 MCV 85.4 MCH 30.1 MCHC 35.3 RDW 13.5 Plt Count 454 H MPV 8.1 Absolute Neuts (auto) 4.7 Neutrophils % 63.3 Lymphocytes % 21.4 Monocytes % 10.5 H Eosinophils % 4.1 Basophils % 0.7 Nucleated RBC % 0 Sodium 131 L Potassium 3.2 L Chloride 94 L Carbon Dioxide 30 Anion Gap 7 L BUN 11 Creatinine 0.8 Creat Clearance w eGFR 68.50 Random Glucose 110 H Calcium 9.5 Phosphorus 3.3 Magnesium 1.7 L TSH 0.72 HOSPITAL COURSE: Date of Admission:12/18/18 Date of Discharge: 12/20/18 This is a 83 year old female with a history of HTN, diverticulosis, GERD, hysterectomy, cholecystectomy, hiatal hernia, chronic lower back pain and hypothyroidism, plan for paraesophageal hernia, presenting with nausea and vomiting. EGD done showing paraesophageal hernia is very large and is causing two obstructions: one at the GE junction and the other an organoaxial volvulus. As per GI, she is suspected to have candidal esophagitis and H pylori gastritis but these can treated as an outpatient. Plan for surgery with DR. Owens. Patient was also treated for a urinary tract infection. She also was seen by nephrology for hyponatremia, likely SIADH, and will follow up as an outpatient. Minutes to complete discharge: 40 Discharge Summary Reason For Visit: VOMITING/HIATAL HERNIA Condition: Good - Instructions Diet, Activity, Other Instructions: resume previous diet and activity Referrals: Virginia Wallace MD [Primary Care Provider] - Celoi Collado MD [Staff Physician] - Disposition: HOME - Home Medications Comprehensive Discharge Medication List: Ambulatory Orders Cyclobenzaprine HCl [Flexeril] 5 mg PO TID 10/25/14 Gabapentin 600 mg PO BID 10/25/14 Losartan Potassium 50 mg PO BID 10/25/14 Mag Hydrox/Al Hydrox/Simeth [Mylanta Oral Suspension -] 30 ml PO Q6H PRN #1 cup 11/03/17 Magnesium Oxide [Mag-Ox -] 400 mg PO DAILY 30 Days #30 tablet 11/03/17 Salmeterol/Fluticasone [Advair 100Mcg/50Mcg -] 1 puff IH BID 14 Days #1 inhaler MDD twice 11/03/17 Carvedilol [Coreg] 6.25 mg PO BID 10/25/18 Levothyroxine [Synthroid -] 88 mcg PO DAILY MDD 1 10/25/18 Magnesium Carb/Aluminum Hydrox [Gaviscon Es Tablet Chew] 1 each PO PRN 10/25/18 Ranitidine [Zantac -] 150 mg PO BID 10/25/18 Simvastatin 10 mg PO HS 10/25/18 Metoclopramide HCl [Reglan -] 10 mg PO TIDAC #90 tablet 10/28/18 Cephalexin Monohydrate [Keflex -] 500 mg PO BID #9 capsule 12/17/18 Ondansetron [Zofran -] 4 mg PO Q4H PRN #8 tablet 12/17/18 Boniva 1 tab PO DAILY 12/19/18 Glucosa Treadwell 2Kcl/Chondroitin Treadwell [Glucosamine & Chondroitin Cap] 1 cap PO DAILY Metoclopramide HCl [Reglan] 10 mg PO TID 12/19/18 [place]-3 Fatty Acids [[place]-3] 1,000 mg PO DAILY 12/19/18 Amoxicillin - [Amoxicillin 500mg Capsule -] 1,000 mg PO BID #56 capsule Ciprofloxacin [Cipro -] 500 mg PO Q12H #6 tablet 12/20/18 Clarithromycin [Biaxin -] 500 mg PO BID #28 tablet 12/20/18 Nystatin Oral Suspension - [Nystatin Oral Susp 603779 Units/5 ML -] 500,000 units PO Q6H #28 cup 12/20/18 Pantoprazole Sodium [Protonix -] 40 mg PO BID 30 Days #60 tablet.ec 12/20/18 This patient is new to me today: Yes Date on this admission: 12/20/18 Emergency Visit: Yes ED Registration Date: 12/18/18 Care time: The patient presented to the Emergency Department on the above date and was hospitalized for further evaluation of their emergent condition. Critical Care patient: No - Discharge Referral Referred to [facility] Med P.C.: No
--- NOTE | 2018-12-20 17:46 | PN ---
Teaching Attending Note Name of Resident: Ida Hoffman ATTENDING PHYSICIAN STATEMENT I saw and evaluated the patient. I reviewed the resident's note and discussed the case with the resident. I agree with the resident's findings and plan as documented. OBJECTIVE: Last Vital Signs Temp Pulse Resp BP Pulse Ox 36.2 C L 58 L 18 191/63 H 99 12/20/18 14:42 12/20/18 14:42 12/20/18 14:42 12/20/18 11:30 12/20/18 11:15 Gen: nad Pulm: ctab w/o w/r/r CV: rrr w/o m/r/g Abd: +bs, s/nt/nd Ext: no c/c/e Ms Rod is a very pleasant 83 year old female who came in with abdominal pain. She was admitted to the hospital and seen by GI. She underwent EGD and was found to have thrush and H pylori. She also was found to have a UTI. She is currently stable and safe for discharge home. She will be discharged on cipro for her UTI and nystatin swish and swallow for her thrush. She is scheduled to have her hiatal hernia repaired. Because of this I will prescribe treatment for H pylori but she can begin after she is stable from surgery.
--- NOTE | 2018-12-21 12:52 | PATH ---
Surgical Pathology Report Patient Name: ERNIE GRAJEDA Med. Rec. #: [id number] /Age/Gender: 1935 (Age: 83) / F Account: [id number] Location: [facility] MED/SURG Taken: 12/20/2018 Received: 12/20/2018 Reported: 12/21/2018 Physicians: Kennedy Smyth M.D. Specimen(s) Received A: DUODENUM B: ANTRUM C: DISTAL ESOPHAGUS Clinical History Vomiting Postoperative diagnosis: Candidal esophagitis, paraesophageal hernia, antral gastritis Final Diagnosis A. DUODENUM, BIOPSY: DUODENUM MUCOSA WITH NO SIGNIFICANT PATHOLOGIC CHANGES. NO HISTOLOGIC EVIDENCE OF CELIAC DISEASE. B. ANTRUM, BIOPSY: GASTRIC MUCOSA WITH CHRONIC GASTRITIS. IMMUNOSTAIN FOR H. PYLORI IS NEGATIVE. NEGATIVE FOR INTESTINAL METAPLASIA. C. DISTAL ESOPHAGUS, BIOPSY: ESOPHAGEAL MUCOSA WITH FOCAL ACUTE INFLAMMATION AND CHANGES CONSISTENT WITH REFLUX ESOPHAGITIS. NEGATIVE FOR INTESTINAL METAPLASIA. PAS STAIN FAILED TO REVEAL FUNGAL HYPHAE. Electronically Signed Emanuel Lewis M.D. Gross Description A. Received in formalin, labeled "second portion duodenum and bulb" are 3 gomez, irregular portions of soft tissue measuring 0.3-0.4 cm. in greatest dimension. The specimens are submitted in toto in one cassette. B. Received in formalin, labeled "antrum" are 2 gomez, irregular portions of soft tissue measuring 0.2 and 0.4 cm. in greatest dimension. The specimens are submitted in toto in one cassette. C. Received in formalin, labeled "distal esophagus" are 2 gomez, irregular portions of soft tissue measuring 0.3 and 0.4 cm. in greatest dimension. The specimens are submitted in toto in [one] cassette. MLSZ/12/20/2018 sanml/12/20/2018
--- NOTE | 2018-12-21 16:35 | PATH ---
Cytology Non-Gynecological Report Patient Name: ERNIE GRAJEDA Med. Rec. #: [id number] /Age/Gender: 1935 (Age: 83) / F Account: [id number] Location: [facility] MED/SURG Taken: 12/20/2018 Received: 12/20/2018 Reported: 12/21/2018 Physicians: Nakia Avila M.D. Specimen(s) Received ESOPHAGEAL BRUSH Clinical History Esophagitis, paraesophageal hernia, antral gastritis Final Diagnosis ESOPHAGEAL BRUSHING FOR CYTOLOGY: SATISFACTORY FOR EVALUATION. SQUAMOUS CELLS WITH REACTIVE CELLULAR CHANGES. BRENT SPECIES. SCATTERED SQUAMOUS CELLS WITH REACTIVE CELLULAR CHANGES NOTED. NEUTROPHILS PRESENT. FUNGAL FORMS MORPHOLOGICALLY CONSISTENT WITH BRENT SPECIES PRESENT. Electronically Signed Rosie Smith M.D. Gross Description Received in brush and in approximately 15 cc of 95% alcohol. One slide prepared and Pap stained. Cell block prepared.
== END 2018-12-20 16:11 | disposition home or self-care (01) | DRG 392 ==
LOC: JER 16:02 → JERBED 12-18 00:44 → J8W 12-18 02:23
PROVIDERS: ADMIT Internal Medicine; ATTEND Internal Medicine
PROC: 0DB68ZX Excision of Stomach, Via Natural or Artificial Opening Endoscopic, Diagnostic (ICD-10-PCS; 2018-12-20)
PROC: 0DB58ZX Excision of Esophagus, Via Natural or Artificial Opening Endoscopic, Diagnostic (ICD-10-PCS; principal; 2018-12-20 10:21)
DX: K44.0 Diaphragmatic hernia with obstruction, without gangrene (principal); N39.0 Urinary tract infection, site not specified; E87.1 Hypo-osmolality and hyponatremia; B37.81 Candidal esophagitis; Z68.1 Body mass index [BMI] 19.9 or less, adult; I10 Essential (primary) hypertension; E03.9 Hypothyroidism, unspecified; M54.5 Low back pain; K21.9 Gastro-esophageal reflux disease without esophagitis; K57.90 Diverticulosis of intestine, part unspecified, without perforation or abscess without bleeding; B96.89 Other specified bacterial agents as the cause of diseases classified elsewhere; R11.2 Nausea with vomiting, unspecified; J45.909 Unspecified asthma, uncomplicated; G62.9 Polyneuropathy, unspecified; E78.5 Hyperlipidemia, unspecified; M19.90 Unspecified osteoarthritis, unspecified site; E87.6 Hypokalemia; R63.4 Abnormal weight loss; K29.60 Other gastritis without bleeding; K31.89 Other diseases of stomach and duodenum
CPT/HCPCS: 36415; 71045-TC-FY; 74019-TC-FY; 76700-TC; 80048; 80053; 81003; 81015; 82150; 82436; 82533; 83605; 83690; 83735; 83930; 83935; 84100; 84133; 84300; 84443; 85025; 85610; 87086; 87186; 88104; 88305-TC; 93005; 93010; 99284-25; J7030

== ENCOUNTER 2019-04-22 10:53 | Emergency (ER) | payer OTHER ==
[2019-04-22 11:01] VITALS: BMI 19.3
--- NOTE | 2019-04-22 11:23 | PDOC ---
History of Present Illness - History of Present Illness Initial Comments: Ms. Rod is a 83F with PMH of HTN, HLD, s/p hiatal hernia repair, hyponatremia, hypothyroidism, presenting today with right sided axillary pain. Per son in law , she fell early this morning in the bathroom. No head trauma, no LOC, not on any blood thinners. A few hours later she began having right sided axillary pain that is colicky in nature. Denies left sided chest pain. Reports nausea, but no vomiting or diarrhea. Reports that she has had stomach upset the past few days, and took 30 cc of peptobismol at 9am this morning which did not relieve the pain. Denies shortness of breath. <Joseluis Martínez - Last Filed: 04/22/19 17:56> <Mitra Basilio - Last Filed: 04/23/19 08:14> - General Chief Complaint: Pain Stated Complaint: RT SIDE PAIN Time Seen by Provider: 04/22/19 11:21 Past History - Past Medical History Anemia: Yes Asthma: No Cancer: No Cardiac Disorders: No CVA: No COPD: No CHF: No Dementia: No Diabetes: No GI Disorders: Yes (GERD) Disorders: Yes (H/O UTI) HTN: Yes Hypercholesterolemia: Yes Liver Disease: No Seizures: No Thyroid Disease: Yes (HYPOTHYROIDISM) - Surgical History Abdominal Surgery: Yes Appendectomy: No Cardiac Surgery: No Cholecystectomy: Yes Lung Surgery: No Neurologic Surgery: No Orthopedic Surgery: No - Immunization History Immunization Up to Date: No - Suicide/Smoking/Psychosocial Hx Smoking History: Never smoked Have you smoked in the past 12 months: No Hx Alcohol Use: No Drug/Substance Use Hx: No Substance Use Type: None Hx Substance Use Treatment: No <Joseluis Martínez - Last Filed: 04/22/19 17:56> <Mitra Basilio - Last Filed: 04/23/19 08:14> - Past Medical History Allergies/Adverse Reactions: Allergies Allergy/AdvReac Type Severity Reaction Status Date / Time No Known Allergies Allergy Verified 04/22/19 11:01 Home Medications: Ambulatory Orders RX: Cyclobenzaprine HCl [Flexeril] 5 mg PO TID 10/25/14 RX: Gabapentin 600 mg PO BID 10/25/14 RX: Losartan Potassium 50 mg PO BID 10/25/14 RX: Mag Hydrox/Al Hydrox/Simeth [Mylanta Oral Suspension -] 30 ml PO Q6H PRN #1 cup 11/03/17 RX: Magnesium Oxide [Mag-Ox -] 400 mg PO DAILY 30 Days #30 tablet 11/03/17 RX: Salmeterol/Fluticasone [Advair 100Mcg/50Mcg -] 1 puff IH BID 14 Days #1 inhaler MDD twice 11/03/17 RX: Carvedilol [Coreg] 6.25 mg PO BID 10/25/18 RX: Levothyroxine [Synthroid -] 88 mcg PO DAILY MDD 1 10/25/18 RX: Magnesium Carb/Aluminum Hydrox [Gaviscon Es Tablet Chew] 1 each PO PRN 10/25 RX: Ranitidine [Zantac -] 150 mg PO BID 10/25/18 RX: Simvastatin 10 mg PO HS 10/25/18 RX: Metoclopramide HCl [Reglan -] 10 mg PO TIDAC #90 tablet 10/28/18 Cephalexin Monohydrate [Keflex -] 500 mg PO BID #9 capsule 12/17/18 Ondansetron [Zofran -] 4 mg PO Q4H PRN #8 tablet 12/17/18 Boniva 1 tab PO DAILY 12/19/18 RX: Glucosa Treadwell 2Kcl/Chondroitin Treadwell [Glucosamine & Chondroitin Cap] 1 cap PO DAILY 12/19/18 RX: Metoclopramide HCl [Reglan] 10 mg PO TID 12/19/18 RX: [place]-3 Fatty Acids [[place]-3] 1,000 mg PO DAILY 12/19/18 Amoxicillin - [Amoxicillin 500mg Capsule -] 1,000 mg PO BID #56 capsule RX: Ciprofloxacin [Cipro -] 500 mg PO Q12H #6 tablet 12/20/18 RX: Clarithromycin [Biaxin -] 500 mg PO BID #28 tablet 12/20/18 RX: Nystatin Oral Suspension - [Nystatin Oral Susp 438155 Units/5 ML -] 500,000 units PO Q6H #28 cup 12/20/18 RX: Pantoprazole Sodium [Protonix -] 40 mg PO BID 30 Days #60 tablet.ec Review of Systems - Review of Systems Comments:: ROS GENERAL/CONSTITUTIONAL: No fever or chills. HEAD, EYES, EARS, NOSE AND THROAT: No change in vision. No ear pain or discharge. No sore throat._ CARDIOVASCULAR: Reports right sided chest and right axillary pain. No shortness of breath. RESPIRATORY: Denies cough, hemoptysis. GASTROINTESTINAL: Reports nausea, no vomiting, diarrhea, constipation. Reports diffuse abdominal pain. GENITOURINARY: No dysuria, frequency, or change in urination._ MUSCULOSKELETAL: No joint or muscle swelling or pain. No neck or back pain. SKIN: No rash. NEUROLOGIC: No headache, vertigo, loss of consciousness, or change in strength/ sensation._ ENDOCRINE: No increased thirst. No abnormal weight change. HEMATOLOGIC/LYMPHATIC: No anemia, easy bleeding, or history of blood clots.. ALLERGIC/IMMUNOLOGIC: No hives or skin allergy._ <Joseluis Martínez - Last Filed: 04/22/19 17:56> *Physical Exam - Vital Signs Last Vital Signs Temp Pulse Resp BP Pulse Ox 98.6 F 62 18 136/56 L 100 04/22/19 10:58 04/22/19 10:58 04/22/19 10:58 04/22/19 10:58 04/22/19 10:58 - Physical Exam Comments: GENERAL: Awake, alert, and oriented to person/place/time, in no acute distress. HEAD: No signs of trauma, normocephalic, atraumatic. EYES: PERRLA, EOMI, sclera anicteric, conjunctiva clear. ENT: Hearing grossly normal, nares patent, oropharynx clear without exudates. No uvular deviation. Mildly dry mucous membranes. NECK: Normal ROM, supple, no lymphadenopathy, JVD, or masses. LUNGS: No distress, speaks in full sentences, clear to auscultation bilaterally. HEART: Regular rate and rhythm, normal S1 and S2, no murmurs appreciated, peripheral pulses normal and equal bilaterally. CHEST: No rash over right axilla. Tenderness to palpation over right lower axilla. No bruising on chest wall. ABDOMEN: Soft, normoactive bowel sounds. Diffuse tenderness throughout abdomen, worse in the upper right and upper left quadrants. EXTREMITIES: Normal inspection, Normal range of motion, no edema. No clubbing or cyanosis. NEUROLOGICAL: Cranial nerves II through XII grossly intact. Normal speech, normal gait, no focal sensorimotor deficits. SKIN: Warm, Dry, normal turgor, no rashes or lesions noted. <Joseluis Martínez - Last Filed: 04/22/19 17:56> - Vital Signs Last Vital Signs Temp Pulse Resp BP Pulse Ox 98.0 F 68 17 136/72 98 04/22/19 15:00 04/22/19 18:26 04/22/19 18:26 04/22/19 18:26 04/22/19 18:26 <Mitra Basilio - Last Filed: 04/23/19 08:14> ED Treatment Course - LABORATORY CBC & Chemistry Diagram: 04/22/19 12:15 04/22/19 12:15 <Joseluis Martínez - Last Filed: 04/22/19 17:56> - LABORATORY CBC & Chemistry Diagram: 04/22/19 12:15 04/22/19 12:15 - ADDITIONAL ORDERS Additional order review: 04/22/19 12:15 RBC 4.31 MCV 82.2 MCHC 33.7 RDW 14.9 D MPV 7.4 L Neutrophils % 79.4 D Lymphocytes % 11.0 D Monocytes % 8.8 Eosinophils % 0.2 D Basophils % 0.6 - RADIOLOGY Radiology Studies Ordered: Category Date Time Status ABDOMEN & PELVIS CT WITH CONTR [CT] Stat CT Scan 04/22/19 15:45 Completed - Medications Given in the ED: ED Medications Discontinued Medications Generic Name Dose Route Start Last Admin Trade Name Travis PRN Reason Stop Dose Admin Acetaminophen 1,000 mg 04/22/19 12:04 04/22/19 12:33 Ofirmev Injection - IVPB 04/22/19 12:05 1,000 mg ONCE ONE Administration Lidocaine 1 patch 04/22/19 14:15 04/22/19 14:36 Lidoderm Patch - TP 04/22/19 14:16 1 patch ONCE ONE Administration Tramadol HCl 50 mg 04/22/19 14:16 04/22/19 14:36 Ultram - PO 04/22/19 14:17 50 mg ONCE ONE Administration <Mitra Basilio - Last Filed: 04/23/19 08:14> Medical Decision Making - Medical Decision Making 04/22/19 11:57 83F with HTN, HLD, hypothyroidism, hyponatremia, s/p hiatal hernia repair 1.5 months ago, presenting with right axillary pain that started a couple hours ago. Pt has right sided axillary pain that appears colicky, and diffuse pain throughout the abdomen. DDx is broad and includes ACS, costochondritis, biliary colic vs cholecystitis, gastric ulcer, shingles. Will obtain EKG, CXR, CBC, CMP, troponin, lipase. 04/22/19 12:22 EKG shows HR 57 bpm, sinus bradycardia, left axis deviation, no ST elevation or depression, QTc 445 ms. 04/22/19 14:17 Pt reassessed with attending. Reports some decrease in axillary pain with tylenol. Patient continues to have diffuse abdominal pain. Since this has been going on for a few days, we will obtain CT of the abd/pelv with IV contrast. Tramadol 50 mg ordered for continued pain control. 04/22/19 17:15 CT abd shows findings of recent hernia repair with mural thickening/surrounding edema of the distal esophagus and proximal stomach which could be postoperative ch angel luis or could represent new inflammation. Surgical consultation recommended. Patient reports that pain has moderately improved on re-exam. We will plan to d/ c home and f/u with her surgeon Dr. Owens on Tuesday with strict return precautions. <Joseluis Martínez - Last Filed: 04/22/19 17:56> *DC/Admit/Observation/Transfer - Discharge Dispostion Decision to Admit order: No <Joseluis Martínez - Last Filed: 04/22/19 17:56> <Mitra Basilio - Last Filed: 04/23/19 08:14> Diagnosis at time of Disposition: Chest wall discomfort Abdominal pain Qualifiers: Abdominal location: generalized Qualified Code(s): R10.84 - Generalized abdominal pain - Discharge Dispostion Disposition: HOME Condition at time of disposition: Stable - Referrals Referrals: Virginia Wallace MD [Primary Care Provider] - - Patient Instructions Additional Instructions: Please take Tylenol as needed for any pain. rest adequately Please keep your appointment and follow up with your surgeon on Tuesday. If you develop any new or worsening pain, fever, severe vomiting, or have any other concern, please return to the emergency room.
[2019-04-22] MEDS ORDERED: ACETAMINOPHEN 1000 MG/100 ML VIAL (NON FORMULARY) IVPB ONE (12:04)
[2019-04-22] MEDS ORDERED: ACETAMINOPHEN INJECTION 100 ML IVPB ONE (12:22)
[2019-04-22 12:31] LABS: BASO % 0.6 % (0-2.0); EOS % 0.2 % (0-4.5); HEMATOCRIT 35.4 % (32.4-45.2); HEMOGLOBIN 11.9 GM/dL (10.7-15.3); MCH 27.7 pg (25.7-33.7); MCHC 33.7 g/dl (32.0-36.0); MEAN CELL VOLUME 82.2 fl (80-96); MEAN PLT VOLUME 7.4 fl (7.5-11.1); MONO % 8.8 % (3.8-10.2); NEUT % 79.4 % (42.8-82.8); PLATELET COUNT 357 K/MM3 (134-434); RBC 4.31 M/mm3 (3.60-5.2); RDW 14.9 % (11.6-15.6); WHITE BLOOD COUNT 8.3 K/mm3 (4.0-10.0)
--- NOTE | 2019-04-22 12:58 | PDOC ---
Documentation entered by Adria Samayoa SCRIBE, acting as scribe for Mitra Basilio MD. Mitra Basilio MD: This documentation has been prepared by the Yao herrera Xhesika, SCRIBE, under my direction and personally reviewed by me in its entirety. I confirm that the documentation accurately reflects all work, treatment, procedures, and medical decision making performed by me. Attending Attestation - Resident Resident Name: Joseluis Martínez - ED Attending Attestation I have performed the following: I have examined & evaluated the patient, The case was reviewed & discussed with the resident, I agree w/resident's findings & plan - HPI HPI: 04/22/19 12:42 The patient is an 83 year old female with a significant past medical history of hiatal hernia, anemia, fungal infection, hypertension, hypercholesterolemia, hypothyroidism, GERD, and recurrent UTIs who presents to the ED with R sided axillary /chest wall pain since 4:30am. As per son in law at bedside, the patient fell in her bathroom this morning, denies hitting head or LOC. she did land on her back, but no pain there. Son at bedside notes, the patient endorsed an upset stomach, took pepto bismol with relief of symptoms. prior EGD unremarkable. also noted to have diffuse abdominal pain x 3 days, associated with poor appetite, but also does take pureed food. Denies fever, chills, SOB, palpitation, dizziness, weakness, N, V, D, bladder and bowel problems, leg swelling, No sick contacts or travel. No new changes in medications. Allergies: None Past Medical History: Social history: Lives with family. No tobacco, ETOH or drug use. Surgical history: hysterectomy, cholecystectomy PCP: Virginia Wallace 04/22/19 12:55 04/22/19 14:16 - Physicial Exam PE: 04/22/19 12:42 Agree with the resident's HPI and PE as documented in the electronic medical record. NAD, well appearing, EOMI, PERRL, nl conjunctiva, anicteric; neck supple. right axillary/right lateral chest wall TTP, no crepitus and no ecchymosis. no rash. no respiratory distress, lungs clear, RRR, abdomen soft diffusely tender with voluntary guarding, no rebound. Back nontender. no midline tenderness, REDDY x4, no focal neuro deficits. No peripheral edema. normal color for ethnicity, WWP. 04/22/19 14:18 04/22/19 14:19 - Medical Decision Making 04/22/19 12:55 See HPI for details. Prior notes reviewed, including admissions, discharges and consultations. Vital signs reviewed, wnl. DDX ACS, arrhythmia, zoster, hiatal hernia, GERD, electrolyte/metabolic derangements, rib fracture, PTX, infection, mass. effusion, msk strain, AAA, abdominal pathology/infection, obstruction. laboratory results and imaging reviewed, basic labs and lytes wnl, notable for chronic hyponatremia, prior results with sodium 125-130s. LFTs/lipase_wnl, UA_neg CXR_clear lungs, normal cardiac silhouette, no effusion or infiltrate/opacity Cardiac panel_neg EKG normal sinus rhythm at 57 bpm, no interval abnormalities, narrow QRS, ST and T wave segments and morphology normal. Nonspecific T wave abnormalities ED course -interventions: analgesia - CT a/p to eval for intra abdominal infection given pain diffusely, nonfocal, with prior surgery and hiatal hernia/abdominal sx. no acute pathology, post hernia repair. some inflammation and likely lower esophagitis/gastritis as etiology of pain, has surgery followup in 5 days. - resident spoke with Dr Jose Alejandro durand, agreeing with plan. Discharge: Pt to be discharged in stable condition. Patient and family made aware of clinical impression, treatment recommendations and disposition plan, return precautions discussed (including but not limited to new or persistent/ worsening symptoms, pain, fevers, or signs of infection, chest pain, respiratory distress, inability to tolerate oral intake, dehydration, syncope, or neurologic changes). Follow up with PMD and/or specialist as recommended, follow up information provided, take medications as instructed for duration of time. continue with supportive care, avoid triggers and precipitants. All questions answered to patient's satisfaction and expressed understanding and comfort with this. At the time of discharge, the patient is alert, clinically improved, tolerating po and verbalizes understanding of instructions, satisfied with the care received and felt comfortable with the plan. Patient does not suffer from an acute life-threatening medical condition at this time and is safe for outpatient follow-up. 04/22/19 14:19 04/22/19 14:19 04/22/19 14:20 04/23/19 08:15 Heart Score/ECG Review #1 ECG reviewed & interpreted by me at: 11:50 General ECG Interpretation: Sinus Rhythm, Normal Rate, Normal Intervals Compared to previous ECG there are: No significant change 04/22/19 12:58 EKG normal sinus rhythm at 57 bpm, no interval abnormalities, narrow QRS, ST and T wave segments and morphology normal. Nonspecific T wave abnormalities
[2019-04-22 13:01] LABS: ALBUMIN 3.9 g/dl (3.4-5.0); BILIRUBIN,TOTAL 0.9 mg/dL (0.2-1); BLOOD UREA NITROGEN 13.3 mg/dL (7-18); CALCIUM 9.9 mg/dL (8.5-10.1); CREATININE 0.7 mg/dL (0.55-1.3); POTASSIUM 4.1 mmol/L (3.5-5.1)
[2019-04-22 13:28] LABS: EPI CELLS 3.5 /HPF (0-5/HPF); HYALINE CASTS 0 /lpf (0-8); PH,URINE 8.5 (5.0-8.0); URINE APPEARANCE CLEAR; URINE BACTERIA 148.4 /hpf (NEGATIVE); URINE BILIRUBIN NEGATIVE (NEGATIVE); URINE COLOR YELLOW; URINE GLUCOSE (UA) NEGATIVE (NEGATIVE); URINE KETONE NEGATIVE (NEGATIVE); URINE LEUK ESTERASE 1+ (NEGATIVE); URINE NITRITE NEGATIVE (NEGATIVE); URINE PROTEIN NEGATIVE (NEGATIVE); URINE RBC 1 /hpf (0-4); URINE UROBILINOGEN 0.2 mg/dL (0.2-1.0); URINE WBC 1 /hpf (0-5)
[2019-04-22] MEDS ORDERED: LIDOCAINE 5% TOPICAL PATCH TP ONE (14:15)
[2019-04-22] MEDS ORDERED: traMADol HCL 50 MG TABLET PO ONE (14:16)
[2019-04-22] MEDS ORDERED: traMADol HCL 50 MG TABLET ONE (14:21)
[2019-04-22] MEDS ORDERED: LIDOCAINE 5% TOPICAL PATCH ONE (14:21)
[2019-04-22 17:04] VITALS: TEMP 98
--- NOTE | 2019-04-22 17:38 | EKG ---
Test Reason : Blood Pressure : / mmHG Vent. Rate : 057 BPM Atrial Rate : 057 BPM P-R Int : 166 ms QRS Dur : 096 ms QT Int : 458 ms P-R-T Axes : 055 -38 054 degrees QTc Int : 445 ms SINUS BRADYCARDIA POSSIBLE LEFT ATRIAL ENLARGEMENT LEFT AXIS DEVIATION LEFT VENTRICULAR HYPERTROPHY NONSPECIFIC T WAVE ABNORMALITY ABNORMAL ECG WHEN COMPARED WITH ECG OF 17-DEC-2018 17:27, NON-SPECIFIC CHANGE IN ST SEGMENT IN LATERAL LEADS NONSPECIFIC T WAVE ABNORMALITY, WORSE IN LATERAL LEADS Confirmed by ELIZABETH FRIEND MD ([id number]) on 04/22/2019 5:37:51 PM Referred By: Confirmed By:ELIZABETH FRIEND MD
[2019-04-22 18:27] VITALS: BP 136/72; PULSE 68
[2019-04-22] MEDS ORDERED: LIDOCAINE PATCH REMOVAL MC SCH (22:00)
== END 2019-04-22 18:55 | disposition home or self-care (01) ==
LOC: JER 10:53
PROC: 3E033NZ Introduction of Analgesics, Hypnotics, Sedatives into Peripheral Vein, Percutaneous Approach (ICD-10-PCS; principal; 2019-04-22)
DX: R07.89 Other chest pain (principal); R10.84 Generalized abdominal pain; I10 Essential (primary) hypertension; E78.5 Hyperlipidemia, unspecified; E03.9 Hypothyroidism, unspecified; K21.9 Gastro-esophageal reflux disease without esophagitis; Z87.440 Personal history of urinary (tract) infections
CPT/HCPCS: 36415; 71045-TC-FY; 74177-TC; 80053; 81003; 82550; 83690; 84484; 85025; 93005; 93010; 96374; 99283-25; J0131

== ENCOUNTER 2019-05-15 12:47 | Emergency (ER) | payer OTHER | END 2019-05-15 17:54 | disposition home or self-care (01) | LOC: JER 12:47 ==

== ENCOUNTER 2021-12-18 13:06 | Inpatient (IN) | payer MEDICARE, OTHER ==
[2021-12-18] MEDS ORDERED: ACETAMINOPHEN 1000 MG/100 ML BAG IVPB ONE (14:15)
[2021-12-18] MEDS ORDERED: MAG HYDROX/AL HYDROX/SIMETH -MYLANTA- ORAL SUSPENSION PO ONE (14:15)
[2021-12-18] MEDS ORDERED: FAMOTIDINE 20 MG/50 ML IVPB 20 MG/50 ML MG IVPB ONE ×2 (14:15→14:21)
[2021-12-18] MEDS ORDERED: MAG HYDROX/AL HYDROX/SIMETH 30 ML UNIT-DOSE CUP ONE (14:21)
[2021-12-18] MEDS ORDERED: ACETAMINOPHEN INJECTION 100 ML IVPB ONE (14:21)
[2021-12-18] MEDS ORDERED: SODIUM CHLORIDE 0.9% 500 ML INFUS.BAG IV ONE (14:23)
[2021-12-18 15:01] LABS: BASO % 0.5 % (0-2.0); EOS % 0.8 % (0-4.5); HEMOGLOBIN 11.7 GM/dL (10.7-15.3); LYMPH % 20.3 % (8-40); MCH 29.7 pg (25.7-33.7); MCHC 35.3 g/dl (32.0-36.0); MEAN CELL VOLUME 84.1 fl (80-96); MEAN PLT VOLUME 8.3 fl (7.5-11.1); MONO % 9.9 % (3.8-10.2); NEUT % 68.5 % (42.8-82.8); PLATELET COUNT 364 10^3/uL (134-434); RBC 3.92 M/mm3 (3.60-5.2); RDW 13.4 % (11.6-15.6); WHITE BLOOD COUNT 9.2 K/mm3 (4.0-10.0)
[2021-12-18 15:29] LABS: ALBUMIN 3.8 g/dl (3.4-5.0)
[2021-12-18 15:34] LABS: BILIRUBIN,TOTAL 1.4 mg/dL (0.2-1); TOT PROT 7.7 g/dl (6.4-8.2)
[2021-12-18] MEDS ORDERED: morphine CARPU-JECT 2 MG/1 ML DISP.SYRIN IVPUSH ONE (15:52)
[2021-12-18] MEDS ORDERED: ONDANSETRON 4 MG/2 ML VIAL IVPUSH ONE (15:57)
[2021-12-18] MEDS ORDERED: ONDANSETRON 4 MG/2 ML VIAL ONE (15:58)
[2021-12-18 16:28] LABS: EPI CELLS 33 /uL (0-25.1); HYALINE CASTS 4 /uL (0-3.1); URINE APPEARANCE CLOUDY; URINE BACTERIA >9,000 /uL (0-1359); URINE BILIRUBIN NEGATIVE (NEGATIVE); URINE COLOR YELLOW; URINE GLUCOSE (UA) NEGATIVE (NEGATIVE); URINE KETONE TRACE (NEGATIVE); URINE LEUK ESTERASE 3+ (NEGATIVE); URINE NITRITE NEGATIVE (NEGATIVE); URINE PROTEIN TRACE (NEGATIVE); URINE RBC 21 /uL (0-23.9); URINE UROBILINOGEN 0.2 mg/dL (0.2-1.0); URINE WBC 655 /uL (0-25.8)
[2021-12-18] MEDS ORDERED: METOCLOPRAMIDE HCL INJECTION 10 MG/2 ML VIAL IVPUSH ONE (16:53)
[2021-12-18] MEDS ORDERED: ASPIRIN 325 MG TABLET PO ONE (17:45)
[2021-12-18] MEDS ORDERED: CEFTRIAXONE 1 GM in DEXTROSE 5%-WATER - 100 ML IVPB ONE (17:45)
[2021-12-18] MEDS ORDERED: ASPIRIN 325 MG TABLET ONE (18:09)
[2021-12-18] MEDS ORDERED: CEFTRIAXONE 1 GM/50 ML BAG ONE (18:09)
[2021-12-18] MEDS ORDERED: cefTRIAXone SODIUM 1 GM VIAL IVPB ONE (23:15)
[2021-12-19] MEDS ORDERED: CEFTRIAXONE 1 GM/50 ML BAG ONE ×2 (00:07→09:37)
[2021-12-19] MEDS: LEVOTHYROXINE NA 88 MCG TABLET (FP) PO SCH (06:58)
[2021-12-19 08:11] LABS: BASO % 0.7 % (0-2.0); EOS % 3.4 % (0-4.5); HEMATOCRIT 35.9 % (32.4-45.2); HEMOGLOBIN 12.5 GM/dL (10.7-15.3); LYMPH % 15.7 % (8-40); MCH 29.7 pg (25.7-33.7); MEAN PLT VOLUME 7.9 fl (7.5-11.1); MONO % 10.2 % (3.8-10.2); PLATELET COUNT 331 10^3/uL (134-434); RBC 4.22 M/mm3 (3.60-5.2); RDW 13.8 % (11.6-15.6); WHITE BLOOD COUNT 7.2 K/mm3 (4.0-10.0)
[2021-12-19 08:32] LABS: MAGNESIUM 2.1 mg/dL (1.8-2.4)
[2021-12-19 08:36] LABS: PHOSPHOROUS 3.3 mg/dL (2.5-4.9)
[2021-12-19] MEDS ORDERED: amLODIPine BESYLATE 5 MG TABLET (FP) ONE (09:36)
[2021-12-19] MEDS ORDERED: CARVEDILOL 3.125 MG TABLET (FP) ONE (09:37)
[2021-12-19] MEDS ORDERED: LOSARTAN POTASSIUM 50 MG TABLET ONE (09:37)
[2021-12-19] MEDS ORDERED: ASPIRIN COATED 81 MG TABLET.EC ONE (09:37)
[2021-12-19] MEDS: CARVEDILOL 6.25 MG TABLET (FP) PO SCH ×2 (09:44→23:55)
[2021-12-19] MEDS: LOSARTAN POTASSIUM 50 MG TABLET PO SCH ×2 (09:44→23:54)
[2021-12-19] MEDS: amLODIPine BESYLATE 5 MG TABLET (FP) PO SCH (09:45)
[2021-12-19] MEDS: CEFTRIAXONE 1 GM in DEXTROSE 5%-WATER - 50 ML IVPB SCH (09:45)
[2021-12-19] MEDS: ENOXAPARIN NA (PORCINE) 40 MG/0.4 ML DISP.SYRIN SQ SCH (09:45)
[2021-12-19] MEDS: ASPIRIN COATED 81 MG TABLET.EC PO SCH (09:45)
[2021-12-19] MEDS ORDERED: MAG HYDROX/AL HYDROX/SIMETH 30 ML UNIT-DOSE CUP PO ONE (18:37)
[2021-12-19] MEDS ORDERED: FAMOTIDINE 20 MG/50 ML IVPB 20 MG/50 ML MG IVPB ONE ×2 (18:40→19:56)
[2021-12-19] MEDS ORDERED: MAG HYDROX/AL HYDROX/SIMETH 30 ML UNIT-DOSE CUP ONE (19:56)
[2021-12-19] MEDS ORDERED: ATORVASTATIN CA 10 MG TABLET (FP) PO SCH (22:00)
[2021-12-19] MEDS: LACTOBACILLUS ACIDOPHILUS 1 TABLET PO SCH (23:52)
[2021-12-19] MEDS: ATORVASTATIN CA 20 MG TABLET (FP) PO SCH (23:53)
[2021-12-20] MEDS: LEVOTHYROXINE NA 88 MCG TABLET (FP) PO SCH (06:34)
[2021-12-20 07:41] LABS: ALBUMIN 3.3 g/dl (3.4-5.0); BLOOD UREA NITROGEN 12.3 mg/dL (7-18); CALCIUM 9.1 mg/dL (8.5-10.1)
[2021-12-20 07:44] LABS: CREATININE 0.7 mg/dL (0.55-1.3)
[2021-12-20 07:45] LABS: BILIRUBIN,TOTAL 0.6 mg/dL (0.2-1)
[2021-12-20] MEDS ORDERED: cefTRIAXone SODIUM 1 GM VIAL ONE (09:53)
[2021-12-20] MEDS ORDERED: DEXTROSE 5%-WATER - 50 ML IVPB ONE (09:53)
[2021-12-20] MEDS ORDERED: amLODIPine BESYLATE 5 MG TABLET (FP) PO ONE (10:23)
[2021-12-20] MEDS: CARVEDILOL 6.25 MG TABLET (FP) PO SCH ×2 (11:28→21:08)
[2021-12-20] MEDS: ASPIRIN COATED 81 MG TABLET.EC PO SCH (11:28)
[2021-12-20] MEDS: FAMOTIDINE 20 MG TABLET PO SCH (11:29)
[2021-12-20] MEDS: CEFTRIAXONE 1 GM in DEXTROSE 5%-WATER - 50 ML IVPB SCH (11:30)
[2021-12-20] MEDS: ENOXAPARIN NA (PORCINE) 40 MG/0.4 ML DISP.SYRIN SQ SCH (11:30)
[2021-12-20] MEDS: LOSARTAN POTASSIUM 50 MG TABLET PO SCH ×2 (11:32→21:08)
[2021-12-20] MEDS: amLODIPine BESYLATE 5 MG TABLET (FP) PO SCH (11:47)
[2021-12-20 18:55] VITALS: BMI 21.5
[2021-12-20] MEDS: LACTOBACILLUS ACIDOPHILUS 1 TABLET PO SCH (21:08)
[2021-12-20] MEDS: ATORVASTATIN CA 20 MG TABLET (FP) PO SCH (21:08)
[2021-12-20] MEDS ORDERED: amLODIPine BESYLATE 5 MG TABLET (FP) PO SCH (22:00)
[2021-12-21] MEDS: LEVOTHYROXINE NA 88 MCG TABLET (FP) PO SCH (06:07)
[2021-12-21] MEDS: LOSARTAN POTASSIUM 50 MG TABLET PO SCH ×3 (08:18→21:13)
[2021-12-21] MEDS: CARVEDILOL 6.25 MG TABLET (FP) PO SCH ×2 (08:19→12:17)
[2021-12-21] MEDS ORDERED: REGADENOSON 0.4 MG/5 ML PRE-FILLED SYRINGE IVPUSH ONE ×2 (10:05→10:45)
[2021-12-21] MEDS ORDERED: cefTRIAXone SODIUM 1 GM VIAL ONE (10:17)
[2021-12-21] MEDS ORDERED: DEXTROSE 5%-WATER - 50 ML IVPB ONE (10:18)
[2021-12-21] MEDS: ASPIRIN COATED 81 MG TABLET.EC PO SCH (12:25)
[2021-12-21] MEDS: ENOXAPARIN NA (PORCINE) 40 MG/0.4 ML DISP.SYRIN SQ SCH (12:26)
[2021-12-21] MEDS: FAMOTIDINE 20 MG TABLET PO SCH (12:26)
[2021-12-21] MEDS: CEFTRIAXONE 1 GM in DEXTROSE 5%-WATER - 50 ML IVPB SCH (12:27)
[2021-12-21] MEDS ORDERED: morphine CARPU-JECT 4 MG/1 ML DISP.SYRIN IVPUSH SCH (20:00)
[2021-12-21] MEDS: LACTOBACILLUS ACIDOPHILUS 1 TABLET PO SCH (21:12)
[2021-12-21] MEDS: amLODIPine BESYLATE 10 MG TABLET (FP) PO SCH (21:12)
[2021-12-22] MEDS: LEVOTHYROXINE NA 88 MCG TABLET (FP) PO SCH (06:45)
[2021-12-22] MEDS ORDERED: DEXTROSE 5%-WATER - 50 ML IVPB ONE (08:38)
[2021-12-22] MEDS ORDERED: cefTRIAXone SODIUM 1 GM VIAL ONE (08:38)
[2021-12-22 08:54] LABS: ALBUMIN 3.5 g/dl (3.4-5.0); BLOOD UREA NITROGEN 7.8 mg/dL (7-18); CALCIUM 9.4 mg/dL (8.5-10.1)
[2021-12-22 08:57] LABS: CREATININE 0.6 mg/dL (0.55-1.3)
[2021-12-22 09:00] LABS: BILIRUBIN,TOTAL 0.6 mg/dL (0.2-1)
[2021-12-22 09:01] LABS: TOT PROT 7.3 g/dl (6.4-8.2)
[2021-12-22] MEDS: FAMOTIDINE 20 MG TABLET PO SCH (09:50)
[2021-12-22] MEDS: ASPIRIN COATED 81 MG TABLET.EC PO SCH (09:50)
[2021-12-22] MEDS: CEFTRIAXONE 1 GM in DEXTROSE 5%-WATER - 50 ML IVPB SCH (09:50)
[2021-12-22] MEDS: ENOXAPARIN NA (PORCINE) 40 MG/0.4 ML DISP.SYRIN SQ SCH (09:50)
[2021-12-22] MEDS: LOSARTAN POTASSIUM 50 MG TABLET PO SCH ×2 (09:51→21:34)
[2021-12-22] MEDS ORDERED: ONDANSETRON 4 MG/2 ML VIAL IVPUSH ONE (20:12)
[2021-12-22] MEDS ORDERED: TRIMETHOBENZAMIDE HCL 200MG/2ML INJ IM PRN (20:17)
[2021-12-22] MEDS: amLODIPine BESYLATE 10 MG TABLET (FP) PO SCH (21:34)
[2021-12-22] MEDS: LACTOBACILLUS ACIDOPHILUS 1 TABLET PO SCH (21:34)
[2021-12-23] MEDS: LEVOTHYROXINE NA 88 MCG TABLET (FP) PO SCH (06:31)
[2021-12-23 07:31] LABS: CALCIUM 9.7 mg/dL (8.5-10.1)
[2021-12-23 07:32] LABS: BLOOD UREA NITROGEN 8.2 mg/dL (7-18); MAGNESIUM 1.8 mg/dL (1.8-2.4)
[2021-12-23 07:35] LABS: CREATININE 0.6 mg/dL (0.55-1.3); PHOSPHOROUS 3.4 mg/dL (2.5-4.9)
[2021-12-23] MEDS: SODIUM CHLORIDE 1,000 ML IV SCH ×2 (08:51→16:21)
[2021-12-23] MEDS: ASPIRIN COATED 81 MG TABLET.EC PO SCH (09:19)
[2021-12-23] MEDS: FAMOTIDINE 20 MG TABLET PO SCH (09:20)
[2021-12-23] MEDS: LOSARTAN POTASSIUM 50 MG TABLET PO SCH ×2 (09:21→21:06)
[2021-12-23] MEDS: BISMUTH SUBSALICYLATE 262 MG/15 ML BTL PO SCH (09:22)
[2021-12-23] MEDS: ENOXAPARIN NA (PORCINE) 40 MG/0.4 ML DISP.SYRIN SQ SCH (09:25)
[2021-12-23] MEDS ORDERED: SODIUM CHLORIDE 500 ML IV STA (12:19)
[2021-12-23] MEDS: amLODIPine BESYLATE 10 MG TABLET (FP) PO SCH (21:06)
[2021-12-23] MEDS: LACTOBACILLUS ACIDOPHILUS 1 TABLET PO SCH (21:06)
[2021-12-23] MEDS ORDERED: MELATONIN 1 MG TABLET PO PRN (21:19)
[2021-12-24] MEDS: LEVOTHYROXINE NA 88 MCG TABLET (FP) PO SCH (06:48)
[2021-12-24 07:01] LABS: HEMATOCRIT 35.1 % (32.4-45.2); HEMOGLOBIN 12.3 GM/dL (10.7-15.3); MCH 29.7 pg (25.7-33.7); MCHC 34.9 g/dl (32.0-36.0); MEAN CELL VOLUME 85.1 fl (80-96); PLATELET COUNT 350 10^3/uL (134-434); RBC 4.13 M/mm3 (3.60-5.2); RDW 13.6 % (11.6-15.6); WHITE BLOOD COUNT 7.1 K/mm3 (4.0-10.0)
[2021-12-24 07:18] LABS: ALBUMIN 3.3 g/dl (3.4-5.0); BLOOD UREA NITROGEN 5.2 mg/dL (7-18); CALCIUM 8.9 mg/dL (8.5-10.1)
[2021-12-24 07:21] LABS: CREATININE 0.6 mg/dL (0.55-1.3)
[2021-12-24 07:22] LABS: BILIRUBIN,TOTAL 0.6 mg/dL (0.2-1); TOT PROT 6.8 g/dl (6.4-8.2)
[2021-12-24] MEDS ORDERED: POTASSIUM CHLORIDE TABS 10 MEQ TABLET.ER (FP) PO ONE (09:05)
[2021-12-24] MEDS: SODIUM CHLORIDE 1,000 ML IV SCH (10:31)
[2021-12-24] MEDS: LOSARTAN POTASSIUM 50 MG TABLET PO SCH (10:33)
[2021-12-24] MEDS: ASPIRIN COATED 81 MG TABLET.EC PO SCH (10:33)
[2021-12-24] MEDS: FAMOTIDINE 20 MG TABLET PO SCH (10:33)
[2021-12-24] MEDS: ENOXAPARIN NA (PORCINE) 40 MG/0.4 ML DISP.SYRIN SQ SCH (10:33)
[2021-12-24] MEDS: BISMUTH SUBSALICYLATE 262 MG/15 ML BTL PO SCH (11:57)
[2021-12-24] MEDS ORDERED: SIMETHICONE 80 MG TAB.CHEW (FP) PO PRN (13:52)
[2021-12-24 14:01] VITALS: BP 142/60; PULSE 69; TEMP 98.5
== END 2021-12-24 18:10 | disposition home health service (06) | DRG 392 ==
LOC: JER 13:06 → JERBED 17:40 → OBSVTOIN 23:00 → J4W 12-19 22:08
PROVIDERS: ADMIT Hospitalist
DX: A09 Infectious gastroenteritis and colitis, unspecified (principal); I24.8 Other forms of acute ischemic heart disease; E87.1 Hypo-osmolality and hyponatremia; N39.0 Urinary tract infection, site not specified; K59.1 Functional diarrhea; R74.01 Elevation of levels of liver transaminase levels; I10 Essential (primary) hypertension; E03.9 Hypothyroidism, unspecified; K21.9 Gastro-esophageal reflux disease without esophagitis; E78.5 Hyperlipidemia, unspecified
CPT/HCPCS: 36415; 71045-TC-FY; 74176-TC; 74177-TC; 76705-TC; 78452-TC; 80048; 80053; 80061; 81003; 82550; 82962; 83036; 83605; 83690; 83735; 83930; 83935; 84100; 84439; 84443; 84484; 85025; 85027; 87045; 87046; 87086; 87186; 87205; 87324; 87338; 87449; 93005; 93010; 93017; 93306-TC; 97116-GP; 97162-GP; 99285-25; A9502; C9803-CS; G0378; J2785; Q9967; U0003; U0005